=== PATIENT | female | born 1935 | race Caucasian/White ===

== ENCOUNTER 2016-02-20 13:57 | Emergency (ER) | payer MEDICARE ==
--- NOTE | 2016-02-20 15:36 | ER Document Report ---
ED Medical Screen (RME) - General Chief Complaint: Flank Pain Stated Complaint: BACK PAIN Mode of Arrival: Wheelchair Information source: Patient Notes: Patient is complaining of sharp intermittent bilateral low back pain that started 02/10/16 with associated urinary hesitancy. She was seen at urgent care last Saturday and was told her urinalysis was fine. She states the pain worsened last night because it woke her up out of her sleep. Endorses associated muscle spasms. Pain worse with movement or bending over. She has tried tylenol which did not provide relief. She was given what she believes was an antibotic from the urgent care that she took for 3 days. TRAVEL OUTSIDE OF THE [place] IN LAST 30 DAYS: No - Related Data Allergies/Adverse Reactions: No Known Allergies Allergy (Verified 02/20/16 14:13) Past Medical History - Past Medical History Cardiac Medical History: Reports: Hx Hypertension - medicated Denies: Hx Heart Attack Pulmonary Medical History: Denies: Hx Asthma Neurological Medical History: Denies: Hx Cerebrovascular Accident, Hx Seizures GI Medical History: Denies: Hx Hepatitis, Hx Hiatal Hernia, Hx Ulcer Infectious Medical History: Denies: Hx Hepatitis Past Surgical History: Denies: Hx Hysterectomy, Hx Mastectomy, Hx Open Heart Surgery, Hx Pacemaker Review of Systems - Review of Systems Constitutional: See HPI Genitourinary: See HPI Musculoskeletal: See HPI Physical Exam - Vital signs Vitals: Temp Pulse Resp BP Pulse Ox 98.1 F 64 20 142/51 H 100 02/20/16 14:09 02/20/16 14:09 02/20/16 14:02/20/16 14:02/20/16 14:09 - Notes Notes: General: well-appearing, no respiratory distress Course - Vital Signs Vital signs: Temp Pulse Resp BP Pulse Ox 98.1 F 64 20 142/51 H 100 02/20/16 14:09 02/20/16 14:09 02/20/16 14:02/20/16 14:02/20/16 14:09
[2016-02-20 18:03] LABS: APPEARANCE,URINE CLEAR; BILIRUBIN,URINE NEGATIVE (NEGATIVE); GLUCOSE, URINE NEGATIVE (NEGATIVE); KETONES,URINE NEGATIVE (NEGATIVE); LEUKOCYTE ESTERASE,URINE LARGE (NEGATIVE); NITRITE,URINE NEGATIVE (NEGATIVE); PROTEIN,URINE NEGATIVE (NEGATIVE); URINE SPECIFIC GRAVITY 1.011; UROBILINOGEN,URINE NEGATIVE mg/dL (<2.0)
[2016-02-20] MEDS ORDERED: HYDROCODONE/ACETAMINOPHEN 5-325 MG TABLET PO ONE (18:34)
[2016-02-20] MEDS ORDERED: LIDOCAINE 5% (700 MG) TRANSDERMAL ADH..PATCH TP ONE (18:34)
[2016-02-20 18:48] LABS: ABSOLUTE BASOPHILS # (AUTO) 0.1 10^3/uL (0.0-0.2); ABSOLUTE EOSINOPHILS # (AUTO) 0.1 10^3/uL (0.0-0.6); ABSOLUTE LYMPHOCYTES (AUTO) 1.5 10^3/uL (0.5-4.7); ABSOLUTE MONOCYTES (AUTO) 0.8 10^3/uL (0.1-1.4); ABSOLUTE NEUT (AUTO) 3.9 10^3/uL (1.7-8.2); BASOPHILS % (AUTO) 1.1 % (0-2); EOSINOPHILS % (AUTO) 1.4 % (0-6); HEMATOCRIT 41.4 % (36.0-47.0); HEMOGLOBIN 13.8 g/dL (12.0-15.5); MEAN CORPUSCULAR HEMOGLOBIN 32.5 pg (27.0-33.4); MEAN CORPUSCULAR HGB CONC 33.3 g/dL (32.0-36.0); MEAN CORPUSCULAR VOLUME 98 fl (80-97); MONOCYTES % (AUTO) 12.1 % (3-13); RED BLOOD COUNT 4.25 10^6/uL (3.72-5.28); RED CELL DISTRIBUTION WIDTH 16.7 % (11.5-14.0); SEGMENTED NEUTROPHILS % (AUTO) 61.4 % (42-78); WHITE BLOOD COUNT 6.4 10^3/uL (4.0-10.5)
[2016-02-20 19:06] LABS: ANION GAP 16 (5-19); BLOOD UREA NITROGEN 12 mg/dL (7-20); CALCIUM 9.4 mg/dL (8.4-10.2); CARBON DIOXIDE 26 mmol/L (22-30); CHLORIDE 102 mmol/L (98-107); CREATININE RESULT 0.68 mg/dL (0.52-1.25); GLUCOSE 97 mg/dL (75-110); POTASSIUM 3.8 mmol/L (3.6-5.0); SODIUM 143.9 mmol/L (137-145)
[2016-02-20] MEDS ORDERED: SULFAMETHOXAZOLE/TRIMETHOPRIM 800-160 MG TABLET PO ONE (21:04)
--- NOTE | 2016-02-20 21:10 | ER Document Report ---
ED General - General Chief Complaint: Flank Pain Stated Complaint: BACK PAIN Mode of Arrival: Wheelchair TRAVEL OUTSIDE OF THE [place] IN LAST 30 DAYS: No - HPI Patient complains to provider of: lower back pain flank pain Notes: Patient coming in for evaluation of lower back pain flank pain ongoing since . Patient denies any trauma denies fevers chills patient states possible some mild dysuria. Patient otherwise is sitting comfortably normal gait, evaluation in the examination room no fevers or chills and nausea no vomiting no recent antibiotics - Related Data Allergies/Adverse Reactions: No Known Allergies Allergy (Verified 02/20/16 14:13) Past Medical History - General Information source: Patient Last Menstrual Period: unknown - Social History Smoking Status: Never Smoker Frequency of alcohol use: None Drug Abuse: None Family History: None Patient has suicidal ideation: No Patient has homicidal ideation: No - Past Medical History Cardiac Medical History: Reports: Hx Hypercholesterolemia, Hx Hypertension - medicated Denies: Hx Heart Attack Pulmonary Medical History: Denies: Hx Asthma Neurological Medical History: Denies: Hx Cerebrovascular Accident, Hx Seizures GI Medical History: Denies: Hx Hepatitis, Hx Hiatal Hernia, Hx Ulcer Musculoskeltal Medical History: Reports Hx Arthritis Infectious Medical History: Denies: Hx Hepatitis Past Surgical History: Reports: Hx Tonsillectomy, Hx Tubal Ligation. Denies: Hx Hysterectomy, Hx Mastectomy, Hx Open Heart Surgery, Hx Pacemaker - Immunizations Hx Diphtheria, Pertussis, Tetanus Vaccination: No Review of Systems - Review of Systems Constitutional: No symptoms reported EENT: No symptoms reported Cardiovascular: No symptoms reported Respiratory: No symptoms reported Gastrointestinal: No symptoms reported Genitourinary: Dysuria, Flank pain Female Genitourinary: Other - Flank pain Musculoskeletal: No symptoms reported Skin: No symptoms reported Hematologic/Lymphatic: No symptoms reported Neurological/Psychological: No symptoms reported -: Yes All other systems reviewed and negative Physical Exam - Vital signs Vitals: Temp Pulse Resp BP Pulse Ox 98.1 F 64 20 142/51 H 100 02/20/16 14:09 02/20/16 14:09 02/20/16 14:09 02/20/16 14:09 02/20/16 14:09 Interpretation: Normal - General General appearance: Appears well, Alert - HEENT Head: Normocephalic, Atraumatic Eyes: Normal Pupils: PERRL - Respiratory Respiratory status: No respiratory distress Chest status: Nontender Breath sounds: Normal Chest palpation: Normal - Cardiovascular Rhythm: Regular Heart sounds: Normal auscultation Murmur: No - Abdominal Inspection: Normal Distension: No distension Bowel sounds: Normal Tenderness: Nontender Organomegaly: No organomegaly - Back Back: Normal, Nontender - Extremities General upper extremity: Normal inspection, Nontender, Normal color, Normal ROM , Normal temperature General lower extremity: Normal inspection, Nontender, Normal color, Normal ROM , Normal temperature, Normal weight bearing. No: Sommer's sign - Neurological Neuro grossly intact: Yes Cognition: Normal Orientation: AAOx4 Gardner Coma Scale Eye Opening: Spontaneous Gardner Coma Scale Verbal: Oriented Gisell Coma Scale Motor: Obeys Commands Gislel Coma Scale Total: 15 Speech: Normal Motor strength normal: LUE, RUE, LLE, RLE Sensory: Normal - Psychological Associated symptoms: Normal affect, Normal mood - Skin Skin Temperature: Warm Skin Moisture: Dry Skin Color: Normal Course - Re-evaluation Re-evalutation: 02/21/16 02:49 This workup shows urinalysis with signs possible infection lumbar spine shows possible compression fracture with a possible kidney stone. Patient underwent a renal stone study with basic lab work no signs of renal failure no signs of obstructive uropathy signs of compression fraction on CT scan. Patient will be discharged home after receiving good pain relief with [place] and Lidoderm patch was for the patient on antibiotics for UTI urine will be sent for culture patient discharged follow-up with PCP - Vital Signs Vital signs: Temp Pulse Resp BP Pulse Ox 97.5 F 62 16 131/65 H 96 02/20/16 21:18 02/20/16 21:18 02/20/16 21:18 02/20/16 21:18 02/20/16 21:18 - Laboratory Result Diagrams: 02/20/16 18:35 02/20/16 18:35 Laboratory results interpreted by me: 02/20/16 02/20/16 16:00 18:35 MCV 98 H RDW 16.7 H Plt Count 140 L Ur Leukocyte Esterase LARGE H Discharge - Discharge Clinical Impression: Low back pain Qualifiers: Chronicity: acute Back pain laterality: bilateral Sciatica presence: unspecified whether sciatica present Qualified Code(s): M54.5 - Low back pain UTI (urinary tract infection) Qualifiers: Urinary tract infection type: acute cystitis Hematuria presence: without hematuria Qualified Code(s): N30.00 - Acute cystitis without hematuria Condition: Good Disposition: HOME, SELF-CARE Instructions: Low Back Pain ([facility]), Urinary Tract Infection ([facility]), Trimethoprim- Sulfa ([facility]), Oral Narcotic Medication ([facility]) Additional Instructions: Take antibiotics as prescribed. Return to the ER as worsen. Apply patches daily. He may also take the [place] prescribed for very severe pain. Otherwise I recommend taking Tylenol or Motrin Prescriptions: Hydrocodone Bit/Acetaminophen [Hydrocodon-Acetaminophen 5-325] 1 each PO Q6 #14 tablet Lidocaine [Lidoderm 5% (700 mg) Transdermal Patch] 1 patch TP DAILY #10 adh..patch Sulfamethoxazole/Trimethoprim [Bactrim Ds Tablet] 1 each PO BID #14 tablet Referrals: NATALIA CHOI MD [Primary Care Provider] - Follow up in 3-5 days
[2016-02-20 21:23] VITALS: BP 131/65
== END 2016-02-20 21:25 | disposition home or self-care (01) ==
LOC: ER 13:57
DX: N30.00 Acute cystitis without hematuria (principal); M54.5 Low back pain; R10.9 Unspecified abdominal pain; E78.00 Pure hypercholesterolemia, unspecified; I10 Essential (primary) hypertension; Z98.51 Tubal ligation status
CPT/HCPCS: 99284; 36415; 87086; 85025; 80048; 81001; 72110; 76380; A9270 ×2

== ENCOUNTER 2016-02-26 13:23 | Emergency (ER) | payer MEDICARE ==
--- NOTE | 2016-02-26 13:33 | ER Document Report ---
ED Medical Screen (RME) - General Stated Complaint: FELL/BACK PAIN Notes: 80 yo fell. hit back of head on baseboard and wall. c/o head pain and low back pain. pt fell from standing. No LOC. Pt has had mulitple falls recently. + HTN, + DM. no chest pain, no shortness of breath. Pt has had ongoing low back pain. evaluated 1/2 in ED for same. Negative xrays TRAVEL OUTSIDE OF THE [place] IN LAST 30 DAYS: No - Related Data Allergies/Adverse Reactions: No Known Allergies Allergy (Verified 02/26/16 13:33) Past Medical History - Past Medical History Cardiac Medical History: Reports: Hx Hypercholesterolemia, Hx Hypertension - medicated Denies: Hx Heart Attack Pulmonary Medical History: Denies: Hx Asthma Neurological Medical History: Denies: Hx Cerebrovascular Accident, Hx Seizures GI Medical History: Denies: Hx Hepatitis, Hx Hiatal Hernia, Hx Ulcer Musculoskeltal Medical History: Reports Hx Arthritis Infectious Medical History: Denies: Hx Hepatitis Past Surgical History: Reports: Hx Tonsillectomy, Hx Tubal Ligation. Denies: Hx Hysterectomy, Hx Mastectomy, Hx Open Heart Surgery, Hx Pacemaker - Immunizations Hx Diphtheria, Pertussis, Tetanus Vaccination: No
--- NOTE | 2016-02-26 15:19 | ER Document Report ---
Addendum entered and electronically signed by MARCELO FELTON NP 15:56: Discharge - Discharge Clinical Impression: Fall at home Qualifiers: Encounter type: initial encounter Qualified Code(s): W19.XXXA - Unspecified fall, initial encounter Low back pain Qualifiers: Chronicity: acute Back pain laterality: bilateral Sciatica presence: unspecified whether sciatica present Qualified Code(s): M54.5 - Low back pain Headache Qualifiers: Headache type: unspecified Headache chronicity pattern: acute headache Intractability: not intractable Qualified Code(s): R51 - Headache Condition: Stable Disposition: HOME, SELF-CARE Additional Instructions: LOW BACK PAIN: Three out of every four people will have an episode of disabling back pain during their lifetime. Most commonly the pain is due to straining of the muscles and ligaments in the low back. Usual treatment includes: (1) Rest on a firm surface. Avoid lying on your stomach. (2) Ice pack the painful area. After a few days, gentle heat may be used intermittently to relax the area, or ice packs can be continued. (3) Medication may be needed -- muscle relaxers and antiinflammatory medicines are commonly used. (4) As the back improves, exercises are prescribed to strengthen the back and abdominal muscles. Your doctor will advise you on the proper care for your back at each stage in your recovery. You may be better in a few days -- or healing may take several weeks. If new symptoms of a "herniated disc" (radiation of pain, numbness, or tingling down the back of the leg or weakness in the leg) occur, you should be re-examined. Further testing may be necessary. HEADACHE: The physician does not feel that the headache you are experiencing has a serious underlying cause. Most headaches are due to emotional stress, with resultant muscle tension (tension headache). Occasionally, headaches are secondary to changes in the blood vessels of the scalp (vascular headache and migraine headache). Sometimes, a headache is the first symptom of another developing illness, such as a viral infection. You have no evidence of stroke, bleeding, meningitis, or other serious cause of your headache. The treatment of headaches varies with the severity and cause of the pain. Not all headaches need pain shots. In fact, there is evidence that using narcotics for headaches may make them worse in the long run. The physician will determine the therapy that's in your best interest. If you develop a fever, if the headache is different from any you've previously experienced, or if the headache progressively worsens, then call your physician at once or go to the emergency room. ORAL NARCOTIC MEDICATION: You have been given a dispense pack for pain control. This medication is a narcotic. It's best taken with food, as nausea can result if taken on an empty stomach. Don't operate machinery or drive within six hours of taking this medication. Do not combine this medicine with alcohol, or with any medication which can cause sedation (such as cold tablets or sleeping pills) unless you get permission from the physician. Narcotics tend to cause constipation. If possible, drink plenty of fluids and eat a diet high in fiber and fruits. Please be aware that prescription narcotics also have the potential for abuse. People become addicted to these medications because of the general sense of wellbeing that they induce. This feeling along with a significant reduction in tension, anxiety, and aggression provides a stimulating seductive quality to these drugs. Once your pain is under control, we encourage you to discard your unused narcotics. Ibuprofen Ibuprofen is an excellent, safe drug for pain control. In addition, it has potent antiinflammatory effects which are beneficial, especially in the treatment of injuries, arthritis, or tendonitis. It's best to take ibuprofen with food. Persons with ulcer disease or allergy to aspirin should notify their physician of this before taking ibuprofen. Take the medication exactly as prescribed. Don't take additional doses unless instructed to do so by your doctor. If you develop wheezing, shortness of breath, hives, faintness, stomach pain, vomiting, or dark black stools, return for re-evaluation at once. ICE PACKS: Apply ice packs frequently against the painful area. Many different schedules are recommended, such as "20 minutes on, 20 minutes off" or "one hour ice, two hours rest." If you need to work, you may need to go longer between ice treatments. You should plan to have the area ice packed AT LEAST one fourth of the time. The ice should be applied over the wrap, tape, or splint, or over a layer of cloth -- not directly against the skin. Some ice bags have a built-in cloth and can be put directly on the skin. WARM PACKS: After approximately two days, apply gentle heat (such as a heating pad or hot water bottle) for about 20 to 30 minutes about every two hours -- at least four times daily. Warmth and elevation will help you make a more rapid recovery , and will ease the pain considerably. Do not use HOT heat, and never apply heat for longer than 30 minutes. The continuous heat can invisibly damage skin and muscles -- even when no burn is seen on the surface. Damaged muscles can make you MORE sore. FOLLOW-UP CARE: If you have been referred to a physician for follow-up care, call the physician s office for an appointment as you were instructed or within the next two days. If you experience worsening or a significant change in your symptoms, notify the physician immediately or return to the Emergency Department at any time for re-evaluation. Prescriptions: Hydrocodone/Acetaminophen [[place] 5-325 mg Tablet] 1 tab PO Q8HP PRN #14 tablet PRN Reason: Referrals: NTAALIA CHOI MD [Primary Care Provider] - Follow up tomorrow Original Note: ED Fall - General Chief Complaint: Fall Stated Complaint: FELL/BACK PAIN Time seen by provider: 15:10 Mode of Arrival: Wheelchair Information source: Patient Notes: 80-year-old female presents to ED for fall states she lost her balance hit her head on the baseboard and wall. Patient is complaining of headache and low back pain states she has chronic back pain. She fell from a standing position states she's had multiple falls recently. She states she has a history of high blood pressure diabetes. States she has been checked up by the area counselor the neurologist and her primary doctor due to these frequent falls. TRAVEL OUTSIDE OF THE [place] IN LAST 30 DAYS: No - HPI Occurred: This afternoon Where: Home Context: Lost balance Associated symptoms: None Location of injury/pain: Breast, Head Quality of pain: Sharp Severity: Moderate Pain Level: 3 - Related data Allergies/Adverse Reactions: No Known Allergies Allergy (Verified 02/26/16 13:33) Past Medical History - General Information source: Patient - Social History Smoking Status: Never Smoker Cigarette use (# per day): No Chew tobacco use (# tins/day): No Smoking Education Provided: No Frequency of alcohol use: None Drug Abuse: None Occupation: none Lives with: Alone Family History: None Patient has suicidal ideation: No Patient has homicidal ideation: No - Past Medical History Cardiac Medical History: Reports: Hx Hypercholesterolemia, Hx Hypertension - medicated Pulmonary Medical History: Reports: Hx Sleep Apnea EENT Medical History: Reports: None Neurological Medical History: Reports: None Endocrine Medical History: Reports: Hx Diabetes Mellitus Type 2, Hx Hypothyroidism Renal/ Medical History: Reports: None Malignancy Medical History: Reports: None GI Medical History: Reports: Hx Colonoscopy, Hx Endoscopy Musculoskeltal Medical History: Reports Hx Arthritis Skin Medical History: Reports None Psychiatric Medical History: Reports: Hx Anxiety Traumatic Medical History: Reports: None Infectious Medical History: Reports: None Past Surgical History: Reports: Hx Tonsillectomy, Hx Tubal Ligation - Immunizations Immunizations up to date: No Hx Diphtheria, Pertussis, Tetanus Vaccination: No History of Influenza Vaccine for 11/2015 - 04/2016 Season: Yes History of Pneumococcal Vaccine: Yes Immunizations Comment: shingle shot Review of Systems - Review of Systems Constitutional: No symptoms reported EENT: No symptoms reported Cardiovascular: No symptoms reported Respiratory: No symptoms reported Gastrointestinal: No symptoms reported. denies: Diarrhea, Nausea, Fecal incontinence Genitourinary: No symptoms reported. denies: Incontinence, Retention Female Genitourinary: No symptoms reported Musculoskeletal: Back pain Skin: No symptoms reported Hematologic/Lymphatic: No symptoms reported Neurological/Psychological: Headaches -: Yes All other systems reviewed and negative Physical Exam - Vital signs Vitals: Temp Pulse Resp BP Pulse Ox 98.2 F 83 20 117/62 96 02/26/16 13:33 02/26/16 13:33 02/26/16 13:33 02/26/16 13:33 02/26/16 13:33 Interpretation: Normal - General General appearance: Appears well, Alert - HEENT Head: Normocephalic, Atraumatic Eyes: Normal Pupils: PERRL Ears: Normal External canal: Normal Tympanic membrane: Normal Sinus: Normal Nasal: Purulent discharge, Swelling Mouth/Lips: Normal Mucous membranes: Normal Pharynx: Post nasal drainage Neck: Normal - Respiratory Respiratory status: No respiratory distress Chest status: Nontender Breath sounds: Nonproductive cough Chest palpation: Normal - Cardiovascular Rhythm: Regular Heart sounds: Normal auscultation Murmur: No - Abdominal Inspection: Normal Distension: No distension Bowel sounds: Normal Tenderness: Nontender Organomegaly: No organomegaly - Back Back: Normal, Vertebra tenderness - lumbar bilateral muscle pain - Extremities General upper extremity: Normal inspection, Nontender, Normal color, Normal ROM , Normal temperature General lower extremity: Normal inspection, Nontender, Normal color, Normal ROM , Normal temperature, Normal weight bearing. No: Sommer's sign - Neurological Neuro grossly intact: Yes Cognition: Normal Orientation: AAOx4 Gisell Coma Scale Eye Opening: Spontaneous [place] Coma Scale Verbal: Oriented [place] Coma Scale Motor: Obeys Commands Gisell Coma Scale Total: 15 Speech: Normal Cranial nerves: Normal Cerebellar coordination: Normal Motor strength normal: LUE, RUE, LLE, RLE Additional motor exam normals: Equal automatic operator Babinski reflex: Normal (flexor plantar) Sensory: Normal - Psychological Associated symptoms: Normal affect, Normal mood - Skin Skin Temperature: Warm Skin Moisture: Dry Skin Color: Normal Course - Re-evaluation Re-evalutation: 02/26/16 15:33 No signs of cauda equina, no loss of sensation no loss of movement no loss of control of bowel or bladder. Her pain in her back is a chronic problem. She is discharged carly with a dispense pack of hydrocodone and told to follow-up with her primary doctor 02/26/16 15:[address] and x-ray with patient and gave her a written report - Vital Signs Vital signs: Temp Pulse Resp BP Pulse Ox 98.2 F 83 20 117/62 96 02/26/16 13:33 02/26/16 13:33 02/26/16 13:33 02/26/16 13:33 02/26/16 13:33 - Diagnostic Test Radiology reviewed: Image reviewed, Reports reviewed Discharge - Discharge Clinical Impression: Fall at home Qualifiers: Encounter type: initial encounter Qualified Code(s): W19.XXXA - Unspecified fall, initial encounter Low back pain Qualifiers: Chronicity: acute Back pain laterality: bilateral Sciatica presence: unspecified whether sciatica present Qualified Code(s): M54.5 - Low back pain Headache Qualifiers: Headache type: unspecified Headache chronicity pattern: acute headache Intractability: not intractable Qualified Code(s): R51 - Headache Condition: Stable Disposition: HOME, SELF-CARE Additional Instructions: LOW BACK PAIN: Three out of every four people will have an episode of disabling back pain during their lifetime. Most commonly the pain is due to straining of the muscles and ligaments in the low back. Usual treatment includes: (1) Rest on a firm surface. Avoid lying on your stomach. (2) Ice pack the painful area. After a few days, gentle heat may be used intermittently to relax the area, or ice packs can be continued. (3) Medication may be needed -- muscle relaxers and antiinflammatory medicines are commonly used. (4) As the back improves, exercises are prescribed to strengthen the back and abdominal muscles. Your doctor will advise you on the proper care for your back at each stage in your recovery. You may be better in a few days -- or healing may take several weeks. If new symptoms of a "herniated disc" (radiation of pain, numbness, or tingling down the back of the leg or weakness in the leg) occur, you should be re-examined. Further testing may be necessary. HEADACHE: The physician does not feel that the headache you are experiencing has a serious underlying cause. Most headaches are due to emotional stress, with resultant muscle tension (tension headache). Occasionally, headaches are secondary to changes in the blood vessels of the scalp (vascular headache and migraine headache). Sometimes, a headache is the first symptom of another developing illness, such as a viral infection. You have no evidence of stroke, bleeding, meningitis, or other serious cause of your headache. The treatment of headaches varies with the severity and cause of the pain. Not all headaches need pain shots. In fact, there is evidence that using narcotics for headaches may make them worse in the long run. The physician will determine the therapy that's in your best interest. If you develop a fever, if the headache is different from any you've previously experienced, or if the headache progressively worsens, then call your physician at once or go to the emergency room. ORAL NARCOTIC MEDICATION: You have been given a dispense pack for pain control. This medication is a narcotic. It's best taken with food, as nausea can result if taken on an empty stomach. Don't operate machinery or drive within six hours of taking this medication. Do not combine this medicine with alcohol, or with any medication which can cause sedation (such as cold tablets or sleeping pills) unless you get permission from the physician. Narcotics tend to cause constipation. If possible, drink plenty of fluids and eat a diet high in fiber and fruits. Please be aware that prescription narcotics also have the potential for abuse. People become addicted to these medications because of the general sense of wellbeing that they induce. This feeling along with a significant reduction in tension, anxiety, and aggression provides a stimulating seductive quality to these drugs. Once your pain is under control, we encourage you to discard your unused narcotics. Ibuprofen Ibuprofen is an excellent, safe drug for pain control. In addition, it has potent antiinflammatory effects which are beneficial, especially in the treatment of injuries, arthritis, or tendonitis. It's best to take ibuprofen with food. Persons with ulcer disease or allergy to aspirin should notify their physician of this before taking ibuprofen. Take the medication exactly as prescribed. Don't take additional doses unless instructed to do so by your doctor. If you develop wheezing, shortness of breath, hives, faintness, stomach pain, vomiting, or dark black stools, return for re-evaluation at once. ICE PACKS: Apply ice packs frequently against the painful area. Many different schedules are recommended, such as "20 minutes on, 20 minutes off" or "one hour ice, two hours rest." If you need to work, you may need to go longer between ice treatments. You should plan to have the area ice packed AT LEAST one fourth of the time. The ice should be applied over the wrap, tape, or splint, or over a layer of cloth -- not directly against the skin. Some ice bags have a built-in cloth and can be put directly on the skin. WARM PACKS: After approximately two days, apply gentle heat (such as a heating pad or hot water bottle) for about 20 to 30 minutes about every two hours -- at least four times daily. Warmth and elevation will help you make a more rapid recovery , and will ease the pain considerably. Do not use HOT heat, and never apply heat for longer than 30 minutes. The continuous heat can invisibly damage skin and muscles -- even when no burn is seen on the surface. Damaged muscles can make you MORE sore. FOLLOW-UP CARE: If you have been referred to a physician for follow-up care, call the physician s office for an appointment as you were instructed or within the next two days. If you experience worsening or a significant change in your symptoms, notify the physician immediately or return to the Emergency Department at any time for re-evaluation. Referrals: NATALIA CHOI MD [Primary Care Provider] - Follow up tomorrow
[2016-02-26] MEDS ORDERED: HYDROCODONE/ACETAMINOPHEN 5-325 MG 6 TAB/DSPK PO PRN (15:27)
[2016-02-26 16:18] VITALS: BP 122/64
== END 2016-02-26 15:49 | disposition home or self-care (01) ==
LOC: ER 13:23
DX: R51 Headache (principal); M54.5 Low back pain; W19.XXXA Unspecified fall, initial encounter
CPT/HCPCS: 99284; 72110; 70450; A9270

== ENCOUNTER → 2016-02-29 | Outpatient (CLI) | payer MEDICARE ==
[2016-02-29 12:23] LABS: ABSOLUTE EOSINOPHILS # (AUTO) 0.1 10^3/uL (0.0-0.6); ABSOLUTE LYMPHOCYTES (AUTO) 0.9 10^3/uL (0.5-4.7); ABSOLUTE MONOCYTES (AUTO) 0.4 10^3/uL (0.1-1.4); ABSOLUTE NEUT (AUTO) 1.9 10^3/uL (1.7-8.2); BASOPHILS % (AUTO) 0.6 % (0-2); EOSINOPHILS % (AUTO) 2.1 % (0-6); HEMATOCRIT 39.5 % (36.0-47.0); HEMOGLOBIN 13.7 g/dL (12.0-15.5); HGB HCT DIFFERENCE 1.6; LYMPHOCYTES % (AUTO) 27.1 % (13-45); MEAN CORPUSCULAR HGB CONC 34.6 g/dL (32.0-36.0); MEAN CORPUSCULAR VOLUME 95 fl (80-97); MONOCYTES % (AUTO) 12.5 % (3-13); RED BLOOD COUNT 4.14 10^6/uL (3.72-5.28); RED CELL DISTRIBUTION WIDTH 17.1 % (11.5-14.0); SEGMENTED NEUTROPHILS % (AUTO) 57.7 % (42-78); WHITE BLOOD COUNT 3.4 10^3/uL (4.0-10.5)
[2016-02-29 12:25] LABS: ALANINE AMINOTRANSFERASE 58 U/L (9-52); ALBUMIN 4.1 g/dL (3.5-5.0); ALKALINE PHOSPHATASE 74 U/L (38-126); ANION GAP 17 (5-19); ASPARTATE AMINO TRANSFERASE 86 U/L (14-36); BILIRUBIN,TOTAL 1.1 mg/dL (0.2-1.3); BLOOD UREA NITROGEN 18 mg/dL (7-20); CALCIUM 9.3 mg/dL (8.4-10.2); CARBON DIOXIDE 21 mmol/L (22-30); CHLORIDE 105 mmol/L (98-107); CHOLESTEROL 80.65 mg/dL (0-200); CREATININE RESULT 1.01 mg/dL (0.52-1.25); Direct HDL 20 mg/dL (>40); GLUCOSE 131 mg/dL (75-110); POTASSIUM 4.7 mmol/L (3.6-5.0); SODIUM 143.3 mmol/L (137-145); TOTAL PROTEIN 8.2 g/dL (6.3-8.2); TRIGLYCERIDES 99 mg/dL (<150)
[2016-02-29 12:36] LABS: DIRECT LDL 31 mg/dL (<100)
[2016-02-29 13:47] LABS: THYROID STIMULATING HORMONE 0.77 uIU/mL (0.47-4.68)
== END ==
LOC: OD 11:30
PROVIDERS: ATTEND Internal Medicine Nephrology
DX: E11.9 Type 2 diabetes mellitus without complications (principal); E78.2 Mixed hyperlipidemia; E03.9 Hypothyroidism, unspecified; E55.9 Vitamin D deficiency, unspecified
CPT/HCPCS: 36415; 80053; 80061; 82306; 83036; 84439; 84443; 85025

== ENCOUNTER → 2016-05-28 | Outpatient (CLI) | payer MEDICARE ==
[2016-05-28 14:19] LABS: ANION GAP 15 (5-19); BLOOD UREA NITROGEN 16 mg/dL (7-20); CALCIUM 9.4 mg/dL (8.4-10.2); CARBON DIOXIDE 22 mmol/L (22-30); CHLORIDE 107 mmol/L (98-107); CREATININE RESULT 0.66 mg/dL (0.52-1.25); Direct HDL 33 mg/dL (>40); GLUCOSE 121 mg/dL (75-110); POTASSIUM 4.4 mmol/L (3.6-5.0); SODIUM 144.3 mmol/L (137-145); TRIGLYCERIDES 91 mg/dL (<150)
[2016-05-28 14:30] LABS: DIRECT LDL 60 mg/dL (<100)
== END ==
LOC: OD 12:25
PROVIDERS: ATTEND Internal Medicine Nephrology
DX: E11.9 Type 2 diabetes mellitus without complications (principal); E78.2 Mixed hyperlipidemia
CPT/HCPCS: 36415; 80048; 80061; 83036

== ENCOUNTER → 2016-08-28 | Outpatient (CLI) | payer MEDICARE ==
[2016-08-28 13:27] LABS: ALANINE AMINOTRANSFERASE 40 U/L (9-52); ALKALINE PHOSPHATASE 68 U/L (38-126); ANION GAP 12 (5-19); ASPARTATE AMINO TRANSFERASE 46 U/L (14-36); BILIRUBIN,DIRECT 0.4 mg/dL (0.0-0.4); BILIRUBIN,TOTAL 1.2 mg/dL (0.2-1.3); BLOOD UREA NITROGEN 15 mg/dL (7-20); CARBON DIOXIDE 23 mmol/L (22-30); CHLORIDE 106 mmol/L (98-107); CHOLESTEROL 124.67 mg/dL (0-200); CREATININE RESULT 0.73 mg/dL (0.52-1.25); Direct HDL 36 mg/dL (>40); GLUCOSE 134 mg/dL (75-110); POTASSIUM 4.3 mmol/L (3.6-5.0); SODIUM 141.3 mmol/L (137-145); TOTAL PROTEIN 8.3 g/dL (6.3-8.2); TRIGLYCERIDES 77 mg/dL (<150)
[2016-08-28 13:38] LABS: DIRECT LDL 71 mg/dL (<100)
[2016-08-29 11:41] LABS: MICROALBUMIN URINE 46.3 ug/mL (Not Estab.)
== END ==
LOC: OD 12:13
PROVIDERS: ATTEND Internal Medicine Nephrology
DX: E11.9 Type 2 diabetes mellitus without complications (principal); E78.2 Mixed hyperlipidemia
CPT/HCPCS: 36415; 80053; 80061; 82043; 82570; 83036

== ENCOUNTER → 2016-11-28 | Outpatient (CLI) | payer MEDICARE ==
[2016-11-28 12:29] LABS: ANION GAP 12 (5-19); BLOOD UREA NITROGEN 23 mg/dL (7-20); CALCIUM 9.1 mg/dL (8.4-10.2); CARBON DIOXIDE 25 mmol/L (22-30); CHLORIDE 106 mmol/L (98-107); CREATININE RESULT 0.69 mg/dL (0.52-1.25); GLUCOSE 136 mg/dL (75-110); POTASSIUM 4.3 mmol/L (3.6-5.0); SODIUM 142.5 mmol/L (137-145)
== END ==
LOC: OD 10:57
PROVIDERS: ATTEND Internal Medicine Nephrology
DX: I10 Essential (primary) hypertension (principal); E11.9 Type 2 diabetes mellitus without complications; E03.9 Hypothyroidism, unspecified
CPT/HCPCS: 36415; 80048; 83036; 84439; 84443

== ENCOUNTER → 2016-12-31 | Outpatient (CLI) | payer MEDICARE ==
[2016-12-31 13:36] LABS: ANION GAP 10 (5-19); BLOOD UREA NITROGEN 15 mg/dL (7-20); CARBON DIOXIDE 31 mmol/L (22-30); CHLORIDE 103 mmol/L (98-107); CREATININE RESULT 0.88 mg/dL (0.52-1.25); GLUCOSE 156 mg/dL (75-110); SODIUM 143.7 mmol/L (137-145)
[2016-12-31 14:04] LABS: THYROID STIMULATING HORMONE 2.44 uIU/mL (0.47-4.68)
== END ==
LOC: OD 11:05
PROVIDERS: ATTEND Internal Medicine Nephrology
DX: E03.9 Hypothyroidism, unspecified (principal); E11.9 Type 2 diabetes mellitus without complications
CPT/HCPCS: 36415; 80048; 84439; 84443

== ENCOUNTER 2017-03-29 13:07 | Emergency (ER) | payer MEDICARE ==
--- NOTE | 2017-03-29 14:43 | ER Document Report ---
ED General - General Chief Complaint: Fall Stated Complaint: FALL/HIP PAIN Time Seen by Provider: 03/29/17 14:34 Mode of Arrival: Wheelchair Information source: Patient Notes: 81-year-old female presents with 2 week duration of left hip pain after fall. Patient notes she falls often has formed 25 times in the past 2 years, she states she has been seen by multiple neurologists ENT physicians with no diagnosis of her falls. She denies any weakness or numbness admits to pain in the left hip, she is able to ambulate with a walker TRAVEL OUTSIDE OF THE [place] IN LAST 30 DAYS: No - HPI Onset: Other Onset/Duration: Persistent Quality of pain: Achy Severity: Mild Pain Level: 1 Associated symptoms: Body/muscle aches Exacerbated by: Movement, Walking Relieved by: Denies Similar symptoms previously: No Recently seen / treated by doctor: No - Related Data Allergies/Adverse Reactions: No Known Allergies Allergy (Verified 03/29/17 13:08) Past Medical History - Social History Smoking Status: Never Smoker Cigarette use (# per day): No Chew tobacco use (# tins/day): No Smoking Education Provided: No Frequency of alcohol use: None Drug Abuse: None Family History: None Patient has suicidal ideation: No Patient has homicidal ideation: No - Past Medical History Cardiac Medical History: Reports: Hx Hypercholesterolemia, Hx Hypertension - medicated Denies: Hx Heart Attack Pulmonary Medical History: Reports: Hx Sleep Apnea, Hx Tuberculosis Denies: Hx Asthma Neurological Medical History: Denies: Hx Cerebrovascular Accident, Hx Seizures Endocrine Medical History: Reports: Hx Diabetes Mellitus Type 2, Hx Hypothyroidism Renal/ Medical History: Denies: Hx Peritoneal Dialysis GI Medical History: Reports: Hx Colonoscopy, Hx Endoscopy. Denies: Hx Hepatitis , Hx Hiatal Hernia, Hx Ulcer Musculoskeltal Medical History: Reports Hx Arthritis - RA Psychiatric Medical History: Reports: Hx Anxiety Infectious Medical History: Denies: Hx Hepatitis Past Surgical History: Reports: Hx Tonsillectomy, Hx Tubal Ligation. Denies: Hx Hysterectomy, Hx Mastectomy, Hx Open Heart Surgery, Hx Pacemaker - Immunizations Immunizations up to date: No Hx Diphtheria, Pertussis, Tetanus Vaccination: No Review of Systems - Review of Systems Notes: REVIEW OF SYSTEMS: CONSTITUTIONAL : Denies fever, chills, or sweats. Denies recent illness. EENT: Denies eye, ear, throat, or mouth pain or symptoms. Denies nasal or sinus congestion or discharge. Denies throat, tongue, or mouth swelling or difficulty swallowing. CARDIOVASCULAR: Denies chest pain. Denies palpitations or racing or irregular heart beat. Denies ankle edema. RESPIRATORY: Denies cough, cold, or chest congestion. Denies shortness of breath, difficulty breathing, or wheezing. GASTROINTESTINAL: Denies abdominal pain or distention. Denies nausea, vomiting , or diarrhea. Denies blood in vomitus, stools, or per rectum. Denies black, tarry stools. Denies constipation. GENITOURINARY: Denies difficulty urinating, painful urination, burning, frequency, blood in urine, or discharge. FEMALE GENITOURINARY: Denies vaginal bleeding, heavy or abnormal periods, irregular periods. Denies vaginal discharge or odor. MUSCULOSKELETAL: Admits left hip pain SKIN: Denies rash, lesions or sores. HEMATOLOGIC : Admits to bruise of the left hip LYMPHATIC: Denies swollen, enlarged glands. NEUROLOGICAL: Denies confusion or altered mental status. Denies passing out or loss of consciousness. Denies dizziness or lightheadedness. Denies headache. Denies weakness or paralysis or loss of use of either side. Denies problems with gait or speech. Denies sensory loss, numbness, or tingling. Denies seizures. PSYCHIATRIC: Denies anxiety or stress. Denies depression, suicidal ideation, or homicidal ideation. ALL OTHER SYSTEMS REVIEWED AND NEGATIVE. PHYSICAL EXAMINATION: GENERAL: Well-appearing, well-nourished and in no acute distress. HEAD: Atraumatic, normocephalic. EYES: Pupils equal round and reactive to light, extraocular movements intact, conjunctiva are normal. ENT: Nares patent, oropharynx clear without exudates. Moist mucous membranes. NECK: Normal range of motion, supple without lymphadenopathy LUNGS: Breath sounds clear to auscultation bilaterally and equal. No wheezes rales or rhonchi. HEART: Regular rate and rhythm without murmurs ABDOMEN: Soft, nontender, nondistended abdomen. No guarding, no rebound. No masses appreciated. Female : deferred Musculoskeletal: Normal range of motion, no pitting or edema. No cyanosis. NEUROLOGICAL: Cranial nerves grossly intact. Normal speech, normal gait. Normal sensory, motor exams PSYCH: Normal mood, normal affect. SKIN: Ecchymosis left lateral thigh old Dictation was performed using [employer] voice recognition software Course - Re-evaluation Re-evalutation: 03/29/17 14:42 X-rays pending patient has very low suspicion for actual fracture 03/29/17 15:14 X-ray noted no significant abnormality, patient is able to ambulate will be given pain control is otherwise stable for discharge After performing a Medical Screening Examination, I estimate there is LOW risk for INTRACRANIAL HEMORRHAGE, UNSTABLE SPINE FRACTURE, CENTRAL CORD SYNDROME, CAUDA EQUINA, THORACIC AORTIC DISSECTION, PNEUMOTHORAX, PERFORATED BOWEL, RUPTURED ABDOMINAL AORTIC ANEURYSM, ACUTE TENDON RUPTURE, COMPARTMENT SYNDROME, or OPEN FRACTURE, thus I consider the discharge disposition reasonable. Also, there is no evidence or peritonitis, sepsis, or toxicity. I have reevaluated this patient multiple times and no significant life threatening changes are noted. The patient and I have discussed the diagnosis and risks, and we agree with discharging home to follow-up with their primary doctor with the understanding that symptoms and presentations can change. We also discussed returning to the Emergency Department immediately if new or worsening symptoms occur. We have discussed the symptoms which are most concerning (e.g., bloody stool, fever, changing or worsening pain, vomiting) that necessitate immediate return. - Diagnostic Test Radiology reviewed: Image reviewed, Reports reviewed Discharge - Discharge Clinical Impression: Injury of left hip Qualifiers: Encounter type: initial encounter Qualified Code(s): S79.912A - Unspecified injury of left hip, initial encounter Condition: Stable Disposition: HOME, SELF-CARE Instructions: Contusion ([facility]) Additional Instructions: Please follow-up with your physician for further evaluation of your pain or return immediately for any other concerns Prescriptions: Hydrocodone/Acetaminophen [[place] 5-325 mg Tablet] 1 tab PO Q6 #20 tablet
--- NOTE | 2017-03-29 15:07 | RADIOLOGY REPORT (SQ) ---
EXAM DESCRIPTION: HIP LEFT AP/LATERAL COMPLETED DATE/TIME: 03/29/2017 2:53 pm REASON FOR STUDY: fall COMPARISON: None. NUMBER OF VIEWS: Two views. TECHNIQUE: AP pelvis and additional frog-leg view of the left hip. LIMITATIONS: None. FINDINGS: MINERALIZATION: Normal. LEFT HIP: No fracture or dislocation. No worrisome bone lesions. RIGHT HIP: No fracture or dislocation. No worrisome bone lesions. PUBIS AND ISCHIUM: No fracture. PELVIS: No fracture. SACRUM: No fracture or dislocation. No worrisome bone lesions. LOWER LUMBAR SPINE: No fracture or dislocation. No worrisome bone lesions. Mild degenerative disc di sease. SOFT TISSUES: No acute findings. OTHER: No other significant finding. IMPRESSION: NO RADIOGRAPHIC EVIDENCE OF ACUTE INJURY. TECHNICAL DOCUMENTATION: JOB ID: [id number] [place]-72 2010 [employer]- All Rights Reserved
[2017-03-29] MEDS ORDERED: HYDROCODONE/ACETAMINOPHEN 5-325 MG TABLET PO ONE (15:16)
[2017-03-29 15:26] VITALS: BP 146/47
== END 2017-03-29 15:24 | disposition home or self-care (01) ==
LOC: ER 13:07
DX: S79.912A Unspecified injury of left hip, initial encounter (principal); M25.552 Pain in left hip; W19.XXXA Unspecified fall, initial encounter; Z91.81 History of falling; I10 Essential (primary) hypertension; E11.9 Type 2 diabetes mellitus without complications; Z79.899 Other long term (current) drug therapy
CPT/HCPCS: 99284; 73502; A9270

== ENCOUNTER → 2017-04-30 | Outpatient (CLI) | payer MEDICARE ==
[2017-04-30 13:39] LABS: ABSOLUTE EOSINOPHILS # (AUTO) 0.1 10^3/uL (0.0-0.6); ABSOLUTE MONOCYTES (AUTO) 0.4 10^3/uL (0.1-1.4); ABSOLUTE NEUT (AUTO) 2.5 10^3/uL (1.7-8.2); BASOPHILS % (AUTO) 0.7 % (0-2); EOSINOPHILS % (AUTO) 1.4 % (0-6); HEMATOCRIT 38.9 % (36.0-47.0); HEMOGLOBIN 13.3 g/dL (12.0-15.5); LYMPHOCYTES % (AUTO) 24.5 % (13-45); MEAN CORPUSCULAR HEMOGLOBIN 33.9 pg (27.0-33.4); MEAN CORPUSCULAR HGB CONC 34.2 g/dL (32.0-36.0); MEAN CORPUSCULAR VOLUME 99 fl (80-97); MONOCYTES % (AUTO) 9.5 % (3-13); PLATELET COUNT 113 10^3/uL (150-450); RED BLOOD COUNT 3.92 10^6/uL (3.72-5.28); RED CELL DISTRIBUTION WIDTH 18.4 % (11.5-14.0); SEGMENTED NEUTROPHILS % (AUTO) 63.9 % (42-78); TOTAL CELLS COUNTED % (AUTO) 100 %; WHITE BLOOD COUNT 3.9 10^3/uL (4.0-10.5)
[2017-04-30 13:56] LABS: APPEARANCE,URINE CLEAR; BILIRUBIN,URINE NEGATIVE (NEGATIVE); COLOR,URINE YELLOW; GLUCOSE, URINE NEGATIVE (NEGATIVE); KETONES,URINE NEGATIVE (NEGATIVE); LEUKOCYTE ESTERASE,URINE TRACE (NEGATIVE); NITRITE,URINE NEGATIVE (NEGATIVE); PROTEIN,URINE 30 mg/dL (NEGATIVE); URINE SPECIFIC GRAVITY 1.018
[2017-04-30 13:59] LABS: ALANINE AMINOTRANSFERASE 44 U/L (9-52); ALBUMIN 4.1 g/dL (3.5-5.0); ALKALINE PHOSPHATASE 92 U/L (38-126); ANION GAP 9 (5-19); ASPARTATE AMINO TRANSFERASE 57 U/L (14-36); BILIRUBIN,DIRECT 0.6 mg/dL (0.0-0.4); BILIRUBIN,TOTAL 1.3 mg/dL (0.2-1.3); BLOOD UREA NITROGEN 14 mg/dL (7-20); CALCIUM 9.6 mg/dL (8.4-10.2); CARBON DIOXIDE 31 mmol/L (22-30); CHLORIDE 103 mmol/L (98-107); CHOLESTEROL 154.54 mg/dL (0-200); GLUCOSE 175 mg/dL (75-110); POTASSIUM 3.9 mmol/L (3.6-5.0); SODIUM 143.3 mmol/L (137-145); TOTAL PROTEIN 8.1 g/dL (6.3-8.2); TRIGLYCERIDES 116 mg/dL (<150)
[2017-04-30 14:10] LABS: DIRECT LDL 94 mg/dL (<100)
[2017-04-30 14:15] LABS: FREE T4 (FREE THYROXINE) 1.84 ng/dL (0.78-2.19)
[2017-04-30 14:28] LABS: THYROID STIMULATING HORMONE 6.01 uIU/mL (0.47-4.68)
[2017-05-02 12:38] LABS: CREATININE URINE 177.4 mg/dL (Not Estab.); MICROALBUMIN URINE 41.9 ug/mL (Not Estab.)
== END ==
LOC: OD 12:38
PROVIDERS: ATTEND Internal Medicine Nephrology
DX: E03.9 Hypothyroidism, unspecified (principal); E11.9 Type 2 diabetes mellitus without complications; E78.2 Mixed hyperlipidemia
CPT/HCPCS: 36415; 80053; 80061; 81001; 82043; 82570; 83036; 84439; 84443; 85025

== ENCOUNTER → 2017-08-02 | Outpatient (CLI) | payer MEDICARE ==
[2017-08-02 12:49] LABS: ABSOLUTE EOSINOPHILS # (AUTO) 0.1 10^3/uL (0.0-0.6); ABSOLUTE LYMPHOCYTES (AUTO) 0.9 10^3/uL (0.5-4.7); ABSOLUTE MONOCYTES (AUTO) 0.3 10^3/uL (0.1-1.4); ABSOLUTE NEUT (AUTO) 2.1 10^3/uL (1.7-8.2); BASOPHILS % (AUTO) 0.7 % (0-2); EOSINOPHILS % (AUTO) 1.7 % (0-6); HEMATOCRIT 37.3 % (36.0-47.0); HEMOGLOBIN 12.7 g/dL (12.0-15.5); LYMPHOCYTES % (AUTO) 26.8 % (13-45); MEAN CORPUSCULAR HEMOGLOBIN 35.4 pg (27.0-33.4); MEAN CORPUSCULAR HGB CONC 34.1 g/dL (32.0-36.0); MEAN CORPUSCULAR VOLUME 104 fl (80-97); MONOCYTES % (AUTO) 9.7 % (3-13); PLATELET COUNT 101 10^3/uL (150-450); RED BLOOD COUNT 3.59 10^6/uL (3.72-5.28); RED CELL DISTRIBUTION WIDTH 16.8 % (11.5-14.0); SEGMENTED NEUTROPHILS % (AUTO) 61.1 % (42-78); TOTAL CELLS COUNTED % (AUTO) 100 %; WHITE BLOOD COUNT 3.5 10^3/uL (4.0-10.5)
[2017-08-02 12:52] LABS: APPEARANCE,URINE SLIGHTLY-CLOUDY; BILIRUBIN,URINE NEGATIVE (NEGATIVE); COLOR,URINE YELLOW; GLUCOSE, URINE NEGATIVE (NEGATIVE); KETONES,URINE NEGATIVE (NEGATIVE); LEUKOCYTE ESTERASE,URINE MODERATE (NEGATIVE); NITRITE,URINE NEGATIVE (NEGATIVE); PROTEIN,URINE NEGATIVE (NEGATIVE); URINE SPECIFIC GRAVITY 1.016
[2017-08-02 13:10] LABS: ALANINE AMINOTRANSFERASE 38 U/L (9-52); ALBUMIN 3.7 g/dL (3.5-5.0); ALKALINE PHOSPHATASE 64 U/L (38-126); ANION GAP 13 (5-19); ASPARTATE AMINO TRANSFERASE 51 U/L (14-36); BILIRUBIN,DIRECT 0.4 mg/dL (0.0-0.4); BILIRUBIN,TOTAL 1.1 mg/dL (0.2-1.3); BLOOD UREA NITROGEN 18 mg/dL (7-20); CALCIUM 9.2 mg/dL (8.4-10.2); CARBON DIOXIDE 30 mmol/L (22-30); CHLORIDE 106 mmol/L (98-107); GLUCOSE 180 mg/dL (75-110); POTASSIUM 4.4 mmol/L (3.6-5.0); SODIUM 148.9 mmol/L (137-145); TOTAL PROTEIN 7.3 g/dL (6.3-8.2); TRIGLYCERIDES 95 mg/dL (<150)
[2017-08-02 13:24] LABS: DIRECT LDL 73 mg/dL (<100)
[2017-08-02 13:29] LABS: FREE T4 (FREE THYROXINE) 1.87 ng/dL (0.78-2.19)
[2017-08-02 13:43] LABS: THYROID STIMULATING HORMONE 0.78 uIU/mL (0.47-4.68)
[2017-08-03 12:37] LABS: CREATININE URINE 124.5 mg/dL (Not Estab.); MICROALBUMIN URINE 31.8 ug/mL (Not Estab.)
== END ==
LOC: OD 11:49
PROVIDERS: ATTEND Internal Medicine Nephrology
DX: E03.9 Hypothyroidism, unspecified (principal); E11.9 Type 2 diabetes mellitus without complications; E78.2 Mixed hyperlipidemia; D69.6 Thrombocytopenia, unspecified
CPT/HCPCS: 36415; 80053; 80061; 81001; 82043; 82570; 83036; 84439; 84443; 85025

== ENCOUNTER → 2017-11-13 | Outpatient (CLI) | payer MEDICARE ==
[2017-11-13 14:07] LABS: ANION GAP 11 (5-19); BLOOD UREA NITROGEN 16 mg/dL (7-20); CALCIUM 9.4 mg/dL (8.4-10.2); CARBON DIOXIDE 28 mmol/L (22-30); CHLORIDE 102 mmol/L (98-107); GLUCOSE 144 mg/dL (75-110)
== END ==
LOC: OD 12:33
PROVIDERS: ATTEND Internal Medicine Nephrology
DX: E11.9 Type 2 diabetes mellitus without complications (principal)
CPT/HCPCS: 36415; 80048; 83036

== ENCOUNTER → 2018-01-07 | Outpatient (CLI) | payer MEDICARE ==
[2018-01-07 13:56] LABS: ANION GAP 13 (5-19); BLOOD UREA NITROGEN 14 mg/dL (7-20); CALCIUM 9.1 mg/dL (8.4-10.2); CARBON DIOXIDE 29 mmol/L (22-30); CHLORIDE 102 mmol/L (98-107); GLUCOSE 161 mg/dL (75-110); POTASSIUM 3.9 mmol/L (3.6-5.0); SODIUM 143.5 mmol/L (137-145)
== END ==
LOC: OD 12:24
PROVIDERS: ATTEND Internal Medicine Nephrology
DX: E11.9 Type 2 diabetes mellitus without complications (principal)
CPT/HCPCS: 36415; 80048; 83036

== ENCOUNTER → 2018-04-04 | Outpatient (CLI) | payer MEDICARE ==
[2018-04-04 12:04] LABS: HEMATOCRIT 25.8 % (36.0-47.0); HEMOGLOBIN 9.1 g/dL (12.0-15.5); MEAN CORPUSCULAR HEMOGLOBIN 37.8 pg (27.0-33.4); MEAN CORPUSCULAR HGB CONC 35.1 g/dL (32.0-36.0); MEAN CORPUSCULAR VOLUME 108 fl (80-97); RED CELL DISTRIBUTION WIDTH 22.6 % (11.5-14.0); WHITE BLOOD COUNT 4.2 10^3/uL (4.0-10.5)
[2018-04-04 12:15] LABS: APPEARANCE,URINE CLEAR; BILIRUBIN,URINE NEGATIVE (NEGATIVE); GLUCOSE, URINE NEGATIVE (NEGATIVE); KETONES,URINE NEGATIVE (NEGATIVE); LEUKOCYTE ESTERASE,URINE MODERATE (NEGATIVE); NITRITE,URINE NEGATIVE (NEGATIVE); PROTEIN,URINE NEGATIVE (NEGATIVE); URINE SPECIFIC GRAVITY 1.016
[2018-04-04 12:21] LABS: ALANINE AMINOTRANSFERASE 48 U/L (9-52); ALBUMIN 3.4 g/dL (3.5-5.0); ALKALINE PHOSPHATASE 67 U/L (38-126); ANION GAP 8 (5-19); ASPARTATE AMINO TRANSFERASE 62 U/L (14-36); BILIRUBIN,DIRECT 0.6 mg/dL (0.0-0.4); BILIRUBIN,TOTAL 1.4 mg/dL (0.2-1.3); BLOOD UREA NITROGEN 10 mg/dL (7-20); CALCIUM 8.4 mg/dL (8.4-10.2); CARBON DIOXIDE 28 mmol/L (22-30); CHLORIDE 108 mmol/L (98-107); CHOLESTEROL 94.33 mg/dL (0-200); POTASSIUM 4.1 mmol/L (3.6-5.0); SODIUM 143.9 mmol/L (137-145); TOTAL PROTEIN 6.8 g/dL (6.3-8.2); TRIGLYCERIDES 68 mg/dL (<150)
[2018-04-04 12:24] LABS: COLOR,URINE DARK YELLOW
[2018-04-04 12:32] LABS: DIRECT LDL 59 mg/dL (<100)
[2018-04-04 12:35] LABS: GLUCOSE 58 mg/dL (75-110)
[2018-04-04 12:36] LABS: ABSOLUTE LYMPHOCYTES# (MANUAL) 1.3 10^3/uL (0.5-4.7); ABSOLUTE MONOCYTES # (MANUAL) 0.5 10^3/uL (0.1-1.4); BAND NEUTROPHILS % (MANUAL) 2 % (3-5); BASOPHILS % (MANUAL) 2 % (0-2); EOSINOPHILS % (MANUAL) 9 % (0-6); LYMPHOCYTES % (MANUAL) 30 % (13-45); METAMYELOCYTES % (MANUAL) 2 % (0); MONOCYTES % (MANUAL) 11 % (3-13); NUCLEATED RED BLOOD CELLS 1 /100 WBC (0); SEGMENTED NEUTROPHILS % (MAN) 44 % (42-78); TOTAL CELLS COUNTED 100
[2018-04-04 12:37] LABS: FREE T4 (FREE THYROXINE) 1.38 ng/dL (0.78-2.19)
[2018-04-04 12:38] LABS: ANISOCYTOSIS 3+; PLATELET COMMENT DECREASED
[2018-04-04 12:39] LABS: PLATELET COUNT 55 10^3/uL (150-450)
[2018-04-04 12:51] LABS: THYROID STIMULATING HORMONE 17.5 uIU/mL (0.47-4.68)
== END ==
LOC: OD 10:38
PROVIDERS: ATTEND Internal Medicine Nephrology
DX: E11.22 Type 2 diabetes mellitus with diabetic chronic kidney disease (principal); I12.9 Hypertensive chronic kidney disease with stage 1 through stage 4 chronic kidney disease, or unspecified chronic kidney disease; N18.9 Chronic kidney disease, unspecified; E78.5 Hyperlipidemia, unspecified
CPT/HCPCS: 36415; 80053; 80061; 81001; 83036; 84439; 84443; 85025

== ENCOUNTER → 2018-04-21 | Outpatient (CLI) | payer MEDICARE ==
[2018-04-21 11:48] LABS: ABSOLUTE EOSINOPHILS # (AUTO) 0.1 10^3/uL (0.0-0.6); ABSOLUTE LYMPHOCYTES (AUTO) 0.9 10^3/uL (0.5-4.7); ABSOLUTE MONOCYTES (AUTO) 0.3 10^3/uL (0.1-1.4); ABSOLUTE NEUT (AUTO) 2.3 10^3/uL (1.7-8.2); BASOPHILS % (AUTO) 1.3 % (0-2); EOSINOPHILS % (AUTO) 2.6 % (0-6); HEMATOCRIT 31.6 % (36.0-47.0); HEMOGLOBIN 10.9 g/dL (12.0-15.5); LYMPHOCYTES % (AUTO) 24.2 % (13-45); MEAN CORPUSCULAR HGB CONC 34.3 g/dL (32.0-36.0); MEAN CORPUSCULAR VOLUME 105 fl (80-97); MONOCYTES % (AUTO) 8.2 % (3-13); PLATELET COUNT 132 10^3/uL (150-450); RED BLOOD COUNT 3.01 10^6/uL (3.72-5.28); RED CELL DISTRIBUTION WIDTH 19.6 % (11.5-14.0); SEGMENTED NEUTROPHILS % (AUTO) 63.7 % (42-78); TOTAL CELLS COUNTED % (AUTO) 100 %; WHITE BLOOD COUNT 3.6 10^3/uL (4.0-10.5)
[2018-04-21 12:03] LABS: APPEARANCE,URINE SLIGHTLY-CLOUDY; BILIRUBIN,URINE NEGATIVE (NEGATIVE); COLOR,URINE YELLOW; GLUCOSE, URINE NEGATIVE (NEGATIVE); KETONES,URINE NEGATIVE (NEGATIVE); LEUKOCYTE ESTERASE,URINE SMALL (NEGATIVE); NITRITE,URINE NEGATIVE (NEGATIVE); PROTEIN,URINE NEGATIVE (NEGATIVE); URINE SPECIFIC GRAVITY 1.013
[2018-04-21 12:10] LABS: ALANINE AMINOTRANSFERASE 55 U/L (9-52); ALBUMIN 3.6 g/dL (3.5-5.0); ALKALINE PHOSPHATASE 72 U/L (38-126); ANION GAP 6 (5-19); ASPARTATE AMINO TRANSFERASE 107 U/L (14-36); BILIRUBIN,DIRECT 0.6 mg/dL (0.0-0.4); BILIRUBIN,TOTAL 1.9 mg/dL (0.2-1.3); BLOOD UREA NITROGEN 12 mg/dL (7-20); CALCIUM 8.8 mg/dL (8.4-10.2); CARBON DIOXIDE 30 mmol/L (22-30); CHLORIDE 108 mmol/L (98-107); CHOLESTEROL 92.73 mg/dL (0-200); GLUCOSE 127 mg/dL (75-110); POTASSIUM 3.9 mmol/L (3.6-5.0); SODIUM 144.4 mmol/L (137-145); TOTAL PROTEIN 7.5 g/dL (6.3-8.2); TRIGLYCERIDES 89 mg/dL (<150)
[2018-04-21 12:20] LABS: DIRECT LDL 59 mg/dL (<100)
[2018-04-21 12:26] LABS: FREE T4 (FREE THYROXINE) 1.92 ng/dL (0.78-2.19)
[2018-04-21 12:40] LABS: THYROID STIMULATING HORMONE 7.61 uIU/mL (0.47-4.68)
== END ==
LOC: OD 11:12
PROVIDERS: ATTEND Internal Medicine Nephrology
DX: I12.9 Hypertensive chronic kidney disease with stage 1 through stage 4 chronic kidney disease, or unspecified chronic kidney disease (principal); N18.9 Chronic kidney disease, unspecified; E11.22 Type 2 diabetes mellitus with diabetic chronic kidney disease; E78.5 Hyperlipidemia, unspecified
CPT/HCPCS: 36415; 80053; 80061; 81001; 83036; 84439; 84443; 85025

== ENCOUNTER → 2018-07-21 | Outpatient (CLI) | payer MEDICARE ==
[2018-07-21 11:15] LABS: ABSOLUTE EOSINOPHILS # (AUTO) 0.2 10^3/uL (0.0-0.6); ABSOLUTE LYMPHOCYTES (AUTO) 0.8 10^3/uL (0.5-4.7); ABSOLUTE MONOCYTES (AUTO) 0.2 10^3/uL (0.1-1.4); ABSOLUTE NEUT (AUTO) 2.3 10^3/uL (1.7-8.2); BASOPHILS % (AUTO) 0.9 % (0-2); EOSINOPHILS % (AUTO) 5.5 % (0-6); HEMATOCRIT 29.5 % (36.0-47.0); HEMOGLOBIN 10.2 g/dL (12.0-15.5); LYMPHOCYTES % (AUTO) 22.4 % (13-45); MEAN CORPUSCULAR HEMOGLOBIN 37.5 pg (27.0-33.4); MEAN CORPUSCULAR HGB CONC 34.5 g/dL (32.0-36.0); MEAN CORPUSCULAR VOLUME 109 fl (80-97); MONOCYTES % (AUTO) 6.4 % (3-13); RED BLOOD COUNT 2.71 10^6/uL (3.72-5.28); RED CELL DISTRIBUTION WIDTH 20.9 % (11.5-14.0); SEGMENTED NEUTROPHILS % (AUTO) 64.8 % (42-78); TOTAL CELLS COUNTED % (AUTO) 100 %; WHITE BLOOD COUNT 3.5 10^3/uL (4.0-10.5)
[2018-07-21 11:39] LABS: PLATELET COUNT 92 10^3/uL (150-450)
[2018-07-21 11:51] LABS: ALANINE AMINOTRANSFERASE 43 U/L (9-52); ALBUMIN 3.2 g/dL (3.5-5.0); ALKALINE PHOSPHATASE 71 U/L (38-126); ANION GAP 9 (5-19); ASPARTATE AMINO TRANSFERASE 63 U/L (14-36); BILIRUBIN,DIRECT 1.2 mg/dL (0.0-0.4); BILIRUBIN,TOTAL 2.5 mg/dL (0.2-1.3); BLOOD UREA NITROGEN 16 mg/dL (7-20); CALCIUM 8.5 mg/dL (8.4-10.2); CARBON DIOXIDE 31 mmol/L (22-30); CHLORIDE 103 mmol/L (98-107); CHOLESTEROL 108.37 mg/dL (0-200); GLUCOSE 165 mg/dL (75-110); IRON(TIBC) 104.7 ug/dL (37-170); POTASSIUM 3.6 mmol/L (3.6-5.0); SODIUM 143.2 mmol/L (137-145); TOTAL PROTEIN 7.2 g/dL (6.3-8.2); TRIGLYCERIDES 95 mg/dL (<150)
[2018-07-21 12:02] LABS: DIRECT LDL 66 mg/dL (<100)
[2018-07-21 12:06] LABS: FREE T4 (FREE THYROXINE) 2.36 ng/dL (0.78-2.19)
[2018-07-21 12:20] LABS: THYROID STIMULATING HORMONE 0.73 uIU/mL (0.47-4.68)
== END ==
LOC: OD 10:17
PROVIDERS: ATTEND Internal Medicine Nephrology
DX: I10 Essential (primary) hypertension (principal); E11.9 Type 2 diabetes mellitus without complications; D64.9 Anemia, unspecified
CPT/HCPCS: 36415; 80053; 80061; 82728; 83036; 83540; 83550; 84439; 84443; 85025

== ENCOUNTER 2018-08-27 13:38 | Inpatient (IN) | payer MEDICARE ==
--- NOTE | 2018-08-27 15:04 | RADIOLOGY REPORT (SQ) ---
EXAM DESCRIPTION: HIP RIGHT AP/LATERAL COMPLETED DATE/TIME: 08/27/2018 2:48 pm REASON FOR STUDY: fall COMPARISON: None. NUMBER OF VIEWS: Two views. TECHNIQUE: AP pelvis and additional frog-leg view of the right hip. LIMITATIONS: None. FINDINGS: MINERALIZATION: Osteopenia. RIGHT HIP: No fracture dislocation. No knee suspicious osseous lesions. Mild degenerative changes w ith relatively well-maintained joint space. LEFT HIP: No fracture or dislocation. No worrisome bone lesions. PUBIS AND ISCHIUM: No fracture. Degenerative change with relatively well-maintained joint space. PELVIS: No fracture. SACRUM: No fracture or dislocation. No worrisome bone lesions. LOWER LUMBAR SPINE: Spondylosis and facet arthropathy. No appreciable fracture. SOFT TISSUES: No findings. OTHER: Evidence of prior tubal ligation. IMPRESSION: Decreased osseous mineralization without evidence of acute bony abnormality. COMMENT: Pelvic fractures are often occult on plain radiographs. If strong clinical suspicion for fracture, recommend CT or MR. TECHNICAL DOCUMENTATION: JOB ID: [id number] [employer]- All Rights Reserved Reading location - IP/workstation name: [email or web address]
--- NOTE | 2018-08-27 15:05 | RADIOLOGY REPORT (SQ) ---
EXAM DESCRIPTION: RIBS RIGHT W/PA CHEST COMPLETED DATE/TIME: 08/27/2018 2:48 pm REASON FOR STUDY: fall COMPARISON: None. TECHNIQUE: Frontal view of the chest and additional views of the right ribs acquired. NUMBER OF VIEWS: Four view. LIMITATIONS: None. FINDINGS: FRONTAL CXR: No pneumothorax. No pleural effusion. No atelectasis or infiltrates. RIBS: There are slightly displaced rib fractures involving the 10th and 11th right lateral ribs. The re are mildly displaced fractures of the 8th and 9th lateral ribs as well. OTHER: No other significant finding. IMPRESSION: Rib fractures involving the 8th through 11th right-sided ribs. The 10th and 11th rib fr actures are displaced. COMMENT: SITE OF TRAUMA/COMPLAINT MARKED/STAMP COMPLETED: NO. TECHNICAL DOCUMENTATION: JOB ID: [id number] [employer]- All Rights Reserved Reading location - IP/workstation name: [email or web address]
[2018-08-27 18:05] LABS: HEMATOCRIT 29.2 % (36.0-47.0); MEAN CORPUSCULAR HEMOGLOBIN 37.4 pg (27.0-33.4); MEAN CORPUSCULAR HGB CONC 34.3 g/dL (32.0-36.0); MEAN CORPUSCULAR VOLUME 109 fl (80-97); PLATELET COUNT 107 10^3/uL (150-450); RED BLOOD COUNT 2.67 10^6/uL (3.72-5.28); RED CELL DISTRIBUTION WIDTH 18.1 % (11.5-14.0); WHITE BLOOD COUNT 3.8 10^3/uL (4.0-10.5)
[2018-08-27 18:07] LABS: INTERNATIONAL RATION (INR) 1.55; PROTHROMBIN TIME 18.8 SEC (11.4-15.4)
[2018-08-27 18:08] LABS: PARTIAL THROMBOPLASTIN TIME 29.3 SEC (23.5-35.8)
[2018-08-27 18:19] LABS: ALANINE AMINOTRANSFERASE 45 U/L (9-52); ALKALINE PHOSPHATASE 80 U/L (38-126); ASPARTATE AMINO TRANSFERASE 103 U/L (14-36); BILIRUBIN,DIRECT 0.8 mg/dL (0.0-0.4); BILIRUBIN,TOTAL 1.6 mg/dL (0.2-1.3); BLOOD UREA NITROGEN 13 mg/dL (7-20); CALCIUM 8.5 mg/dL (8.4-10.2); CARBON DIOXIDE 29 mmol/L (22-30); CHLORIDE 107 mmol/L (98-107); GLUCOSE 85 mg/dL (75-110); SODIUM 139.7 mmol/L (137-145); TOTAL PROTEIN 7.4 g/dL (6.3-8.2)
[2018-08-27 18:23] LABS: ABSOLUTE LYMPHOCYTES# (MANUAL) 0.8 10^3/uL (0.5-4.7); ABSOLUTE MONOCYTES # (MANUAL) 0.3 10^3/uL (0.1-1.4); ANION GAP 4 (5-19); BASOPHILS % (MANUAL) 1 % (0-2); EOSINOPHILS % (MANUAL) 3 % (0-6); LYMPHOCYTES % (MANUAL) 21 % (13-45); MONOCYTES % (MANUAL) 8 % (3-13); SEGMENTED NEUTROPHILS % (MAN) 67 % (42-78); TOTAL CELLS COUNTED 100
[2018-08-27 18:25] LABS: ANISOCYTOSIS 2+; PLATELET COMMENT DECREASED
[2018-08-27 18:40] LABS: APPEARANCE,URINE CLEAR; BILIRUBIN,URINE NEGATIVE (NEGATIVE); COLOR,URINE YELLOW; GLUCOSE, URINE NEGATIVE (NEGATIVE); KETONES,URINE NEGATIVE (NEGATIVE); LEUKOCYTE ESTERASE,URINE NEGATIVE (NEGATIVE); NITRITE,URINE NEGATIVE (NEGATIVE); PROTEIN,URINE NEGATIVE (NEGATIVE)
--- NOTE | 2018-08-27 19:05 | RADIOLOGY REPORT (SQ) ---
EXAM DESCRIPTION: CT HEAD WITHOUT COMPLETED DATE/TIME: 08/27/2018 6:54 pm REASON FOR STUDY: trauma COMPARISON: None. TECHNIQUE: Axial images acquired through the brain without intravenous contrast. Images reviewed wi th bone, brain and subdural windows. Additional sagittal and coronal reconstructions were generated. Images stored on PACS. All CT scanners at this facility use dose modulation, iterative reconstruction, and/or weight based d osing when appropriate to reduce radiation dose to as low as reasonably achievable (ALARA). [facility]: Dose Right [facility]: CareDose [facility]: Dose Right [facility]: Teradose 4D [facility]: [email or web address] RADIATION DOSE: CT Rad equipment meets quality standard of care and radiation dose reduction techniq ues were employed. CTDIvol: 53.2 mGy. DLP: 991 mGy-cm.mGy. LIMITATIONS: None. FINDINGS: VENTRICLES: Prominent. CEREBRUM: No masses. No hemorrhage. No midline shift. Areas of low density in the white matter mos t likely due to chronic micro-vascular ischemic change. No evidence for acute infarction. CEREBELLUM: No masses. No hemorrhage. No alteration of density. No evidence for acute infarction. EXTRAAXIAL SPACES: Age-related involutional change. No fluid collections. No masses. ORBITS AND GLOBE: No intra- or extraconal masses. Normal contour of globe without masses. CALVARIUM: No fracture. PARANASAL SINUSES: No fluid or mucosal thickening. SOFT TISSUES: No mass or hematoma. OTHER: No other significant finding. IMPRESSION: CHRONIC CHANGES OF ATROPHY AND MICROVASCULAR ISCHEMIA. NO ACUTE PROCESS. EVIDENCE OF ACUTE STROKE: NO. TECHNICAL DOCUMENTATION: JOB ID: [id number] Quality ID # 436: Final reports with documentation of one or more dose reduction techniques (e.g., Au tomated exposure control, adjustment of the mA and/or kV according to patient size, use of iterative reconstruction technique) 2010 [employer]- All Rights Reserved Reading location - IP/workstation name: [email or web address]
--- NOTE | 2018-08-27 19:07 | RADIOLOGY REPORT (SQ) ---
EXAM DESCRIPTION: CT CERVICAL SPINE WITHOUT COMPLETED DATE/TIME: 08/27/2018 6:54 pm REASON FOR STUDY: trauma COMPARISON: None. TECHNIQUE: Axial images acquired through the cervical spine without intravenous contrast. Images re viewed with lung, soft tissue and bone windows. Reconstructed coronal and sagittal MPR images review ed. Images stored on PACS. All CT scanners at this facility use dose modulation, iterative reconstruction, and/or weight based d osing when appropriate to reduce radiation dose to as low as reasonably achievable (ALARA). [facility]: Dose Right [facility]: CareDose [facility]: Dose Right [facility]: Teradose 4D [facility]: [employer] RADIATION DOSE: CT Rad equipment meets quality standard of care and radiation dose reduction techniq ues were employed. CTDIvol: 22.5 mGy. DLP: 411 mGy-cm. mGy. LIMITATIONS: Motion. FINDINGS: ALIGNMENT: Anatomic. MINERALIZATION: Normal. VERTEBRAL BODIES: No fractures or dislocation. DISCS: Multilevel disc space narrowing with osteophytes. FACETS, LATERAL MASSES, POSTERIOR ELEMENTS: Facet arthropathy. No fractures. No dislocation. No ac [place] findings. HARDWARE: None in the spine. VISUALIZED RIBS: No fractures. LUNG APICES AND SOFT TISSUES: No significant or acute findings. OTHER: No other significant finding. IMPRESSION: CHRONIC DEGENERATIVE CHANGES. NO ACUTE FINDINGS. TECHNICAL DOCUMENTATION: JOB ID: [id number] Quality ID # 436: Final reports with documentation of one or more dose reduction techniques (e.g., Au tomated exposure control, adjustment of the mA and/or kV according to patient size, use of iterative reconstruction technique) 2010 [employer]- All Rights Reserved Reading location - IP/workstation name: [email or web address]
--- NOTE | 2018-08-27 19:22 | RADIOLOGY REPORT (SQ) ---
EXAM DESCRIPTION: CT CHEST WITH; CT ABD/PELVIS WITH IV ONLY COMPLETED DATE/TIME: 08/27/2018 6:54 pm REASON FOR STUDY: trauma CONTRAST TYPE AND DOSE: contrast/concentration: Isovue 350.00 mg/ml; Total Contrast Delivered: 100.0 ml; Total Saline Delivered: 60.9 ml RENAL FUNCTION: GFR > 60. COMPARISON: 02/20/2016 TECHNIQUE: CT scan of the chest performed using helical scanning technique with dynamic intravenous contrast injection. Images reviewed with lung, soft tissue and bone windows. Reconstructed coronal a nd sagittal MPR images reviewed. All images stored on PACS. All CT scanners at this facility use dose modulation, iterative reconstruction, and/or weight based d osing when appropriate to reduce radiation dose to as low as reasonably achievable (ALARA). [facility]: Dose Right [facility]: CareDose [facility]: Dose Right [facility]: Teradose 4D [facility]: [employer] RADIATION DOSE: CT Rad equipment meets quality standard of care and radiation dose reduction techniq ues were employed. CTDIvol: 13.6 - 20.4 mGy. DLP: 2210 mGy-cm.. LIMITATIONS: None. FINDINGS: AXILLAE: No adenopathy. CHEST WALL: No masses. No subcutaneous air. LUNGS: No pneumothorax. Small areas of right basilar subsegmental atelectasis and trace pleural eff usion. PLEURA: No effusions. No calcifications. THYROID: No masses or significant asymmetry. HILAR AND MEDIASTINAL STRUCTURES: No identified masses or abnormal nodes. AORTA AND GREAT VESSELS: No aneurysm. No dissection. PULMONARY ARTERIES: No identified pulmonary emboli. Study not optimized for the pulmonary arteries. HEART: No pericardial effusion. HARDWARE AND LIFELINES: None. BONES: Multiple right lateral rib fractures, 7 -11th ribs. OTHER: No other significant finding. IMPRESSION: Multiple right lateral rib fractures, 7 -11th ribs. No pneumothorax. Small areas of rig ht basilar subsegmental atelectasis and trace pleural effusion. COMPARISON: 02/20/2016 RADIATION DOSE: CT Rad equipment meets quality standard of care and radiation dose reduction techniq ues were employed. CTDIvol: 13.6 - 20.4 mGy. DLP: 2210 mGy-cm.mGy. TECHNIQUE: CT scan of the abdomen and pelvis performed with intravenous and oral contrast using jazmin stefan scanning technique with dynamic intravenous contrast injection. Images reviewed with lung, soft tissue and bone windows. Reconstructed coronal and sagittal MPR images reviewed. Delayed images for evaluation of the urinary system also acquired and evaluated. All images stored on PACS. All CT scanners at this facility use dose modulation, iterative reconstruction, and/or weight based d osing when appropriate to reduce radiation dose to as low as reasonably achievable (ALARA). [facility]: Dose Right [facility]: [employer] [facility]: Dose Right [facility]: Teradose 4D [facility]: [employer] FINDINGS: LIVER: Moderate ascites. Mildly nodular contour of the liver. No focal laceration identi fied. No dilated ducts. SPLEEN: Mildly enlarged size. No focal enhancing lesions. PANCREAS: No masses identified. No significant calcifications. Pancreatic duct not dilated. GALLBLADDER: Multiple calcified gallstones. ADRENAL GLANDS: No significant masses or asymmetry. RIGHT KIDNEY AND URETER: No solid masses. No significant calcification. No hydronephrosis or hydroure ter. LEFT KIDNEY AND URETER: No solid masses. No significant calcification. No hydronephrosis or hydrouret er. AORTA AND VESSELS: No aneurysm. No dissection. Renal arteries, SMA, celiac without stenosis. RETROPERITONEUM: Mild upper retroperitoneal edema. No retroperitoneal adenopathy identified. LARGE AND SMALL BOWEL: No dilatation. No masses. No wall thickening. APPENDIX: Normal. ABDOMINAL WALL: Right-sided subcutaneous swelling. No hernia or masses. PERITONEAL CAVITY: No free air. Moderate free fluid. PELVIS: Moderate free fluid. Normal bladder. BONES: No significant or acute findings. OTHER: No other significant finding. IMPRESSION: Moderate low-density ascites. Mildly nodular contour of the liver and mildly enlarged s pleen. No focal organ laceration identified. TECHNICAL DOCUMENTATION: JOB ID: [id number] [place]-72 Quality ID # 436: Final reports with documentation of one or more dose reduction techniques (e.g., Au tomated exposure control, adjustment of the mA and/or kV according to patient size, use of iterative reconstruction technique) 2010 [employer]- All Rights Reserved Reading location - IP/workstation name: [email or web address]
--- NOTE | 2018-08-27 19:22 | RADIOLOGY REPORT (SQ) ---
EXAM DESCRIPTION: CT CHEST WITH; CT ABD/PELVIS WITH IV ONLY COMPLETED DATE/TIME: 08/27/2018 6:54 pm REASON FOR STUDY: trauma CONTRAST TYPE AND DOSE: contrast/concentration: Isovue 350.00 mg/ml; Total Contrast Delivered: 100.0 ml; Total Saline Delivered: 60.9 ml RENAL FUNCTION: GFR > 60. COMPARISON: 02/20/2016 TECHNIQUE: CT scan of the chest performed using helical scanning technique with dynamic intravenous contrast injection. Images reviewed with lung, soft tissue and bone windows. Reconstructed coronal a nd sagittal MPR images reviewed. All images stored on PACS. All CT scanners at this facility use dose modulation, iterative reconstruction, and/or weight based d osing when appropriate to reduce radiation dose to as low as reasonably achievable (ALARA). [facility]: Dose Right [facility]: CareDose [facility]: Dose Right [facility]: Teradose 4D [facility]: [employer] RADIATION DOSE: CT Rad equipment meets quality standard of care and radiation dose reduction techniq ues were employed. CTDIvol: 13.6 - 20.4 mGy. DLP: 2210 mGy-cm.. LIMITATIONS: None. FINDINGS: AXILLAE: No adenopathy. CHEST WALL: No masses. No subcutaneous air. LUNGS: No pneumothorax. Small areas of right basilar subsegmental atelectasis and trace pleural eff usion. PLEURA: No effusions. No calcifications. THYROID: No masses or significant asymmetry. HILAR AND MEDIASTINAL STRUCTURES: No identified masses or abnormal nodes. AORTA AND GREAT VESSELS: No aneurysm. No dissection. PULMONARY ARTERIES: No identified pulmonary emboli. Study not optimized for the pulmonary arteries. HEART: No pericardial effusion. HARDWARE AND LIFELINES: None. BONES: Multiple right lateral rib fractures, 7 -11th ribs. OTHER: No other significant finding. IMPRESSION: Multiple right lateral rib fractures, 7 -11th ribs. No pneumothorax. Small areas of rig ht basilar subsegmental atelectasis and trace pleural effusion. COMPARISON: 02/20/2016 RADIATION DOSE: CT Rad equipment meets quality standard of care and radiation dose reduction techniq ues were employed. CTDIvol: 13.6 - 20.4 mGy. DLP: 2210 mGy-cm.mGy. TECHNIQUE: CT scan of the abdomen and pelvis performed with intravenous and oral contrast using jazmin stefan scanning technique with dynamic intravenous contrast injection. Images reviewed with lung, soft tissue and bone windows. Reconstructed coronal and sagittal MPR images reviewed. Delayed images for evaluation of the urinary system also acquired and evaluated. All images stored on PACS. All CT scanners at this facility use dose modulation, iterative reconstruction, and/or weight based d osing when appropriate to reduce radiation dose to as low as reasonably achievable (ALARA). [facility]: Dose Right [facility]: SureCare [facility]: Dose Right [facility]: Teradose 4D [facility]: [employer] FINDINGS: LIVER: Moderate ascites. Mildly nodular contour of the liver. No focal laceration identi fied. No dilated ducts. SPLEEN: Mildly enlarged size. No focal enhancing lesions. PANCREAS: No masses identified. No significant calcifications. Pancreatic duct not dilated. GALLBLADDER: Multiple calcified gallstones. ADRENAL GLANDS: No significant masses or asymmetry. RIGHT KIDNEY AND URETER: No solid masses. No significant calcification. No hydronephrosis or hydroure ter. LEFT KIDNEY AND URETER: No solid masses. No significant calcification. No hydronephrosis or hydrouret er. AORTA AND VESSELS: No aneurysm. No dissection. Renal arteries, SMA, celiac without stenosis. RETROPERITONEUM: Mild upper retroperitoneal edema. No retroperitoneal adenopathy identified. LARGE AND SMALL BOWEL: No dilatation. No masses. No wall thickening. APPENDIX: Normal. ABDOMINAL WALL: Right-sided subcutaneous swelling. No hernia or masses. PERITONEAL CAVITY: No free air. Moderate free fluid. PELVIS: Moderate free fluid. Normal bladder. BONES: No significant or acute findings. OTHER: No other significant finding. IMPRESSION: Moderate low-density ascites. Mildly nodular contour of the liver and mildly enlarged s pleen. No focal organ laceration identified. TECHNICAL DOCUMENTATION: JOB ID: [id number] [place]-72 Quality ID # 436: Final reports with documentation of one or more dose reduction techniques (e.g., Au tomated exposure control, adjustment of the mA and/or kV according to patient size, use of iterative reconstruction technique) 2010 [email or web address]- All Rights Reserved Reading location - IP/workstation name: [email or web address]
[2018-08-27] MEDS ORDERED: FENTANYL CITRATE INJ/PF 100 MCG/2 ML AMPUL IV ONE (19:34)
[2018-08-27] MEDS ORDERED: POTASSIUM CHLORIDE 10 MEQ CAPSULE.ER PO ONE (19:49)
--- NOTE | 2018-08-27 20:00 | ER Document Report ---
ED General - General TRAVEL OUTSIDE OF THE [place] IN LAST 30 DAYS: No <KATE GUAMAN - Last Filed: 08/27/18 20:17> <JASON TINOCO - Last Filed: 08/27/18 23:59> - General Chief Complaint: Rib Pain Stated Complaint: FALL/ABDOMINAL Time Seen by Provider: 08/27/18 14:18 Primary Care Provider: NATALIA CHOI MD [Primary Care Provider] - Follow up as needed Notes: Patient is an 82-year-old female history of diabetes, rheumatoid arthritis, nephropathy, hypertension, hyperlipidemia, hypothyroid presents to the emergency department for generalized weakness. Patient states "I fall all the time." States last time she fell was 3 days ago. States she hit the right side of her ribs and has bruising which is why her daughters "made me come to the emergency room." States she does not have a syncopal episode. States she typically just "feels weak like I cannot stand." Patient is denying chest pain, shortness of breath, nausea, vomiting, dysuria. Patient's daughters in the room state patient has an MRI scheduled for Saturday with neurology. States patient has had "multiple falls recently." Patient states she did not take her home medications this morning but otherwise has been taking her medications as prescribed. Medications: Aspirin, methotrexate, glyburide, omeprazole, benazepril, Januvia, amlodipine, metoprolol, potassium 10 M EQ's, folic acid, Zoloft, Daypro pain, levothyroxine, HCTZ, nabumetone (KATE GUAMAN) - Related Data Allergies/Adverse Reactions: No Known Allergies Allergy (Verified 08/27/18 13:47) Past Medical History - General Information source: Patient, Relative - Social History Smoking Status: Never Smoker Family History: None Patient has suicidal ideation: No Patient has homicidal ideation: No - Past Medical History Cardiac Medical History: Reports: Hx Hypercholesterolemia, Hx Hypertension - medicated Denies: Hx Heart Attack Pulmonary Medical History: Reports: Hx Sleep Apnea, Hx Tuberculosis Denies: Hx Asthma Neurological Medical History: Denies: Hx Cerebrovascular Accident, Hx Seizures Endocrine Medical History: Reports: Hx Diabetes Mellitus Type 2, Hx Hypothyroidism Renal/ Medical History: Denies: Hx Peritoneal Dialysis GI Medical History: Reports: Hx Colonoscopy, Hx Endoscopy. Denies: Hx Hepatitis, Hx Hiatal Hernia, Hx Ulcer Musculoskeletal Medical History: Reports Hx Arthritis - RA Psychiatric Medical History: Reports: Hx Anxiety Infectious Medical History: Denies: Hx Hepatitis Past Surgical History: Reports: Hx Tonsillectomy, Hx Tubal Ligation. Denies: Hx Hysterectomy, Hx Mastectomy, Hx Open Heart Surgery, Hx Pacemaker - Immunizations Immunizations up to date: No Hx Diphtheria, Pertussis, Tetanus Vaccination: No <KATE GUAMAN - Last Filed: 08/27/18 20:17> Review of Systems - Review of Systems Constitutional: See HPI. denies: Fever EENT: No symptoms reported Cardiovascular: See HPI Respiratory: See HPI. denies: Hemoptysis, Short of breath, Wheezing Gastrointestinal: No symptoms reported Genitourinary: No symptoms reported Female Genitourinary: No symptoms reported Musculoskeletal: See HPI Skin: See HPI Hematologic/Lymphatic: No symptoms reported Neurological/Psychological: See HPI <KATE GUAMAN - Last Filed: 08/27/18 20:17> Physical Exam <KATE GUAMAN - Last Filed: 08/27/18 20:17> - Vital signs Vitals: Temp Pulse Resp BP Pulse Ox 97.6 F 80 18 147/62 H 95 08/27/18 13:50 08/27/18 13:50 08/27/18 13:50 08/27/18 13:50 08/27/18 13:50 - Notes Notes: GENERAL: Alert, interacts well. No acute distress. HEAD: Normocephalic, atraumatic. EYES: Pupils equal, round, and reactive to light. Extraocular movements intact. ENT: Oral mucosa moist, tongue midline. Nares patent, no nasal septal hematoma, TM's intact, no hemotympanum noted bilaterally. NECK: Full range of motion. Supple. Trachea midline. LUNGS: Clear to auscultation bilaterally, no wheezes, rales, or rhonchi. No respiratory distress. HEART: Regular rate and rhythm. No murmur chest: No crepitus felt, bruising noted right lateral chest wall, no paradoxical motion noted. ABDOMEN: Soft, non-tender. Non-distended. Bowel sounds present in all 4 quadrants. Intermittent bruising in different stages of healing, noted over anterior abdomen. EXTREMITIES: Moves all 4 extremities spontaneously. No edema, normal radial and dorsalis pedis pulses bilaterally. No cyanosis. BACK: no cervical, thoracic, lumbar midline tenderness. No saddle anesthesia, normal distal neurovascular exam. NEUROLOGICAL: Alert and oriented x3. Normal speech. cranial nerves II through XII grossly intact. PSYCH: Normal affect, normal mood. SKIN: Warm, dry, normal turgor. (KATE GUAMAN) Course - Laboratory Result Diagrams: 08/27/18 17:52 08/27/18 17:52 <KATE GUAMAN - Last Filed: 08/27/18 20:17> - Laboratory Result Diagrams: 08/27/18 17:52 08/27/18 17:52 <JASON TINOCO - Last Filed: 08/27/18 23:59> - Re-evaluation Re-evalutation: Laboratory 08/27/18 08/27/18 08/27/18 17:52 17:52 17:52 WBC 3.8 L RBC 2.67 L Hgb 10.0 L Hct 29.2 L MCV 109 H MCH 37.4 H MCHC 34.3 RDW 18.1 H Plt Count 107 L Total Counted 100 Seg Neutrophils % Not Reportable Seg Neuts % (Manual) 67 Lymphocytes % Not Reportable Lymphocytes % (Manual) 21 Monocytes % Not Reportable Monocytes % (Manual) 8 Eosinophils % Not Reportable Eosinophils % (Manual) 3 Basophils % Not Reportable Basophils % (Manual) 1 Absolute Neutrophils Not Reportable Abs Neuts (Manual) 2.5 Absolute Lymphocytes Not Reportable Abs Lymphs (Manual) 0.8 Absolute Monocytes Not Reportable Abs Monocytes (Manual) 0.3 Absolute Eosinophils Not Reportable Absolute Eos (Manual) 0.1 Absolute Basophils Not Reportable Abs Basophils (Manual) 0.0 Platelet Comment DECREASED Anisocytosis 2+ Macrocytosis 2+ PT INR APTT Sodium 139.7 Potassium 3.0 L* Chloride 107 Carbon Dioxide 29 Anion Gap 4 L BUN 13 Creatinine 1.30 H Est GFR ( Amer) 48 L Est GFR (Non-Af Amer) 39 L Glucose 85 Calcium 8.5 Total Bilirubin 1.6 H Direct Bilirubin 0.8 H Neonat Total Bilirubin Not Reportable Neonat Direct Bilirubin Not Reportable Neonat Indirect Bili Not Reportable AST 103 H ALT 45 Alkaline Phosphatase 80 Troponin I 0.016 Total Protein 7.4 Albumin 3.0 L Urine Color Urine Appearance Urine pH Ur Specific [place] Urine Protein Urine Glucose (UA) Urine Ketones Urine Blood Urine Nitrite Urine Bilirubin Urine Urobilinogen Ur Leukocyte Esterase Urine WBC (Auto) Urine RBC (Auto) Squamous Epi Cells Auto Urine Mucus (Auto) Urine Ascorbic Acid 08/27/18 08/27/18 17:52 18:24 WBC RBC Hgb Hct MCV MCH MCHC RDW Plt Count Total Counted Seg Neutrophils % Seg Neuts % (Manual) Lymphocytes % Lymphocytes % (Manual) Monocytes % Monocytes % (Manual) Eosinophils % Eosinophils % (Manual) Basophils % Basophils % (Manual) Absolute Neutrophils Abs Neuts (Manual) Absolute Lymphocytes Abs Lymphs (Manual) Absolute Monocytes Abs Monocytes (Manual) Absolute Eosinophils Absolute Eos (Manual) Absolute Basophils Abs Basophils (Manual) Platelet Comment Anisocytosis Macrocytosis PT 18.8 H INR 1.55 APTT 29.3 Sodium Potassium Chloride Carbon Dioxide Anion Gap BUN Creatinine Est GFR ( Amer) Est GFR (Non-Af Amer) Glucose Calcium Total Bilirubin Direct Bilirubin Neonat Total Bilirubin Neonat Direct Bilirubin Neonat Indirect Bili AST ALT Alkaline Phosphatase Troponin I Total Protein Albumin Urine Color YELLOW Urine Appearance CLEAR Urine pH 7.0 Ur Specific [place] 1.010 Urine Protein NEGATIVE Urine Glucose (UA) NEGATIVE Urine Ketones NEGATIVE Urine Blood NEGATIVE Urine Nitrite NEGATIVE Urine Bilirubin NEGATIVE Urine Urobilinogen 2.0 H Ur Leukocyte Esterase NEGATIVE Urine WBC (Auto) 4 Urine RBC (Auto) 0 Squamous Epi Cells Auto <1 Urine Mucus (Auto) RARE Urine Ascorbic Acid NEGATIVE Hip/Pelvis X-Ray 08/27/18 14:18 IMPRESSION: Decreased osseous mineralization without evidence of acute bony abnormality. Ribs w/Chest X-Ray 08/27/18 14:18 IMPRESSION: Rib fractures involving the 8th through 11th right-sided ribs. The 10th and 11th rib fractures are displaced. Abdomen/Pelvis CT 08/27/18 17:21 IMPRESSION: Multiple right lateral rib fractures, 7 -11th ribs. No pneumothorax. Small areas of right basilar subsegmental atelectasis and trace pleural effusion. IMPRESSION: Moderate low-density ascites. Mildly nodular contour of the liver and mildly enlarged spleen. No focal organ laceration identified. Cervical Spine CT 08/27/18 17:21 IMPRESSION: CHRONIC DEGENERATIVE CHANGES. NO ACUTE FINDINGS. Head CT 08/27/18 17:21 IMPRESSION: CHRONIC CHANGES OF ATROPHY AND MICROVASCULAR ISCHEMIA. NO ACUTE PROCESS. EVIDENCE OF ACUTE STROKE: NO. Chest CT 08/27/18 17:27 IMPRESSION: Multiple right lateral rib fractures, 7 -11th ribs. No pneumothorax. Small areas of right basilar subsegmental atelectasis and trace pleural effusion. IMPRESSION: Moderate low-density ascites. Mildly nodular contour of the liver and mildly enlarged spleen. No focal organ laceration identified. 08/27/18 19:55 Patient's EKG shows a rate of 70, QTc 519, no ST segment elevations or depressions noted. I discussed this case with hospitalist Dr. Uribe. He is suggesting oral and IV potassium replacement. He is also suggesting a repeat EKG. States he will come to the emergency department to evaluate the patient. At this point in time he would like treatments to be carried out prior to admission to the hospital. Patient care and report transferred to Jason Tinoco PA-C for continued care. (KATE GUAMAN) - Vital Signs Vital signs: Temp Pulse Resp BP Pulse Ox 97.6 F 80 16 154/65 H 95 08/27/18 13:50 08/27/18 13:50 08/27/18 22:01 08/27/18 22:00 08/27/18 22:01 - Laboratory Laboratory results interpreted by me: 08/27/18 08/27/18 08/27/18 17:52 17:52 17:52 WBC 3.8 L RBC 2.67 L Hgb 10.0 L Hct 29.2 L MCV 109 H MCH 37.4 H RDW 18.1 H Plt Count 107 L PT 18.8 H Potassium 3.0 L* Anion Gap 4 L Creatinine 1.30 H Est GFR ( Amer) 48 L Est GFR (Non-Af Amer) 39 L Total Bilirubin 1.6 H Direct Bilirubin 0.8 H AST 103 H Albumin 3.0 L Urine Urobilinogen 08/27/18 18:24 WBC RBC Hgb Hct MCV MCH RDW Plt Count PT Potassium Anion Gap Creatinine Est GFR ( Amer) Est GFR (Non-Af Amer) Total Bilirubin Direct Bilirubin AST Albumin Urine Urobilinogen 2.0 H Discharge <KATE GUAMAN - Last Filed: 08/27/18 20:17> - Discharge Admitting Provider: Rony (Hospitalist) Unit Admitted: Telemetry <JASON TINOCO - Last Filed: 08/27/18 23:59> - Discharge Clinical Impression: Hypokalemia, Prolonged QT interval Ribs, multiple fractures Qualifiers: Encounter type: initial encounter Fracture type: closed Laterality: right Qualified Code(s): S22.41XA - Multiple fractures of ribs, right side, initial encounter for closed fracture Condition: Stable Disposition: ADMITTED OBSERVATION Referrals: NATALIA CHOI MD [Primary Care Provider] - Follow up as needed
[2018-08-27] MEDS: MAGNESIUM SULFATE/D5W 1 GM/100 ML RTUPB IV SCH ×2 (20:23→21:43)
[2018-08-27] MEDS: POTASSI CL 20 MEQ/50 ML RIDER 20 MEQ/50 ML RTUPB IV SCH ×2 (20:37→22:09)
--- NOTE | 2018-08-28 00:04 | EKG REPORT ---
SEVERITY:- ABNORMAL ECG - SINUS RHYTHM CONSIDER ANTERIOR INFARCT BORDERLINE T ABNORMALITIES, ANTERIOR LEADS PROLONGED QT INTERVAL : Confirmed by: Asmita Gamboa MD 28-Aug-2018 00:02:34
[2018-08-28] MEDS: MORPHINE SULFATE 10 MG/ML INJ IV PRN ×2 (02:43→12:03)
[2018-08-28] MEDS ORDERED: MAGNESIUM HYDROXIDE SUSP 30 ML UDCUP PO PRN (03:00)
[2018-08-28] MEDS ORDERED: ONDANSETRON HCL INJ/PF 4 MG/2 ML SDV IV PRN ×2 (03:00→15:30)
[2018-08-28] MEDS ORDERED: TEMAZEPAM 15 MG CAPSULE PO PRN (03:00)
[2018-08-28] MEDS ORDERED: MAG HYDROX/AL HYDROX/SIMETH SUSP 30 ML UDCUP PO PRN (03:00)
[2018-08-28] MEDS ORDERED: ACETAMINOPHEN 325 MG TABLET PO PRN (03:05)
[2018-08-28] MEDS: HEPARIN SOD (PORCINE) 5,000 UNIT/ML 1 ML SYRINGE SUBCUT SCH ×3 (06:07→21:46)
[2018-08-28 06:25] LABS: HEMATOCRIT 29.4 % (36.0-47.0); HEMOGLOBIN 10.1 g/dL (12.0-15.5); MEAN CORPUSCULAR HEMOGLOBIN 37.4 pg (27.0-33.4); MEAN CORPUSCULAR HGB CONC 34.2 g/dL (32.0-36.0); MEAN CORPUSCULAR VOLUME 109 fl (80-97); RED BLOOD COUNT 2.69 10^6/uL (3.72-5.28); WHITE BLOOD COUNT 3.7 10^3/uL (4.0-10.5)
[2018-08-28 06:46] LABS: BLOOD UREA NITROGEN 13 mg/dL (7-20); CALCIUM 8.2 mg/dL (8.4-10.2); CHOLESTEROL 134.72 mg/dL (0-200); GLUCOSE 72 mg/dL (75-110); POTASSIUM 3.6 mmol/L (3.6-5.0); TRIGLYCERIDES 101 mg/dL (<150)
[2018-08-28 06:52] LABS: CARBON DIOXIDE 29 mmol/L (22-30); CHLORIDE 110 mmol/L (98-107); SODIUM 142.3 mmol/L (137-145)
[2018-08-28 06:57] LABS: DIRECT LDL 77 mg/dL (<100)
[2018-08-28 06:59] LABS: ANION GAP 3 (5-19); PLATELET COUNT 90 10^3/uL (150-450)
[2018-08-28 07:03] LABS: FREE T3 2.8 pg/mL (2.77-5.27); FREE T4 (FREE THYROXINE) 0.41 ng/dL (0.78-2.19)
[2018-08-28] MEDS ORDERED: FAMOTIDINE 20 MG TABLET PO SCH (10:00)
[2018-08-28] MEDS: DOCUSATE SODIUM 100 MG CAPSULE PO SCH ×2 (10:06→17:27)
[2018-08-28] MEDS ORDERED: DEXTROSE 50%-WATER 25 GM/50 ML DISP.SYRIN IV PRN ×2 (14:37)
[2018-08-28] MEDS ORDERED: GLUCAGON,HUMAN RECOMB 1 MG INJ IM PRN (14:37)
[2018-08-28] MEDS ORDERED: DEXTROSE 40% GEL 15 GM TUBE PO PRN ×2 (14:37)
[2018-08-28] MEDS ORDERED: MORPHINE SULFATE 10 MG/ML INJ IV PRN ×4 (15:12→15:30)
[2018-08-28] MEDS: METOPROLOL SUCCINATE 25 MG TAB.SR.24H PO SCH (15:56)
[2018-08-28] MEDS: FOLIC ACID 1 MG TABLET PO SCH (15:56)
[2018-08-28] MEDS: AMLODIPINE BESYLATE 10 MG TABLET PO SCH (15:56)
[2018-08-28] MEDS: PANTOPRAZOLE SODIUM 20 MG TABLET.DR PO SCH (15:57)
[2018-08-28] MEDS: INSULIN REG, HUMAN 100 UNIT/ML 3 ML VIAL (PYX) SUBCUT SCH ×2 (17:26→21:46)
--- NOTE | 2018-08-28 19:23 | PDOC H&P ---
History of Present Illness Admission Date/PCP: 08/27/18 22:02 NATALIA CHOI MD Patient complains of: Fall History of Present Illness: JAJA SHABAZZ is a 82 year old female who presented to the emergency room with a history of a fall 3 days prior to her visit. The patient admits that she had a sudden fall typical of the 60 or more fall she has experienced over the last 6 years where her legs just seem to give way and she fell striking her right chest furniture during the fall. She denies loss of consciousness and did not strike her head on this occasion although she admits she is struck her head many times with prior falls. She further admits that she has had persistent right lower lateral chest pain worsened by certain movements, exertion, cough and deep breathing. She denies prior similar chest injuries and has not identified any other aggravating or ameliorating factors for her chest discomfort. She has not identified any aggravating or ameliorating factors for her falls but has seen her primary care provider about this and has an appointment to see a neurologist on Saturday and she will also have an MRI of her head done at that time. In the emergency room the patient was found to have fractures of the seventh through 11th right lateral ribs. She was also found to have a prolonged QT at 480 ms as well as a prolonged QTC at 519 ms on her EKG. She was noted to be hypokalemic (3.0) and was treated with IV K riders as well as IV magnesium despite a magnesium level of 1.9. She was seen in the ER by myself in consultation and I advised that she would probably not require admission or observation status. A repeat EKG was ordered after her last potassium (K rider) was administered to reevaluate her QTC and QT intervals to determine the possible need for an observation status admission. Past Medical History Cardiac Medical History: Reports: Hyperlipidema, Hypertension - medicated Denies: Atrial Fibrillation, Congestive Heart Failure, Coronary Artery Disease, Myocardial Infarction Pulmonary Medical History: Reports: Sleep Apnea, Tuberculosis Denies: Asthma, Chronic Obstructive Pulmonary Disease (COPD) EENT Medical History: Denies: Cataracts, Ears - Hearing aids Neurological Medical History: Denies: Hemorrhagic CVA, Ischemic CVA, Seizures Endocrine Medical History: Reports: Diabetes Mellitus Type 2, Hypothyroidism, Obesity Denies: Diabetes Mellitus Type 1, Hyperthyroidism Renal/ Medical History: Reports: Chronic Kidney Disease Denies: Nephrolithiasis Malignancy Medical History: Reports: None GI Medical History: Denies: Cirrhosis, Hepatitis, Hiatal Hernia Musculoskeltal Medical History: Reports: Arthritis - RA Denies: Gout Skin Medical History: Denies: Eczema, Psoriasis Psychiatric Medical History: Reports: Depression Denies: Alcohol Dependency, Substance Abuse, Tobacco Dependency Traumatic Medical History: Reports: None Hematology: Denies: Anemia, Bleeding Tendencies, Neutropenia Infectious Medical History: Reports: None Past Surgical History Past Surgical History: Reports: Tonsillectomy, Tubal Ligation Social History Information Source: Patient Lives with: Spouse/Significant other Smoking Status: Never Smoker Frequency of Alcohol Use: None Hx Recreational Drug Use: No Drugs: None Hx Prescription Drug Abuse: No - Advance Directive Resuscitation Status: Full Code Surrogate healthcare decision maker:: Brandan Shabazz Family History Family History: DM, Hypertension, Malignancy Parental Family History Reviewed: Yes Children Family History Reviewed: No Sibling(s) Family History Reviewed.: Yes Medication/Allergy Home Medications: Amlodipine Besylate [Norvasc 10 mg Tablet] 10 mg PO DAILY 08/28/18 Benazepril HCl [Lotensin 20 mg Tablet] 20 mg PO Q12 08/28/18 Folic Acid [Folvite 1 mg Tablet] 1 mg PO DAILY 08/28/18 Glimepiride [Amaryl] 2 mg PO DAILY 08/28/18 Levothyroxine Sodium [Synthroid] 200 mcg PO Q6AM 08/28/18 Methotrexate Sodium [Rheumatrex 2.5 mg Tablet] 10 mg PO FR@1000 08/28/18 Metoprolol Succinate [Toprol Xl 25 mg Tab.sr] 25 mg PO DAILY 08/28/18 Nabumetone [Relafen] 500 mg PO Q12HP PRN 08/28/18 Omeprazole 20 mg PO DAILY 08/28/18 Oxybutynin Chloride [Oxybutynin Chloride ER] 10 mg PO QHS 08/28/18 Potassium Chloride [Klor-Con M10] 10 meq PO BID 08/28/18 Sertraline HCl [Zoloft] 100 mg PO DAILY 08/28/18 Sitagliptin Phosphate [Januvia] 100 mg PO DAILY 08/28/18 Allergies/Adverse Reactions: No Known Allergies Allergy (Verified 08/27/18 13:47) Review of Systems Constitutional: ABSENT: anorexia, chills, fever(s) Eyes: ABSENT: visual disturbances, other - Eye pain Ears: PRESENT: other - Ear pain. ABSENT: hearing changes Nose, Mouth, and Throat: ABSENT: mouth pain, sore throat Cardiovascular: PRESENT: as per HPI, chest pain. ABSENT: dyspnea on exertion, edema, orthropnea, palpitations Respiratory: ABSENT: cough, dyspnea, hemoptysis, sputum Gastrointestinal: ABSENT: abdominal pain, constipation, diarrhea, nausea, vomiting Genitourinary: ABSENT: dysuria, hematuria Musculoskeletal: ABSENT: back pain, joint swelling, muscle weakness Integumentary: ABSENT: pruritus, rash Neurological: PRESENT: frequent falls. ABSENT: confusion, convulsions, dizziness, focal weakness, memory loss, syncope, vertigo, weakness Psychiatric: ABSENT: anxiety, depression Endocrine: ABSENT: cold intolerance, heat intolerance Hematologic/Lymphatic: ABSENT: easy bleeding, easy bruising Physical Exam Vital Signs: Temp Pulse Resp BP Pulse Ox 98.4 F 80 18 158/72 H 94 08/28/18 00:45 08/27/18 13:50 08/28/18 00:45 08/28/18 00:45 08/28/18 00:45 Intake & Output 08/26/18 08/27/18 08/28/18 23:59 23:59 23:59 Intake Total 238 50 Balance 238 50 Weight 96.4 kg General appearance: PRESENT: no acute distress, cooperative, obese Head exam: PRESENT: atraumatic, normocephalic Eye exam: PRESENT: conjunctiva pink. ABSENT: conjunctival injection, scleral icterus Ear exam: PRESENT: normal external ear exam. ABSENT: bleeding, drainage Mouth exam: PRESENT: dry mucosa, neck supple Neck exam: ABSENT: JVD, thyromegaly, tracheal deviation Respiratory exam: PRESENT: chest wall tenderness - Right lateral chest wall tender to palpation, greatest in the anterior to posterior axillary line region of the lower ribs., clear to auscultation victor manuel, symmetrical, unlabored Cardiovascular exam: PRESENT: RRR, tachycardia. ABSENT: clicks, gallop, rubs Pulses: PRESENT: normal radial pulses, normal dorsalis pedis pul Vascular exam: PRESENT: normal capillary refill. ABSENT: pallor GI/Abdominal exam: PRESENT: normal bowel sounds, soft Rectal exam: PRESENT: deferred Extremities exam: ABSENT: joint swelling, pedal edema Musculoskeletal exam: PRESENT: deformity, dislocation Neurological exam: PRESENT: alert, oriented to person, oriented to place, oriented to time, oriented to situation, CN II-XII grossly intact. ABSENT: motor sensory deficit Psychiatric exam: PRESENT: appropriate affect, normal mood Skin exam: PRESENT: dry, intact, warm. ABSENT: jaundice, rash, urticaria Results Laboratory Results: 08/27/18 17:52 08/27/18 17:52 08/27/18 08/27/18 08/27/18 17:52 17:52 17:52 WBC 3.8 L RBC 2.67 L Hgb 10.0 L Hct 29.2 L MCV 109 H MCH 37.4 H MCHC 34.3 RDW 18.1 H Plt Count 107 L Seg Neutrophils % Not Reportable Lymphocytes % Not Reportable Monocytes % Not Reportable Eosinophils % Not Reportable Basophils % Not Reportable Absolute Neutrophils Not Reportable Absolute Lymphocytes Not Reportable Absolute Monocytes Not Reportable Absolute Eosinophils Not Reportable Absolute Basophils Not Reportable Sodium 139.7 Potassium 3.0 L* Chloride 107 Carbon Dioxide 29 Anion Gap 4 L BUN 13 Creatinine 1.30 H Est GFR ( Amer) 48 L Est GFR (Non-Af Amer) 39 L Glucose 85 Calcium 8.5 Magnesium 1.9 Total Bilirubin 1.6 H AST 103 H ALT 45 Alkaline Phosphatase 80 Total Protein 7.4 Albumin 3.0 L Urine Color Urine Appearance Urine pH Ur Specific [place] Urine Protein Urine Glucose (UA) Urine Ketones Urine Blood Urine Nitrite Ur Leukocyte Esterase Urine WBC (Auto) Urine RBC (Auto) 08/27/18 18:24 WBC RBC Hgb Hct MCV MCH MCHC RDW Plt Count Seg Neutrophils % Lymphocytes % Monocytes % Eosinophils % Basophils % Absolute Neutrophils Absolute Lymphocytes Absolute Monocytes Absolute Eosinophils Absolute Basophils Sodium Potassium Chloride Carbon Dioxide Anion Gap BUN Creatinine Est GFR ( Amer) Est GFR (Non-Af Amer) Glucose Calcium Magnesium Total Bilirubin AST ALT Alkaline Phosphatase Total Protein Albumin Urine Color YELLOW Urine Appearance CLEAR Urine pH 7.0 Ur Specific [place] 1.010 Urine Protein NEGATIVE Urine Glucose (UA) NEGATIVE Urine Ketones NEGATIVE Urine Blood NEGATIVE Urine Nitrite NEGATIVE Ur Leukocyte Esterase NEGATIVE Urine WBC (Auto) 4 Urine RBC (Auto) 0 08/27/18 17:52 Troponin I 0.016 Impressions: Hip/Pelvis X-Ray 08/27/18 14:18 IMPRESSION: Decreased osseous mineralization without evidence of acute bony abnormality. Ribs w/Chest X-Ray 08/27/18 14:18 IMPRESSION: Rib fractures involving the 8th through 11th right-sided ribs. The 10th and 11th rib fractures are displaced. Abdomen/Pelvis CT 08/27/18 17:21 IMPRESSION: Multiple right lateral rib fractures, 7 -11th ribs. No pneumothorax. Small areas of right basilar subsegmental atelectasis and trace pleural effusion. IMPRESSION: Moderate low-density ascites. Mildly nodular contour of the liver and mildly enlarged spleen. No focal organ laceration identified. Cervical Spine CT 08/27/18 17:21 IMPRESSION: CHRONIC DEGENERATIVE CHANGES. NO ACUTE FINDINGS. Head CT 08/27/18 17:21 IMPRESSION: CHRONIC CHANGES OF ATROPHY AND MICROVASCULAR ISCHEMIA. NO ACUTE PROCESS. EVIDENCE OF ACUTE STROKE: NO. Chest CT 08/27/18 17:27 IMPRESSION: Multiple right lateral rib fractures, 7 -11th ribs. No pneumothorax. Small areas of right basilar subsegmental atelectasis and trace pleural effusion. IMPRESSION: Moderate low-density ascites. Mildly nodular contour of the liver and mildly enlarged spleen. No focal organ laceration identified. Assessment and Plan - Diagnosis (1) Prolonged QT interval Is this a current diagnosis for this admission?: Yes Plan: Patient's electrolytes will be normalized especially her hypokalemia will be corrected. Her EKG will be repeated for further evaluation. Patient will be seen in consultation by Dr. Gamboa. A CBC and basic metabolic profile will be obtained in the morning. (2) Hypokalemia Is this a current diagnosis for this admission?: Yes Plan: Patient's hypokalemia will be reevaluated with a repeat metabolic profile in the morning. (3) Frequent falls Is this a current diagnosis for this admission?: Yes Plan: Patient's frequent falls will be evaluated by her neurologist at her appointment on Saturday and she will also have an MRI at that time. At the present time a cardiology consultation will be obtained with Dr. Gamboa to evaluate for any possible cardiac arrhythmia genic possibilities that there may be for her frequent falls although she does not describe them as syncope. (4) Ribs, multiple fractures Qualifiers: Encounter type: initial encounter Fracture type: closed Laterality: right Qualified Code(s): S22.41XA - Multiple fractures of ribs, right side, initial encounter for closed fracture Is this a current diagnosis for this admission?: Yes Plan: Patient's rib fractures will be treated with morphine sulfate 2 to 4 mg IV every 2 hours as needed on a sliding scale basis for pain. (5) Chronic renal insufficiency, stage III (moderate) Is this a current diagnosis for this admission?: Yes Plan: Patient will be observed with a repeat metabolic profile to again reassess her renal function which appears to be at or near her baseline. (6) Hypertension Qualifiers: Hypertension type: essential hypertension Qualified Code(s): I10 - Essential (primary) hypertension Is this a current diagnosis for this admission?: Yes Plan: Patient will be continued on her usual antihypertensive regiment during her hospital course. Her blood pressure will be checked on a frequent basis. (7) Diabetes mellitus type 2 in obese Is this a current diagnosis for this admission?: Yes Plan: Patient will be continued on her current diabetic regiment and a diabetic diet. Before meals and at bedtime blood sugars will be obtained with a sliding scale insulin for hyperglycemic control. A hypoglycemic regiment and protocol will be in place. Hemoglobin A1c may be obtained to evaluate efficacy of current therapy. - Time Time Spent with patient: 25-34 minutes Medications reviewed and adjusted accordingly: Yes - Inpatient Certification Based on my medical assessment, after consideration of the patient's comorbidities, presenting symptoms, or acuity I expect that the services needed warrant INPATIENT care.: No I certify that my determination is in accordance with my understanding of Medicare's requirements for reasonable and necessary INPATIENT services [42 CFR 412.3e].: No Medical Necessity: Need for Pain Control
--- NOTE | 2018-08-28 19:24 | ADVANCED CARE ---
- Diagnosis (1) Prolonged QT interval Diagnosis Current: Yes (2) Hypokalemia Diagnosis Current: Yes (3) Frequent falls Diagnosis Current: Yes (4) Ribs, multiple fractures Diagnosis Current: Yes (5) Chronic renal insufficiency, stage III (moderate) Diagnosis Current: Yes (6) Hypertension Diagnosis Current: Yes (7) Diabetes mellitus type 2 in obese Diagnosis Current: Yes Attendance: The patient and myself. Resuscitation Status: Full Code Discussion: Patient elects to remain full code for resuscitation status throughout this hospital stay. Patient is named her Brandan Reynodls as her designated surrogate medical decision-maker. Care Planning Goals: 1. Patient will be a full CODE STATUS throughout her hospital stay. 2. Brandan Reynolds is the patient's designated surrogate medical decision-maker. Document(s) Completed: The following entries will be made to the patient's permanent medical record as well as her current medical record and orders via a EMR entry: 1. Patient will be a full CODE STATUS throughout her hospital stay. 2. Brandan Reynolds is the patient's designated surrogate medical decision-maker. Time Spent: 5 minutes
--- NOTE | 2018-08-28 19:33 | PDOC H&P ---
History of Present Illness Admission Date/PCP: 08/28/18 00:08 NATALIA CHOI MD Patient complains of: Hypokalemia. Multiple falls with injury/rib fractures. Hypothyroidism. Abnormal EKG History of Present Illness: JAJA SHABAZZ is a 82 year old female Past Medical History Cardiac Medical History: Reports: Hyperlipidema, Hypertension - medicated Denies: Atrial Fibrillation, Congestive Heart Failure, Coronary Artery Disease, Myocardial Infarction Pulmonary Medical History: Reports: Sleep Apnea, Tuberculosis Denies: Asthma, Chronic Obstructive Pulmonary Disease (COPD) EENT Medical History: Denies: Cataracts, Ears - Hearing aids Neurological Medical History: Denies: Hemorrhagic CVA, Ischemic CVA, Seizures Endocrine Medical History: Reports: Diabetes Mellitus Type 2, Hypothyroidism, Obesity Denies: Diabetes Mellitus Type 1, Hyperthyroidism Renal/ Medical History: Reports: Chronic Kidney Disease Denies: Nephrolithiasis Malignancy Medical History: Reports: None GI Medical History: Denies: Cirrhosis, Hepatitis, Hiatal Hernia Musculoskeltal Medical History: Reports: Arthritis - RA Denies: Gout Skin Medical History: Denies: Eczema, Psoriasis Psychiatric Medical History: Reports: Depression Denies: Alcohol Dependency, Substance Abuse, Tobacco Dependency Traumatic Medical History: Reports: None Hematology: Denies: Anemia, Sickle Cell Disease, Bleeding Tendencies, Neutropenia Infectious Medical History: Reports: None Past Surgical History Past Surgical History: Reports: Tonsillectomy, Tubal Ligation Denies: Amputation, Hysterectomy, Mastectomy, Pacemaker Social History Information Source: Patient, Relative Lives with: Spouse/Significant other Smoking Status: Never Smoker Frequency of Alcohol Use: None Hx Recreational Drug Use: No Drugs: None Hx Prescription Drug Abuse: No - Advance Directive Resuscitation Status: Full Code Family History Family History: DM, Hypertension, Malignancy Parental Family History Reviewed: Yes Children Family History Reviewed: Yes Sibling(s) Family History Reviewed.: Yes Medication/Allergy Home Medications: Amlodipine Besylate [Norvasc 10 mg Tablet] 10 mg PO DAILY 08/28/18 Benazepril HCl [Lotensin 20 mg Tablet] 20 mg PO Q12 08/28/18 Folic Acid [Folvite 1 mg Tablet] 1 mg PO DAILY 08/28/18 Glimepiride [Amaryl] 2 mg PO DAILY 08/28/18 Levothyroxine Sodium [Synthroid] 200 mcg PO Q6AM 08/28/18 Methotrexate Sodium [Rheumatrex 2.5 mg Tablet] 10 mg PO FR@1000 08/28/18 Metoprolol Succinate [Toprol Xl 25 mg Tab.sr] 25 mg PO DAILY 08/28/18 Nabumetone [Relafen] 500 mg PO Q12HP PRN 08/28/18 Omeprazole 20 mg PO DAILY 08/28/18 Oxybutynin Chloride [Oxybutynin Chloride ER] 10 mg PO QHS 08/28/18 Potassium Chloride [Klor-Con M10] 10 meq PO BID 08/28/18 Sertraline HCl [Zoloft] 100 mg PO DAILY 08/28/18 Sitagliptin Phosphate [Januvia] 100 mg PO DAILY 08/28/18 Allergies/Adverse Reactions: No Known Allergies Allergy (Verified 08/27/18 13:47) Review of Systems Constitutional: PRESENT: fatigue, weight gain Eyes: ABSENT: visual disturbances Ears: ABSENT: hearing changes Nose, Mouth, and Throat: ABSENT: mouth pain, sore throat Cardiovascular: PRESENT: dyspnea on exertion. ABSENT: chest pain, palpitations Respiratory: ABSENT: cough, hemoptysis, sputum Gastrointestinal: ABSENT: abdominal pain, heartburn, nausea, vomiting Genitourinary: ABSENT: difficulty urinating, hematuria Musculoskeletal: ABSENT: back pain, joint swelling Integumentary: ABSENT: diaphoresis, rash Neurological: PRESENT: abnormal gait, frequent falls Psychiatric: ABSENT: anxiety, depression Endocrine: ABSENT: cold intolerance, heat intolerance Hematologic/Lymphatic: ABSENT: easy bleeding, easy bruising Physical Exam Vital Signs: Temp Pulse Resp BP Pulse Ox 97.7 F 61 16 139/60 H 96 08/28/18 12:04 08/28/18 12:04 08/28/18 12:04 08/28/18 12:04 08/28/18 12:04 Intake & Output 08/27/18 08/28/18 08/29/18 06:59 06:59 06:59 Intake Total 288 Output Total 400 Balance -112 Weight 95.5 kg General appearance: PRESENT: cooperative, mild distress, well-developed Head exam: PRESENT: atraumatic, normocephalic Eye exam: PRESENT: conjunctiva pink, EOMI. ABSENT: scleral icterus Ear exam: PRESENT: normal external ear exam Mouth exam: PRESENT: moist, tongue midline Respiratory exam: PRESENT: rales - Faint rales left base, symmetrical, unlabored. ABSENT: accessory muscle use, rhonchi, tachypnea, wheezes Cardiovascular exam: PRESENT: RRR, +S1, +S2 GI/Abdominal exam: PRESENT: normal bowel sounds, soft. ABSENT: distended, tenderness Rectal exam: PRESENT: deferred Extremities exam: ABSENT: pedal edema Musculoskeletal exam: PRESENT: normal inspection Neurological exam: PRESENT: alert, awake, oriented to person, oriented to place, oriented to time, oriented to situation, reflexes normal - Bicep and patella, CN II-XII grossly intact Psychiatric exam: PRESENT: appropriate affect. ABSENT: agitated, anxious Focused psych exam: ABSENT: delusional, restlessness Skin exam: PRESENT: other - Multiple ecchymotic areas/contusions on the right side and right hip Results Laboratory Results: 08/28/18 06:02 08/28/18 06:02 08/27/18 08/27/18 08/27/18 17:52 17:52 17:52 WBC 3.8 L RBC 2.67 L Hgb 10.0 L Hct 29.2 L MCV 109 H MCH 37.4 H MCHC 34.3 RDW 18.1 H Plt Count 107 L Seg Neutrophils % Not Reportable Lymphocytes % Not Reportable Monocytes % Not Reportable Eosinophils % Not Reportable Basophils % Not Reportable Absolute Neutrophils Not Reportable Absolute Lymphocytes Not Reportable Absolute Monocytes Not Reportable Absolute Eosinophils Not Reportable Absolute Basophils Not Reportable Sodium 139.7 Potassium 3.0 L* Chloride 107 Carbon Dioxide 29 Anion Gap 4 L BUN 13 Creatinine 1.30 H Est GFR ( Amer) 48 L Est GFR (Non-Af Amer) 39 L Glucose 85 Calcium 8.5 Magnesium 1.9 Total Bilirubin 1.6 H AST 103 H ALT 45 Alkaline Phosphatase 80 Total Protein 7.4 Albumin 3.0 L Triglycerides Cholesterol LDL Cholesterol Direct VLDL Cholesterol HDL Cholesterol TSH Free T4 Free T3 pg/mL Urine Color Urine Appearance Urine pH Ur Specific [place] Urine Protein Urine Glucose (UA) Urine Ketones Urine Blood Urine Nitrite Ur Leukocyte Esterase Urine WBC (Auto) Urine RBC (Auto) 08/27/18 08/28/18 08/28/18 18:24 06:02 06:02 WBC 3.7 L RBC 2.69 L Hgb 10.1 L Hct 29.4 L MCV 109 H MCH 37.4 H MCHC 34.2 RDW 18.0 H Plt Count 90 L Seg Neutrophils % Lymphocytes % Monocytes % Eosinophils % Basophils % Absolute Neutrophils Absolute Lymphocytes Absolute Monocytes Absolute Eosinophils Absolute Basophils Sodium Potassium Chloride Carbon Dioxide Anion Gap BUN Creatinine Est GFR ( Amer) Est GFR (Non-Af Amer) Glucose Calcium Magnesium Total Bilirubin AST ALT Alkaline Phosphatase Total Protein Albumin Triglycerides Cholesterol LDL Cholesterol Direct VLDL Cholesterol HDL Cholesterol TSH 156.00 H Free T4 0.41 L Free T3 pg/mL 2.80 Urine Color YELLOW Urine Appearance CLEAR Urine pH 7.0 Ur Specific [place] 1.010 Urine Protein NEGATIVE Urine Glucose (UA) NEGATIVE Urine Ketones NEGATIVE Urine Blood NEGATIVE Urine Nitrite NEGATIVE Ur Leukocyte Esterase NEGATIVE Urine WBC (Auto) 4 Urine RBC (Auto) 0 08/28/18 06:02 WBC RBC Hgb Hct MCV MCH MCHC RDW Plt Count Seg Neutrophils % Lymphocytes % Monocytes % Eosinophils % Basophils % Absolute Neutrophils Absolute Lymphocytes Absolute Monocytes Absolute Eosinophils Absolute Basophils Sodium 142.3 Potassium 3.6 Chloride 110 H Carbon Dioxide 29 Anion Gap 3 L BUN 13 Creatinine 1.17 Est GFR ( Amer) 54 L Est GFR (Non-Af Amer) 45 L Glucose 72 L Calcium 8.2 L Magnesium Total Bilirubin AST ALT Alkaline Phosphatase Total Protein Albumin Triglycerides 101 Cholesterol 134.72 LDL Cholesterol Direct 77 VLDL Cholesterol 20.0 HDL Cholesterol 23 L TSH Free T4 Free T3 pg/mL Urine Color Urine Appearance Urine pH Ur Specific [place] Urine Protein Urine Glucose (UA) Urine Ketones Urine Blood Urine Nitrite Ur Leukocyte Esterase Urine WBC (Auto) Urine RBC (Auto) 08/27/18 17:52 Troponin I 0.016 Impressions: Hip/Pelvis X-Ray 08/27/18 14:18 IMPRESSION: Decreased osseous mineralization without evidence of acute bony abnormality. Ribs w/Chest X-Ray 08/27/18 14:18 IMPRESSION: Rib fractures involving the 8th through 11th right-sided ribs. The 10th and 11th rib fractures are displaced. Abdomen/Pelvis CT 08/27/18 17:21 IMPRESSION: Multiple right lateral rib fractures, 7 -11th ribs. No pneumothorax. Small areas of right basilar subsegmental atelectasis and trace pleural effusion. IMPRESSION: Moderate low-density ascites. Mildly nodular contour of the liver and mildly enlarged spleen. No focal organ laceration identified. Cervical Spine CT 08/27/18 17:21 IMPRESSION: CHRONIC DEGENERATIVE CHANGES. NO ACUTE FINDINGS. Head CT 08/27/18 17:21 IMPRESSION: CHRONIC CHANGES OF ATROPHY AND MICROVASCULAR ISCHEMIA. NO ACUTE PROCESS. EVIDENCE OF ACUTE STROKE: NO. Chest CT 08/27/18 17:27 IMPRESSION: Multiple right lateral rib fractures, 7 -11th ribs. No pneumothorax. Small areas of right basilar subsegmental atelectasis and trace pleural effusion. IMPRESSION: Moderate low-density ascites. Mildly nodular contour of the liver and mildly enlarged spleen. No focal organ laceration identified. Assessment and Plan - Diagnosis (1) Hypokalemia Is this a current diagnosis for this admission?: Yes Plan: 08/28/2018-the patient's serum potassium was quite low. This undoubtedly contributed to the prolonged QT interval. The potassium will be supplemented. We will monitor the serum potassium level. (2) Prolonged QT interval Is this a current diagnosis for this admission?: Yes Plan: 08/28/2018-likely due to the hypokalemia. With potassium supplementation the QT interval improved. I will recheck an EKG in the morning. (3) Hypothyroidism Qualifiers: Hypothyroidism type: unspecified Qualified Code(s): E03.9 - Hypothyroidism, unspecified Is this a current diagnosis for this admission?: Yes Plan: The patient has profound hypothyroidism. Her TSH is 159. Dr. Choi recently increased her levothyroxine dose to 175 mcg. I will administer 200 mcg daily. We will continue to monitor her progress. Profound hypothyroidism could contribute to weakness as well as manifest with cardiac issues, weight gain and neuromuscular dysfunction. I will also check a serum cortisol level in the event that this is been adversely affected as well. (4) Chronic renal insufficiency, stage III (moderate) Is this a current diagnosis for this admission?: Yes Plan: 08/28/2018-as of March the patient's GFR has been under 60. We will continue to monitor her renal function. (5) Diabetes mellitus type 2 in obese Is this a current diagnosis for this admission?: Yes Plan: 08/28/2018-we will continue her oral diabetic medications. We will perform Accu- Cheks with meals and at bedtime and institute sliding scale coverage. (6) Frequent falls Is this a current diagnosis for this admission?: Yes Plan: 08/28/2018-after discussion with the patient and her daughter it is noted that the patient has been having ever increasing falls. She does report feeling lightheaded when rising from sitting or laying position. I will order orthostatic checks. She already has profound hypothyroidism. I will check her cortisol level as well. (7) Ribs, multiple fractures Qualifiers: Encounter type: initial encounter Fracture type: closed Laterality: right Qualified Code(s): S22.41XA - Multiple fractures of ribs, right side, initial encounter for closed fracture Is this a current diagnosis for this admission?: Yes Plan: 08/28/2018-the patient has sustained multiple rib fractures. She has large ecchymotic lesions especially on her right side. She has been walking with a cane and I pointed out that it is not very effective especially if she falls away from the side that she is using the cane on. I have asked physical therapy to see her. Hopefully with correction of some of her underlying comorbidities her walking will improve. (8) Macrocytic anemia Is this a current diagnosis for this admission?: Yes Plan: 08/28/2018-the patient's hemoglobin is only 10 and her MCV is 109. She does take folic acid but the methotrexate could be contributing. I will check anemia studies including B12, folic acid and iron levels. 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 We will continue to monitor. Hematology consult if appropriate. - Time Time Spent with patient: 35 or more minutes Medications reviewed and adjusted accordingly: Yes - Inpatient Certification Based on my medical assessment, after consideration of the patient's comorbidities, presenting symptoms, or acuity I expect that the services needed warrant INPATIENT care.: Yes I certify that my determination is in accordance with my understanding of Medicare's requirements for reasonable and necessary INPATIENT services [42 CFR 412.3e].: Yes Medical Necessity: Need Close Monitoring Due to Risk of Patient Decompensation, Need For Continuous Telemetry Monitoring, Need for Pain Control Post Hospital Care: D/C Dock Boss Documentation
--- NOTE | 2018-08-28 20:06 | EKG REPORT ---
SEVERITY:- BORDERLINE ECG - SINUS RHYTHM BORDERLINE PROLONGED QT INTERVAL : Confirmed by: Asmita Gamboa MD 28-Aug-2018 20:05:33
[2018-08-28] MEDS: BENAZEPRIL HCL 20 MG TABLET PO SCH (21:32)
[2018-08-28] MEDS: OXYBUTYNIN CHLORIDE 5 MG TABLET PO SCH (21:32)
[2018-08-28] MEDS: POTASSIUM CHLORIDE 10 MEQ CAPSULE.ER PO SCH (21:32)
[2018-08-28] MEDS ORDERED: (PENDING PHARMACY ID) (Oxybutynin Chloride [Oxybutynin Chloride Er] 10 MG) PO SCH (22:00)
[2018-08-29] MEDS: HEPARIN SOD (PORCINE) 5,000 UNIT/ML 1 ML SYRINGE SUBCUT SCH ×3 (05:37→21:37)
[2018-08-29] MEDS: PANTOPRAZOLE SODIUM 20 MG TABLET.DR PO SCH (05:39)
[2018-08-29] MEDS: LEVOTHYROXINE SODIUM 0.1 MG TABLET PO SCH (05:39)
[2018-08-29 06:58] LABS: RETICULOCYTE COUNT (AUTO) 1.41 % (0.66-2.85)
[2018-08-29 07:25] LABS: ANION GAP 5 (5-19); BLOOD UREA NITROGEN 15 mg/dL (7-20); CARBON DIOXIDE 27 mmol/L (22-30); CHLORIDE 108 mmol/L (98-107); CREATINE KINASE 113 U/L (30-135); GLUCOSE 104 mg/dL (75-110); IRON(TIBC) 63.2 ug/dL (37-170); POTASSIUM 3.7 mmol/L (3.6-5.0); SODIUM 140.3 mmol/L (137-145)
[2018-08-29] MEDS: INSULIN REG, HUMAN 100 UNIT/ML 3 ML VIAL (PYX) SUBCUT SCH ×4 (07:51→21:35)
[2018-08-29 08:32] LABS: FOLATE > 20.00 ng/mL (>2.76)
[2018-08-29] MEDS: SERTRALINE HCL 50 MG TABLET PO SCH (09:17)
[2018-08-29] MEDS: FOLIC ACID 1 MG TABLET PO SCH (09:17)
[2018-08-29] MEDS: METOPROLOL SUCCINATE 25 MG TAB.SR.24H PO SCH (09:17)
[2018-08-29] MEDS: DOCUSATE SODIUM 100 MG CAPSULE PO SCH ×2 (09:17→17:42)
[2018-08-29] MEDS: AMLODIPINE BESYLATE 10 MG TABLET PO SCH (09:18)
[2018-08-29] MEDS: GLIMEPIRIDE 1 MG TABLET PO SCH (09:18)
[2018-08-29] MEDS: OXYBUTYNIN CHLORIDE 5 MG TABLET PO SCH ×2 (09:18→21:44)
[2018-08-29] MEDS: SITAGLIPTIN PHOSPHATE 50 MG TABLET PO SCH (09:18)
[2018-08-29] MEDS: BENAZEPRIL HCL 20 MG TABLET PO SCH ×2 (09:18→21:44)
[2018-08-29] MEDS: POTASSIUM CHLORIDE 10 MEQ CAPSULE.ER PO SCH ×2 (09:19→21:44)
[2018-08-29] MEDS ORDERED: METHOTREXATE SODIUM 2.5 MG TABLET PO SCH (10:00)
--- NOTE | 2018-08-29 21:36 | PDOC PROGRESS REPORT ---
Subjective Progress Note for:: 08/29/18 Subjective:: The patient is sleeping. Her daughter is at the bedside. Reason For Visit: RIGHT RIB FRACTURES, PROLONGED QT,HYPOKALEMIA Physical Exam Vital Signs: Temp Pulse Resp BP Pulse Ox 98.5 F 53 L 16 134/51 H 96 08/29/18 11:38 08/29/18 14:00 08/29/18 11:38 08/29/18 11:38 08/29/18 11:38 Intake & Output 08/28/18 08/29/18 08/30/18 06:59 06:59 06:59 Intake Total 288 842 473 Output Total 400 1550 Balance -112 -708 473 Weight 95.5 kg 97.2 kg General appearance: PRESENT: no acute distress, cooperative - Sleepy but cooperative, obese, well-developed Head exam: PRESENT: atraumatic, normocephalic Ear exam: PRESENT: normal external ear exam Respiratory exam: PRESENT: clear to auscultation victor manuel, symmetrical, unlabored. ABSENT: rales, rhonchi, tachypnea, wheezes Cardiovascular exam: PRESENT: RRR, +S1, +S2, systolic murmur - 1/6 GI/Abdominal exam: PRESENT: normal bowel sounds, soft. ABSENT: distended, guarding, tenderness Rectal exam: PRESENT: deferred Gentrourinary exam: ABSENT: indwelling catheter Extremities exam: PRESENT: pedal edema. ABSENT: calf tenderness Musculoskeletal exam: ABSENT: ambulatory - See physical therapy notes. Very unstable for ambulation. Neurological exam: PRESENT: awake, oriented to person, oriented to place, oriented to situation. ABSENT: alert - Somewhat somnolent. Would fall asleep during the discussion. Psychiatric exam: PRESENT: appropriate affect. ABSENT: agitated, anxious Focused psych exam: ABSENT: delusional, paranoid, restlessness Results Laboratory Results: 08/28/18 06:02 08/29/18 06:08 08/29/18 08/29/18 06:08 06:08 Retic Count (auto) 1.41 Absolute Retic 0.040 Sodium 140.3 Potassium 3.7 Chloride 108 H Carbon Dioxide 27 Anion Gap 5 BUN 15 Creatinine 1.40 H Est GFR ( Amer) 44 L Est GFR (Non-Af Amer) 36 L Glucose 104 Calcium 8.0 L Magnesium 2.1 Iron 63.2 TIBC 226 L % Saturation 28 Ferritin 148.00 Vitamin B12 625.0 Folate > 20.00 08/27/18 08/29/18 17:52 06:08 Creatine Kinase 113 Troponin I 0.016 Impressions: Hip/Pelvis X-Ray 08/27/18 14:18 IMPRESSION: Decreased osseous mineralization without evidence of acute bony abnormality. Ribs w/Chest X-Ray 08/27/18 14:18 IMPRESSION: Rib fractures involving the 8th through 11th right-sided ribs. The 10th and 11th rib fractures are displaced. Abdomen/Pelvis CT 08/27/18 17:21 IMPRESSION: Multiple right lateral rib fractures, 7 -11th ribs. No pneumothorax. Small areas of right basilar subsegmental atelectasis and trace pleural effusion. IMPRESSION: Moderate low-density ascites. Mildly nodular contour of the liver and mildly enlarged spleen. No focal organ laceration identified. Cervical Spine CT 08/27/18 17:21 IMPRESSION: CHRONIC DEGENERATIVE CHANGES. NO ACUTE FINDINGS. Head CT 08/27/18 17:21 IMPRESSION: CHRONIC CHANGES OF ATROPHY AND MICROVASCULAR ISCHEMIA. NO ACUTE PROCESS. EVIDENCE OF ACUTE STROKE: NO. Chest CT 08/27/18 17:27 IMPRESSION: Multiple right lateral rib fractures, 7 -11th ribs. No pneumothorax. Small areas of right basilar subsegmental atelectasis and trace pleural effusion. IMPRESSION: Moderate low-density ascites. Mildly nodular contour of the liver and mildly enlarged spleen. No focal organ laceration identified. Assessment and Plan - Diagnosis (1) Hypokalemia Is this a current diagnosis for this admission?: Yes Plan: 08/28/2018-the patient's serum potassium was quite low. This undoubtedly contributed to the prolonged QT interval. The potassium will be supplemented. We will monitor the serum potassium level. 08/29/2018-currently on potassium supplementation and her potassium is remaining in the normal range. Continue to monitor potassium and supplement accordingly. (2) Prolonged QT interval Is this a current diagnosis for this admission?: Yes Plan: 08/28/2018-likely due to the hypokalemia. With potassium supplementation the QT interval improved. I will recheck an EKG in the morning. 08/29/2018-with correction of her serum potassium her QT is improved. We will continue to monitor. (3) Hypothyroidism Qualifiers: Hypothyroidism type: unspecified Qualified Code(s): E03.9 - Hypothyroidism, unspecified Is this a current diagnosis for this admission?: Yes Plan: The patient has profound hypothyroidism. Her TSH is 159. Dr. Peres recently increased her levothyroxine dose to 175 mcg. I will administer 200 mcg daily. We will continue to monitor her progress. Profound hypothyroidism could contribute to weakness as well as manifest with cardiac issues, weight gain and neuromuscular dysfunction. I will also check a serum cortisol level in the event that this is been adversely affected as well. 08/29/2018-still with profound elevation of TSH. I have increased the levot hyroxine to 200 mcg daily. We might consider the use of T3 replacement. I did check a cortisol level and it was normal. (4) Chronic renal insufficiency, stage III (moderate) Is this a current diagnosis for this admission?: Yes Plan: 08/28/2018-as of March the patient's GFR has been under 60. We will continue to monitor her renal function. 08/29/2018-her creatinine was slightly higher today but she is still in the stage III range. She might benefit from improved oral fluid intake (5) Diabetes mellitus type 2 in obese Is this a current diagnosis for this admission?: Yes Plan: 08/28/2018-we will continue her oral diabetic medications. We will perform Accu- Cheks with meals and at bedtime and institute sliding scale coverage. 08/29/2018-hemoglobin A1c was less than 6.0. This is outstanding. She will remain on diabetic diet and continue her oral medications. Accu-Cheks and sliding scale are continued. (6) Frequent falls Is this a current diagnosis for this admission?: Yes Plan: 08/28/2018-after discussion with the patient and her daughter it is noted that the patient has been having ever increasing falls. She does report feeling lightheaded when rising from sitting or laying position. I will order orthostatic checks. She already has profound hypothyroidism. I will check her cortisol level as well. 08/29/2018-physical therapy is working with the patient. She is still terribly unsafe with impaired mobility. She will likely benefit from assisted placement at the time of discharge. [facility] is an acceptable facility to her daughter. (7) Ribs, multiple fractures Qualifiers: Encounter type: initial encounter Fracture type: closed Laterality: right Qualified Code(s): S22.41XA - Multiple fractures of ribs, right side, initial encounter for closed fracture Is this a current diagnosis for this admission?: Yes Plan: 08/28/2018-the patient has sustained multiple rib fractures. She has large ecchymotic lesions especially on her right side. She has been walking with a cane and I pointed out that it is not very effective especially if she falls away from the side that she is using the cane on. I have asked physical therapy to see her. Hopefully with correction of some of her underlying comorbidities her walking will improve. 08/29/2018-the patient states that her rib pain is improving slowly. Continue current analgesic regimen (8) Macrocytic anemia Is this a current diagnosis for this admission?: Yes Plan: 08/28/2018-the patient's hemoglobin is only 10 and her MCV is 109. She does take folic acid but the methotrexate could be contributing. I will check anemia studies including B12, folic acid and iron levels. 08/29/2018-iron studies as well as B12 and folic acid were obtained. There was no pronounced abnormality. This is likely due to her methotrexate. Continue to monitor. 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 We will continue to monitor. Hematology consult if appropriate. 08/29/2018-white blood cell count is about the same. I again explained to the patient that this is most likely reaction to her medication. We will continue to monitor it. - Time Time Spent with patient: 25-34 minutes Medications reviewed and adjusted accordingly: Yes Anticipated discharge: SNF
--- NOTE | 2018-08-29 22:45 | EKG REPORT ---
SEVERITY:- BORDERLINE ECG - SINUS RHYTHM ATRIAL PREMATURE COMPLEX BORDERLINE T ABNORMALITIES, ANT-LAT LEADS BORDERLINE PROLONGED QT INTERVAL : Confirmed by: Asmita Gamboa MD 29-Aug-2018 22:44:17
[2018-08-30] MEDS: HEPARIN SOD (PORCINE) 5,000 UNIT/ML 1 ML SYRINGE SUBCUT SCH ×2 (06:12→14:36)
[2018-08-30] MEDS: LEVOTHYROXINE SODIUM 0.1 MG TABLET PO SCH (06:14)
[2018-08-30] MEDS: PANTOPRAZOLE SODIUM 20 MG TABLET.DR PO SCH (06:14)
[2018-08-30] MEDS: INSULIN REG, HUMAN 100 UNIT/ML 3 ML VIAL (PYX) SUBCUT SCH ×4 (09:56→21:22)
[2018-08-30] MEDS: AMLODIPINE BESYLATE 10 MG TABLET PO SCH (09:58)
[2018-08-30] MEDS: DOCUSATE SODIUM 100 MG CAPSULE PO SCH ×2 (09:58→17:54)
[2018-08-30] MEDS: GLIMEPIRIDE 1 MG TABLET PO SCH (09:58)
[2018-08-30] MEDS: POTASSIUM CHLORIDE 10 MEQ CAPSULE.ER PO SCH ×2 (09:58→21:22)
[2018-08-30] MEDS: SITAGLIPTIN PHOSPHATE 50 MG TABLET PO SCH (09:59)
[2018-08-30] MEDS: BENAZEPRIL HCL 20 MG TABLET PO SCH ×2 (09:59→21:22)
[2018-08-30] MEDS: OXYBUTYNIN CHLORIDE 5 MG TABLET PO SCH ×2 (09:59→21:22)
[2018-08-30] MEDS: SERTRALINE HCL 50 MG TABLET PO SCH (09:59)
[2018-08-30] MEDS: FOLIC ACID 1 MG TABLET PO SCH (10:00)
[2018-08-30] MEDS: METOPROLOL SUCCINATE 25 MG TAB.SR.24H PO SCH (10:00)
[2018-08-30] MEDS ORDERED: OXYCODONE HCL IR 5 MG TABLET PO PRN (15:55)
--- NOTE | 2018-08-30 20:44 | PDOC PROGRESS REPORT ---
Subjective Progress Note for:: 08/30/18 Subjective:: Patient's pain is improving. She is sleeping without too much difficulty. She is getting a little bit stronger. Eating and drinking okay. She still needs help to get up to the toilet. No nausea vomiting chest pain or shortness of breath. Reason For Visit: RIGHT RIB FRACTURES, PROLONGED QT,HYPOKALEMIA Physical Exam Vital Signs: Temp Pulse Resp BP Pulse Ox 98.7 F 57 L 18 119/48 L 96 08/30/18 15:50 08/30/18 15:50 08/30/18 15:50 08/30/18 15:50 08/30/18 15:50 Intake & Output 08/29/18 08/30/18 08/31/18 06:59 06:59 06:59 Intake Total 842 695 562 Output Total 1550 0 750 Balance -708 695 -188 Weight 97.2 kg 96.6 kg General appearance: PRESENT: no acute distress, cooperative, obese Head exam: PRESENT: atraumatic, normocephalic Eye exam: ABSENT: conjunctival injection, scleral icterus Ear exam: PRESENT: normal external ear exam Mouth exam: PRESENT: moist, neck supple, tongue midline Neck exam: ABSENT: tracheostomy Respiratory exam: PRESENT: clear to auscultation victor manuel, unlabored. ABSENT: rales, rhonchi, wheezes Cardiovascular exam: PRESENT: RRR, systolic murmur Pulses: PRESENT: normal radial pulses GI/Abdominal exam: PRESENT: normal bowel sounds, soft. ABSENT: distended, guarding, tenderness Rectal exam: PRESENT: deferred Gentrourinary exam: ABSENT: indwelling catheter Extremities exam: PRESENT: pedal edema Musculoskeletal exam: PRESENT: other - She has ecchymoses over the bilateral lateral chest choi. Tenderness to palpation in those areas as well.. ABSENT: normal inspection Neurological exam: PRESENT: alert, awake, oriented to person, oriented to place, oriented to situation, CN II-XII grossly intact Psychiatric exam: PRESENT: appropriate affect. ABSENT: anxious Skin exam: PRESENT: dry, intact, warm Results Laboratory Results: 08/28/18 06:02 08/29/18 06:08 08/27/18 08/29/18 17:52 06:08 Creatine Kinase 113 Troponin I 0.016 Impressions: Hip/Pelvis X-Ray 08/27/18 14:18 IMPRESSION: Decreased osseous mineralization without evidence of acute bony abnormality. Ribs w/Chest X-Ray 08/27/18 14:18 IMPRESSION: Rib fractures involving the 8th through 11th right-sided ribs. The 10th and 11th rib fractures are displaced. Abdomen/Pelvis CT 08/27/18 17:21 IMPRESSION: Multiple right lateral rib fractures, 7 -11th ribs. No pneumothorax. Small areas of right basilar subsegmental atelectasis and trace pleural effusion. IMPRESSION: Moderate low-density ascites. Mildly nodular contour of the liver and mildly enlarged spleen. No focal organ laceration identified. Cervical Spine CT 08/27/18 17:21 IMPRESSION: CHRONIC DEGENERATIVE CHANGES. NO ACUTE FINDINGS. Head CT 08/27/18 17:21 IMPRESSION: CHRONIC CHANGES OF ATROPHY AND MICROVASCULAR ISCHEMIA. NO ACUTE PROCESS. EVIDENCE OF ACUTE STROKE: NO. Chest CT 08/27/18 17:27 IMPRESSION: Multiple right lateral rib fractures, 7 -11th ribs. No pneumothorax. Small areas of right basilar subsegmental atelectasis and trace pleural effusion. IMPRESSION: Moderate low-density ascites. Mildly nodular contour of the liver and mildly enlarged spleen. No focal organ laceration identified. Assessment and Plan - Diagnosis (1) Ribs, multiple fractures Qualifiers: Encounter type: initial encounter Fracture type: closed Laterality: right Qualified Code(s): S22.41XA - Multiple fractures of ribs, right side, initial encounter for closed fracture Is this a current diagnosis for this admission?: Yes Plan: Secondary to fall. Today have DC'd her morphine and started her on oxycodone 5 mg p.o. every 6 hours as needed pain. Seems to be holding her pain well. Will reassess tomorrow. (2) Frequent falls Is this a current diagnosis for this admission?: Yes Plan: Not entirely clear etiology. We will continue to monitor orthostatic vitals. Physical therapy is working with the patient. She will likely need inpatient rehab. (3) Chronic renal insufficiency, stage III (moderate) Is this a current diagnosis for this admission?: Yes Plan: Her creatinine bumped a bit yesterday and today she is drinking fluids a little bit more aggressively today. We will recheck her creatinine in the morning. (4) Diabetes mellitus type 2 in obese Is this a current diagnosis for this admission?: Yes Plan: Globin A1c was 5.9. Blood glucose is well controlled. No changes to be made today. (5) Hypokalemia Is this a current diagnosis for this admission?: Yes Plan: Since potassium was replaced on admission and it is now normal. We will continue to monitor closely, check pending now. If her potassium is in normal range we can discontinue her oral supplementation and follow. Etiology of hypokalemia not entirely clear, possibly diet or medication related. (6) Macrocytic anemia Is this a current diagnosis for this admission?: Yes Plan: 08/28/2018-the patient's hemoglobin is only 10 and her MCV is 109. She does take folic acid but the methotrexate could be contributing. I will check anemia studies including B12, folic acid and iron levels. 08/29/2018-iron studies as well as B12 and folic acid were obtained. There was no pronounced abnormality. This is likely due to her methotrexate. Continue to monitor. 08/30/18-hemoglobin and hematocrit stable. Continue current plan, recheck tomorrow. (7) Neutropenia Qualifiers: Neutropenia type: other drug-induced Qualified Code(s): D70.2 - Other drug- induced agranulocytosis Is this a current diagnosis for this admission?: Yes Plan: 08/28/2018-it is possible that the methotrexate is contributing to the neutropenia. We will continue to monitor. Hematology consult if appropriate. 08/29/2018-white blood cell count is about the same. I again explained to the patient that this is most likely reaction to her medication. We will continue to monitor it. 08/30/2018white blood cell count unchanged today. Her platelets dropped a little bit today. And at this point she really has sort of a pancytopenia. I believe that hematology consult appropriate at this point. I will hold heparin for now and recheck platelets in the morning and will restart if appropriate. (8) Prolonged QT interval Is this a current diagnosis for this admission?: Yes Plan: Hypothesized due to hypokalemia. Improved QT interval with normalization of hypokalemia. Will recheck potassium and EKG in the morning. (9) Pancytopenia Is this a current diagnosis for this admission?: Yes Plan: Please see neutropenia above. - Time Time Spent with patient: 35 or more minutes Medications reviewed and adjusted accordingly: Yes - Inpatient Certification Based on my medical assessment, after consideration of the patient's comorbidities, presenting symptoms, or acuity I expect that the services needed warrant INPATIENT care.: Yes I certify that my determination is in accordance with my understanding of Medicare's requirements for reasonable and necessary INPATIENT services [42 CFR 412.3e].: Yes Medical Necessity: Significant Comorbidiites Make Outpatient Treatment Too Risky, Need Close Monitoring Due to Risk of Patient Decompensation, Risk of Complication if Not Cared For in Hospital
[2018-08-31 05:25] LABS: HEMATOCRIT 31.8 % (36.0-47.0); HEMOGLOBIN 10.9 g/dL (12.0-15.5); MEAN CORPUSCULAR HEMOGLOBIN 37.4 pg (27.0-33.4); MEAN CORPUSCULAR HGB CONC 34.4 g/dL (32.0-36.0); MEAN CORPUSCULAR VOLUME 109 fl (80-97); RED BLOOD COUNT 2.92 10^6/uL (3.72-5.28); RED CELL DISTRIBUTION WIDTH 18.1 % (11.5-14.0); WHITE BLOOD COUNT 4.2 10^3/uL (4.0-10.5)
[2018-08-31 05:43] LABS: PLATELET COUNT 84 10^3/uL (150-450)
[2018-08-31 05:58] LABS: BLOOD UREA NITROGEN 17 mg/dL (7-20); CALCIUM 8.1 mg/dL (8.4-10.2); CARBON DIOXIDE 26 mmol/L (22-30); CHLORIDE 110 mmol/L (98-107)
[2018-08-31 06:03] LABS: SODIUM 139.9 mmol/L (137-145)
[2018-08-31 06:06] LABS: ANION GAP 4 (5-19)
[2018-08-31 06:07] LABS: GLUCOSE 58 mg/dL (75-110)
[2018-08-31] MEDS: LEVOTHYROXINE SODIUM 0.1 MG TABLET PO SCH (06:14)
[2018-08-31] MEDS: PANTOPRAZOLE SODIUM 20 MG TABLET.DR PO SCH (06:14)
[2018-08-31] MEDS: INSULIN REG, HUMAN 100 UNIT/ML 3 ML VIAL (PYX) SUBCUT SCH ×4 (07:45→21:43)
[2018-08-31] MEDS: OXYBUTYNIN CHLORIDE 5 MG TABLET PO SCH ×2 (11:06→21:42)
[2018-08-31] MEDS: METOPROLOL SUCCINATE 25 MG TAB.SR.24H PO SCH (11:06)
[2018-08-31] MEDS: SERTRALINE HCL 50 MG TABLET PO SCH (11:06)
[2018-08-31] MEDS: POTASSIUM CHLORIDE 10 MEQ CAPSULE.ER PO SCH ×2 (11:06→21:42)
[2018-08-31] MEDS: FOLIC ACID 1 MG TABLET PO SCH (11:07)
[2018-08-31] MEDS: SITAGLIPTIN PHOSPHATE 50 MG TABLET PO SCH (11:07)
[2018-08-31] MEDS: AMLODIPINE BESYLATE 10 MG TABLET PO SCH (11:07)
[2018-08-31] MEDS: DOCUSATE SODIUM 100 MG CAPSULE PO SCH ×2 (11:07→18:12)
[2018-08-31] MEDS: BENAZEPRIL HCL 20 MG TABLET PO SCH ×2 (11:07→21:43)
[2018-08-31] MEDS: GLIMEPIRIDE 1 MG TABLET PO SCH (11:07)
[2018-08-31] MEDS ORDERED: SITAGLIPTIN PHOSPHATE 50 MG TABLET PO SCH (11:17)
[2018-08-31] MEDS: HEPARIN SOD (PORCINE) 5,000 UNIT/ML 1 ML SYRINGE SUBCUT SCH ×2 (14:50→21:01)
--- NOTE | 2018-08-31 16:22 | PDOC CONSULTATION ---
Consultation Consult Date: 08/31/18 Provider Consulted: CHRISTIAN WILLARD Consult reason:: Pancytopenia History of Present Illness Admission Date/PCP: 08/28/18 15:38 NATALIA CHOI MD History of Present Illness: JAJA SHABAZZ is a 82 year old female with history of rheumatoid arthritis, valvular heart disease, and renal insufficiency who presented to the ED after fall. Patient's daughter and sister in law are at bedside and provider her history today. They report that patient has more and more falls over the past few weeks. Her legs are just too weak and they give out. Family also believe that she has become confused and may have been taking her medications wrong. She is on methotrexate for her rheumatoid arthritis under the direction of Dr. Cisneros. She was scheduled to see Dr. Wolf in [place] for an MRI scan tomorrow. 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 Today, she is very sleepy and has difficulty maintaining a conversation. Her pain is worse with movement. Her appetite has been good, but today, she is not eating anything. Family reports plans for rehab at [facility] on discharge. Past Medical History Cardiac Medical History: Reports: Hyperlipidema, Hypertension - medicated Denies: Atrial Fibrillation, Congestive Heart Failure, Coronary Artery Disease, Myocardial Infarction Pulmonary Medical History: Reports: Sleep Apnea, Tuberculosis Denies: Asthma, Chronic Obstructive Pulmonary Disease (COPD) EENT Medical History: Denies: Cataracts, Ears - Hearing aids Neurological Medical History: Denies: Hemorrhagic CVA, Ischemic CVA, Seizures Endocrine Medical History: Reports: Diabetes Mellitus Type 2, Hypothyroidism, Obesity Denies: Diabetes Mellitus Type 1, Hyperthyroidism Renal/ Medical History: Reports: Chronic Kidney Disease Denies: Nephrolithiasis Malignancy Medical History: Reports: None GI Medical History: Denies: Cirrhosis, Hepatitis, Hiatal Hernia Musculoskeltal Medical History: Reports: Arthritis - RA Denies: Gout Skin Medical History: Denies: Eczema, Psoriasis Psychiatric Medical History: Reports: Depression Denies: Alcohol Dependency, Substance Abuse, Tobacco Dependency Traumatic Medical History: Reports: None Hematology: Denies: Anemia, Sickle Cell Disease, Bleeding Tendencies, Neutropenia Infectious Medical History: Reports: None Past Surgical History Past Surgical History: Reports: Tonsillectomy, Tubal Ligation Denies: Amputation, Hysterectomy, Mastectomy, Pacemaker Social History Lives with: Spouse/Significant other Smoking Status: Never Smoker Frequency of Alcohol Use: None Hx Recreational Drug Use: No Drugs: None Hx Prescription Drug Abuse: No - Advance Directive Resuscitation Status: Full Code Family History Family History: DM, Hypertension, Malignancy Parental Family History Reviewed: Yes - parent with colon cancer. Both with DM. Children Family History Reviewed: Yes - 1 child of colon cancer. Sibling(s) Family History Reviewed.: Yes Medication/Allergy Home Medications: Amlodipine Besylate [Norvasc 10 mg Tablet] 10 mg PO DAILY 08/28/18 Benazepril HCl [Lotensin 20 mg Tablet] 20 mg PO Q12 08/28/18 Folic Acid [Folvite 1 mg Tablet] 1 mg PO DAILY 08/28/18 Glimepiride [Amaryl] 2 mg PO DAILY 08/28/18 Levothyroxine Sodium [Synthroid] 200 mcg PO Q6AM 08/28/18 Methotrexate Sodium [Rheumatrex 2.5 mg Tablet] 10 mg PO FR@1000 08/28/18 Metoprolol Succinate [Toprol Xl 25 mg Tab.sr] 25 mg PO DAILY 08/28/18 Nabumetone [Relafen] 500 mg PO Q12HP PRN 08/28/18 Omeprazole 20 mg PO DAILY 08/28/18 Oxybutynin Chloride [Oxybutynin Chloride ER] 10 mg PO QHS 08/28/18 Potassium Chloride [Klor-Con M10] 10 meq PO BID 08/28/18 Sertraline HCl [Zoloft] 100 mg PO DAILY 08/28/18 Sitagliptin Phosphate [Januvia] 100 mg PO DAILY 08/28/18 Allergies/Adverse Reactions: No Known Allergies Allergy (Verified 08/27/18 13:47) Review of Systems Constitutional: ABSENT: fever(s) Eyes: ABSENT: visual disturbances Ears: ABSENT: hearing changes Nose, Mouth, and Throat: PRESENT: other - Ulcer on her tongue for which she was getting nystatin swish and swallow Cardiovascular: PRESENT: as per HPI Respiratory: PRESENT: as per HPI Gastrointestinal: ABSENT: constipation, nausea Genitourinary: ABSENT: dysuria Neurological: PRESENT: frequent falls, lack of coordination, weakness Hematologic/Lymphatic: ABSENT: lymphadenopathy Physical Exam Vital Signs: Temp Pulse Resp BP Pulse Ox 97.7 F 56 L 16 148/54 H 97 08/31/18 07:41 08/31/18 07:41 08/31/18 07:41 08/31/18 07:41 08/31/18 07:41 Intake & Output 08/30/18 08/31/18 09/01/18 06:59 06:59 06:59 Intake Total 695 1004 Output Total 0 750 Balance 695 254 Weight 96.6 kg 96.5 kg General appearance: PRESENT: obese, well-developed Exam: 82 year old female. Head exam: PRESENT: normocephalic Eye exam: PRESENT: EOMI, PERRLA Mouth exam: PRESENT: other - Patient would not fully cooperate with exam. Could not stick tongue out. Respiratory exam: PRESENT: unlabored, other - Right lung clear, but she was unable to move for left lung exam. Cardiovascular exam: PRESENT: RRR GI/Abdominal exam: PRESENT: soft. ABSENT: tenderness Extremities exam: ABSENT: pedal edema Neurological exam: PRESENT: other - As per HPI. Very sleepy and difficulty to fully assess. Skin exam: PRESENT: normal color Results Laboratory Results: 08/31/18 04:21 08/31/18 04:21 08/30/18 08/31/18 08/31/18 20:53 04:21 04:21 WBC 4.2 RBC 2.92 L Hgb 10.9 L Hct 31.8 L MCV 109 H MCH 37.4 H MCHC 34.4 RDW 18.1 H Plt Count 84 L Sodium 139.9 Potassium 4.1 4.0 Chloride 110 H Carbon Dioxide 26 Anion Gap 4 L BUN 17 Creatinine 1.26 H Est GFR ( Amer) 49 L Est GFR (Non-Af Amer) 41 L Glucose 58 L Calcium 8.1 L 08/27/18 08/29/18 17:52 06:08 Creatine Kinase 113 Troponin I 0.016 Impressions: Hip/Pelvis X-Ray 08/27/18 14:18 IMPRESSION: Decreased osseous mineralization without evidence of acute bony abnormality. Ribs w/Chest X-Ray 08/27/18 14:18 IMPRESSION: Rib fractures involving the 8th through 11th right-sided ribs. The 10th and 11th rib fractures are displaced. Abdomen/Pelvis CT 08/27/18 17:21 IMPRESSION: Multiple right lateral rib fractures, 7 -11th ribs. No pneumothorax. Small areas of right basilar subsegmental atelectasis and trace pleural effusion. IMPRESSION: Moderate low-density ascites. Mildly nodular contour of the liver and mildly enlarged spleen. No focal organ laceration identified. Cervical Spine CT 08/27/18 17:21 IMPRESSION: CHRONIC DEGENERATIVE CHANGES. NO ACUTE FINDINGS. Head CT 08/27/18 17:21 IMPRESSION: CHRONIC CHANGES OF ATROPHY AND MICROVASCULAR ISCHEMIA. NO ACUTE PROCESS. EVIDENCE OF ACUTE STROKE: NO. Chest CT 08/27/18 17:27 IMPRESSION: Multiple right lateral rib fractures, 7 -11th ribs. No pneumothorax. Small areas of right basilar subsegmental atelectasis and trace pleural effusion. IMPRESSION: Moderate low-density ascites. Mildly nodular contour of the liver and mildly enlarged spleen. No focal organ laceration identified. Status: Image reviewed by me Assessment & Plan - Diagnosis (1) Frequent falls Is this a current diagnosis for this admission?: Yes Plan: Patient will need rehab on discharge. (2) Pancytopenia Is this a current diagnosis for this admission?: Yes Plan: Her ANC is now back to normal. HGB remains stable. PLT are still low. Her iron, B12, and Folate show no evidence of deficiencies. This may have been at least partially due to the methotrexate. This may also be anemia of chronic disease. Family states she has been on 4 mg MTX, not 10 mg, as she received on Saturday. I would hold this drug for any evidence of pancytopenia. As long as PLT>50 and no active bleeding, OK to continue full dose prophylactic heparin or Lovenox for DVT/PE prophylaxis. (3) Ribs, multiple fractures Qualifiers: Encounter type: initial encounter Fracture type: closed Laterality: right Qualified Code(s): S22.41XA - Multiple fractures of ribs, right side, initial encounter for closed fracture Is this a current diagnosis for this admission?: Yes Plan: Continue pain medication. She was scheduled for further testing with Dr. Wolf in [place] tomorrow. I spoke with Dr. Booker. She will try to contact their office tomorrow to see if any of that work-up can be done here. Consider MRI brain with and without contrast for the falls as well. - Plan Summary Plan Summary: Patient was discussed with Dr. Booker. I will continue to follow. Thank you for this consultation.
--- NOTE | 2018-08-31 16:59 | PDOC PROGRESS REPORT ---
Subjective Progress Note for:: 08/31/18 Subjective:: Patient tells me that she is feeling pretty well this morning. Has been eating and drinking without too much difficulty. She had low blood sugar today but feels recovered from that. He is very unstable on her feet and is remaining in bed per PT recommendations. Chest pain or shortness of breath. No nausea or vomiting. She is feeling kind of sleepy. Reason For Visit: RIGHT RIB FRACTURES, PROLONGED QT,HYPOKALEMIA Physical Exam Vital Signs: Temp Pulse Resp BP Pulse Ox 97.7 F 56 L 16 148/54 H 97 08/31/18 07:41 08/31/18 14:00 08/31/18 07:41 08/31/18 07:41 08/31/18 07:41 Intake & Output 08/30/18 08/31/18 09/01/18 06:59 06:59 06:59 Intake Total 695 1004 Output Total 0 750 Balance 695 254 Weight 96.6 kg 96.5 kg General appearance: PRESENT: no acute distress, cooperative Head exam: PRESENT: atraumatic, normocephalic Eye exam: ABSENT: conjunctival injection, scleral icterus Ear exam: PRESENT: normal external ear exam Mouth exam: PRESENT: moist, tongue midline Neck exam: ABSENT: tracheostomy Respiratory exam: PRESENT: decreased breath sounds, unlabored. ABSENT: rales, rhonchi, wheezes Cardiovascular exam: PRESENT: RRR, +S1, +S2 Pulses: PRESENT: normal radial pulses GI/Abdominal exam: PRESENT: normal bowel sounds, soft. ABSENT: distended, firm, guarding, tenderness Rectal exam: PRESENT: deferred Gentrourinary exam: PRESENT: ecchymosis. ABSENT: indwelling catheter Musculoskeletal exam: PRESENT: other - Ecchymoses on the bilateral lateral ribs. Tenderness to palpation.. ABSENT: full ROM, normal inspection Neurological exam: PRESENT: alert, awake, oriented to person, oriented to place, oriented to situation, CN II-XII grossly intact Psychiatric exam: PRESENT: appropriate affect. ABSENT: anxious Skin exam: PRESENT: dry, intact, warm Results Laboratory Results: 08/31/18 04:21 08/31/18 04:21 08/30/18 08/31/18 08/31/18 20:53 04:21 04:21 WBC 4.2 RBC 2.92 L Hgb 10.9 L Hct 31.8 L MCV 109 H MCH 37.4 H MCHC 34.4 RDW 18.1 H Plt Count 84 L Sodium 139.9 Potassium 4.1 4.0 Chloride 110 H Carbon Dioxide 26 Anion Gap 4 L BUN 17 Creatinine 1.26 H Est GFR ( Amer) 49 L Est GFR (Non-Af Amer) 41 L Glucose 58 L Calcium 8.1 L 08/27/18 08/29/18 17:52 06:08 Creatine Kinase 113 Troponin I 0.016 Impressions: Hip/Pelvis X-Ray 08/27/18 14:18 IMPRESSION: Decreased osseous mineralization without evidence of acute bony abnormality. Ribs w/Chest X-Ray 08/27/18 14:18 IMPRESSION: Rib fractures involving the 8th through 11th right-sided ribs. The 10th and 11th rib fractures are displaced. Abdomen/Pelvis CT 08/27/18 17:21 IMPRESSION: Multiple right lateral rib fractures, 7 -11th ribs. No pneumothorax. Small areas of right basilar subsegmental atelectasis and trace pleural effusion. IMPRESSION: Moderate low-density ascites. Mildly nodular contour of the liver and mildly enlarged spleen. No focal organ laceration identified. Cervical Spine CT 08/27/18 17:21 IMPRESSION: CHRONIC DEGENERATIVE CHANGES. NO ACUTE FINDINGS. Head CT 08/27/18 17:21 IMPRESSION: CHRONIC CHANGES OF ATROPHY AND MICROVASCULAR ISCHEMIA. NO ACUTE PROCESS. EVIDENCE OF ACUTE STROKE: NO. Chest CT 08/27/18 17:27 IMPRESSION: Multiple right lateral rib fractures, 7 -11th ribs. No pneumothorax. Small areas of right basilar subsegmental atelectasis and trace pleural effusion. IMPRESSION: Moderate low-density ascites. Mildly nodular contour of the liver and mildly enlarged spleen. No focal organ laceration identified. Assessment and Plan - Diagnosis (1) Ribs, multiple fractures Qualifiers: Encounter type: initial encounter Fracture type: closed Laterality: right Qualified Code(s): S22.41XA - Multiple fractures of ribs, right side, initial encounter for closed fracture Is this a current diagnosis for this admission?: Yes Plan: Patient has been falling for several years at home. She reports that it usually happens in the morning. We are wondering if this is potentially related to hypoglycemia with the sulfonylurea that she is taking. She is also on other diabetic meds. At this point we are working on pain control with oxycodone as needed, physical therapy, awaiting a rehab plan. (2) Frequent falls Is this a current diagnosis for this admission?: Yes Plan: Unknown etiology though likely multifactorial, she is conditions and may be having hypoglycemia in the morning. Is working with physical therapy and will need acute rehab if not long-term care. (3) Chronic renal insufficiency, stage III (moderate) Is this a current diagnosis for this admission?: Yes Plan: No function is improved today. We will continue to monitor and avoid nephrotoxic drugs as we are able. (4) Diabetes mellitus type 2 in obese Is this a current diagnosis for this admission?: Yes Plan: Is on Januvia, Amaryl at home. She has been having hypoglycemia in the morning. I discontinued her Amaryl which is dangerous in the elderly potentially. I have continue the Januvia with hold parameters. We will continue diabetic diet and sliding scale short acting insulin. Also hypoglycemia orders are in place. (5) Hypokalemia Is this a current diagnosis for this admission?: Yes Plan: 4.0 today. We will continue to monitor and replete as indicated. She has a prolonged QT on her EKG. (6) Macrocytic anemia Is this a current diagnosis for this admission?: Yes Plan: B12 and folate ordered. (7) Prolonged QT interval Is this a current diagnosis for this admission?: Yes Plan: Patient has a prolonged QT segment on her EKG here in the hospital. We will do our best to avoid QT prolonging medications. We will monitor her on telemetry. (8) Pancytopenia Is this a current diagnosis for this admission?: Yes Plan: I appreciate Dr. Byrd consulting on this patient for her pancytopenia. She is on long-term methotrexate and this could be the cause of her cytopenias. Today her white blood cell count is slightly improved. Her platelets are still low. Her hemoglobin is stable. As noted under the problem rheumatoid arthritis below the patient and her family think that she takes 2.5 mg every week and here we have her on 10 mg weekly, we will need to sort this out tomorrow, Saturday. (9) Rheumatoid arthritis Is this a current diagnosis for this admission?: Yes Plan: Details of this diagnosis unknown. This is why she is on her methotrexate. Her family thinks that she takes 2.5 mg every Saturday. She received 10 mg this past Saturday and that is what ordered currently, since this is weekly we have some time to figure it out. 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 - Time Time Spent with patient: 25-34 minutes Medications reviewed and adjusted accordingly: Yes - Inpatient Certification Based on my medical assessment, after consideration of the patient's comorbidities, presenting symptoms, or acuity I expect that the services needed warrant INPATIENT care.: Yes I certify that my determination is in accordance with my understanding of Medicare's requirements for reasonable and necessary INPATIENT services [42 CFR 412.3e].: Yes Medical Necessity: Significant Comorbidiites Make Outpatient Treatment Too Risky, Need Close Monitoring Due to Risk of Patient Decompensation, Need For Continuous Telemetry Monitoring, Need for Pain Control, Risk of Complication if Not Cared For in Hospital - Plan Summary Plan Summary: Patient is receiving physical therapy and we are a waiting a discharge plan. She will likely need acute rehab inpatient. In the meantime I have consulted Dr. Byrd for her pancytopenia, see above. We will need to sort out her methotrexate dose. We are also following her hypoglycemia closely and she has had some adjustments of her diabetic medications. She continues to require inpatient status related to active medication changes and significant risk of decompensation if discharged in her current physical state.
--- NOTE | 2018-08-31 19:04 | EKG REPORT ---
SEVERITY:- BORDERLINE ECG - SINUS RHYTHM BORDERLINE T ABNORMALITIES, ANT-LAT LEADS : Confirmed by: Asmita Gamboa MD 31-Aug-2018 19:04:05
[2018-09-01] MEDS: HEPARIN SOD (PORCINE) 5,000 UNIT/ML 1 ML SYRINGE SUBCUT SCH ×3 (05:40→21:26)
[2018-09-01 06:05] LABS: ABSOLUTE EOSINOPHILS # (AUTO) 0.1 10^3/uL (0.0-0.6); ABSOLUTE LYMPHOCYTES (AUTO) 1.2 10^3/uL (0.5-4.7); ABSOLUTE MONOCYTES (AUTO) 0.1 10^3/uL (0.1-1.4); ABSOLUTE NEUT (AUTO) 2.7 10^3/uL (1.7-8.2); BASOPHILS % (AUTO) 1.1 % (0-2); EOSINOPHILS % (AUTO) 2.4 % (0-6); HEMATOCRIT 30.5 % (36.0-47.0); HEMOGLOBIN 10.5 g/dL (12.0-15.5); LYMPHOCYTES % (AUTO) 28.8 % (13-45); MEAN CORPUSCULAR HEMOGLOBIN 37.7 pg (27.0-33.4); MEAN CORPUSCULAR HGB CONC 34.5 g/dL (32.0-36.0); MEAN CORPUSCULAR VOLUME 109 fl (80-97); MONOCYTES % (AUTO) 3.2 % (3-13); RED CELL DISTRIBUTION WIDTH 18.3 % (11.5-14.0); SEGMENTED NEUTROPHILS % (AUTO) 64.5 % (42-78); TOTAL CELLS COUNTED % (AUTO) 100 %; WHITE BLOOD COUNT 4.3 10^3/uL (4.0-10.5)
[2018-09-01] MEDS: PANTOPRAZOLE SODIUM 20 MG TABLET.DR PO SCH (06:11)
[2018-09-01] MEDS: LEVOTHYROXINE SODIUM 0.1 MG TABLET PO SCH (06:11)
[2018-09-01 06:23] LABS: ANION GAP 5 (5-19); BLOOD UREA NITROGEN 17 mg/dL (7-20); CALCIUM 8.2 mg/dL (8.4-10.2); CARBON DIOXIDE 23 mmol/L (22-30); CHLORIDE 113 mmol/L (98-107); POTASSIUM 3.9 mmol/L (3.6-5.0); SODIUM 141.1 mmol/L (137-145)
[2018-09-01 06:28] LABS: PLATELET COUNT 77 10^3/uL (150-450)
[2018-09-01 07:30] LABS: GLUCOSE 67 mg/dL (75-110)
[2018-09-01] MEDS: INSULIN REG, HUMAN 100 UNIT/ML 3 ML VIAL (PYX) SUBCUT SCH ×4 (08:14→21:38)
[2018-09-01] MEDS: AMLODIPINE BESYLATE 10 MG TABLET PO SCH (09:40)
[2018-09-01] MEDS: POTASSIUM CHLORIDE 10 MEQ CAPSULE.ER PO SCH ×2 (09:40→21:26)
[2018-09-01] MEDS: OXYBUTYNIN CHLORIDE 5 MG TABLET PO SCH ×2 (09:41→21:25)
[2018-09-01] MEDS: BENAZEPRIL HCL 20 MG TABLET PO SCH ×2 (09:41→21:25)
[2018-09-01] MEDS: SERTRALINE HCL 50 MG TABLET PO SCH (09:41)
[2018-09-01] MEDS: DOCUSATE SODIUM 100 MG CAPSULE PO SCH ×2 (09:41→17:10)
[2018-09-01] MEDS: FOLIC ACID 1 MG TABLET PO SCH (09:41)
[2018-09-01] MEDS: METOPROLOL SUCCINATE 25 MG TAB.SR.24H PO SCH (09:41)
--- NOTE | 2018-09-01 10:47 | PDOC PROGRESS REPORT ---
Subjective Progress Note for:: 09/01/18 Subjective:: Patient without new complaints today. States pain is well controlled. Family still concerned about her sleepiness all the time. However, patient is able to answer my questions appropriately, but then falls back to sleep. Nurses report no concerning issues. Awaiting rehab placement. She has been started back on her thyroid medication, as her TSH was >100. Reason For Visit: RIGHT RIB FRACTURES, PROLONGED QT,HYPOKALEMIA Physical Exam Vital Signs: Temp Pulse Resp BP Pulse Ox 99.2 F 63 16 140/51 H 95 09/01/18 00:12 09/01/18 02:00 09/01/18 00:12 09/01/18 00:12 09/01/18 09:55 Intake & Output 08/31/18 09/01/18 09/02/18 06:59 06:59 06:59 Intake Total 1004 600 Output Total 750 Balance 254 600 Weight 96.5 kg 96.5 kg General appearance: PRESENT: no acute distress, morbidly obese, well-developed Head exam: PRESENT: normocephalic Respiratory exam: PRESENT: clear to auscultation victor manuel, unlabored Cardiovascular exam: PRESENT: RRR GI/Abdominal exam: PRESENT: normal bowel sounds, soft. ABSENT: tenderness Extremities exam: ABSENT: pedal edema Neurological exam: PRESENT: alert, awake Psychiatric exam: PRESENT: appropriate affect Skin exam: PRESENT: normal color Results Laboratory Results: 09/01/18 05:26 09/01/18 05:26 09/01/18 09/01/18 05:26 05:26 WBC 4.3 RBC 2.80 L Hgb 10.5 L Hct 30.5 L MCV 109 H MCH 37.7 H MCHC 34.5 RDW 18.3 H Plt Count 77 L Seg Neutrophils % 64.5 Lymphocytes % 28.8 Monocytes % 3.2 Eosinophils % 2.4 Basophils % 1.1 Absolute Neutrophils 2.7 Absolute Lymphocytes 1.2 Absolute Monocytes 0.1 Absolute Eosinophils 0.1 Absolute Basophils 0.0 Sodium 141.1 Potassium 3.9 Chloride 113 H Carbon Dioxide 23 Anion Gap 5 BUN 17 Creatinine 1.13 Est GFR ( Amer) 56 L Est GFR (Non-Af Amer) 46 L Glucose 67 L Calcium 8.2 L Magnesium 1.9 Vitamin B12 601.0 Folate 17.20 08/27/18 18:24 Clean Catch Midstream Urine Culture - Final Mixed Urogenital Mayi 08/27/18 08/29/18 17:52 06:08 Creatine Kinase 113 Troponin I 0.016 Impressions: Hip/Pelvis X-Ray 08/27/18 14:18 IMPRESSION: Decreased osseous mineralization without evidence of acute bony abnormality. Ribs w/Chest X-Ray 08/27/18 14:18 IMPRESSION: Rib fractures involving the 8th through 11th right-sided ribs. The 10th and 11th rib fractures are displaced. Abdomen/Pelvis CT 08/27/18 17:21 IMPRESSION: Multiple right lateral rib fractures, 7 -11th ribs. No pneumothorax. Small areas of right basilar subsegmental atelectasis and trace pleural effusion. IMPRESSION: Moderate low-density ascites. Mildly nodular contour of the liver and mildly enlarged spleen. No focal organ laceration identified. Cervical Spine CT 08/27/18 17:21 IMPRESSION: CHRONIC DEGENERATIVE CHANGES. NO ACUTE FINDINGS. Head CT 08/27/18 17:21 IMPRESSION: CHRONIC CHANGES OF ATROPHY AND MICROVASCULAR ISCHEMIA. NO ACUTE PROCESS. EVIDENCE OF ACUTE STROKE: NO. Chest CT 08/27/18 17:27 IMPRESSION: Multiple right lateral rib fractures, 7 -11th ribs. No pneumothorax. Small areas of right basilar subsegmental atelectasis and trace pleural effusion. IMPRESSION: Moderate low-density ascites. Mildly nodular contour of the liver and mildly enlarged spleen. No focal organ laceration identified. Assessment & Plan - Diagnosis (1) Frequent falls Is this a current diagnosis for this admission?: Yes (2) Pancytopenia Is this a current diagnosis for this admission?: Yes Plan: Her PLT still trending down, others remain stable. No evidence of active bleedi ng. OK to continue Heparin/Lovenox for PLT >50. Will continue to monitor. (3) Ribs, multiple fractures Qualifiers: Encounter type: initial encounter Fracture type: closed Laterality: right Qualified Code(s): S22.41XA - Multiple fractures of ribs, right side, initial encounter for closed fracture Is this a current diagnosis for this admission?: Yes - Plan Summary Plan Summary: Agree with plans for rehab. Patient will need further supervision to make sure she is taking her medications appropriately in the future as well.
--- NOTE | 2018-09-01 14:08 | PDOC TRANSFER SUMMARY ---
General - Admit/Disc Date/PCP Admission Date/Primary Care Provider: 08/28/18 15:38 NATALIA CHOI MD Discharge Date: 09/01/18 - Discharge Diagnosis (1) Chronic renal insufficiency, stage III (moderate) Is this a current diagnosis for this admission?: Yes Summary: Improved; creatinine 1.13/BUN 17. Recommend follow-up appointment with Dr. Choi in 1 to 2 weeks. (2) Diabetes mellitus type 2 in obese Is this a current diagnosis for this admission?: Yes Summary: A1c is 5.9%. Patient was taking Januvia and Amaryl at home. She has had persistent hypoglycemia and really required sliding scale insulin coverage this admission. Have recommended that she discontinue diabetic medications, continue to eat a consistent carb diet, with regular monitoring of blood glucose. Goal A1c for patient of her age and frailty is less than 8.5%; would recommend careful resumption of antidiabetic medications if indicated. (3) Frequent falls Is this a current diagnosis for this admission?: Yes Summary: Likely multifactorial secondary to hypoglycemia, bradycardia, and generalized debility. Physical therapy was consulted with recommendations for SNF for short-term rehab. The patient is being discharged today to [facility] for short-term rehab. (4) Hypokalemia Is this a current diagnosis for this admission?: Yes Summary: Replete. (5) Macrocytic anemia Is this a current diagnosis for this admission?: Yes Summary: Recommend continued B12 and folate supplementation. (6) Pancytopenia Is this a current diagnosis for this admission?: Yes Summary: Likely secondary to long-term methotrexate use. Hematology/oncology were consulted; appreciate Dr. Castro's evaluation and assistance. Recommend follow-up appointment with Dr. Castro within 2 to 4 weeks. (7) Prolonged QT interval Is this a current diagnosis for this admission?: Yes (8) Rheumatoid arthritis Is this a current diagnosis for this admission?: Yes Summary: Continue home dose methotrexate 2.5 mg every Saturday. Recommend follow-up with established business planning analyst as scheduled. (9) Ribs, multiple fractures Is this a current diagnosis for this admission?: Yes Summary: Secondary to multiple falls at home. Recommend pulmonary toilet with incentive spirometer and flutter valve. Continue Tylenol as needed for pain. - Additional Information Resuscitation Status: Full Code Discharge Diet: Cardiac, Diabetic Discharge Activity: Activity As Tolerated, Balance Activity w/Rest, Supervised Activity Prescriptions: Metoprolol Tartrate [Lopressor 25 mg Tablet] 12.5 mg PO Q12 #30 tablet Potassium Chloride [Klor-Con 10 Meq Capsule ER] 20 meq PO Q12 #20 capsule.er Home Medications: Amlodipine Besylate [Norvasc 10 mg Tablet] 10 mg PO DAILY 08/28/18 Benazepril HCl [Lotensin 20 mg Tablet] 20 mg PO Q12 08/28/18 Folic Acid [Folvite 1 mg Tablet] 1 mg PO DAILY 08/28/18 Levothyroxine Sodium [Synthroid] 200 mcg PO Q6AM 08/28/18 Methotrexate Sodium [Rheumatrex 2.5 mg Tablet] 10 mg PO FR@1000 08/28/18 Omeprazole 20 mg PO DAILY 08/28/18 Oxybutynin Chloride [Oxybutynin Chloride ER] 10 mg PO QHS 08/28/18 Sertraline HCl [Zoloft] 100 mg PO DAILY 08/28/18 Acetaminophen [Tylenol 325 mg Tablet] 650 mg PO Q4HP PRN tablet 09/01/18 Docusate Sodium [Colace 100 mg Capsule] 100 mg PO BID capsule 09/01/18 Metoprolol Tartrate [Lopressor 25 mg Tablet] 12.5 mg PO Q12 #30 tablet 09/01/18 Potassium Chloride [Klor-Con 10 Meq Capsule ER] 20 meq PO Q12 #20 capsule.er 09/01/18 History of Present Illness Admission Date/PCP: 08/28/18 15:38 NATALIA CHOI MD History of Present Illness: Per H&P by Dr. Uribe: JAJA SHABAZZ is a 82 year old female who presented to the emergency room with a history of a fall 3 days prior to her visit. The patient admits that she had a sudden fall typical of the 60 or more fall she has experienced over the last 6 years where her legs just seem to give way and she fell striking her right chest furniture during the fall. She denies loss of consciousness and did not strike her head on this occasion although she admits she is struck her head many times with prior falls. She further admits that she has had persistent right lower lateral chest pain worsened by certain movements, exertion, cough and deep breathing. She denies prior similar chest injuries and has not identified any other aggravating or ameliorating factors for her chest discomfort. She has not identified any aggravating or ameliorating factors for her falls but has seen her primary care provider about this and has an appointment to see a neurologist on Saturday and she will also have an MRI of her head done at that time. In the emergency room the patient was found to have fractures of the seventh through 11th right lateral ribs. She was also found to have a prolonged QT at 480 ms as well as a prolonged QTC at 519 ms on her EKG. She was noted to be hypokalemic (3.0) and was treated with IV K riders as well as IV magnesium despite a magnesium level of 1.9. She was seen in the ER by myself in consultation and I advised that she would probably not require admission or observation status. A repeat EKG was ordered after her last potassium (K rider) was administered to reevaluate her QTC and QT intervals to determine the possible need for an observation status admission. Physical Exam Vital Signs: Temp Pulse Resp BP Pulse Ox 98.5 F 54 L 12 151/63 H 99 09/01/18 11:27 09/01/18 11:27 09/01/18 11:27 09/01/18 11:27 09/01/18 11:27 Intake & Output 08/31/18 09/01/18 09/02/18 06:59 06:59 06:59 Intake Total 1004 600 360 Output Total 750 Balance 254 600 360 Weight 96.5 kg 96.5 kg General appearance: PRESENT: no acute distress, hard of hearing, well-developed, well-nourished Head exam: PRESENT: atraumatic, normocephalic Eye exam: PRESENT: conjunctiva pink, EOMI, PERRLA. ABSENT: scleral icterus Ear exam: PRESENT: normal external ear exam Mouth exam: PRESENT: moist, tongue midline Neck exam: ABSENT: carotid bruit, JVD, lymphadenopathy, thyromegaly Respiratory exam: PRESENT: clear to auscultation victor manuel, decreased breath sounds - Bibasilar, symmetrical, unlabored. ABSENT: rales, rhonchi, wheezes Cardiovascular exam: PRESENT: RRR, other - Ecchymosis to bilateral lateral chest wall with tenderness to palpation. ABSENT: diastolic murmur, rubs, systolic murmur Pulses: PRESENT: normal dorsalis pedis pul Vascular exam: PRESENT: normal capillary refill GI/Abdominal exam: PRESENT: normal bowel sounds, soft. ABSENT: distended, guarding, mass, organolmegaly, rebound, tenderness Rectal exam: PRESENT: deferred Extremities exam: PRESENT: full ROM. ABSENT: calf tenderness, clubbing, pedal edema Neurological exam: PRESENT: alert, awake, oriented to person, oriented to place, oriented to time, oriented to situation, CN II-XII grossly intact. ABSENT: motor sensory deficit Psychiatric exam: PRESENT: appropriate affect, normal mood. ABSENT: homicidal ideation, suicidal ideation Skin exam: PRESENT: dry, intact, warm. ABSENT: cyanosis, rash Results Laboratory Results: 09/01/18 05:26 09/01/18 05:26 09/01/18 09/01/18 05:26 05:26 WBC 4.3 RBC 2.80 L Hgb 10.5 L Hct 30.5 L MCV 109 H MCH 37.7 H MCHC 34.5 RDW 18.3 H Plt Count 77 L Seg Neutrophils % 64.5 Lymphocytes % 28.8 Monocytes % 3.2 Eosinophils % 2.4 Basophils % 1.1 Absolute Neutrophils 2.7 Absolute Lymphocytes 1.2 Absolute Monocytes 0.1 Absolute Eosinophils 0.1 Absolute Basophils 0.0 Sodium 141.1 Potassium 3.9 Chloride 113 H Carbon Dioxide 23 Anion Gap 5 BUN 17 Creatinine 1.13 Est GFR ( Amer) 56 L Est GFR (Non-Af Amer) 46 L Glucose 67 L Calcium 8.2 L Magnesium 1.9 Vitamin B12 601.0 Folate 17.20 08/27/18 18:24 Clean Catch Midstream Urine Culture - Final Mixed Urogenital Mayi 08/27/18 08/29/18 17:52 06:08 Creatine Kinase 113 Troponin I 0.016 Impressions: Hip/Pelvis X-Ray 08/27/18 14:18 IMPRESSION: Decreased osseous mineralization without evidence of acute bony abnormality. Ribs w/Chest X-Ray 08/27/18 14:18 IMPRESSION: Rib fractures involving the 8th through 11th right-sided ribs. The 10th and 11th rib fractures are displaced. Abdomen/Pelvis CT 08/27/18 17:21 IMPRESSION: Multiple right lateral rib fractures, 7 -11th ribs. No pneumothorax. Small areas of right basilar subsegmental atelectasis and trace pleural effusion. IMPRESSION: Moderate low-density ascites. Mildly nodular contour of the liver and mildly enlarged spleen. No focal organ laceration identified. Cervical Spine CT 08/27/18 17:21 IMPRESSION: CHRONIC DEGENERATIVE CHANGES. NO ACUTE FINDINGS. Head CT 08/27/18 17:21 IMPRESSION: CHRONIC CHANGES OF ATROPHY AND MICROVASCULAR ISCHEMIA. NO ACUTE PROCESS. EVIDENCE OF ACUTE STROKE: NO. Chest CT 08/27/18 17:27 IMPRESSION: Multiple right lateral rib fractures, 7 -11th ribs. No pneumothorax. Small areas of right basilar subsegmental atelectasis and trace pleural effusion. IMPRESSION: Moderate low-density ascites. Mildly nodular contour of the liver and mildly enlarged spleen. No focal organ laceration identified. Transfer Plan - Disposition Transfer Plan: Discharge to SNF for short-term rehab - Time Spent with Patient Time spent with patient: Greater than 30 Minutes Qualifiers - * PATIENT BEING DISCHARGED WITH ANY OF THE FOLLOWING DIAGNOSIS: No Acute Heart Failure - Is this a Heart Failure Patient?: No Plan Discharge Plan: Discharge to SNF for short-term rehab. Hold antidiabetic medications secondary to persistent hypoglycemia. A1c noted to be 5.9%; continue to monitor Accu-Cheks to determine need to resume lower dose medication management. Follow-up with Dr. Byrd as scheduled. Follow-up with Dr. Choi within 1 to 2 weeks. She is [id number] Follow-up with established business planning analyst as scheduled. Time Spent: Greater than 30 Minutes
[2018-09-01 20:34] VITALS: BP 137/62
[2018-09-01] MEDS ORDERED: METOPROLOL TARTRATE 25 MG TABLET PO SCH (22:00)
== END 2018-09-01 22:32 | DRG 641 ==
LOC: ER 13:38 → EH 08-28 00:08 → 3S 08-28 01:34 → OBSVTOIN 08-28 13:20 → INTOOBSV 08-28 13:20 → OBSVTOIN 08-28 15:38
PROVIDERS: ADMIT Emergency Medicine; ATTEND Emergency Medicine
DX: E87.6 Hypokalemia (principal); S22.41XA Multiple fractures of ribs, right side, initial encounter for closed fracture; D70.2 Other drug-induced agranulocytosis; E11.649 Type 2 diabetes mellitus with hypoglycemia without coma; E11.22 Type 2 diabetes mellitus with diabetic chronic kidney disease; I45.81 Long QT syndrome; E66.01 Morbid (severe) obesity due to excess calories; N18.3 Chronic kidney disease, stage 3 (moderate); R00.1 Bradycardia, unspecified; D53.9 Nutritional anemia, unspecified; M06.9 Rheumatoid arthritis, unspecified; I12.9 Hypertensive chronic kidney disease with stage 1 through stage 4 chronic kidney disease, or unspecified chronic kidney disease; R29.6 Repeated falls; R53.81 Other malaise; W19.XXXA Unspecified fall, initial encounter; H91.90 Unspecified hearing loss, unspecified ear; E78.5 Hyperlipidemia, unspecified; G47.30 Sleep apnea, unspecified; E03.9 Hypothyroidism, unspecified; F32.9 Major depressive disorder, single episode, unspecified; K14.0 Glossitis; Z91.81 History of falling; Z86.11 Personal history of tuberculosis; Z83.3 Family history of diabetes mellitus; Z82.49 Family history of ischemic heart disease and other diseases of the circulatory system
CPT/HCPCS: 36415; 70450; 71260; 72125; 74177; 80048; 80053; 80061; 81001; 82533; 82550; 82607; 82728; 82746; 82962; 83036; 83540; 83550; 83735; 84132; 84439; 84443; 84481; 84484; 85025; 85027; 85045; 85610; 85730; 87086; 93005; 93010; 96361; 96365; 96366; 96375; 99285; G0378; J1644; J2270; J3010; J3475; J3480; J3490; J8610

== ENCOUNTER 2018-09-14 19:37 | Inpatient (IN) | payer MEDICARE ==
[2018-09-14 20:23] LABS: ABSOLUTE EOSINOPHILS # (AUTO) 0.2 10^3/uL (0.0-0.6); ABSOLUTE LYMPHOCYTES (AUTO) 1.9 10^3/uL (0.5-4.7); ABSOLUTE MONOCYTES (AUTO) 0.9 10^3/uL (0.1-1.4); ABSOLUTE NEUT (AUTO) 2.5 10^3/uL (1.7-8.2); BASOPHILS % (AUTO) 0.8 % (0-2); EOSINOPHILS % (AUTO) 3.1 % (0-6); HEMATOCRIT 27.9 % (36.0-47.0); HEMOGLOBIN 9.4 g/dL (12.0-15.5); LYMPHOCYTES % (AUTO) 34.3 % (13-45); MEAN CORPUSCULAR HEMOGLOBIN 36.5 pg (27.0-33.4); MEAN CORPUSCULAR HGB CONC 33.6 g/dL (32.0-36.0); MEAN CORPUSCULAR VOLUME 109 fl (80-97); MONOCYTES % (AUTO) 16.2 % (3-13); PLATELET COUNT 124 10^3/uL (150-450); RED BLOOD COUNT 2.57 10^6/uL (3.72-5.28); RED CELL DISTRIBUTION WIDTH 19.5 % (11.5-14.0); SEGMENTED NEUTROPHILS % (AUTO) 45.6 % (42-78); TOTAL CELLS COUNTED % (AUTO) 100 %; WHITE BLOOD COUNT 5.5 10^3/uL (4.0-10.5)
[2018-09-14 20:27] LABS: APPEARANCE,URINE CLEAR; BILIRUBIN,URINE NEGATIVE (NEGATIVE); COLOR,URINE YELLOW; GLUCOSE, URINE NEGATIVE (NEGATIVE); KETONES,URINE NEGATIVE (NEGATIVE); LEUKOCYTE ESTERASE,URINE NEGATIVE (NEGATIVE); NITRITE,URINE NEGATIVE (NEGATIVE); PROTEIN,URINE NEGATIVE (NEGATIVE); URINE SPECIFIC GRAVITY 1.015
[2018-09-14 20:36] LABS: ALANINE AMINOTRANSFERASE 39 U/L (9-52); ALBUMIN 3.2 g/dL (3.5-5.0); ALKALINE PHOSPHATASE 62 U/L (38-126); ANION GAP 7 (5-19); ASPARTATE AMINO TRANSFERASE 86 U/L (14-36); BILIRUBIN,DIRECT 0.9 mg/dL (0.0-0.4); BILIRUBIN,TOTAL 1.7 mg/dL (0.2-1.3); BLOOD UREA NITROGEN 20 mg/dL (7-20); CALCIUM 8.8 mg/dL (8.4-10.2); CARBON DIOXIDE 22 mmol/L (22-30); CHLORIDE 113 mmol/L (98-107); GLUCOSE 110 mg/dL (75-110); POTASSIUM 4.3 mmol/L (3.6-5.0); TOTAL PROTEIN 7.7 g/dL (6.3-8.2)
--- NOTE | 2018-09-14 20:43 | ER Document Report ---
ED General - General Chief Complaint: Altered Mental Status Stated Complaint: ALTERED MENTAL STATUS Time Seen by Provider: 09/14/18 20:26 Primary Care Provider: SABINE NEFF MD [Primary Care Provider] - Follow up as needed Mode of Arrival: Medic Information source: Patient, Emergency Med Personnel, Outside Facility Records Notes: Patient is an 82-year-old female resident of [place] presenting to the emergency department with chief complaint of possible altered mental status. Staff reports patient has had change in mental status over the last 3 hours, family at bedside states the change in mental status has been going on for 3 days. Staff reports patient is currently being treated for UTI, she is on Keflex. The also reports she fell and hit her head on but she did not come in for treatment as they have been trying to obtain outpatient head CT order. TRAVEL OUTSIDE OF THE [place] IN LAST 30 DAYS: No - Related Data Allergies/Adverse Reactions: No Known Allergies Allergy (Verified 09/14/18 20:20) Past Medical History - General Information source: [facility] Records - Social History Smoking Status: Never Smoker Frequency of alcohol use: None Drug Abuse: None Family History: DM, Hypertension, Malignancy Patient has suicidal ideation: No Patient has homicidal ideation: No - Past Medical History Cardiac Medical History: Reports: Hx Hypercholesterolemia, Hx Hypertension - medicated Denies: Hx Atrial Fibrillation, Hx Congestive Heart Failure, Hx Coronary Artery Disease, Hx Heart Attack Pulmonary Medical History: Reports: Hx Sleep Apnea, Hx Tuberculosis Denies: Hx Asthma, Hx COPD Neurological Medical History: Denies: Hx Cerebrovascular Accident, Hx Seizures Endocrine Medical History: Reports: Hx Diabetes Mellitus Type 2, Hx Hy pothyroidism. Denies: Hx Diabetes Mellitus Type 1, Hx Hyperthyroidism Renal/ Medical History: Denies: Hx Peritoneal Dialysis GI Medical History: Reports: Hx Colonoscopy, Hx Endoscopy. Denies: Hx Cirrhosis, Hx Hepatitis, Hx Hiatal Hernia, Hx Ulcer Musculoskeletal Medical History: Reports Hx Arthritis - RA, Denies Hx Gout Skin Medical History: Denies Hx Eczema, Denies Hx Psoriasis Psychiatric Medical History: Reports: Hx Anxiety, Hx Depression Infectious Medical History: Denies: Hx Hepatitis Past Surgical History: Reports: Hx Tonsillectomy, Hx Tubal Ligation. Denies: Hx Hysterectomy, Hx Mastectomy, Hx Open Heart Surgery, Hx Pacemaker - Immunizations Immunizations up to date: No Hx Diphtheria, Pertussis, Tetanus Vaccination: No Hx Pneumococcal Vaccination: 12/19/18 Review of Systems - Review of Systems Constitutional: No symptoms reported. denies: Fever EENT: No symptoms reported Cardiovascular: No symptoms reported Respiratory: No symptoms reported Gastrointestinal: No symptoms reported Genitourinary: No symptoms reported Female Genitourinary: No symptoms reported Musculoskeletal: No symptoms reported Skin: No symptoms reported Hematologic/Lymphatic: No symptoms reported Neurological/Psychological: Confusion Physical Exam - Vital signs Vitals: Temp Pulse Resp BP Pulse Ox 98.1 F 61 19 132/71 H 98 09/14/18 19:39 09/14/18 19:39 09/14/18 19:39 09/14/18 19:39 09/14/18 19:39 - Notes Notes: GENERAL: Alert, interacts well. No acute distress. HEAD: Normocephalic, atraumatic. EYES: Pupils equal, round, and reactive to light. Extraocular movements intact. ENT: Oral mucosa moist, tongue midline. Nares patent, no nasal septal hematoma, TM's intact, no hemotympanum noted bilaterally. NECK: Full range of motion. Supple. Trachea midline. LUNGS: Clear to auscultation bilaterally, no wheezes, rales, or rhonchi. No respiratory distress. HEART: Regular rate and rhythm. No murmur chest: No crepitus felt, pain with palpation to right lateral chest wall, no paradoxical motion noted. ABDOMEN: Soft, non-tender. Non-distended. Bowel sounds present in all 4 quadrants. EXTREMITIES: Moves all 4 extremities spontaneously. No edema, normal radial and dorsalis pedis pulses bilaterally. No cyanosis. BACK: No cervical, thoracic, lumbar midline tenderness. No saddle anesthesia, normal distal neurovascular exam. NEUROLOGICAL: Alert and oriented x2. Normal speech. cranial nerves II through XII grossly intact. PSYCH: Normal affect, normal mood. SKIN: Warm, dry, normal turgor. Course - Re-evaluation Re-evalutation: Laboratory 09/14/18 09/14/18 09/14/18 19:55 19:55 19:55 WBC 5.5 RBC 2.57 L Hgb 9.4 L Hct 27.9 L MCV 109 H MCH 36.5 H MCHC 33.6 RDW 19.5 H Plt Count 124 L Seg Neutrophils % 45.6 Lymphocytes % 34.3 Monocytes % 16.2 H Eosinophils % 3.1 Basophils % 0.8 Absolute Neutrophils 2.5 Absolute Lymphocytes 1.9 Absolute Monocytes 0.9 Absolute Eosinophils 0.2 Absolute Basophils 0.0 Sodium 142.2 Potassium 4.3 Chloride 113 H Carbon Dioxide 22 Anion Gap 7 BUN 20 Creatinine 1.43 H Est GFR ( Amer) 43 L Est GFR (Non-Af Amer) 35 L Glucose 110 Calcium 8.8 Total Bilirubin 1.7 H Direct Bilirubin 0.9 H Neonat Total Bilirubin Not Reportable Neonat Direct Bilirubin Not Reportable Neonat Indirect Bili Not Reportable AST 86 H ALT 39 Alkaline Phosphatase 62 Total Protein 7.7 Albumin 3.2 L Urine Color YELLOW Urine Appearance CLEAR Urine pH 6.0 Ur Specific [place] 1.015 Urine Protein NEGATIVE Urine Glucose (UA) NEGATIVE Urine Ketones NEGATIVE Urine Blood NEGATIVE Urine Nitrite NEGATIVE Urine Bilirubin NEGATIVE Urine Urobilinogen 4.0 H Ur Leukocyte Esterase NEGATIVE Urine WBC (Auto) 2 Squamous Epi Cells Auto 3 Urine Mucus (Auto) RARE Urine Ascorbic Acid NEGATIVE Chest X-Ray 09/14/18 00:00 IMPRESSION: 1. No acute pulmonary process identified. 2. Redemonstrated right seventh through ninth rib fractures. Right 10th rib fractures not well visualized on this study. No definite new fractures identified. Head CT 09/14/18 00:00 IMPRESSION: 1. No acute intracranial abnormality by CT criteria. This exam was performed according to our departmental dose-optimization program, which includes automated exposure control, adjustment of the mA and/or kV according to patient size and/or use of iterative reconstruction technique. 09/14/18 23:58 Patient accepted for admission by Dr. Uribe, hospitalist for altered mental status. - Vital Signs Vital signs: Temp Pulse Resp BP Pulse Ox 98.5 F 61 16 126/45 H 96 09/14/18 22:50 09/14/18 19:39 09/14/18 22:32 09/14/18 22:32 09/14/18 22:32 - Laboratory Result Diagrams: 09/14/18 19:55 09/14/18 19:55 Laboratory results interpreted by me: 09/14/18 09/14/18 09/14/18 19:55 19:55 19:55 RBC 2.57 L Hgb 9.4 L Hct 27.9 L MCV 109 H MCH 36.5 H RDW 19.5 H Plt Count 124 L Monocytes % 16.2 H Chloride 113 H Creatinine 1.43 H Est GFR ( Amer) 43 L Est GFR (Non-Af Amer) 35 L Total Bilirubin 1.7 H Direct Bilirubin 0.9 H AST 86 H Albumin 3.2 L Urine Urobilinogen 4.0 H Discharge - Discharge Clinical Impression: Altered mental status Qualifiers: Altered mental status type: unspecified Qualified Code(s): R41.82 - Altered mental status, unspecified Condition: Stable Disposition: ADMITTED OBSERVATION Admitting Provider: Rony (Hospitalist) Unit Admitted: Medical Floor Referrals: SABINE NEFF MD [Primary Care Provider] - Follow up as needed
--- NOTE | 2018-09-14 20:49 | RADIOLOGY REPORT (SQ) ---
EXAM DESCRIPTION: CT HEAD WITHOUT IV CONTRAST COMPLETED DATE/TME: 09/14/2018 00:00 CLINICAL HISTORY: FALL/ams COMPARISON: 08/27/2018 TECHNIQUE: Axial CT of the head obtained from the skull apex to the skull base without contrast. FINDINGS: No acute intracranial hemorrhage identified. No mass, mass effect, shift of the midline, abnormal extra-axial fluid collection or CT evidence of acute ischemic change identified. The ventricular system and sulcal spaces are mildly enlarged compatible with mild cerebral atrophy. Scattered areas of hypodensity throughout the supratentorial white matter are nonspecific and may be related to chronic small vessel ischemic change. The visualized paranasal sinuses and the mastoids are clear. No skull fracture identified. Visualized orbits and globes are unremarkable. Atherosclerotic calcification of the intracranial internal carotid arteries. DLP: 963.96 mGy-cm IMPRESSION: 1. No acute intracranial abnormality by CT criteria. This exam was performed according to our departmental dose-optimization program, which includes automated exposure control, adjustment of the mA and/or kV according to patient size and/or use of iterative reconstruction technique.
--- NOTE | 2018-09-14 20:51 | RADIOLOGY REPORT (SQ) ---
EXAM DESCRIPTION: XR CHEST 1 VIEW COMPLETED DATE/TME: 09/14/2018 00:00 CLINICAL HISTORY: fall; recent rib fx; AMS COMPARISON: 08/27/2018 FINDINGS: Single frontal view of the chest. Cardiomediastinal silhouette: Atherosclerotic calcification of the thoracic aorta. Heart is not enlarged. Low lung volumes. Lungs: No consolidation, pneumothorax, or pleural effusion. Bones: Stable right seventh through ninth rib fractures visualized. No definite new fractures identified on this study. Leads overlie the chest. Right 10th rib fractures not well visualized on this study. Upper abdomen: No abnormality identified. IMPRESSION: 1. No acute pulmonary process identified. 2. Redemonstrated right seventh through ninth rib fractures. Right 10th rib fractures not well visualized on this study. No definite new fractures identified.
--- NOTE | 2018-09-14 21:55 | EKG REPORT ---
SEVERITY:- ABNORMAL ECG - SINUS RHYTHM PROLONGED QT INTERVAL : Confirmed by: Azra Thomas 14-Sep-2018 21:54:32
[2018-09-14] MEDS ORDERED: NORMAL SALINE 1000 ML 500 ML IV ONE (21:58)
[2018-09-15] MEDS ORDERED: HYDRALAZINE HCL INJ/PF 20 MG/1 ML SDV IV PRN (00:46)
[2018-09-15] MEDS ORDERED: METOPROLOL TARTRATE PF/INJ 5 MG/5 ML SDV IV PRN (00:46)
[2018-09-15] MEDS ORDERED: INSULIN REG, HUMAN 100 UNIT/ML 3 ML VIAL (PYX) SUBCUT PRN (00:46)
[2018-09-15] MEDS ORDERED: MAGNESIUM HYDROXIDE SUSP 30 ML UDCUP PO PRN (00:46)
[2018-09-15] MEDS ORDERED: MAG HYDROX/AL HYDROX/SIMETH SUSP 30 ML UDCUP PO PRN (00:46)
[2018-09-15] MEDS ORDERED: GLUCAGON,HUMAN RECOMB 1 MG INJ IM PRN (00:47)
[2018-09-15] MEDS ORDERED: DEXTROSE 40% GEL 15 GM TUBE PO PRN ×2 (00:47)
[2018-09-15] MEDS ORDERED: DEXTROSE 50%-WATER 25 GM/50 ML DISP.SYRIN IV PRN ×2 (00:47)
--- NOTE | 2018-09-15 01:31 | PDOC H&P ---
History of Present Illness Admission Date/PCP: 09/15/2018 00:06 SABINE NEFF MD Patient complains of: Altered mental status (confusion) History of Present Illness: JAJA SHABAZZ is a 82 year old female who presented to the emergency room from [facility] with a report of change in mental status (confusion) over the last 3 hours prior to coming to the ER. Patient's family indicates that the patient's mental status changes have been present for 3 days since she had a fall and hit her head. Patient is also currently being treated for urinary tract infection with Bactrim. Family insists that she is been significantly more confused than usual and they are very concerned about her mental status change. They have been asking for a CT of the head and an MRI of the brain to be performed as soon as possible due to her change in mental status. Patient is alert and oriented to person but is otherwise poorly oriented and this is noted to be a change from the last evaluation that I made earlier this month. In the emergency room the patient was found to have a negative CT scan of the head and a relatively unremarkable laboratory evaluation. She is being admitted to [facility] for further evaluation and treatment. Past Medical History Cardiac Medical History: Reports: Hyperlipidema, Hypertension - medicated Denies: Atrial Fibrillation, Congestive Heart Failure, Coronary Artery Disease, Myocardial Infarction Pulmonary Medical History: Reports: Sleep Apnea, Tuberculosis Denies: Asthma, Chronic Obstructive Pulmonary Disease (COPD) EENT Medical History: Denies: Cataracts, Ears - Hearing aids Neurological Medical History: Denies: Seizures Endocrine Medical History: Reports: Diabetes Mellitus Type 2, Hypothyroidism Denies: Diabetes Mellitus Type 1, Hyperthyroidism Renal/ Medical History: Reports: Chronic Kidney Disease Denies: Nephrolithiasis Malignancy Medical History: Reports: None GI Medical History: Denies: Cirrhosis, Hepatitis, Hiatal Hernia Musculoskeltal Medical History: Reports: Arthritis - RA Denies: Gout Skin Medical History: Denies: Eczema, Psoriasis Psychiatric Medical History: Reports: Depression Denies: Alcohol Dependency, Substance Abuse, Tobacco Dependency Traumatic Medical History: Reports: None Hematology: Denies: Anemia, Bleeding Tendencies, Neutropenia Infectious Medical History: Reports: None Past Surgical History Past Surgical History: Reports: Tonsillectomy, Tubal Ligation Social History Information Source: Relative Lives with: [facility] Smoking Status: Never Smoker Frequency of Alcohol Use: None Hx Recreational Drug Use: No Drugs: None Hx Prescription Drug Abuse: No - Advance Directive Resuscitation Status: Full Code Surrogate healthcare decision maker:: Karina Max Family History Family History: DM, Hypertension, Malignancy Parental Family History Reviewed: Yes Children Family History Reviewed: No Sibling(s) Family History Reviewed.: Yes Medication/Allergy Home Medications: Amlodipine Besylate [Norvasc 10 mg Tablet] 10 mg PO DAILY 09/14/18 Benazepril HCl [Lotensin 20 mg Tablet] 20 mg PO BID 09/14/18 Docusate Sodium [Colace 100 mg Capsule] 100 mg PO BID 09/14/18 Folic Acid [Folvite 1 mg Tablet] 1 mg PO DAILY 09/14/18 Levothyroxine Sodium [Synthroid] 200 mcg PO DAILY 09/14/18 Methotrexate Sodium [Rheumatrex 2.5 mg Tablet] 10 mg PO DAILY 09/14/18 Metoprolol Tartrate [Lopressor 25 mg Tablet] 12.5 mg PO Q12 09/14/18 Nystatin [Mycostatin Cream] 1 applic TP BID 09/14/18 Omeprazole 20 mg PO DAILY 09/14/18 Oxybutynin Chloride [Ditropan Xl] 10 mg PO QHS 09/14/18 Oxycodone HCl/Acetaminophen [Percocet 5-325 mg Tablet] 1 tab PO Q8HP PRN 09/14/18 Potassium Chloride [Klor-Con 10 Meq Capsule ER] 20 meq PO BID 09/14/18 Sertraline HCl [Zoloft] 100 mg PO QHS 09/14/18 Sulfamethoxazole/Trimethoprim [Bactrim Ds Tablet] 1 each PO BID 09/14/18 Allergies/Adverse Reactions: No Known Allergies Allergy (Verified 09/14/18 20:20) Review of Systems ROS unobtainable: Due to mental status - Unable to provide reliable/reproducible answers. Physical Exam Vital Signs: Temp Pulse Resp BP Pulse Ox 98.5 F 61 16 126/45 H 96 09/14/18 22:50 09/14/18 19:39 09/14/18 22:32 09/14/18 22:32 09/14/18 22:32 Intake & Output 09/13/18 09/14/18 09/15/18 23:59 23:59 23:59 Weight 88.1 kg General appearance: PRESENT: no acute distress, cooperative Head exam: PRESENT: atraumatic, normocephalic Eye exam: PRESENT: conjunctiva pink. ABSENT: conjunctival injection, scleral icterus Ear exam: PRESENT: normal external ear exam. ABSENT: bleeding, drainage Mouth exam: PRESENT: dry mucosa, neck supple Neck exam: ABSENT: thyromegaly, tracheal deviation Respiratory exam: PRESENT: clear to auscultation victor manuel, symmetrical, unlabored Cardiovascular exam: PRESENT: RRR. ABSENT: clicks, gallop, rubs Pulses: PRESENT: normal radial pulses, normal dorsalis pedis pul Vascular exam: PRESENT: normal capillary refill. ABSENT: pallor GI/Abdominal exam: PRESENT: normal bowel sounds, soft Rectal exam: PRESENT: deferred Extremities exam: ABSENT: joint swelling, pedal edema Musculoskeletal exam: ABSENT: deformity, dislocation Neurological exam: PRESENT: alert, oriented to person, CN II-XII grossly intact. ABSENT: oriented to place, oriented to time, oriented to situation, motor sensory deficit Psychiatric exam: PRESENT: appropriate affect, other - Calm Skin exam: PRESENT: dry, intact, warm. ABSENT: jaundice, rash, urticaria Results Laboratory Results: 09/14/18 19:55 09/14/18 19:55 09/14/18 09/14/18 09/14/18 19:55 19:55 19:55 WBC 5.5 RBC 2.57 L Hgb 9.4 L Hct 27.9 L MCV 109 H MCH 36.5 H MCHC 33.6 RDW 19.5 H Plt Count 124 L Seg Neutrophils % 45.6 Lymphocytes % 34.3 Monocytes % 16.2 H Eosinophils % 3.1 Basophils % 0.8 Absolute Neutrophils 2.5 Absolute Lymphocytes 1.9 Absolute Monocytes 0.9 Absolute Eosinophils 0.2 Absolute Basophils 0.0 Sodium 142.2 Potassium 4.3 Chloride 113 H Carbon Dioxide 22 Anion Gap 7 BUN 20 Creatinine 1.43 H Est GFR ( Amer) 43 L Est GFR (Non-Af Amer) 35 L Glucose 110 Calcium 8.8 Total Bilirubin 1.7 H AST 86 H ALT 39 Alkaline Phosphatase 62 Total Protein 7.7 Albumin 3.2 L Urine Color YELLOW Urine Appearance CLEAR Urine pH 6.0 Ur Specific [place] 1.015 Urine Protein NEGATIVE Urine Glucose (UA) NEGATIVE Urine Ketones NEGATIVE Urine Blood NEGATIVE Urine Nitrite NEGATIVE Ur Leukocyte Esterase NEGATIVE Urine WBC (Auto) 2 Impressions: Chest X-Ray 09/14/18 00:00 IMPRESSION: 1. No acute pulmonary process identified. 2. Redemonstrated right seventh through ninth rib fractures. Right 10th rib fractures not well visualized on this study. No definite new fractures identified. Head CT 09/14/18 00:00 IMPRESSION: 1. No acute intracranial abnormality by CT criteria. This exam was performed according to our departmental dose-optimization program, which includes automated exposure control, adjustment of the mA and/or kV according to patient size and/or use of iterative reconstruction technique. Assessment and Plan - Diagnosis (1) Encephalopathy Is this a current diagnosis for this admission?: Yes Plan: Patient will be placed in observation and neuro checks will be performed every 4 hours. An MRI of the brain will be obtained. IV fluids be provided to assure adequate hydration. Patient will be reevaluated on an ongoing basis. A daily CBC and metabolic profile will be obtained. (2) Diabetes mellitus type 2 in obese Is this a current diagnosis for this admission?: Yes Plan: Patient be continued on her current diabetic diet. Before meals and at bedtime blood sugars will be obtained and hyperglycemia will be treated with sliding scale insulin. A hypoglycemic protocol is also in place. (3) Hypertension Qualifiers: Hypertension type: essential hypertension Qualified Code(s): I10 - Essential (primary) hypertension Is this a current diagnosis for this admission?: Yes Plan: Patient be continued on her usual medications for hypertension with changes made only as required for other problems such as encephalopathy. (4) Chronic renal insufficiency, stage III (moderate) Is this a current diagnosis for this admission?: Yes Plan: Patient will receive IV fluids and her renal functions be monitored on a regular basis. Daily metabolic profiles will be obtained as well daily magnesium levels. (5) Hypothyroidism Qualifiers: Hypothyroidism type: unspecified Qualified Code(s): E03.9 - Hypothyroidism, unspecified Is this a current diagnosis for this admission?: Yes Plan: Patient be continued on her usual thyroid replacement medication. A thyroid profile was obtained at the last patient admission less than 1 month ago. - Time Time Spent with patient: 15-24 minutes Medications reviewed and adjusted accordingly: Yes Anticipated discharge: SNF - Inpatient Certification Based on my medical assessment, after consideration of the patient's comorbidities, presenting symptoms, or acuity I expect that the services needed warrant INPATIENT care.: No I certify that my determination is in accordance with my understanding of Medicare's requirements for reasonable and necessary INPATIENT services [42 CFR 412.3e].: No Medical Necessity: Need Close Monitoring Due to Risk of Patient Decompensation, Need For IV Fluids
--- NOTE | 2018-09-15 01:45 | ADVANCED CARE ---
- Diagnosis (1) Encephalopathy Diagnosis Current: Yes (2) Diabetes mellitus type 2 in obese Diagnosis Current: Yes (3) Hypertension Diagnosis Current: Yes (4) Chronic renal insufficiency, stage III (moderate) Diagnosis Current: Yes (5) Hypothyroidism Diagnosis Current: Yes Attendance: The patient, Karina Max and myself. Resuscitation Status: Full Code Discussion: The patient's family wishes to change the designated medical surrogate to Karina Max. This is being done to facilitate ease of contact of the designated surrogate person. The patient's family still wishes for her to be a full code for resuscitation purposes during this hospital course. Care Planning Goals: 1. Patient will be full CODE STATUS for this hospital stay. 2. Karina Max will be designated as the patient's new surrogate medical decision maker. Document(s) Completed: The following entries will be made to the patient's permanent medical record, current medical record and current orders via EMR entry: 1. Patient will be full CODE STATUS for this hospital stay. 2. Karina Max will be designated as the patient's new surrogate medical decision maker. Time Spent: 16 minutes
[2018-09-15] MEDS: OXYCODONE-ACETAMINOPHEN 5-325 MG TABLET PO PRN ×2 (02:26→10:28)
[2018-09-15] MEDS: RINGERS SOLUTION,LACTATED 1,000 ML IV PRN ×2 (02:27→10:42)
[2018-09-15] MEDS: HEPARIN SOD (PORCINE) 5,000 UNIT/ML 1 ML VIAL SUBCUT SCH ×3 (06:09→22:22)
[2018-09-15] MEDS: LEVOTHYROXINE SODIUM 0.1 MG TABLET PO SCH (06:10)
--- NOTE | 2018-09-15 09:52 | Progress Note ---
Provider Note Provider Note: Patient admitted after midnight. Spoke with patient family awaiting MRI results. Continue to follow plan of care at this time.
[2018-09-15] MEDS ORDERED: METHOTREXATE SODIUM 2.5 MG TABLET PO SCH (10:00)
[2018-09-15] MEDS: INSULIN REG, HUMAN 100 UNIT/ML 3 ML VIAL (PYX) SUBCUT SCH ×4 (10:13→22:22)
[2018-09-15] MEDS: POTASSIUM CHLORIDE 10 MEQ CAPSULE.ER PO SCH ×2 (10:28→17:35)
[2018-09-15] MEDS: DOCUSATE SODIUM 100 MG CAPSULE PO SCH ×2 (10:28→17:35)
[2018-09-15] MEDS: FOLIC ACID 1 MG TABLET PO SCH (10:28)
[2018-09-15] MEDS: AMLODIPINE BESYLATE 10 MG TABLET PO SCH (10:29)
[2018-09-15] MEDS: SULFAMETHOXAZOLE/TRIMETHOPRIM 800-160 MG TABLET PO SCH ×2 (10:29→17:36)
[2018-09-15] MEDS: METOPROLOL TARTRATE 25 MG TABLET PO SCH ×3 (10:29→23:17)
[2018-09-15] MEDS: NYSTATIN CREAM 15 GM TP SCH ×2 (10:33→17:35)
--- NOTE | 2018-09-15 16:55 | RADIOLOGY REPORT (SQ) ---
EXAM DESCRIPTION: MRI HEAD WITHOUT COMPLETED DATE/TIME: 09/15/2018 3:15 pm REASON FOR STUDY: Acute encephalopathy G93.40 ENCEPHALOPATHY, UNSPECIFIED COMPARISON: CT dated 09/14/2018. TECHNIQUE: Multiplanar imaging includes non-contrasted T1, T2, FLAIR, and diffusion with ADC map seq uences. Images stored on PACS. LIMITATIONS: None. FINDINGS: ANATOMY: No anomalies. Normal vascular flow voids. Pituitary fossa normal. CSF SPACES: Atrophy induced prominence of ventricles and CSF spaces. CEREBRUM: High signal intensity lesions scattered throughout the white matter on FLAIR imaging with d istribution suggesting micro-vascular ischemic changes. No evidence of hemorrhage, mass, or extraaxi al fluid collection. POSTERIOR FOSSA: No signal alteration. No hemorrhage. No edema, masses or mass effect. Internal kelly tory canals, cerebello-pontine angles, mastoids normal. DIFFUSION IMAGING: Negative for acute or sub-acute infarction. ORBITS: No masses. Globes normal. PARANASAL SINUSES: No fluid levels. Mucosa normal. OTHER: No other significant finding. IMPRESSION: ATROPHY AND CHRONIC MICRO-VASCULAR ISCHEMIC CHANGES. OTHERWISE NORMAL MRI OF THE BRAIN W ITHOUT INTRAVENOUS GADOLINIUM CONTRAST. EVIDENCE OF ACUTE STROKE: NO. TECHNICAL DOCUMENTATION: JOB ID: [id number] [employer]- All Rights Reserved Reading location - IP/workstation name: [email or web address]
[2018-09-15 18:53] LABS: FREE T4 (FREE THYROXINE) 2.17 ng/dL (0.78-2.19)
--- NOTE | 2018-09-15 19:06 | RADIOLOGY REPORT (SQ) ---
EXAM DESCRIPTION: CHEST SINGLE VIEW COMPLETED DATE/TIME: 09/15/2018 6:14 pm REASON FOR STUDY: labored breathing COMPARISON: 09/14/2018 TECHNIQUE: Single frontal radiographic view of the chest acquired. NUMBER OF VIEWS: One view. LIMITATIONS: None. FINDINGS: LUNGS AND PLEURA: No pneumothorax. Large area of right basilar consolidation and large pl eural effusion. Left lung shows mild basilar airspace disease. MEDIASTINUM AND HILAR STRUCTURES: Stable. HEART AND VASCULAR STRUCTURES: Stable. BONES: No acute findings. HARDWARE: None in the chest. OTHER: No other significant finding. IMPRESSION: Large area of right basilar consolidation and large pleural effusion.Left lung shows mi ld basilar airspace disease. TECHNICAL DOCUMENTATION: JOB ID: [id number] [place]-72 2010 [employer]- All Rights Reserved Reading location - IP/workstation name: [employer]
[2018-09-15 19:07] LABS: THYROID STIMULATING HORMONE 13.4 uIU/mL (0.47-4.68)
[2018-09-15] MEDS: SERTRALINE HCL 50 MG TABLET PO SCH ×2 (22:26→23:17)
[2018-09-15] MEDS: OXYBUTYNIN CHLORIDE 5 MG TABLET PO SCH ×2 (22:27→23:18)
[2018-09-16] MEDS: LEVOTHYROXINE SODIUM 0.1 MG TABLET PO SCH (05:18)
[2018-09-16] MEDS: HEPARIN SOD (PORCINE) 5,000 UNIT/ML 1 ML VIAL SUBCUT SCH ×2 (05:18→13:32)
[2018-09-16 05:44] LABS: HEMATOCRIT 19.4 % (36.0-47.0); MEAN CORPUSCULAR HEMOGLOBIN 36.3 pg (27.0-33.4); MEAN CORPUSCULAR HGB CONC 33.5 g/dL (32.0-36.0); MEAN CORPUSCULAR VOLUME 108 fl (80-97); PLATELET COUNT 134 10^3/uL (150-450); RED BLOOD COUNT 1.79 10^6/uL (3.72-5.28); RED CELL DISTRIBUTION WIDTH 19.3 % (11.5-14.0); WHITE BLOOD COUNT 8.1 10^3/uL (4.0-10.5)
[2018-09-16 05:52] LABS: HEMOGLOBIN 6.5 g/dL (12.0-15.5)
[2018-09-16 05:59] LABS: ANION GAP 8 (5-19); BLOOD UREA NITROGEN 29 mg/dL (7-20); CALCIUM 8.6 mg/dL (8.4-10.2); CARBON DIOXIDE 20 mmol/L (22-30); CHLORIDE 116 mmol/L (98-107); GLUCOSE 102 mg/dL (75-110); POTASSIUM 4.2 mmol/L (3.6-5.0)
[2018-09-16] MEDS: INSULIN REG, HUMAN 100 UNIT/ML 3 ML VIAL (PYX) SUBCUT SCH ×3 (08:39→15:47)
[2018-09-16] MEDS: METOPROLOL TARTRATE 25 MG TABLET PO SCH (09:34)
[2018-09-16] MEDS: NYSTATIN CREAM 15 GM TP SCH ×2 (09:34→17:47)
[2018-09-16] MEDS: DOCUSATE SODIUM 100 MG CAPSULE PO SCH ×2 (09:34→17:47)
[2018-09-16] MEDS: FOLIC ACID 1 MG TABLET PO SCH (09:34)
[2018-09-16] MEDS: POTASSIUM CHLORIDE 10 MEQ CAPSULE.ER PO SCH ×2 (09:34→17:47)
[2018-09-16] MEDS: AMLODIPINE BESYLATE 10 MG TABLET PO SCH (09:35)
[2018-09-16] MEDS: SULFAMETHOXAZOLE/TRIMETHOPRIM 800-160 MG TABLET PO SCH (09:35)
[2018-09-16] MEDS ORDERED: VANCOMYCIN HCL 0 MG in DEXTROSE 5%-WATER 250 ML IV NR (10:30)
--- NOTE | 2018-09-16 11:19 | Progress Note Acknowledgement ---
Progress Note Acknowledgement Progess Note Acknowledgement: I, the undersigned member of the medical staff with appropriate privileges and with supervisory authority over Demetria Vogel, a [facility] practice allied health professional, acknowledge that I have reviewed the progress notes entered on this patient, and in my professional judgment believe that the assessment made and/or any care evidenced was appropriate
[2018-09-16 11:39] LABS: PARTIAL THROMBOPLASTIN TIME 31.5 SEC (23.5-35.8); PROTHROMBIN TIME 21.1 SEC (11.4-15.4)
[2018-09-16 13:58] LABS: ARTERIAL BLOOD BASE EXCESS -1.5 mmol/L; ARTERIAL BLOOD H2CO3 0.92 mmol/L (1.05-1.35); ARTERIAL BLOOD HCO3 21.7 mmol/L (20-24); ARTERIAL BLOOD O2 SATURATION 93.6 % (94-98); ARTERIAL BLOOD PCO2 30.5 mmHg (35-45); ARTERIAL BLOOD PH 7.47 (7.35-7.45); ARTERIAL BLOOD PO2 62.6 mmHg (80-100); ARTERIAL BLOOD TOTAL CO2 22.7 mmol/L (21-25)
[2018-09-16 13:59] LABS: ARTERIAL BLOOD FIO2 28%
[2018-09-16 15:26] LABS: ALANINE AMINOTRANSFERASE 90 U/L (9-52); ALBUMIN 2.8 g/dL (3.5-5.0); ALKALINE PHOSPHATASE 57 U/L (38-126); ASPARTATE AMINO TRANSFERASE 214 U/L (14-36); BILIRUBIN,DIRECT 1.1 mg/dL (0.0-0.4); TOTAL PROTEIN 6.7 g/dL (6.3-8.2)
[2018-09-16] MEDS ORDERED: LACTULOSE SYRUP 20 GM/30 ML UDCUP PO ONE (16:00)
--- NOTE | 2018-09-16 16:14 | PDOC PROGRESS REPORT ---
Subjective Progress Note for:: 09/16/18 Subjective:: Patient is an 82-year-old female with a past medical history of hyperlipidemia, hypertension, sleep apnea, remote tuberculosis, DM 2, hypothyroidism, CKD, RA, and depression who was admitted 09/15/2018 from [facility] for acute encephalopathy and acute respiratory failure with hypoxia. Patient was seen on morning rounds with family members present. She was found resting in bed comfortably on supplemental oxygen via nasal cannula at 2 L/min; she is not home O2 dependent. The patient is awake, does not make eye contact, but does mumble when asked questions. She does not follow commands. Per family members the patient has been like this for 2 to 3 days. Prior to becoming ill, she was conversationally appropriate and ambulatory with minimal assist and walker to the restroom. Family members did not note any acute illnesses precipitating her altered mental status and are unable to provide sufficient HPI to assist with determining the cause of her current altered mental status. ROS is limited secondary to patient's mental status. She does appear to be com fortable and not in any acute distress at this time. No concerns per nursing. Reason For Visit: ENCEPHALOPATHY Physical Exam Vital Signs: Temp Pulse Resp BP Pulse Ox 98.5 F 84 17 116/59 L 88 L 09/16/18 07:58 09/16/18 07:58 09/16/18 07:58 09/16/18 07:58 09/16/18 07:58 Intake & Output 09/15/18 09/16/18 09/17/18 06:59 06:59 06:59 Intake Total 500 1360 Output Total 500 Balance 500 860 Weight 86.4 kg 86.1 kg General appearance: PRESENT: no acute distress, obese, well-developed, well- nourished Head exam: PRESENT: atraumatic, normocephalic Eye exam: PRESENT: conjunctiva pink, EOMI, PERRLA. ABSENT: scleral icterus Ear exam: PRESENT: normal external ear exam Mouth exam: PRESENT: dry mucosa Neck exam: ABSENT: carotid bruit, JVD, lymphadenopathy, thyromegaly Respiratory exam: PRESENT: clear to auscultation victor manuel, decreased breath sounds - Rt lower chacko, rhonchi - slight. ABSENT: rales, wheezes Cardiovascular exam: PRESENT: RRR, +S1, +S2. ABSENT: diastolic murmur, rubs, systolic murmur Pulses: PRESENT: normal dorsalis pedis pul Vascular exam: PRESENT: normal capillary refill GI/Abdominal exam: PRESENT: normal bowel sounds, soft. ABSENT: distended, guarding, mass, organolmegaly, rebound, tenderness Rectal exam: PRESENT: deferred Extremities exam: PRESENT: full ROM - moves all extremities spontaneously. ABSENT: calf tenderness, clubbing, pedal edema Neurological exam: PRESENT: alert, awake, other - Awake, does not make eye contact, mumbles in response to questions, does not follow commands. ABSENT: motor sensory deficit Skin exam: PRESENT: dry, intact, warm. ABSENT: cyanosis, rash Results Laboratory Results: 09/16/18 04:42 09/16/18 04:42 09/15/18 09/16/18 09/16/18 17:45 04:42 04:42 WBC 8.1 RBC 1.79 L Hgb 6.5 L D Hct 19.4 L MCV 108 H MCH 36.3 H MCHC 33.5 RDW 19.3 H Plt Count 134 L Sodium 144.0 Potassium 4.2 Chloride 116 H Carbon Dioxide 20 L Anion Gap 8 BUN 29 H Creatinine 2.16 H Est GFR ( Amer) 27 L Est GFR (Non-Af Amer) 22 L Glucose 102 Calcium 8.6 Magnesium 1.9 TSH 13.40 H Free T4 2.17 Blood Type Antibody Screen 09/16/18 07:15 WBC RBC Hgb Hct MCV MCH MCHC RDW Plt Count Sodium Potassium Chloride Carbon Dioxide Anion Gap BUN Creatinine Est GFR ( Amer) Est GFR (Non-Af Amer) Glucose Calcium Magnesium TSH Free T4 Blood Type A POSITIVE Antibody Screen NEGATIVE Impressions: Head CT 09/14/18 00:00 IMPRESSION: 1. No acute intracranial abnormality by CT criteria. This exam was performed according to our departmental dose-optimization program, which includes automated exposure control, adjustment of the mA and/or kV according to patient size and/or use of iterative reconstruction technique. Chest X-Ray 09/15/18 00:00 IMPRESSION: Large area of right basilar consolidation and large pleural effusion.Left lung shows mild basilar airspace disease. Head MRI 09/15/18 00:00 IMPRESSION: ATROPHY AND CHRONIC MICRO-VASCULAR ISCHEMIC CHANGES. OTHERWISE NORMAL MRI OF THE BRAIN WITHOUT INTRAVENOUS GADOLINIUM CONTRAST. EVIDENCE OF ACUTE STROKE: NO. Assessment and Plan - Diagnosis (1) Encephalopathy Is this a current diagnosis for this admission?: Yes Plan: Multifactorial secondary to elevated LFTs with associated hyperammonemia, anemia, and hypoxia (related to anemia and right-sided pneumonia/pleural effusions). Supplemental oxygen as needed to maintain saturations greater than 89%. Scheduled as needed nebulizer treatments. Management of elevated LFTs, anemia, pneumonia, and pleural effusions as below. Discussed with patient's family today; patient remains a full code with aggressive interventions as indicated. (2) Acute on chronic kidney failure Qualifiers: Chronic kidney disease stage: stage 3 (moderate) Is this a current diagnosis for this admission?: Yes Plan: CKD 3 at baseline. Creatinine on admission is 1.43; increased to 2.16 today. Likely secondary to hypotension and hypoxia. Patient is receiving 2 units PRBC today. Continue gentle IVF. Avoid nephrotoxic medications as able. Daily chemistries. (3) Anemia Qualifiers: Anemia type: other cause Other causes of anemia: other cause, not classified Qualified Code(s): D64.89 - Other specified anemias Is this a current diagnosis for this admission?: Yes Plan: Acute blood loss anemia; unclear source at this time. Concern for spontaneous abdominal/retroperitoneal bleeding. Hemoglobin 9.4 on admission; down to 6.5 despite having received only 1.5 L IV fluids. Urinalysis is negative for blood. Hemoccult pending. Chest x-ray (09/15/2018) does show right-sided large right-sided pleural effusion. PT/INR elevated today; patient does not take chronic anticoagulant medications. LFTs are also noted to be elevated. CT ABD/Pelvis pending. Patient is typed and crossed; to receive 2 units PRBC. Monitor for signs of overt bleeding. CT Chest, CT ABD/Pelvis pending. Serial CBC and transfuse for Hgb <7 (4) Elevated LFTs Is this a current diagnosis for this admission?: Yes Plan: Patient is noted to have elevated LFTs: Total bili 3.0, direct bili 1.1, AST 214, ALT 90 PT 21.1, INR 1.80 Ammonia 56.3 Review of previous lab work does show recent upward trend. CT abdomen/pelvis (08/26/2018) revealed moderate low-density ascites with mild nodular contour of the liver and mildly enlarged spleen. MELD Score 25 (19.6% 3 month mortality) Providing 2 units PRBC for acute anemia. Continue gentle IVF. Repeat CT ABD/Pelvis pending (to eval for intra-abdominal bleeding). GI/S urgical consultation if acute findings. Lactulose until 2-3 soft bm's daily. (5) Hypercoagulable state Is this a current diagnosis for this admission?: Yes Plan: Likely secondary to liver dysfunction. Patient is not on chronic anticoagulation at this time. DVT prophylaxis (heparin) placed on hold; will utilize SCDs. Management of anemia as above. Management of elevated LFTs as above. (6) Diabetes mellitus type 2 in obese Is this a current diagnosis for this admission?: Yes Plan: Patient is placed on a consistent carb/cardiac diet. Accu-Cheks before meals and at bedtime with sliding scale insulin for coverage. Hypoglycemia protocol in place. (7) Hypertension Qualifiers: Hypertension type: essential hypertension Qualified Code(s): I10 - Essential (primary) hypertension Is this a current diagnosis for this admission?: Yes Plan: Blood pressures are acceptable. Continue outpatient regiment of Amlodipine and metoprolol. IV hydralazine as needed for blood pressure control. Cardiac diet. (8) Hypothyroidism Qualifiers: Hypothyroidism type: unspecified Qualified Code(s): E03.9 - Hypothyroidism, unspecified Is this a current diagnosis for this admission?: Yes Plan: TSH 13.4, free T4 2.17 Continue levothyroxine 200 mcg daily. (9) Pleural effusion Is this a current diagnosis for this admission?: Yes Plan: CXR (09/15/2018) demonstrates large right pleural effusion. Thoracentesis requested; unfortunately patient's PT/INR are elevated related to LFTs. Possibly transudative secondary to liver disease, exudative secondary to right- sided pneumonia, versus blood related to recent multiple right-sided rib fractures. Management of pneumonia as below. Continue to monitor closely; repeat CXR in the morning. Repeat PT/INR in the a.m.; if remain elevated will discuss with surgery option for bedside procedure versus chest tube. (10) Pneumonia involving right lung Qualifiers: Pneumonia type: due to unspecified organism Lung location: unspecified part of lung Qualified Code(s): J18.9 - Pneumonia, unspecified organism Is this a current diagnosis for this admission?: Yes Plan: CXR (7/29/19) Large area of right basilar consolidation and and large pleural effusion. Blood and sputum cultures are pending. Patient is started on IV Vancomycin and Cefepime for HAP. Supplemental oxygen, scheduled and as needed nebulizer treatment. - Time Time Spent with patient: 35 or more minutes Medications reviewed and adjusted accordingly: Yes Anticipated discharge: SNF - [facility]; short term rehab - Inpatient Certification Based on my medical assessment, after consideration of the patient's comorbidities, presenting symptoms, or acuity I expect that the services needed warrant INPATIENT care.: Yes I certify that my determination is in accordance with my understanding of Medicare's requirements for reasonable and necessary INPATIENT services [42 CFR 412.3e].: Yes Medical Necessity: Failure to Improve With Outpatient Therapy, Significant Comorbidiites Make Outpatient Treatment Too Risky, Need Close Monitoring Due to Risk of Patient Decompensation, Need For IV Fluids, Need For Continuous Tel emetry Monitoring, Need for Nebulizer Therapy and Monitoring of Response, Need for IV Antibiotics
[2018-09-16] MEDS ORDERED: CEFEPIME 1 GM/D5W RTU 1 GM/50 ML RTUPB IV SCH (17:00)
[2018-09-16] MEDS ORDERED: VANCOMYCIN HCL 1,500 MG in DEXTROSE 5%-WATER 250 ML IV SCH ×2 (18:00→22:00)
--- NOTE | 2018-09-16 18:51 | Progress Note ---
Provider Note Provider Note: ID Telephone Consultation Note Asked to review patient's chart. Pt not seen or examined. Reviewed VS, imaging reports, provider reports, microbiology results. Pt is a 82 year old obese female jail resident with PMH including CKD, DM, KELLY, obesity, HTN and recent hospital admission for multiple falls during which time pt was found to have multiple R sided rib fractures. She presented on 09/15/18 with increased confusion. She was also given the diagnosis of UTI and being treated for this prior to admission. She was afebrile but hypoxic and has been requiring supplemental oxygen. She was appreciated as having decreased breath sounds on the right. Plain film of the chest showed a large area of R basilar consolidation/effusion. Blood cultures were sent. Vancomycin and cefepime were ordered empirically. Impression/Recommendations Difficult to add much to management at this point. Patients with rib fractures have some increased risk for pneumonia, potentially related to pain impairing clearance of secretions or promoting atelectasis. Can continue cefepime/vancomycin until further information is available. Would send sputum for culture if possible. CT scan of the chest can be considered. Thoracentesis would be indicated to evaluate pleural effusion. Angus Washington MD [facility] Infectious Diseases pager [phone]
[2018-09-16] MEDS ORDERED: LACTULOSE SYRUP 20 GM/30 ML UDCUP PO SCH (21:00)
[2018-09-16] MEDS ORDERED: CEFEPIME 2 GM/D5W RTU 2 GM/50 ML RTUPB IV SCH (22:00)
[2018-09-16 22:01] LABS: ARTERIAL BLOOD BASE EXCESS -2.8 mmol/L; ARTERIAL BLOOD H2CO3 0.97 mmol/L (1.05-1.35); ARTERIAL BLOOD HCO3 20.9 mmol/L (20-24); ARTERIAL BLOOD O2 SATURATION 91.3 % (94-98); ARTERIAL BLOOD PCO2 32.2 mmHg (35-45); ARTERIAL BLOOD PH 7.43 (7.35-7.45); ARTERIAL BLOOD PO2 58.2 mmHg (80-100); ARTERIAL BLOOD TOTAL CO2 21.9 mmol/L (21-25)
[2018-09-16 22:02] LABS: ARTERIAL BLOOD FIO2 28%
[2018-09-16 22:53] LABS: HEMATOCRIT 25.3 % (36.0-47.0); MEAN CORPUSCULAR HEMOGLOBIN 35.2 pg (27.0-33.4); MEAN CORPUSCULAR HGB CONC 34.7 g/dL (32.0-36.0); PLATELET COUNT 133 10^3/uL (150-450); RED BLOOD COUNT 2.49 10^6/uL (3.72-5.28); RED CELL DISTRIBUTION WIDTH 20.5 % (11.5-14.0)
[2018-09-16 22:56] LABS: HEMOGLOBIN 8.8 g/dL (12.0-15.5); MEAN CORPUSCULAR VOLUME 102 fl (80-97)
[2018-09-16 23:11] LABS: ABSOLUTE RETICS # 0.106 10^6/uL (0.028-0.122)
[2018-09-16 23:39] LABS: IRON(TIBC) 91.2 ug/dL (37-170)
[2018-09-17] MEDS: OXYBUTYNIN CHLORIDE 5 MG TABLET PO SCH ×2 (00:55→21:36)
[2018-09-17] MEDS: INSULIN REG, HUMAN 100 UNIT/ML 3 ML VIAL (PYX) SUBCUT SCH ×5 (00:56→21:37)
[2018-09-17] MEDS: SERTRALINE HCL 50 MG TABLET PO SCH ×2 (00:57→21:37)
[2018-09-17] MEDS: METOPROLOL TARTRATE 25 MG TABLET PO SCH ×3 (00:57→21:36)
--- NOTE | 2018-09-17 00:57 | RADIOLOGY REPORT (SQ) ---
EXAM DESCRIPTION: CT CHEST WITHOUT IV CONTRAST COMPLETED DATE/TME: 09/17/2018 00:00 CLINICAL HISTORY: 82 years, Female, hypoxia, ?Rt PNA, pleural effusion COMPARISON: None. TECHNIQUE: Axial images of the chest were performed without the use of intravenous contrast, with sagittal and coronal reformatted images. Images stored on PACS. All CT scanners at this facility use dose modulation, iterative reconstruction, and/or weight based dosing when appropriate to reduce radiation dose to as low as reasonably achievable (ALARA). [facility]: Dose Right [facility]: CareDose [facility]: Dose Right [facility]: Teradose 4D [facility]: [employer] LIMITATIONS: None. FINDINGS: There is consolidation/atelectasis involving the entire right lung, with some air bronchograms. There is a moderate-sized right pleural effusion. There is coronary artery disease. The left lung is clear. Images of the upper abdomen show cirrhosis. IMPRESSION: Consolidation/atelectasis involving the entire right lung, compatible with pneumonia. Moderate-sized right pleural effusion. Other findings as described. TECHNICAL DOCUMENTATION: Quality ID # [id number]: Final reports with documentation of one or more dose reduction techniques (e.g., Automated exposure control, adjustment of the mA and/or kV according to patient size, use of iterative reconstruction technique) copyright 2010 [employer]- All Rights Reserved
[2018-09-17] MEDS: CEFEPIME 1 GM/D5W RTU 1 GM/50 ML RTUPB IV SCH ×2 (01:18→18:23)
[2018-09-17] MEDS ORDERED: LACTULOSE SYRUP 20 GM/30 ML UDCUP ONE (02:06)
--- NOTE | 2018-09-17 02:42 | RADIOLOGY REPORT (SQ) ---
EXAM DESCRIPTION: CT ABDOMEN PELVIS WITHOUT IV CONTRAST COMPLETED DATE/TME: 09/17/2018 00:00 CLINICAL HISTORY: 82 years, Female, Elevated LFT/PT/INR, ? intra ABD bleed COMPARISON: CT abdomen pelvis 08/27/2018 TECHNIQUE: Axial images of the abdomen and pelvis were performed without the use of intravenous contrast, with sagittal and coronal reformatted images. Images stored on PACS. All CT scanners at this facility use dose modulation, iterative reconstruction, and/or weight based dosing when appropriate to reduce radiation dose to as low as reasonably achievable (ALARA). [facility]: Dose Right [facility]: CareDose [facility]: Dose Right [facility]: Teradose 4D [facility]: [employer] LIMITATIONS: None. FINDINGS: No evidence of intra-abdominal hemorrhage. There is cirrhosis. There is mild splenomegaly, with the spleen measuring 14.3 cm in maximal diameter. There is no evidence of ascites. Ascites was present on the prior scan. There are atherosclerotic changes involving the abdominal aorta, but there is no aneurysm. No evidence of appendicitis. No evidence of bowel obstruction. No mass or adenopathy. No free air. IMPRESSION: No evidence of intra-abdominal hemorrhage. Cirrhosis with splenomegaly. TECHNICAL DOCUMENTATION: Quality ID # [id number]: Final reports with documentation of one or more dose reduction techniques (e.g., Automated exposure control, adjustment of the mA and/or kV according to patient size, use of iterative reconstruction technique) copyright 2011 [employer]- All Rights Reserved
[2018-09-17] MEDS: LACTULOSE SYRUP 20 GM/30 ML UDCUP PR SCH ×3 (04:55→18:24)
[2018-09-17] MEDS: LEVOTHYROXINE SODIUM 0.1 MG TABLET PO SCH (05:47)
[2018-09-17 06:31] LABS: ABSOLUTE BASOPHILS # (AUTO) 0.1 10^3/uL (0.0-0.2); ABSOLUTE EOSINOPHILS # (AUTO) 0.1 10^3/uL (0.0-0.6); ABSOLUTE LYMPHOCYTES (AUTO) 1.6 10^3/uL (0.5-4.7); ABSOLUTE MONOCYTES (AUTO) 1.1 10^3/uL (0.1-1.4); ABSOLUTE NEUT (AUTO) 5.5 10^3/uL (1.7-8.2); BASOPHILS % (AUTO) 0.8 % (0-2); EOSINOPHILS % (AUTO) 0.9 % (0-6); HEMATOCRIT 24.2 % (36.0-47.0); HEMOGLOBIN 8.4 g/dL (12.0-15.5); LYMPHOCYTES % (AUTO) 18.8 % (13-45); MEAN CORPUSCULAR HEMOGLOBIN 34.8 pg (27.0-33.4); MEAN CORPUSCULAR HGB CONC 34.6 g/dL (32.0-36.0); MEAN CORPUSCULAR VOLUME 101 fl (80-97); PLATELET COUNT 130 10^3/uL (150-450); RED CELL DISTRIBUTION WIDTH 20.3 % (11.5-14.0); SEGMENTED NEUTROPHILS % (AUTO) 66.5 % (42-78); TOTAL CELLS COUNTED % (AUTO) 100 %; WHITE BLOOD COUNT 8.2 10^3/uL (4.0-10.5)
[2018-09-17 06:34] LABS: INTERNATIONAL RATION (INR) 1.82; PROTHROMBIN TIME 21.3 SEC (11.4-15.4)
[2018-09-17 06:50] LABS: ALANINE AMINOTRANSFERASE 110 U/L (9-52); ALBUMIN 2.8 g/dL (3.5-5.0); ALKALINE PHOSPHATASE 58 U/L (38-126); ANION GAP 7 (5-19); ASPARTATE AMINO TRANSFERASE 242 U/L (14-36); BILIRUBIN,DIRECT 1.6 mg/dL (0.0-0.4); BILIRUBIN,TOTAL 3.3 mg/dL (0.2-1.3); BLOOD UREA NITROGEN 28 mg/dL (7-20); CALCIUM 8.6 mg/dL (8.4-10.2); CARBON DIOXIDE 22 mmol/L (22-30); CHLORIDE 118 mmol/L (98-107); GLUCOSE 164 mg/dL (75-110); TOTAL PROTEIN 6.8 g/dL (6.3-8.2)
[2018-09-17] MEDS ORDERED: FUROSEMIDE INJ/PF 20 MG/2 ML SDV IV ONE (08:30)
[2018-09-17] MEDS: POTASSIUM CHLORIDE 10 MEQ CAPSULE.ER PO SCH ×2 (09:44→17:55)
[2018-09-17] MEDS: FOLIC ACID 1 MG TABLET PO SCH (09:44)
[2018-09-17] MEDS: DOCUSATE SODIUM 100 MG CAPSULE PO SCH ×2 (09:44→17:55)
[2018-09-17] MEDS: NYSTATIN CREAM 15 GM TP SCH ×2 (09:45→18:23)
[2018-09-17] MEDS: AMLODIPINE BESYLATE 10 MG TABLET PO SCH (09:45)
--- NOTE | 2018-09-17 19:10 | ADVANCED CARE ---
- Diagnosis (1) Encephalopathy Diagnosis Current: Yes (2) Acute on chronic kidney failure Diagnosis Current: Yes (3) Anemia Diagnosis Current: Yes (4) Elevated LFTs Diagnosis Current: Yes (5) Hypercoagulable state Diagnosis Current: Yes (6) Diabetes mellitus type 2 in obese Diagnosis Current: Yes (7) Hypertension Diagnosis Current: Yes (8) Hypothyroidism Diagnosis Current: Yes (9) Pleural effusion Diagnosis Current: Yes (10) Pneumonia involving right lung Diagnosis Current: Yes Attendance: The patient's , Brandan Reynolds, and daughters Kelsi Shah and Karina Max. Resuscitation Status: Do Not Resuscitate Discussion: Discussed the patient's chronic and acute medical conditions. Discussed her right-sided pneumonia, hypoxia, pleural effusion. Informed the family of new diagnosis of liver disease with cirrhosis, elevated LFTs, elevated coags, and hyperammonemia. Discussed the patient's continued dependence on BiPAP and concern for possible deterioration given her comorbid conditions. Patient's verifies that he and his have discussed extensively their desires with regard to end-of-life care. They do not have any formal paperwork in place. However, is adamant that the patient is a DNR/DNI and would not wish for aggressive interventions if she became critically ill. Care Planning Goals: DNR/DNI Continue conservative measures w/ BiPAP, nebs, and IV antibiotics. Time Spent: 45
--- NOTE | 2018-09-17 19:20 | PDOC PROGRESS REPORT ---
Subjective Progress Note for:: 09/17/18 Subjective:: Patient is an 82-year-old female with a past medical history of hyperlipidemia, hypertension, sleep apnea, remote tuberculosis, DM 2, hypothyroidism, CKD, RA, and depression who was admitted 09/15/2018 from [place] for acute encephalopathy and acute respiratory failure with hypoxia. Patient was seen on morning rounds with multiple family members present. She was found resting in bed comfortably on supplemental oxygen via BiPAP; she is not home O2 dependent. The patient is awake, does answer a few questions appropriately and follows commands. She is noted to be quite fatigued and falls back to sleep several times during our conversation. She is unable to p articipate in conversation regarding CODE STATUS. ROS is limited secondary to patient's mental status. She does appear to be comfortable and not in any acute distress at this time. No concerns per nursing. Reason For Visit: RML,RLL PNA, ACUTE ENCEPHALOPATHY Physical Exam Vital Signs: Temp Pulse Resp BP Pulse Ox 98.4 F 85 23 H 157/65 H 95 09/17/18 11:26 09/17/18 11:26 09/17/18 17:20 09/17/18 11:26 09/17/18 17:20 Intake & Output 09/16/18 09/17/18 09/18/18 06:59 06:59 06:59 Intake Total 1360 650 300 Output Total 500 1050 2100 Balance 860 -400 -1800 Weight 86.1 kg 88.3 kg General appearance: PRESENT: no acute distress, obese, well-developed, well- nourished Head exam: PRESENT: atraumatic, normocephalic Eye exam: PRESENT: conjunctiva pink, EOMI, PERRLA. ABSENT: scleral icterus Ear exam: PRESENT: normal external ear exam Mouth exam: PRESENT: dry mucosa, tongue midline Neck exam: ABSENT: carotid bruit, JVD, lymphadenopathy, thyromegaly Respiratory exam: PRESENT: decreased breath sounds - Right lower chacko, rhonchi, symmetrical, other - BiPAP. ABSENT: rales, wheezes Cardiovascular exam: PRESENT: RRR, +S1, +S2. ABSENT: diastolic murmur, rubs, systolic murmur Pulses: PRESENT: normal dorsalis pedis pul Vascular exam: PRESENT: normal capillary refill GI/Abdominal exam: PRESENT: normal bowel sounds, soft. ABSENT: distended, guarding, mass, organolmegaly, rebound, tenderness Rectal exam: PRESENT: deferred Extremities exam: PRESENT: full ROM - Moves all extremities spontaneously. ABSENT: calf tenderness, clubbing, pedal edema Neurological exam: PRESENT: oriented to person, CN II-XII grossly intact, other - Arousable; does answer a few questions appropriately. Fatigued and unable to participate fully in conversation today. ABSENT: motor sensory deficit Psychiatric exam: PRESENT: appropriate affect, normal mood. ABSENT: homicidal ideation, suicidal ideation Skin exam: PRESENT: dry, intact, warm. ABSENT: cyanosis, rash Results Laboratory Results: 09/17/18 05:50 09/17/18 05:50 09/16/18 09/16/18 09/16/18 14:50 21:45 22:37 WBC 9.0 RBC 2.49 L Hgb 8.8 L D Hct 25.3 L MCV 102 H D MCH 35.2 H MCHC 34.7 RDW 20.5 H Plt Count 133 L Seg Neutrophils % Lymphocytes % Monocytes % Eosinophils % Basophils % Absolute Neutrophils Absolute Lymphocytes Absolute Monocytes Absolute Eosinophils Absolute Basophils Retic Count (auto) Absolute Retic Carbonic Acid 0.97 L HCO3/H2CO3 Ratio 21:1 ABG pH 7.43 ABG pCO2 32.2 L ABG pO2 58.2 L ABG HCO3 20.9 ABG O2 Saturation 91.3 L ABG Base Excess -2.8 FiO2 28% Sodium Potassium Chloride Carbon Dioxide Anion Gap BUN Creatinine Est GFR ( Amer) Est GFR (Non-Af Amer) Glucose Calcium Magnesium Iron 91.2 TIBC 262 % Saturation 35 Ferritin 317.00 H Total Bilirubin AST ALT Alkaline Phosphatase Total Protein Albumin Vitamin B12 662.0 Folate 11.00 09/16/18 09/17/18 09/17/18 22:37 05:50 05:50 WBC 8.2 RBC 2.40 L Hgb 8.4 L Hct 24.2 L MCV 101 H MCH 34.8 H MCHC 34.6 RDW 20.3 H Plt Count 130 L Seg Neutrophils % 66.5 Lymphocytes % 18.8 Monocytes % 13.0 Eosinophils % 0.9 Basophils % 0.8 Absolute Neutrophils 5.5 Absolute Lymphocytes 1.6 Absolute Monocytes 1.1 Absolute Eosinophils 0.1 Absolute Basophils 0.1 Retic Count (auto) 4.20 H Absolute Retic 0.106 Carbonic Acid HCO3/H2CO3 Ratio ABG pH ABG pCO2 ABG pO2 ABG HCO3 ABG O2 Saturation ABG Base Excess FiO2 Sodium 146.5 H Potassium 4.0 Chloride 118 H Carbon Dioxide 22 Anion Gap 7 BUN 28 H Creatinine 1.72 H Est GFR ( Amer) 35 L Est GFR (Non-Af Amer) 29 L Glucose 164 H Calcium 8.6 Magnesium 2.0 Iron TIBC % Saturation Ferritin Total Bilirubin 3.3 H AST 242 H ALT 110 H Alkaline Phosphatase 58 Total Protein 6.8 Albumin 2.8 L Vitamin B12 Folate Impressions: Head CT 09/14/18 00:00 IMPRESSION: 1. No acute intracranial abnormality by CT criteria. This exam was performed according to our departmental dose-optimization program, which includes automated exposure control, adjustment of the mA and/or kV according to patient size and/or use of iterative reconstruction technique. Chest X-Ray 09/15/18 00:00 IMPRESSION: Large area of right basilar consolidation and large pleural effusion.Left lung shows mild basilar airspace disease. Head MRI 09/15/18 00:00 IMPRESSION: ATROPHY AND CHRONIC MICRO-VASCULAR ISCHEMIC CHANGES. OTHERWISE NORMAL MRI OF THE BRAIN WITHOUT INTRAVENOUS GADOLINIUM CONTRAST. EVIDENCE OF ACUTE STROKE: NO. Abdomen/Pelvis CT 09/17/18 00:00 IMPRESSION: No evidence of intra-abdominal hemorrhage. Cirrhosis with splenomegaly. TECHNICAL DOCUMENTATION: Quality ID # 436: Final reports with documentation of one or more dose reduction techniques (e.g., Automated exposure control, adjustment of the mA and/or kV according to patient size, use of iterative reconstruction technique) copyright 2010 [employer]- All Rights Reserved Chest CT 09/17/18 00:00 IMPRESSION: Consolidation/atelectasis involving the entire right lung, compatible with pneumonia. Moderate-sized right pleural effusion. Other findings as described. TECHNICAL DOCUMENTATION: Quality ID # [id number]: Final reports with documentation of one or more dose reduction techniques (e.g., Automated exposure control, adjustment of the mA and/or kV according to patient size, use of iterative reconstruction technique) copyright 2010 [employer]- All Rights Reserved Assessment and Plan - Diagnosis (1) Encephalopathy Is this a current diagnosis for this admission?: Yes Plan: Slight improvement today. Multifactorial secondary to elevated LFTs with associated hyperammonemia, anemia, and hypoxia (related to anemia and right-sided pneumonia/pleural effusions). ABG improved with BiPAP support. Supplemental oxygen as needed to maintain saturations greater than 89%. Scheduled as needed nebulizer treatments. Management of elevated LFTs, anemia, pneumonia, and pleural effusions as below. Discussed with patient's family today; patient is a DNR/DNI (2) Acute on chronic kidney failure Qualifiers: Chronic kidney disease stage: stage 3 (moderate) Is this a current diagnosis for this admission?: Yes Plan: CKD 3 at baseline. Creatinine on admission is 1.43-> 2.16-> 1.72 Likely secondary to hypotension and hypoxia. s/p 2 units PRBC today. Continue gentle IVF. Avoid nephrotoxic medications as able. Daily chemistries. (3) Anemia Qualifiers: Anemia type: other cause Other causes of anemia: other cause, not classified Qualified Code(s): D64.89 - Other specified anemias Is this a current diagnosis for this admission?: Yes Plan: Acute blood loss anemia; unclear source at this time. Hemoglobin 9.4 on admission; down to 6.5 despite having received only 1.5 L IV fluids. Now s/p 2 units PRBC; Hgb stable at 8.4 Urinalysis is negative for blood. Hemoccult pending. Chest x-ray (09/15/2018) does show right-sided large right-sided pleural effusion. CT ABD/Pelvis negative for intra-abdominal bleeding. (+) cirrhosis on CT w/ elevated LFTs and PT/INR Monitor for signs of overt bleeding. Daily CBC and transfuse for Hgb <7 (4) Elevated LFTs Is this a current diagnosis for this admission?: Yes Plan: Patient is noted to have elevated LFTs and PT/INR Ammonia 56.3 Review of previous lab work does show recent upward trend. CT abdomen/pelvis (08/26/2018) revealed moderate low-density ascites with mild nodular contour of the liver and mildly enlarged spleen. CT ABD/Pelvis (09/17/18) demonstrates cirrhosis with splenomegaly MELD Score 25 (19.6% 3 month mortality) Continue gentle IVF. Lactulose until 2-3 soft bm's daily. Will require retention enemas until able to safely take p.o. (5) Hypercoagulable state Is this a current diagnosis for this admission?: Yes Plan: Likely secondary to liver dysfunction. Patient is not on chronic anticoagulation at this time. DVT prophylaxis (heparin) placed on hold; will utilize SCDs. Management of anemia as above. Management of elevated LFTs as above. (6) Diabetes mellitus type 2 in obese Is this a current diagnosis for this admission?: Yes Plan: Patient is placed on a consistent carb/cardiac diet. Accu-Cheks before meals and at bedtime with sliding scale insulin for coverage. Hypoglycemia protocol in place. (7) Hypertension Qualifiers: Hypertension type: essential hypertension Qualified Code(s): I10 - Essential (primary) hypertension Is this a current diagnosis for this admission?: Yes Plan: Blood pressures are elevated; not able to take p.o. medications at this time. Continue outpatient regiment of Amlodipine and metoprolol when safely able to take p.o. IV hydralazine as needed for blood pressure control. Cardiac diet. (8) Hypothyroidism Qualifiers: Hypothyroidism type: unspecified Qualified Code(s): E03.9 - Hypothyroidism, unspecified Is this a current diagnosis for this admission?: Yes Plan: TSH 13.4, free T4 2.17 Continue levothyroxine 200 mcg daily. (9) Pleural effusion Is this a current diagnosis for this admission?: Yes Plan: CXR (09/15/2018) demonstrates large right pleural effusion. Thoracentesis requested; unfortunately patient's PT/INR are elevated related to LFTs. Possibly transudative secondary to liver disease, exudative secondary to right- sided pneumonia, versus blood related to recent multiple right-sided rib fractures. CT chest demonstrated small pleural effusion. Management of pneumonia as below. Furosemide 10 mg IV x1 today. (10) Pneumonia involving right lung Qualifiers: Pneumonia type: due to unspecified organism Lung location: unspecified part of lung Qualified Code(s): J18.9 - Pneumonia, unspecified organism Is this a current diagnosis for this admission?: Yes Plan: CXR (09/15/18) Large area of right basilar consolidation and and large pleural effusion. Blood cultures are negative at 24 hours. Sputum cultures are pending. Patient is started on IV Vancomycin and Cefepime for HAP. Supplemental oxygen, BiPAP, scheduled and as needed nebulizer treatment. - Time Time Spent with patient: 35 or more minutes Medications reviewed and adjusted accordingly: Yes Anticipated discharge: SNF
[2018-09-17] MEDS: NORMAL SALINE 1000 ML 1,000 ML IV PRN (20:24)
[2018-09-18] MEDS: LACTULOSE SYRUP 20 GM/30 ML UDCUP PR SCH ×2 (00:19→05:29)
[2018-09-18 04:48] LABS: HEMATOCRIT 26.9 % (36.0-47.0); HEMOGLOBIN 9.1 g/dL (12.0-15.5); MEAN CORPUSCULAR HEMOGLOBIN 34.9 pg (27.0-33.4); MEAN CORPUSCULAR HGB CONC 33.9 g/dL (32.0-36.0); MEAN CORPUSCULAR VOLUME 103 fl (80-97); PLATELET COUNT 114 10^3/uL (150-450); RED BLOOD COUNT 2.61 10^6/uL (3.72-5.28); RED CELL DISTRIBUTION WIDTH 20.3 % (11.5-14.0); WHITE BLOOD COUNT 6.8 10^3/uL (4.0-10.5)
[2018-09-18 05:12] LABS: ANION GAP 6 (5-19); BLOOD UREA NITROGEN 25 mg/dL (7-20); CALCIUM 8.8 mg/dL (8.4-10.2); CARBON DIOXIDE 22 mmol/L (22-30); CHLORIDE 120 mmol/L (98-107); GLUCOSE 144 mg/dL (75-110); POTASSIUM 3.5 mmol/L (3.6-5.0)
[2018-09-18] MEDS: LEVOTHYROXINE SODIUM 0.1 MG TABLET PO SCH (05:54)
[2018-09-18] MEDS: INSULIN REG, HUMAN 100 UNIT/ML 3 ML VIAL (PYX) SUBCUT SCH ×4 (08:47→22:18)
[2018-09-18] MEDS: NORMAL SALINE 1000 ML 1,000 ML IV PRN (08:52)
[2018-09-18] MEDS: DOCUSATE SODIUM 100 MG CAPSULE PO SCH ×2 (09:01→17:43)
[2018-09-18] MEDS: METOPROLOL TARTRATE 25 MG TABLET PO SCH ×2 (09:02→22:29)
[2018-09-18] MEDS: FOLIC ACID 1 MG TABLET PO SCH (09:02)
[2018-09-18] MEDS: POTASSIUM CHLORIDE 10 MEQ CAPSULE.ER PO SCH (09:02)
[2018-09-18] MEDS: AMLODIPINE BESYLATE 10 MG TABLET PO SCH (09:02)
[2018-09-18] MEDS: NYSTATIN CREAM 15 GM TP SCH ×2 (11:22→18:30)
[2018-09-18 11:37] LABS: HEPATITS B SURFACE ANTIGEN Negative (Negative)
[2018-09-18 13:21] LABS: HEPATITIS C VIRUS ANTIBODY <0.1 s/co ratio (0.0-0.9)
[2018-09-18] MEDS: LACTULOSE SYRUP 20 GM/30 ML UDCUP PO SCH ×2 (14:16→22:28)
[2018-09-18] MEDS: VANCOMYCIN HCL 1,000 MG in DEXTROSE 5%-WATER 250 ML IV SCH (14:16)
[2018-09-18] MEDS: POTASSIUM CHLORIDE 20 MEQ PACKET PO SCH (18:31)
[2018-09-18] MEDS ORDERED: NORMAL SALINE 1000 ML 1,000 ML IV PRN (18:35)
--- NOTE | 2018-09-18 18:39 | PDOC PROGRESS REPORT ---
Subjective Progress Note for:: 09/18/18 Subjective:: Patient is an 82-year-old female with a past medical history of hyperlipidemia, hypertension, sleep apnea, remote tuberculosis, DM 2, hypothyroidism, CKD, RA, and depression who was admitted 09/15/2018 from [place] for acute encephalopathy and acute respiratory failure with hypoxia. Patient was seen on morning rounds withdeanne present. She was found resting in bed comfortably on supplemental oxygen via [place] she is not home O2 dependent. The patient is awake, oriented to the hospital, year but not situation. She continues to be fatigued and somewhat forgetful during our conversation, though significantly improved from yesterday. She denies fever, chills, chest pain, abdominal pain, nausea vomiting or diarrhea. She does request to advance her diet today. She does confirm continued slight shortness of breath and a nonproductive cough. She has no other questions or concerns at this time. No concerns per nursing. Reason For Visit: RML,RLL PNA, ACUTE ENCEPHALOPATHY Physical Exam Vital Signs: Temp Pulse Resp BP Pulse Ox 98.2 F 83 22 H 153/54 H 92 09/18/18 15:27 09/18/18 15:27 09/18/18 15:27 09/18/18 15:27 09/18/18 15:27 Intake & Output 09/17/18 09/18/18 09/19/18 06:59 06:59 06:59 Intake Total 650 1350 610 Output Total 1050 2625 375 Balance -400 -1275 235 Weight 88.3 kg 85.1 kg General appearance: PRESENT: no acute distress, cooperative, obese, well- developed, well-nourished Head exam: PRESENT: atraumatic, normocephalic Eye exam: PRESENT: conjunctiva pink, EOMI, PERRLA. ABSENT: scleral icterus Ear exam: PRESENT: normal external ear exam Mouth exam: PRESENT: moist, tongue midline Neck exam: ABSENT: carotid bruit, JVD, lymphadenopathy, thyromegaly Respiratory exam: PRESENT: decreased breath sounds - Bibasilar, rhonchi, symmetrical, unlabored, other - Supplemental oxygen by nasal cannula. ABSENT: rales, wheezes Cardiovascular exam: PRESENT: RRR, +S1, +S2. ABSENT: diastolic murmur, rubs, systolic murmur Pulses: PRESENT: normal dorsalis pedis pul Vascular exam: PRESENT: normal capillary refill GI/Abdominal exam: PRESENT: normal bowel sounds, soft. ABSENT: distended, guarding, mass, organolmegaly, rebound, tenderness Rectal exam: PRESENT: deferred Extremities exam: PRESENT: full ROM. ABSENT: calf tenderness, clubbing, pedal edema Neurological exam: PRESENT: alert, awake, oriented to person, oriented to place, oriented to time, CN II-XII grossly intact. ABSENT: oriented to situation, motor sensory deficit Psychiatric exam: PRESENT: appropriate affect, normal mood. ABSENT: homicidal ideation, suicidal ideation Skin exam: PRESENT: dry, intact, warm. ABSENT: cyanosis, rash Results Laboratory Results: 09/18/18 04:37 09/18/18 04:37 09/17/18 09/18/18 09/18/18 19:03 04:37 04:37 WBC 6.8 RBC 2.61 L Hgb 9.1 L Hct 26.9 L MCV 103 H MCH 34.9 H MCHC 33.9 RDW 20.3 H Plt Count 114 L Sodium Potassium Chloride Carbon Dioxide Anion Gap BUN Creatinine Est GFR ( Amer) Est GFR (Non-Af Amer) Glucose Calcium Magnesium Ammonia 15.5 Stool Occult Blood POSITIVE 09/18/18 04:37 WBC RBC Hgb Hct MCV MCH MCHC RDW Plt Count Sodium 148.3 H Potassium 3.5 L Chloride 120 H Carbon Dioxide 22 Anion Gap 6 BUN 25 H Creatinine 1.34 H Est GFR ( Amer) 46 L Est GFR (Non-Af Amer) 38 L Glucose 144 H Calcium 8.8 Magnesium 2.0 Ammonia Stool Occult Blood Impressions: Head CT 09/14/18 00:00 IMPRESSION: 1. No acute intracranial abnormality by CT criteria. This exam was performed according to our departmental dose-optimization program, which includes automated exposure control, adjustment of the mA and/or kV according to patient size and/or use of iterative reconstruction technique. Chest X-Ray 09/15/18 00:00 IMPRESSION: Large area of right basilar consolidation and large pleural effusion.Left lung shows mild basilar airspace disease. Head MRI 09/15/18 00:00 IMPRESSION: ATROPHY AND CHRONIC MICRO-VASCULAR ISCHEMIC CHANGES. OTHERWISE NORMAL MRI OF THE BRAIN WITHOUT INTRAVENOUS GADOLINIUM CONTRAST. EVIDENCE OF ACUTE STROKE: NO. Abdomen/Pelvis CT 09/17/18 00:00 IMPRESSION: No evidence of intra-abdominal hemorrhage. Cirrhosis with splenomegaly. TECHNICAL DOCUMENTATION: Quality ID # 436: Final reports with documentation of one or more dose reduction techniques (e.g., Automated exposure control, adjustment of the mA and/or kV according to patient size, use of iterative reconstruction technique) copyright 2010 [employer]- All Rights Reserved Chest CT 09/17/18 00:00 IMPRESSION: Consolidation/atelectasis involving the entire right lung, compatible with pneumonia. Moderate-sized right pleural effusion. Other findings as described. TECHNICAL DOCUMENTATION: Quality ID # 436: Final reports with documentation of one or more dose reduction techniques (e.g., Automated exposure control, adjustment of the mA and/or kV according to patient size, use of iterative reconstruction technique) copyright 2010 [employer]- All Rights Reserved Assessment and Plan - Diagnosis (1) Encephalopathy Is this a current diagnosis for this admission?: Yes Plan: Significant improvement today. Multifactorial secondary to elevated LFTs with associated hyperammonemia, anemia, and hypoxia (related to anemia and right-sided pneumonia/pleural effusions). ABG improved with BiPAP support. Supplemental oxygen as needed to maintain saturations greater than 89%. Scheduled as needed nebulizer treatments. Management of elevated LFTs, anemia, pneumonia, and pleural effusions as below. Discussed with patient's family today; patient is a DNR/DNI (2) Acute on chronic kidney failure Qualifiers: Chronic kidney disease stage: stage 3 (moderate) Is this a current diagnosis for this admission?: Yes Plan: CKD 3 at baseline. Creatinine on admission is 1.43-> 2.16-> 1.72-> 1.34 Likely secondary to hypotension and hypoxia. s/p 2 units PRBC today. Continue gentle IVF. Avoid nephrotoxic medications as able. Daily chemistries. (3) Anemia Qualifiers: Anemia type: other cause Other causes of anemia: other cause, not classified Qualified Code(s): D64.89 - Other specified anemias Is this a current diagnosis for this admission?: Yes Plan: Acute blood loss anemia; unclear source at this time, possibly related to acute illness Hemoglobin 9.4 on admission; down to 6.5 despite having received only 1.5 L IV fluids. Now s/p 2 units PRBC; Hgb stable at 9.1 Urinalysis is negative for blood. Hemoccult pending. Chest x-ray (09/15/2018) does show right-sided large right-sided pleural effus ion. CT ABD/Pelvis negative for intra-abdominal bleeding. (+) cirrhosis on CT w/ elevated LFTs and PT/INR Monitor for signs of overt bleeding. Daily CBC and transfuse for Hgb <7 (4) Elevated LFTs Is this a current diagnosis for this admission?: Yes Plan: Patient is noted to have elevated LFTs and PT/INR Ammonia 56.3-> 15.5 Review of previous lab work does show recent upward trend. CT abdomen/pelvis (08/26/2018) revealed moderate low-density ascites with mild nodular contour of the liver and mildly enlarged spleen. CT ABD/Pelvis (09/17/18) demonstrates cirrhosis with splenomegaly MELD Score 25 (19.6% 3 month mortality) Continue gentle IVF. Lactulose until 2-3 soft bm's daily. Have transitioned back to p.o. lactulose. (5) Hypercoagulable state Is this a current diagnosis for this admission?: Yes Plan: Likely secondary to liver dysfunction. Patient is not on chronic anticoagulation at this time. DVT prophylaxis (heparin) placed on hold; will utilize SCDs. Management of anemia as above. Management of elevated LFTs as above. (6) Diabetes mellitus type 2 in obese Is this a current diagnosis for this admission?: Yes Plan: Patient is placed on a consistent carb/cardiac diet. Accu-Cheks before meals and at bedtime with sliding scale insulin for coverage. Hypoglycemia protocol in place. (7) Hypertension Qualifiers: Hypertension type: essential hypertension Qualified Code(s): I10 - Essential (primary) hypertension Is this a current diagnosis for this admission?: Yes Plan: Blood pressures are elevated; alert enough to resume p.o. medications. Continue outpatient regiment of Amlodipine and metoprolol IV hydralazine as needed for blood pressure control. Cardiac diet. (8) Hypothyroidism Qualifiers: Hypothyroidism type: unspecified Qualified Code(s): E03.9 - Hypothyroidism, unspecified Is this a current diagnosis for this admission?: Yes Plan: TSH 13.4, free T4 2.17 Continue levothyroxine 200 mcg daily. (9) Pleural effusion Is this a current diagnosis for this admission?: Yes Plan: CXR (09/15/2018) demonstrates large right pleural effusion. Thoracentesis requested; unfortunately patient's PT/INR are elevated related to LFTs. Possibly transudative secondary to liver disease, exudative secondary to right- sided pneumonia, versus blood related to recent multiple right-sided rib fractures. CT chest demonstrated small pleural effusion. Management of pneumonia as below. Furosemide 10 mg IV x1 today. (10) Pneumonia involving right lung Qualifiers: Pneumonia type: due to unspecified organism Lung location: unspecified part of lung Qualified Code(s): J18.9 - Pneumonia, unspecified organism Is this a current diagnosis for this admission?: Yes Plan: CXR (09/15/18) Large area of right basilar consolidation and and large pleural effusion. Blood cultures are negative at 48 hours. Sputum cultures are pending. Patient is started on IV Vancomycin and Cefepime for HAP; day #3. WBC is normal, afebrile > 48 hours, clinically improved; will consider de-escalation of IV antibiotics tomorrow. Supplemental oxygen, BiPAP, scheduled and as needed nebulizer treatment. - Time Time Spent with patient: 25-34 minutes Medications reviewed and adjusted accordingly: Yes Anticipated discharge: SNF Within: within 72 hours
[2018-09-18] MEDS: ACETAMINOPHEN 325 MG TABLET PO PRN (20:40)
[2018-09-18] MEDS: OXYBUTYNIN CHLORIDE 5 MG TABLET PO SCH (22:29)
[2018-09-18] MEDS: SERTRALINE HCL 50 MG TABLET PO SCH (22:32)
[2018-09-18] MEDS: CEFEPIME 1 GM/D5W RTU 1 GM/50 ML RTUPB IV SCH (22:37)
[2018-09-19] MEDS: LEVOTHYROXINE SODIUM 0.1 MG TABLET PO SCH (06:54)
[2018-09-19] MEDS: LACTULOSE SYRUP 20 GM/30 ML UDCUP PO SCH ×3 (06:55→21:23)
[2018-09-19] MEDS: METOPROLOL TARTRATE 25 MG TABLET PO SCH ×2 (09:26→21:22)
[2018-09-19] MEDS: POTASSIUM CHLORIDE 20 MEQ PACKET PO SCH (09:27)
[2018-09-19] MEDS: AMLODIPINE BESYLATE 10 MG TABLET PO SCH (09:27)
[2018-09-19] MEDS: FOLIC ACID 1 MG TABLET PO SCH (09:27)
[2018-09-19] MEDS: DOCUSATE SODIUM 100 MG CAPSULE PO SCH ×2 (09:27→18:07)
[2018-09-19] MEDS: INSULIN REG, HUMAN 100 UNIT/ML 3 ML VIAL (PYX) SUBCUT SCH ×4 (09:28→21:15)
[2018-09-19] MEDS: VANCOMYCIN HCL 1,000 MG in DEXTROSE 5%-WATER 250 ML IV SCH (09:29)
[2018-09-19] MEDS: NYSTATIN CREAM 15 GM TP SCH ×2 (09:44→18:08)
--- NOTE | 2018-09-19 14:34 | EKG REPORT ---
SEVERITY:- NORMAL ECG - SINUS RHYTHM : Confirmed by: Asmita Gamboa MD 19-Sep-2018 14:33:15
[2018-09-19] MEDS ORDERED: ALBUTEROL SULFATE 0.083% NEB 2.5 MG/3 ML AMPUL NEB PRN (15:36)
--- NOTE | 2018-09-19 18:06 | PDOC PROGRESS REPORT ---
Subjective Progress Note for:: 09/19/18 Subjective:: Patient is an 82-year-old female with a past medical history of hyperlipidemia, hypertension, sleep apnea, remote tuberculosis, DM 2, hypothyroidism, CKD, RA, and depression who was admitted 09/15/2018 from [place] for acute encephalopathy and acute respiratory failure with hypoxia. Patient was seen on morning rounds with family members present. She was found resting in bed comfortably on supplemental oxygen via [place]; she is not home O2 dependent. The patient is awake and orientated x 4 today. She continues to be fatigued and somewhat forgetful during our conversation, though continues to improve. She denies fever, chills, chest pain, abdominal pain, nausea vomiting or diarrhea. Continued slight shortness of breath and a nonproductive cough. She has no other questions or concerns at this time. No concerns per nursing; nursing reports improved tolerance off BiPAP today Reason For Visit: RML,RLL PNA, ACUTE ENCEPHALOPATHY Physical Exam Vital Signs: Temp Pulse Resp BP Pulse Ox 97.8 F 69 20 152/69 H 92 09/19/18 15:48 09/19/18 15:48 09/19/18 15:48 09/19/18 15:48 09/19/18 15:48 Intake & Output 09/18/18 09/19/18 09/20/18 06:59 06:59 06:59 Intake Total 1350 610 602 Output Total 2625 725 350 Balance -1275 -115 252 Weight 85.1 kg 85.8 kg General appearance: PRESENT: no acute distress, cooperative, obese, well- developed, well-nourished Head exam: PRESENT: atraumatic, normocephalic Eye exam: PRESENT: conjunctiva pink, EOMI, PERRLA. ABSENT: scleral icterus Ear exam: PRESENT: normal external ear exam Mouth exam: PRESENT: moist, tongue midline Neck exam: ABSENT: carotid bruit, JVD, lymphadenopathy, thyromegaly Respiratory exam: PRESENT: decreased breath sounds - Bibasilar, rhonchi, symmetrical, tachypnea - Shallow, other - Supplemental oxygen by nasal cannula. ABSENT: rales, wheezes Cardiovascular exam: PRESENT: RRR. ABSENT: diastolic murmur, rubs, systolic murmur Pulses: PRESENT: normal dorsalis pedis pul Vascular exam: PRESENT: normal capillary refill GI/Abdominal exam: PRESENT: normal bowel sounds, soft. ABSENT: distended, guard ing, mass, organolmegaly, rebound, tenderness Rectal exam: PRESENT: deferred Extremities exam: PRESENT: full ROM. ABSENT: calf tenderness, clubbing, pedal edema Neurological exam: PRESENT: alert, awake, oriented to person, oriented to place, oriented to time, oriented to situation, CN II-XII grossly intact. ABSENT: motor sensory deficit Psychiatric exam: PRESENT: appropriate affect, normal mood. ABSENT: homicidal ideation, suicidal ideation Skin exam: PRESENT: dry, intact, warm. ABSENT: cyanosis, rash Results Laboratory Results: 09/18/18 04:37 09/18/18 04:37 Impressions: Head CT 09/14/18 00:00 IMPRESSION: 1. No acute intracranial abnormality by CT criteria. This exam was performed according to our departmental dose-optimization program, which includes automated exposure control, adjustment of the mA and/or kV according to patient size and/or use of iterative reconstruction technique. Chest X-Ray 09/15/18 00:00 IMPRESSION: Large area of right basilar consolidation and large pleural effusion.Left lung shows mild basilar airspace disease. Head MRI 09/15/18 00:00 IMPRESSION: ATROPHY AND CHRONIC MICRO-VASCULAR ISCHEMIC CHANGES. OTHERWISE NORMAL MRI OF THE BRAIN WITHOUT INTRAVENOUS GADOLINIUM CONTRAST. EVIDENCE OF ACUTE STROKE: NO. Abdomen/Pelvis CT 09/17/18 00:00 IMPRESSION: No evidence of intra-abdominal hemorrhage. Cirrhosis with splenomegaly. TECHNICAL DOCUMENTATION: Quality ID # 436: Final reports with documentation of one or more dose reduction techniques (e.g., Automated exposure control, adjustment of the mA and/or kV according to patient size, use of iterative reconstruction technique) copyright 2010 [employer]- All Rights Reserved Chest CT 09/17/18 00:00 IMPRESSION: Consolidation/atelectasis involving the entire right lung, compatible with pneumonia. Moderate-sized right pleural effusion. Other findings as described. TECHNICAL DOCUMENTATION: Quality ID # 436: Final reports with documentation of one or more dose reduction techniques (e.g., Automated exposure control, adjustment of the mA and/or kV according to patient size, use of iterative reconstruction technique) copyright 2010 [employer]- All Rights Reserved Assessment and Plan - Diagnosis (1) Encephalopathy Is this a current diagnosis for this admission?: Yes Plan: Results; A&O x4. Remains fatigued. Multifactorial secondary to elevated LFTs with associated hyperammonemia, anemia, and hypoxia (related to anemia and right-sided pneumonia/pleural effusions). ABG improved with BiPAP support. Supplemental oxygen as needed to maintain saturations greater than 89%. Scheduled as needed nebulizer treatments. Management of elevated LFTs, anemia, pneumonia, and pleural effusions as below. Discussed with patient's family today; patient is a DNR/DNI (2) Acute on chronic kidney failure Qualifiers: Chronic kidney disease stage: stage 3 (moderate) Is this a current diagnosis for this admission?: Yes Plan: CKD 3 at baseline. Creatinine on admission is 1.43-> 2.16-> 1.72-> 1.34 Likely secondary to hypotension and hypoxia. s/p 2 units PRBC Avoid nephrotoxic medications as able. Daily chemistries. (3) Anemia Qualifiers: Anemia type: other cause Other causes of anemia: other cause, not classified Qualified Code(s): D64.89 - Other specified anemias Is this a current diagnosis for this admission?: Yes Plan: Now stable at 9.1 Acute blood loss anemia; unclear source at this time, possibly related to acute illness Hemoglobin 9.4 on admission; down to 6.5 despite having received only 1.5 L IV fluids. Now s/p 2 units PRBC Urinalysis is negative for blood. Hemoccult pending. Chest x-ray (09/15/2018) does show right-sided large right-sided pleural effusion. CT ABD/Pelvis negative for intra-abdominal bleeding. (+) cirrhosis on CT w/ elevated LFTs and PT/INR Monitor for signs of overt bleeding. Daily CBC and transfuse for Hgb <7 (4) Elevated LFTs Is this a current diagnosis for this admission?: Yes Plan: Patient is noted to have elevated LFTs and PT/INR Ammonia 56.3-> 15.5 Review of previous lab work does show recent upward trend. CT abdomen/pelvis (08/26/2018) revealed moderate low-density ascites with mild nodular contour of the liver and mildly enlarged spleen. CT ABD/Pelvis (09/17/18) demonstrates cirrhosis with splenomegaly MELD Score 25 (19.6% 3 month mortality) Lactulose until 2-3 soft bm's daily. Start spironolactone daily (5) Diabetes mellitus type 2 in obese Is this a current diagnosis for this admission?: Yes Plan: Patient is placed on a consistent carb/cardiac diet. Accu-Cheks before meals and at bedtime with sliding scale insulin for coverage. Hypoglycemia protocol in place. (6) Hypertension Qualifiers: Hypertension type: essential hypertension Qualified Code(s): I10 - Essential (primary) hypertension Is this a current diagnosis for this admission?: Yes Plan: Blood pressures are elevated; alert enough to resume p.o. medications. Continue outpatient regiment of Amlodipine and metoprolol Start spironolactone IV hydralazine as needed for blood pressure control. Cardiac diet. (7) Hypothyroidism Qualifiers: Hypothyroidism type: unspecified Qualified Code(s): E03.9 - Hypothyroidism, unspecified Is this a current diagnosis for this admission?: Yes Plan: TSH 13.4, free T4 2.17 Continue levothyroxine 200 mcg daily. (8) Pleural effusion Is this a current diagnosis for this admission?: Yes Plan: CXR (09/15/2018) demonstrates large right pleural effusion. Thoracentesis requested; unfortunately patient's PT/INR are elevated related to LFTs. Possibly transudative secondary to liver disease, exudative secondary to right- sided pneumonia, versus blood related to recent multiple right-sided rib fractures. CT chest demonstrated small pleural effusion. Management of pneumonia as below. Started spironolactone. Follow-up chest x-ray (9) Pneumonia involving right lung Qualifiers: Pneumonia type: due to unspecified organism Lung location: unspecified part of lung Qualified Code(s): J18.9 - Pneumonia, unspecified organism Is this a current diagnosis for this admission?: Yes Plan: CXR (09/15/18) Large area of right basilar consolidation and and large pleural effusion. Blood cultures are negative at 72 hours. Sputum cultures are pending. Patient is started on IV Vancomycin and Cefepime for HAP; day #4. WBC is normal, afebrile > 48 hours, clinically improved; will discontinue vancomycin today Supplemental oxygen, BiPAP, scheduled and as needed nebulizer treatment. (10) Elevated INR Is this a current diagnosis for this admission?: Yes Plan: Likely secondary to liver dysfunction. Patient is not on chronic anticoagulation at this time. DVT prophylaxis (heparin) placed on hold; will utilize SCDs. Management of anemia as above. Management of elevated LFTs as above. - Time Time Spent with patient: 25-34 minutes Medications reviewed and adjusted accordingly: Yes Anticipated discharge: Home with Homehealth - vs SNF for rehab Within: within 48 hours
[2018-09-19] MEDS: GUAIFENESIN SYRP 200 MG/10 ML UDC PO SCH ×2 (18:07→21:23)
[2018-09-19] MEDS: IPRATROPIUM/ALBUTEROL 0.5-2.5 MG/3 ML AMPUL NEB SCH (19:47)
[2018-09-19] MEDS: ACETAMINOPHEN 325 MG TABLET PO PRN (20:17)
[2018-09-19] MEDS ORDERED: KETOROLAC TROMETHAMINE INJ/PF 30 MG/1 ML SDV ONE (21:17)
[2018-09-19] MEDS: OXYBUTYNIN CHLORIDE 5 MG TABLET PO SCH (21:22)
[2018-09-19] MEDS: SERTRALINE HCL 50 MG TABLET PO SCH (21:22)
[2018-09-19] MEDS: CEFEPIME 1 GM/D5W RTU 1 GM/50 ML RTUPB IV SCH (21:23)
[2018-09-19] MEDS ORDERED: KETOROLAC TROMETHAMINE INJ/PF 30 MG/1 ML SDV IV ONE (22:00)
[2018-09-20 04:44] LABS: HEMATOCRIT 25.1 % (36.0-47.0); HEMOGLOBIN 8.3 g/dL (12.0-15.5); MEAN CORPUSCULAR HEMOGLOBIN 34.6 pg (27.0-33.4); MEAN CORPUSCULAR HGB CONC 32.9 g/dL (32.0-36.0); MEAN CORPUSCULAR VOLUME 105 fl (80-97); PLATELET COUNT 117 10^3/uL (150-450); RED BLOOD COUNT 2.39 10^6/uL (3.72-5.28); RED CELL DISTRIBUTION WIDTH 19.4 % (11.5-14.0); WHITE BLOOD COUNT 6.2 10^3/uL (4.0-10.5)
[2018-09-20 04:53] LABS: INTERNATIONAL RATION (INR) 1.74; PROTHROMBIN TIME 20.6 SEC (11.4-15.4)
[2018-09-20 05:08] LABS: ALBUMIN 2.7 g/dL (3.5-5.0); ALKALINE PHOSPHATASE 51 U/L (38-126); ASPARTATE AMINO TRANSFERASE 90 U/L (14-36); BILIRUBIN,TOTAL 2.2 mg/dL (0.2-1.3); BLOOD UREA NITROGEN 19 mg/dL (7-20); CALCIUM 8.5 mg/dL (8.4-10.2); GLUCOSE 116 mg/dL (75-110); POTASSIUM 3.4 mmol/L (3.6-5.0); TOTAL PROTEIN 7.1 g/dL (6.3-8.2)
[2018-09-20 05:13] LABS: ANION GAP 5 (5-19); CARBON DIOXIDE 22 mmol/L (22-30); CHLORIDE 123 mmol/L (98-107)
[2018-09-20] MEDS: LACTULOSE SYRUP 20 GM/30 ML UDCUP PO SCH ×2 (05:54→22:21)
[2018-09-20] MEDS: LEVOTHYROXINE SODIUM 0.1 MG TABLET PO SCH (05:54)
[2018-09-20] MEDS: IPRATROPIUM/ALBUTEROL 0.5-2.5 MG/3 ML AMPUL NEB SCH ×2 (08:49→20:18)
[2018-09-20] MEDS: INSULIN REG, HUMAN 100 UNIT/ML 3 ML VIAL (PYX) SUBCUT SCH ×4 (08:55→22:08)
--- NOTE | 2018-09-20 09:02 | RADIOLOGY REPORT (SQ) ---
EXAM DESCRIPTION: CHEST SINGLE VIEW COMPLETED DATE/TIME: 09/20/2018 8:51 am REASON FOR STUDY: dyspnea COMPARISON: 09/15/2018. EXAM PARAMETERS: NUMBER OF VIEWS: One view. TECHNIQUE: Single frontal radiographic view of the chest acquired. RADIATION DOSE: NA LIMITATIONS: None. FINDINGS: LUNGS AND PLEURA: Extensive opacification in the right hemithorax, slightly improved. Lef t lung relatively clear. MEDIASTINUM AND HILAR STRUCTURES: No masses. Contour normal. HEART AND VASCULAR STRUCTURES: Heart normal in size. Normal vasculature. BONES: No acute findings. HARDWARE: None in the chest. OTHER: No other significant finding. IMPRESSION: SLIGHT IMPROVEMENT IN THE OPACIFICATION OF THE RIGHT HEMITHORAX. TECHNICAL DOCUMENTATION: JOB ID: [id number] [employer]- All Rights Reserved Reading location - IP/workstation name: [email or web address]
[2018-09-20] MEDS ORDERED: SPIRONOLACTONE 25 MG TABLET PO SCH (10:00)
[2018-09-20] MEDS: DOCUSATE SODIUM 100 MG CAPSULE PO SCH ×2 (10:02→18:21)
[2018-09-20] MEDS: FOLIC ACID 1 MG TABLET PO SCH (10:02)
[2018-09-20] MEDS: GUAIFENESIN SYRP 200 MG/10 ML UDC PO SCH ×4 (10:02→22:21)
[2018-09-20] MEDS: METOPROLOL TARTRATE 25 MG TABLET PO SCH ×2 (10:02→22:20)
[2018-09-20] MEDS: NYSTATIN CREAM 15 GM TP SCH ×2 (10:03→18:21)
[2018-09-20] MEDS: AMLODIPINE BESYLATE 10 MG TABLET PO SCH (10:14)
[2018-09-20] MEDS ORDERED: POTASSIUM CHLORIDE 20 MEQ PACKET PO ONE (10:45)
[2018-09-20 10:56] LABS: VANCOMYCIN,TROUGH 11.5 ug/mL (5.0-20.0)
[2018-09-20] MEDS: FUROSEMIDE 20 MG TABLET PO SCH (12:33)
[2018-09-20] MEDS ORDERED: NORMAL SALINE 1000 ML 1,000 ML IV PRN (13:41)
--- NOTE | 2018-09-20 13:49 | PDOC PROGRESS REPORT ---
Subjective Progress Note for:: 09/20/18 Subjective:: Patient is an 82-year-old female with a past medical history of hyperlipidemia, hypertension, sleep apnea, remote tuberculosis, DM 2, hypothyroidism, CKD, RA, and depression who was admitted 09/15/2018 from [place] for acute encephalopathy and acute respiratory failure with hypoxia. Patient was seen on morning rounds. She was found resting in bed comfortably on supplemental oxygen via BiPAP; she is not home O2 dependent. Per nursing, patient used BiPAP intermittently overnight. The patient is awake and orientated x 4 today. She continues to be fatigued and somewhat forgetful during our conversation, though improved from yesterday. She denies fever, chills, chest pain, abdominal pain, nausea vomiting or diarrhea. C She has no questions or concerns at this time. No concerns per nursing. Reason For Visit: RML,RLL PNA, ACUTE ENCEPHALOPATHY Physical Exam Vital Signs: Temp Pulse Resp BP Pulse Ox 97.9 F 151 H 19 144/50 H 81 L 09/20/18 11:49 09/20/18 11:49 09/20/18 11:49 09/20/18 11:49 09/20/18 11:49 Intake & Output 09/19/18 09/20/18 09/21/18 06:59 06:59 06:59 Intake Total 660 2574 Output Total 725 825 Balance -65 1749 Weight 85.8 kg 87.3 kg General appearance: PRESENT: no acute distress, cooperative, obese, well- developed, well-nourished Head exam: PRESENT: atraumatic, normocephalic Eye exam: PRESENT: conjunctiva pink, EOMI, PERRLA. ABSENT: scleral icterus Ear exam: PRESENT: normal external ear exam Mouth exam: PRESENT: moist, tongue midline Neck exam: ABSENT: carotid bruit, JVD, lymphadenopathy, thyromegaly Respiratory exam: PRESENT: clear to auscultation victor manuel, decreased breath sounds - right lower chacko, symmetrical, unlabored, other - BiPAP. ABSENT: rales, rhonchi, wheezes Cardiovascular exam: PRESENT: RRR. ABSENT: diastolic murmur, rubs, systolic murmur Pulses: PRESENT: normal dorsalis pedis pul Vascular exam: PRESENT: normal capillary refill GI/Abdominal exam: PRESENT: normal bowel sounds, soft. ABSENT: distended, g uarding, mass, organolmegaly, rebound, tenderness Rectal exam: PRESENT: deferred Extremities exam: PRESENT: full ROM. ABSENT: calf tenderness, clubbing, pedal edema Neurological exam: PRESENT: alert, awake, oriented to person, oriented to place, oriented to time, oriented to situation, CN II-XII grossly intact, other - fat igued, forgetful. ABSENT: motor sensory deficit Psychiatric exam: PRESENT: appropriate affect, normal mood. ABSENT: homicidal ideation, suicidal ideation Skin exam: PRESENT: dry, intact, warm. ABSENT: cyanosis, rash Results Laboratory Results: 09/20/18 04:22 09/20/18 04:22 09/20/18 09/20/18 04:22 04:22 WBC 6.2 RBC 2.39 L Hgb 8.3 L Hct 25.1 L MCV 105 H MCH 34.6 H MCHC 32.9 RDW 19.4 H Plt Count 117 L Sodium 149.8 H Potassium 3.4 L Chloride 123 H Carbon Dioxide 22 Anion Gap 5 BUN 19 Creatinine 1.13 Est GFR ( Amer) 56 L Est GFR (Non-Af Amer) 46 L Glucose 116 H Calcium 8.5 Total Bilirubin 2.2 H AST 90 H Alkaline Phosphatase 51 Total Protein 7.1 Albumin 2.7 L Impressions: Head CT 09/14/18 00:00 IMPRESSION: 1. No acute intracranial abnormality by CT criteria. This exam was performed according to our departmental dose-optimization program, which includes automated exposure control, adjustment of the mA and/or kV according to patient size and/or use of iterative reconstruction technique. Head MRI 09/15/18 00:00 IMPRESSION: ATROPHY AND CHRONIC MICRO-VASCULAR ISCHEMIC CHANGES. OTHERWISE NORMAL MRI OF THE BRAIN WITHOUT INTRAVENOUS GADOLINIUM CONTRAST. EVIDENCE OF ACUTE STROKE: NO. Abdomen/Pelvis CT 09/17/18 00:00 IMPRESSION: No evidence of intra-abdominal hemorrhage. Cirrhosis with splenomegaly. TECHNICAL DOCUMENTATION: Quality ID # [id number]: Final reports with documentation of one or more dose reduction techniques (e.g., Automated exposure control, adjustment of the mA and/or kV according to patient size, use of iterative reconstruction technique) copyright 2011 [employer]- All Rights Reserved Chest CT 09/17/18 00:00 IMPRESSION: Consolidation/atelectasis involving the entire right lung, compatible with pneumonia. Moderate-sized right pleural effusion. Other findings as described. TECHNICAL DOCUMENTATION: Quality ID # [id number]: Final reports with documentation of one or more dose reduction techniques (e.g., Automated exposure control, adjustment of the mA and/or kV according to patient size, use of iterative reconstruction technique) copyright 2011 [employer]- All Rights Reserved Chest X-Ray 09/20/18 00:00 IMPRESSION: SLIGHT IMPROVEMENT IN THE OPACIFICATION OF THE RIGHT HEMITHORAX. Assessment and Plan - Diagnosis (1) Encephalopathy Is this a current diagnosis for this admission?: Yes Plan: Resolved; A&O x4. Remains fatigued. Multifactorial secondary to elevated LFTs with associated hyperammonemia, anemia, and hypoxia (related to anemia and right-sided pneumonia/pleural effusions). ABG improved with BiPAP support. Supplemental oxygen as needed to maintain saturations greater than 89%. Scheduled as needed nebulizer treatments. Management of elevated LFTs, anemia, pneumonia, and pleural effusions as below. Patient is a DNR/DNI (2) Acute on chronic kidney failure Qualifiers: Chronic kidney disease stage: stage 3 (moderate) Is this a current diagnosis for this admission?: Yes Plan: CKD 3 at baseline. Creatinine on admission is 1.43-> 2.16-> 1.72-> 1.34-> 1.13 Likely secondary to hypotension and hypoxia. s/p 2 units PRBC Avoid nephrotoxic medications as able. Daily chemistries. (3) Anemia Qualifiers: Anemia type: other cause Other causes of anemia: other cause, not classified Qualified Code(s): D64.89 - Other specified anemias Is this a current diagnosis for this admission?: Yes Plan: Now stable at 8.3 Acute blood loss anemia; unclear source at this time, possibly related to acute illness Hemoglobin 9.4 on admission; down to 6.5 despite having received only 1.5 L IV fluids. Now s/p 2 units PRBC Urinalysis is negative for blood. Hemoccult pending. Chest x-ray (09/15/2018) does show right-sided large right-sided pleural effusion. CT ABD/Pelvis negative for intra-abdominal bleeding. (+) cirrhosis on CT w/ elevated LFTs and PT/INR Monitor for signs of overt bleeding. Daily CBC and transfuse for Hgb <7 (4) Elevated LFTs Is this a current diagnosis for this admission?: Yes Plan: Patient is noted to have elevated LFTs and PT/INR Ammonia 56.3-> 15.5 Review of previous lab work does show recent upward trend. CT abdomen/pelvis (08/26/2018) revealed moderate low-density ascites with mild nodular contour of the liver and mildly enlarged spleen. CT ABD/Pelvis (09/17/18) demonstrates cirrhosis with splenomegaly MELD Score 25 (19.6% 3 month mortality) Lactulose until 2-3 soft bm's daily. Continue spironolactone daily; increased to 50 mg daily today Start Lasix 20 mg (5) Diabetes mellitus type 2 in obese Is this a current diagnosis for this admission?: Yes Plan: Patient is placed on a consistent carb/cardiac diet. Accu-Cheks before meals and at bedtime with sliding scale insulin for coverage. Hypoglycemia protocol in place. (6) Hypertension Qualifiers: Hypertension type: essential hypertension Qualified Code(s): I10 - Essential (primary) hypertension Is this a current diagnosis for this admission?: Yes Plan: Blood pressures are elevated; alert enough to resume p.o. medications. Continue outpatient regiment of Amlodipine and metoprolol Spironolactone and lasix as above IV hydralazine as needed for blood pressure control. Cardiac diet. (7) Hypothyroidism Qualifiers: Hypothyroidism type: unspecified Qualified Code(s): E03.9 - Hypothyroidism, unspecified Is this a current diagnosis for this admission?: Yes Plan: TSH 13.4, free T4 2.17 Continue levothyroxine 200 mcg daily. (8) Pleural effusion Is this a current diagnosis for this admission?: Yes Plan: CXR (09/15/2018) demonstrates large right pleural effusion. Thoracentesis requested; unfortunately patient's PT/INR are elevated related to LFTs. Possibly transudative secondary to liver disease, exudative secondary to right- sided pneumonia, versus blood related to recent multiple right-sided rib fractures. CT chest demonstrated small pleural effusion. Repeat CXR shows slight improvement in pleural effusion Management of pneumonia as below. Started on spironolactone and lasix (9) Pneumonia involving right lung Qualifiers: Pneumonia type: due to unspecified organism Lung location: unspecified part of lung Qualified Code(s): J18.9 - Pneumonia, unspecified organism Is this a current diagnosis for this admission?: Yes Plan: CXR (09/15/18) Large area of right basilar consolidation and and large pleural effusion. Blood cultures are negative at 72 hours. Sputum cultures are pending. Patient is started on IV Vancomycin; discontinued on day #4 Continue Cefepime for HAP; day #5. WBC is normal, afebrile > 48 hours, clinically improved; consider discontinuing Cefepime tomorrow Supplemental oxygen, BiPAP, scheduled and as needed nebulizer treatment. (10) Elevated INR Is this a current diagnosis for this admission?: Yes Plan: Likely secondary to liver dysfunction. 1.80-> 1.82-> 1.74 Patient is not on chronic anticoagulation at this time. DVT prophylaxis (heparin) placed on hold; will utilize SCDs. Management of anemia as above. Management of elevated LFTs as above. - Time Time Spent with patient: 25-34 minutes Medications reviewed and adjusted accordingly: Yes Anticipated discharge: SNF Within: within 48 hours - Need to wean from BiPAP
[2018-09-20] MEDS ORDERED: IBUPROFEN 600 MG TABLET PO PRN (14:53)
[2018-09-20] MEDS ORDERED: TRAMADOL HCL 50 MG TABLET PO PRN (14:53)
[2018-09-20] MEDS: SERTRALINE HCL 50 MG TABLET PO SCH (22:21)
[2018-09-20] MEDS: AMOXICILLIN TR/POT CLAVULANATE 500-125 MG TAB PO SCH (22:22)
[2018-09-20] MEDS: OXYBUTYNIN CHLORIDE 5 MG TABLET PO SCH (22:22)
[2018-09-21 04:49] LABS: HEMATOCRIT 26.5 % (36.0-47.0); MEAN CORPUSCULAR HEMOGLOBIN 34.8 pg (27.0-33.4); MEAN CORPUSCULAR HGB CONC 33.8 g/dL (32.0-36.0); MEAN CORPUSCULAR VOLUME 103 fl (80-97); PLATELET COUNT 113 10^3/uL (150-450); RED BLOOD COUNT 2.57 10^6/uL (3.72-5.28); RED CELL DISTRIBUTION WIDTH 18.5 % (11.5-14.0); WHITE BLOOD COUNT 7.2 10^3/uL (4.0-10.5)
[2018-09-21 05:12] LABS: ANION GAP 7 (5-19); BLOOD UREA NITROGEN 18 mg/dL (7-20); CALCIUM 8.7 mg/dL (8.4-10.2); CARBON DIOXIDE 23 mmol/L (22-30); CHLORIDE 119 mmol/L (98-107); GLUCOSE 145 mg/dL (75-110); POTASSIUM 3.2 mmol/L (3.6-5.0)
[2018-09-21] MEDS: LEVOTHYROXINE SODIUM 0.1 MG TABLET PO SCH (06:10)
[2018-09-21] MEDS: AMOXICILLIN TR/POT CLAVULANATE 500-125 MG TAB PO SCH ×3 (06:10→22:26)
[2018-09-21] MEDS: INSULIN REG, HUMAN 100 UNIT/ML 3 ML VIAL (PYX) SUBCUT SCH ×4 (08:06→22:25)
[2018-09-21] MEDS ORDERED: POTASSIUM CHLORIDE 20 MEQ PACKET PO ONE ×2 (08:45→09:00)
[2018-09-21] MEDS: IPRATROPIUM/ALBUTEROL 0.5-2.5 MG/3 ML AMPUL NEB SCH ×2 (08:55→20:18)
[2018-09-21] MEDS: FUROSEMIDE 20 MG TABLET PO SCH (09:03)
[2018-09-21] MEDS: DOCUSATE SODIUM 100 MG CAPSULE PO SCH ×2 (09:03→17:38)
[2018-09-21] MEDS: FOLIC ACID 1 MG TABLET PO SCH (09:03)
[2018-09-21] MEDS: METOPROLOL TARTRATE 25 MG TABLET PO SCH ×2 (09:04→22:24)
[2018-09-21] MEDS: AMLODIPINE BESYLATE 10 MG TABLET PO SCH (09:04)
[2018-09-21] MEDS: LACTULOSE SYRUP 20 GM/30 ML UDCUP PO SCH ×2 (09:05→22:27)
[2018-09-21] MEDS: GUAIFENESIN SYRP 200 MG/10 ML UDC PO SCH ×4 (09:05→22:26)
[2018-09-21] MEDS: SPIRONOLACTONE 25 MG TABLET PO SCH (09:12)
[2018-09-21] MEDS: NYSTATIN CREAM 15 GM TP SCH ×2 (09:12→17:38)
[2018-09-21 11:18] LABS: INTERNATIONAL RATION (INR) 1.74; PROTHROMBIN TIME 20.6 SEC (11.4-15.4)
[2018-09-21 11:19] LABS: PARTIAL THROMBOPLASTIN TIME 32.5 SEC (23.5-35.8)
[2018-09-21 12:20] LABS: ARTERIAL BLOOD H2CO3 1.01 mmol/L (1.05-1.35); ARTERIAL BLOOD HCO3 21.9 mmol/L (20-24); ARTERIAL BLOOD O2 SATURATION 93.5 % (94-98); ARTERIAL BLOOD PCO2 33.6 mmHg (35-45); ARTERIAL BLOOD PH 7.43 (7.35-7.45); ARTERIAL BLOOD PO2 64.8 mmHg (80-100); ARTERIAL BLOOD TOTAL CO2 22.9 mmol/L (21-25)
[2018-09-21 12:21] LABS: ARTERIAL BLOOD FIO2 30%
--- NOTE | 2018-09-21 12:21 | PDOC PROGRESS REPORT ---
Subjective Progress Note for:: 09/21/18 Subjective:: Patient is an 82-year-old female with a past medical history of hyperlipidemia, hypertension, sleep apnea, remote tuberculosis, DM 2, hypothyroidism, CKD, RA, and depression who was admitted 09/15/2018 from [place] for acute encephalopathy and acute respiratory failure with hypoxia. Patient was seen on morning rounds. She was found resting in bed comfortably on supplemental oxygen via BiPAP; she is not home O2 dependent. The patient is awake and orientated x 4 today. BiPAP was stopped and she was placed on nasal cannula at 4 L/min. Throughout her assessment, she maintain oxygen saturations in the mid 90s, however did become tachypneic with increased work of breathing. Patient reports right-sided chest wall pain that is worse with inspiration and deep breath. Otherwise, she denies fever, chills, palpitations, orthopnea, cough, abdominal pain, nausea vomiting diarrhea. She reports poor appetite. She has no other questions or concerns at this time. Reason For Visit: RML,RLL PNA, ACUTE ENCEPHALOPATHY Physical Exam Vital Signs: Temp Pulse Resp BP Pulse Ox 98.8 F 80 24 H 177/62 H 93 09/21/18 07:32 09/21/18 08:58 09/21/18 12:02 09/21/18 07:32 09/21/18 08:58 Intake & Output 09/20/18 09/21/18 09/22/18 06:59 06:59 06:59 Intake Total 2574 600 Output Total 825 Balance 1749 600 Weight 87.3 kg 86.4 kg General appearance: PRESENT: no acute distress, cooperative, obese, well- developed, well-nourished Head exam: PRESENT: atraumatic, normocephalic Eye exam: PRESENT: conjunctiva pink, EOMI, PERRLA. ABSENT: scleral icterus Ear exam: PRESENT: normal external ear exam Mouth exam: PRESENT: moist, tongue midline Neck exam: ABSENT: carotid bruit, JVD, lymphadenopathy, thyromegaly Respiratory exam: PRESENT: clear to auscultation victor manuel, decreased breath sounds - Right lung chacko, symmetrical, tachypnea - Shallow, other - Supplemental oxygen via BiPAP. ABSENT: rales, rhonchi, wheezes Cardiovascular exam: PRESENT: RRR. ABSENT: diastolic murmur, rubs, systolic murmur Pulses: PRESENT: normal dorsalis pedis pul Vascular exam: PRESENT: normal capillary refill GI/Abdominal exam: PRESENT: normal bowel sounds, soft. ABSENT: distended, guarding, mass, organolmegaly, rebound, tenderness Rectal exam: PRESENT: deferred Extremities exam: PRESENT: full ROM. ABSENT: calf tenderness, clubbing, pedal edema Neurological exam: PRESENT: alert, awake, oriented to person, oriented to place, oriented to time, oriented to situation, CN II-XII grossly intact. ABSENT: motor sensory deficit Psychiatric exam: PRESENT: appropriate affect, normal mood. ABSENT: homicidal ideation, suicidal ideation Skin exam: PRESENT: dry, intact, warm. ABSENT: cyanosis, rash Results Laboratory Results: 09/21/18 04:02 09/21/18 04:02 09/21/18 09/21/18 09/21/18 04:02 04:02 11:00 WBC 7.2 RBC 2.57 L Hgb 9.0 L Hct 26.5 L MCV 103 H MCH 34.8 H MCHC 33.8 RDW 18.5 H Plt Count 113 L Carbonic Acid Cancelled HCO3/H2CO3 Ratio Cancelled ABG pH Cancelled ABG pCO2 Cancelled ABG pO2 Cancelled ABG HCO3 Cancelled ABG O2 Saturation Cancelled ABG Base Excess Cancelled FiO2 Cancelled Sodium 148.8 H Potassium 3.2 L Chloride 119 H Carbon Dioxide 23 Anion Gap 7 BUN 18 Creatinine 1.10 Est GFR ( Amer) 58 L Est GFR (Non-Af Amer) 48 L Glucose 145 H Calcium 8.7 Impressions: Head CT 09/14/18 00:00 IMPRESSION: 1. No acute intracranial abnormality by CT criteria. This exam was performed according to our departmental dose-optimization program, which includes automated exposure control, adjustment of the mA and/or kV according to patient size and/or use of iterative reconstruction technique. Head MRI 09/15/18 00:00 IMPRESSION: ATROPHY AND CHRONIC MICRO-VASCULAR ISCHEMIC CHANGES. OTHERWISE NORMAL MRI OF THE BRAIN WITHOUT INTRAVENOUS GADOLINIUM CONTRAST. EVIDENCE OF ACUTE STROKE: NO. Abdomen/Pelvis CT 09/17/18 00:00 IMPRESSION: No evidence of intra-abdominal hemorrhage. Cirrhosis with splenomegaly. TECHNICAL DOCUMENTATION: Quality ID # 436: Final reports with documentation of one or more dose reduction techniques (e.g., Automated exposure control, adjustment of the mA and/or kV according to patient size, use of iterative reconstruction technique) copyright 2010 [employer]- All Rights Reserved Chest CT 09/17/18 00:00 IMPRESSION: Consolidation/atelectasis involving the entire right lung, compatible with pneumonia. Moderate-sized right pleural effusion. Other findings as described. TECHNICAL DOCUMENTATION: Quality ID # [id number]: Final reports with documentation of one or more dose reduction techniques (e.g., Automated exposure control, adjustment of the mA and/or kV according to patient size, use of iterative reconstruction technique) copyright 2010 [employer]- All Rights Reserved Chest X-Ray 09/20/18 00:00 IMPRESSION: SLIGHT IMPROVEMENT IN THE OPACIFICATION OF THE RIGHT HEMITHORAX. Assessment and Plan - Diagnosis (1) Encephalopathy Is this a current diagnosis for this admission?: Yes Plan: Resolved; A&O x4. Remains fatigued. Multifactorial secondary to elevated LFTs with associated hyperammonemia, anemia, and hypoxia (related to anemia and right-sided pneumonia/pleural effusions). ABG improved with BiPAP support. Supplemental oxygen as needed to maintain saturations greater than 89%. Scheduled as needed nebulizer treatments. Management of elevated LFTs, anemia, pneumonia, and pleural effusions as below. Patient is a DNR/DNI (2) Acute on chronic kidney failure Qualifiers: Chronic kidney disease stage: stage 3 (moderate) Is this a current diagnosis for this admission?: Yes Plan: CKD 3 at baseline. Creatinine on admission is 1.43-> 2.16-> 1.72-> 1.34-> 1.10 Likely secondary to hypotension and hypoxia. s/p 2 units PRBC Avoid nephrotoxic medications as able. Daily chemistries. (3) Anemia Qualifiers: Anemia type: other cause Other causes of anemia: other cause, not classified Qualified Code(s): D64.89 - Other specified anemias Is this a current diagnosis for this admission?: Yes Plan: Now stable at 9.0 Acute blood loss anemia; unclear source at this time, possibly related to acute illness Hemoglobin 9.4 on admission; down to 6.5 despite having received only 1.5 L IV fluids. Now s/p 2 units PRBC Urinalysis is negative for blood. Hemoccult pending. Chest x-ray (09/15/2018) does show right-sided large right-sided pleural effusion. CT ABD/Pelvis negative for intra-abdominal bleeding. (+) cirrhosis on CT w/ elevated LFTs and PT/INR Monitor for signs of overt bleeding. Daily CBC and transfuse for Hgb <7 (4) Elevated LFTs Is this a current diagnosis for this admission?: Yes Plan: Patient is noted to have elevated LFTs and PT/INR Ammonia 56.3-> 15.5 Review of previous lab work does show recent upward trend. CT abdomen/pelvis (08/26/2018) revealed moderate low-density ascites with mild nodular contour of the liver and mildly enlarged spleen. CT ABD/Pelvis (09/17/18) demonstrates cirrhosis with splenomegaly MELD Score 25 (19.6% 3 month mortality) Lactulose; 2-3 soft bm's daily. Continue spironolactone 50 mg daily and Lasix 20 mg; will titrate up as tolerated to spironolactone 100 mg daily and Lasix 40 mg daily. (5) Diabetes mellitus type 2 in obese Is this a current diagnosis for this admission?: Yes Plan: Patient is placed on a consistent carb/cardiac diet. Accu-Cheks before meals and at bedtime with sliding scale insulin for coverage. Hypoglycemia protocol in place. (6) Hypertension Qualifiers: Hypertension type: essential hypertension Qualified Code(s): I10 - Essential (primary) hypertension Is this a current diagnosis for this admission?: Yes Plan: Blood pressures are elevated Continue outpatient regiment of Amlodipine and metoprolol Spironolactone and lasix as above IV hydralazine as needed for blood pressure control. Cardiac diet. (7) Hypothyroidism Qualifiers: Hypothyroidism type: unspecified Qualified Code(s): E03.9 - Hypothyroidism, unspecified Is this a current diagnosis for this admission?: Yes Plan: TSH 13.4, free T4 2.17 Continue levothyroxine 200 mcg daily. (8) Pleural effusion Is this a current diagnosis for this admission?: Yes Plan: CXR (09/15/2018) demonstrates large right pleural effusion. Thoracentesis requested; unfortunately patient's PT/INR are elevated related to LFTs. Possibly transudative secondary to liver disease, exudative secondary to right- sided pneumonia, versus blood related to recent multiple right-sided rib fractures. CT chest demonstrated small pleural effusion. Repeat CXR shows slight improvement in pleural effusion; however today the patient is noted to have decreased breath sounds on right and increased tachypnea/work of breathing. Management of pneumonia as below. Continue spironolactone and lasix We will ask interventional radiology for thoracentesis (9) Pneumonia involving right lung Qualifiers: Pneumonia type: due to unspecified organism Lung location: unspecified part of lung Qualified Code(s): J18.9 - Pneumonia, unspecified organism Is this a current diagnosis for this admission?: Yes Plan: CXR (09/15/18) Large area of right basilar consolidation and and large pleural effusion. Blood cultures are negative at 4 days Sputum cultures are pending. Patient remains afebrile with normal WBCs IV Vancomycin; discontinued on day #4 Continue Cefepime for HAP; discontinued day #5. Continue Augmentin for completion of 10-day course of therapy Supplemental oxygen, BiPAP, scheduled and as needed nebulizer treatment. (10) Elevated INR Is this a current diagnosis for this admission?: Yes Plan: Likely secondary to liver dysfunction. 1.80-> 1.82-> 1.74 Patient is not on chronic anticoagulation at this time. DVT prophylaxis (heparin) placed on hold; will utilize SCDs. Management of anemia as above. Management of cirrhosis/elevated LFTs as above. (11) Cirrhosis Qualifiers: Hepatic cirrhosis type: unspecified hepatic cirrhosis Ascites presence: without ascites Qualified Code(s): K74.60 - Unspecified cirrhosis of liver Is this a current diagnosis for this admission?: Yes Plan: Elevated LFTs, PT/INR, and ammonia on admission. LFTs and coags are slightly improved. Elevated ammonia level is returned to baseline. CT ABD/Pelvis demonstrates cirrhosis. Hepatitis panel negative Continue lactulose Continue spironolactone and furosemide - Time Time Spent with patient: 25-34 minutes Medications reviewed and adjusted accordingly: Yes Anticipated discharge: SNF
[2018-09-21] MEDS ORDERED: NORMAL SALINE 250 ML IV PRN ×2 (14:30)
[2018-09-21] MEDS ORDERED: ACETAMINOPHEN 325 MG TABLET PO ONE (16:51)
[2018-09-21] MEDS ORDERED: DIPHENHYDRAMINE HCL 25 MG CAPSULE PO ONE (16:51)
[2018-09-21] MEDS: OXYBUTYNIN CHLORIDE 5 MG TABLET PO SCH (22:23)
[2018-09-21] MEDS: SERTRALINE HCL 50 MG TABLET PO SCH (22:26)
[2018-09-22 05:28] LABS: PROTHROMBIN TIME 20.2 SEC (11.4-15.4)
[2018-09-22] MEDS: AMOXICILLIN TR/POT CLAVULANATE 500-125 MG TAB PO SCH ×3 (06:16→21:52)
[2018-09-22] MEDS: LEVOTHYROXINE SODIUM 0.1 MG TABLET PO SCH (06:16)
[2018-09-22] MEDS ORDERED: NORMAL SALINE 250 ML IV PRN ×4 (07:40→15:35)
[2018-09-22 07:58] LABS: HEMATOCRIT 27.3 % (36.0-47.0); HEMOGLOBIN 8.9 g/dL (12.0-15.5); MEAN CORPUSCULAR HEMOGLOBIN 34.1 pg (27.0-33.4); MEAN CORPUSCULAR HGB CONC 32.7 g/dL (32.0-36.0); MEAN CORPUSCULAR VOLUME 104 fl (80-97); RED BLOOD COUNT 2.62 10^6/uL (3.72-5.28); WHITE BLOOD COUNT 8.8 10^3/uL (4.0-10.5)
[2018-09-22 08:07] LABS: ALBUMIN 2.9 g/dL (3.5-5.0); ALKALINE PHOSPHATASE 75 U/L (38-126); ANION GAP 7 (5-19); ASPARTATE AMINO TRANSFERASE 68 U/L (14-36); BILIRUBIN,DIRECT 1.1 mg/dL (0.0-0.4); BILIRUBIN,TOTAL 2.2 mg/dL (0.2-1.3); BLOOD UREA NITROGEN 21 mg/dL (7-20); CALCIUM 8.9 mg/dL (8.4-10.2); CARBON DIOXIDE 24 mmol/L (22-30); CHLORIDE 121 mmol/L (98-107); GLUCOSE 179 mg/dL (75-110); POTASSIUM 3.5 mmol/L (3.6-5.0); TOTAL PROTEIN 7.4 g/dL (6.3-8.2)
[2018-09-22] MEDS: IPRATROPIUM/ALBUTEROL 0.5-2.5 MG/3 ML AMPUL NEB SCH ×2 (08:22→20:13)
[2018-09-22 08:26] LABS: PLATELET COUNT 98 10^3/uL (150-450)
[2018-09-22] MEDS: FOLIC ACID 1 MG TABLET PO SCH (11:42)
[2018-09-22] MEDS: INSULIN REG, HUMAN 100 UNIT/ML 3 ML VIAL (PYX) SUBCUT SCH ×4 (11:42→22:02)
[2018-09-22] MEDS: SPIRONOLACTONE 25 MG TABLET PO SCH (11:42)
[2018-09-22] MEDS: AMLODIPINE BESYLATE 10 MG TABLET PO SCH (11:43)
[2018-09-22] MEDS: FUROSEMIDE 20 MG TABLET PO SCH (11:43)
[2018-09-22] MEDS: GUAIFENESIN SYRP 200 MG/10 ML UDC PO SCH ×4 (11:43→21:53)
[2018-09-22] MEDS: METOPROLOL TARTRATE 25 MG TABLET PO SCH ×2 (11:43→21:53)
[2018-09-22] MEDS: LACTULOSE SYRUP 20 GM/30 ML UDCUP PO SCH ×2 (11:44→21:52)
[2018-09-22] MEDS: DOCUSATE SODIUM 100 MG CAPSULE PO SCH ×2 (11:44→18:59)
--- NOTE | 2018-09-22 13:15 | PDOC PROGRESS REPORT ---
Subjective Progress Note for:: 09/22/18 Subjective:: Patient is an 82-year-old female with a past medical history of hyperlipidemia, hypertension, sleep apnea, remote tuberculosis, DM 2, hypothyroidism, CKD, RA, and depression who was admitted 09/15/2018 from [place] for acute encephalopathy and acute respiratory failure with hypoxia. Patient was seen on morning rounds. She was found resting in bed comfortably on supplemental oxygen via BiPAP; she is not home O2 dependent. The patient is awake and orientated x 4 today. Patient reports right-sided chest wall pain that is worse with inspiration and deep breath. she reports generalized fatigue but otherwise denies complaints. She denies fever, chills, palpitations, orthopnea, cough, abdominal pain, nausea vomiting diarrhea. She reports poor appetite. She has no other questions or concerns at this time. Nursing reports that the patient is only able to tolerate a few minutes off of BiPAP prior to demonstrating resp distress w/ increased work of breathing ( accessory muscle use, abd breathing), tachypnea and anxiety. Reason For Visit: RML,RLL PNA, ACUTE ENCEPHALOPATHY Physical Exam Vital Signs: Temp Pulse Resp BP Pulse Ox 99.2 F 102 H 31 H 143/66 H 90 L 09/22/18 12:22 09/22/18 12:22 09/22/18 12:22 09/22/18 12:22 09/22/18 12:22 Intake & Output 09/21/18 09/22/18 09/23/18 06:59 06:59 06:59 Intake Total 600 972 287 Balance 600 972 287 Weight 86.4 kg 87.1 kg General appearance: PRESENT: no acute distress, cooperative - Pleasant, obese, well-developed, well-nourished Head exam: PRESENT: atraumatic, normocephalic Eye exam: PRESENT: conjunctiva pink, EOMI, PERRLA. ABSENT: scleral icterus Ear exam: PRESENT: normal external ear exam Mouth exam: PRESENT: moist, tongue midline Neck exam: ABSENT: carotid bruit, JVD, lymphadenopathy, thyromegaly Respiratory exam: PRESENT: accessory muscle use, chest wall tenderness - Right posterior chest wall, decreased breath sounds - Absent right middle and lower chacko; clear to the right apex anteriorly. Left lung chacko are clear., tachypnea, other - BiPAP dependent. ABSENT: rales, rhonchi, wheezes Cardiovascular exam: PRESENT: RRR, +S1, +S2. ABSENT: diastolic murmur, rubs, systolic murmur Pulses: PRESENT: normal dorsalis pedis pul Vascular exam: PRESENT: normal capillary refill GI/Abdominal exam: PRESENT: normal bowel sounds, soft. ABSENT: distended, guarding, mass, organolmegaly, rebound, tenderness Rectal exam: PRESENT: deferred Extremities exam: PRESENT: full ROM. ABSENT: calf tenderness, clubbing, pedal edema Neurological exam: PRESENT: alert, awake, oriented to person, oriented to place, oriented to time, oriented to situation, CN II-XII grossly intact. ABSENT: motor sensory deficit Psychiatric exam: PRESENT: appropriate affect, normal mood. ABSENT: homicidal ideation, suicidal ideation Skin exam: PRESENT: dry, intact, warm. ABSENT: cyanosis, rash Results Laboratory Results: 09/22/18 04:33 09/22/18 04:33 09/21/18 09/22/18 09/22/18 15:05 04:33 04:33 WBC 8.8 RBC 2.62 L Hgb 8.9 L Hct 27.3 L MCV 104 H MCH 34.1 H MCHC 32.7 RDW 19.0 H Plt Count 98 L Sodium 151.5 H Potassium 3.5 L Chloride 121 H Carbon Dioxide 24 Anion Gap 7 BUN 21 H Creatinine 1.09 Est GFR ( Amer) 58 L Est GFR (Non-Af Amer) 48 L Glucose 179 H Serum Osmolality Calcium 8.9 Total Bilirubin 2.2 H AST 68 H Alkaline Phosphatase 75 Total Protein 7.4 Albumin 2.9 L Blood Type A POSITIVE 09/22/18 04:33 WBC RBC Hgb Hct MCV MCH MCHC RDW Plt Count Sodium Potassium Chloride Carbon Dioxide Anion Gap BUN Creatinine Est GFR ( Amer) Est GFR (Non-Af Amer) Glucose Serum Osmolality 318 H Calcium Total Bilirubin AST Alkaline Phosphatase Total Protein Albumin Blood Type 09/16/18 17:01 Blood Blood Culture - Final NO GROWTH IN 5 DAYS 09/16/18 16:31 Blood Blood Culture - Final NO GROWTH IN 5 DAYS Impressions: Head CT 09/14/18 00:00 IMPRESSION: 1. No acute intracranial abnormality by CT criteria. This exam was performed according to our departmental dose-optimization program, which includes automated exposure control, adjustment of the mA and/or kV according to patient size and/or use of iterative reconstruction technique. Head MRI 09/15/18 00:00 IMPRESSION: ATROPHY AND CHRONIC MICRO-VASCULAR ISCHEMIC CHANGES. OTHERWISE NORMAL MRI OF THE BRAIN WITHOUT INTRAVENOUS GADOLINIUM CONTRAST. EVIDENCE OF ACUTE STROKE: NO. Abdomen/Pelvis CT 09/17/18 00:00 IMPRESSION: No evidence of intra-abdominal hemorrhage. Cirrhosis with splenomegaly. TECHNICAL DOCUMENTATION: Quality ID # 436: Final reports with documentation of one or more dose reduction techniques (e.g., Automated exposure control, adjustment of the mA and/or kV according to patient size, use of iterative reconstruction technique) copyright 2010 [employer]- All Rights Reserved Chest CT 09/17/18 00:00 IMPRESSION: Consolidation/atelectasis involving the entire right lung, compatible with pneumonia. Moderate-sized right pleural effusion. Other findings as described. TECHNICAL DOCUMENTATION: Quality ID # 436: Final reports with documentation of one or more dose reduction techniques (e.g., Automated exposure control, adjustment of the mA and/or kV according to patient size, use of iterative reconstruction technique) copyright 2010 [employer]- All Rights Reserved Chest X-Ray 09/20/18 00:00 IMPRESSION: SLIGHT IMPROVEMENT IN THE OPACIFICATION OF THE RIGHT HEMITHORAX. Assessment and Plan - Diagnosis (1) Encephalopathy Is this a current diagnosis for this admission?: Yes Plan: Resolved; A&O x4. Multifactorial secondary to elevated LFTs with associated hyperammonemia, anemia, and hypoxia (related to anemia and right-sided pneumonia/pleural effusions). ABG improved with BiPAP support. Supplemental oxygen as needed to maintain saturations greater than 89%. Scheduled as needed nebulizer treatments. Management of elevated LFTs, anemia, pneumonia, and pleural effusions as below. Patient is a DNR/DNI (2) Acute on chronic kidney failure Qualifiers: Chronic kidney disease stage: stage 3 (moderate) Is this a current diagnosis for this admission?: Yes Plan: CKD 3 at baseline. Creatinine on admission is 1.43-> 2.16-> 1.09 Likely secondary to hypotension and hypoxia. s/p 2 units PRBC Avoid nephrotoxic medications as able. Daily chemistries. (3) Anemia Qualifiers: Anemia type: other cause Other causes of anemia: other cause, not classified Qualified Code(s): D64.89 - Other specified anemias Is this a current diagnosis for this admission?: Yes Plan: Now stable at 9.0 Acute blood loss anemia; unclear source at this time, possibly related to acute illness Hemoglobin 9.4 on admission; down to 6.5 despite having received only 1.5 L IV fluids. Now s/p 2 units PRBC Urinalysis is negative for blood. Hemoccult pending. Chest x-ray (09/15/2018) does show right-sided large right-sided pleural effusion. CT ABD/Pelvis negative for intra-abdominal bleeding. (+) cirrhosis on CT w/ elevated LFTs and PT/INR Monitor for signs of overt bleeding. Daily CBC and transfuse for Hgb <7 (4) Elevated LFTs Is this a current diagnosis for this admission?: Yes Plan: Patient is noted to have elevated LFTs and PT/INR Ammonia 56.3-> 15.5 Review of previous lab work does show recent upward trend. CT abdomen/pelvis (08/26/2018) revealed moderate low-density ascites with mild nodular contour of the liver and mildly enlarged spleen. CT ABD/Pelvis (09/17/18) demonstrates cirrhosis with splenomegaly MELD Score 25 (19.6% 3 month mortality) Lactulose; 2-3 soft bm's daily. Continue spironolactone 100 mg daily and Lasix 40 mg daily. (5) Diabetes mellitus type 2 in obese Is this a current diagnosis for this admission?: Yes Plan: Patient is placed on a consistent carb/cardiac diet. Accu-Cheks before meals and at bedtime with sliding scale insulin for coverage. Hypoglycemia protocol in place. (6) Hypertension Qualifiers: Hypertension type: essential hypertension Qualified Code(s): I10 - Essential (primary) hypertension Is this a current diagnosis for this admission?: Yes Plan: Blood pressures are elevated Continue outpatient regiment of Amlodipine and metoprolol Spironolactone and lasix as above IV hydralazine as needed for blood pressure control. Cardiac diet. (7) Hypothyroidism Qualifiers: Hypothyroidism type: unspecified Qualified Code(s): E03.9 - Hypothyroidism, unspecified Is this a current diagnosis for this admission?: Yes Plan: TSH 13.4, free T4 2.17 Continue levothyroxine 200 mcg daily. (8) Pleural effusion Is this a current diagnosis for this admission?: Yes Plan: CXR (09/15/2018) demonstrates large right pleural effusion. Thoracentesis requested; unfortunately patient's PT/INR are elevated related to LFTs. Possibly transudative secondary to liver disease, exudative secondary to right-sided pneumonia, versus blood related to recent multiple right-sided rib fractures. CT chest demonstrated small pleural effusion. Repeat CXR shows slight improvement in pleural effusion; however the patient is noted to have decreased breath sounds on right and increased tachypnea/work of breathing. Management of pneumonia as below. Continue spironolactone and lasix We will ask interventional radiology for thoracentesis; 2 units FFP followed by repeat PT/INR. If less than 1.50, interventional radiology will attempt thoracentesis. If remains elevated, will need to consult surgery. (9) Pneumonia involving right lung Qualifiers: Pneumonia type: due to unspecified organism Lung location: unspecified part of lung Qualified Code(s): J18.9 - Pneumonia, unspecified organism Is this a current diagnosis for this admission?: Yes Plan: CXR (09/15/18) Large area of right basilar consolidation and and large pleural effusion. Blood cultures are negative at 4 days Sputum cultures are pending. Patient remains afebrile with normal WBCs IV Vancomycin; discontinued on day #4 Continue Cefepime for HAP; discontinued day #5. Continue Augmentin for completion of 10-day course of therapy Supplemental oxygen, BiPAP, scheduled and as needed nebulizer treatment. (10) Elevated INR Is this a current diagnosis for this admission?: Yes Plan: Likely secondary to liver dysfunction. 1.80-> 1.82-> 1.74-> 1.70 Patient is not on chronic anticoagulation at this time. DVT prophylaxis (heparin) placed on hold; will utilize SCDs. Management of anemia as above. Management of cirrhosis/elevated LFTs as above. 1 unit FFP overnight, 2 units FFP today for short-term correction in anticipation of thoracentesis. Follow-up PT/INR pending (11) Cirrhosis Qualifiers: Hepatic cirrhosis type: unspecified hepatic cirrhosis Ascites presence: without ascites Qualified Code(s): K74.60 - Unspecified cirrhosis of liver Is this a current diagnosis for this admission?: Yes Plan: Elevated LFTs, PT/INR, and ammonia on admission. LFTs and coags are slightly improved. Elevated ammonia level is returned to baseline. CT ABD/Pelvis demonstrates cirrhosis. Hepatitis panel negative Continue lactulose Continue spironolactone and furosemide (12) Acute respiratory failure with hypoxia Is this a current diagnosis for this admission?: Yes Plan: Secondary to right-sided pneumonia and pleural effusion. Management as above. - Time Time Spent with patient: 25-34 minutes Medications reviewed and adjusted accordingly: Yes Anticipated discharge: Home with Homehealth Within: within 72 hours
[2018-09-22 13:20] LABS: PROTHROMBIN TIME 19.2 SEC (11.4-15.4)
[2018-09-22] MEDS ORDERED: LIDOCAINE 1% INJ-PF (10 MG/ML) 30 ML SDV ONE (16:19)
[2018-09-22] MEDS ORDERED: MORPHINE SULFATE 10 MG/ML INJ ONE (16:24)
--- NOTE | 2018-09-22 17:01 | Operative Report ---
Nonrecallable Operative Report DATE OF SURGERY: 09/22/18 PREOPERATIVE DIAGNOSIS: Right hemothorax POSTOPERATIVE DIAGNOSIS: Right hemothorax OPERATION: Right chest tube thoracostomy SURGEON: DENEEN ARIAS ANESTHESIA: Local TISSUE REMOVED OR ALTERED: None COMPLICATIONS: None ESTIMATED BLOOD LOSS: Approximately 2500 cc of blood removed from the chest cavity INTRAOPERATIVE FINDINGS: Hemothorax with 2500 cc PROCEDURE: Patient was seen in her hospital room awake alert stable condition with slightly decreased O2 saturation in the 85-92 percentile. The right chest was prepped and draped in usual sterile fashion. Over the fifth and sixth intercostal space the skin was anesthetized with 1% li docaine plain. A small transverse incision was made approximately 2 cm long dissection was carried down through the subcutaneous tissue and the latissimus muscle with blunt dissection using the hemostat provided in the chest tube insertion kit. The fifth intercostal space was identified and opened bluntly with the Irizarry clamp. A 32 [place]i chest tube was inserted into the chest with immediate output of dark old blood approximately 2500 cc of blood was removed and drained into the Pleur- evac The chest tube was then secured in place with a [id number] placed 0 silk suture. A Vaseline gauze and sterile dressing was then applied. Chest x-ray revealed resolution of the hemothorax however the last all of the chest tube was in the subcutaneous tissue it was functioning well without eviden ce of pneumothorax and therefore it was left as seen in the chest x-ray. She tolerated the procedure well.
--- NOTE | 2018-09-22 17:26 | RADIOLOGY REPORT (SQ) ---
EXAM DESCRIPTION: CHEST SINGLE VIEW COMPLETED DATE/TIME: 09/22/2018 5:01 pm REASON FOR STUDY: chest tube placement COMPARISON: Chest films 09/20/2018, 09/15/2018, 09/14/2018 CT chest 09/17/2018, 08/27/2018 EXAM PARAMETERS: NUMBER OF VIEWS: One view. TECHNIQUE: Single frontal radiographic view of the chest acquired. RADIATION DOSE: NA LIMITATIONS: None. FINDINGS: LUNGS AND PLEURA: A large bore right chest tube is in place. No pneumothorax. Minimal ri ght basilar atelectasis. Right lower lateral rib fractures are seen at the bottom edge of the field of view. Minimal airspace disease left lung base likely atelectasis. No gross left pleural effusion or pneumo thorax MEDIASTINUM AND HILAR STRUCTURES: No masses. Contour normal. HEART AND VASCULAR STRUCTURES: Heart normal in size. Normal vasculature. BONES: Right lower lateral and posterior rib fractures HARDWARE: Large bore right chest tube tip in the hemithorax, side-port lateral to the right rib zeus n. This report was called to Dr. Elise OTHER: No other significant finding. IMPRESSION: Right large bore chest tube in place, side port is lateral to the rib margin. Resolutio n of the right hemothorax. No pneumothorax. TECHNICAL DOCUMENTATION: JOB ID: [id number] [employer]- All Rights Reserved Reading location - IP/workstation name: [email or web address]
[2018-09-22 18:01] LABS: ABSOLUTE LYMPHOCYTES (AUTO) 0.7 10^3/uL (0.5-4.7); BASOPHILS % (AUTO) 0.4 % (0-2); EOSINOPHILS % (AUTO) 0.1 % (0-6); HEMATOCRIT 25.4 % (36.0-47.0); HEMOGLOBIN 8.3 g/dL (12.0-15.5); LYMPHOCYTES % (AUTO) 8.4 % (13-45); MEAN CORPUSCULAR HEMOGLOBIN 33.9 pg (27.0-33.4); MEAN CORPUSCULAR HGB CONC 32.5 g/dL (32.0-36.0); MEAN CORPUSCULAR VOLUME 104 fl (80-97); MONOCYTES % (AUTO) 11.3 % (3-13); RED BLOOD COUNT 2.44 10^6/uL (3.72-5.28); RED CELL DISTRIBUTION WIDTH 18.2 % (11.5-14.0); SEGMENTED NEUTROPHILS % (AUTO) 79.8 % (42-78); TOTAL CELLS COUNTED % (AUTO) 100 %; WHITE BLOOD COUNT 8.8 10^3/uL (4.0-10.5)
[2018-09-22 18:20] LABS: PLATELET COUNT 99 10^3/uL (150-450)
[2018-09-22] MEDS: OXYBUTYNIN CHLORIDE 5 MG TABLET PO SCH (21:52)
[2018-09-22] MEDS: SERTRALINE HCL 50 MG TABLET PO SCH (21:54)
[2018-09-22] MEDS: MORPHINE SULFATE 10 MG/ML INJ IV PRN (21:54)
[2018-09-22 22:50] LABS: HEMATOCRIT 23.8 % (36.0-47.0); MEAN CORPUSCULAR HEMOGLOBIN 33.5 pg (27.0-33.4); MEAN CORPUSCULAR HGB CONC 32.5 g/dL (32.0-36.0); MEAN CORPUSCULAR VOLUME 103 fl (80-97); RED CELL DISTRIBUTION WIDTH 18.4 % (11.5-14.0); WHITE BLOOD COUNT 7.1 10^3/uL (4.0-10.5)
[2018-09-22 23:46] LABS: HEMOGLOBIN 7.7 g/dL (12.0-15.5)
[2018-09-22 23:47] LABS: PLATELET COUNT 81 10^3/uL (150-450)
[2018-09-23] MEDS: MORPHINE SULFATE 10 MG/ML INJ IV PRN ×3 (03:23→17:32)
[2018-09-23 05:17] LABS: MEAN CORPUSCULAR HEMOGLOBIN 33.7 pg (27.0-33.4); MEAN CORPUSCULAR HGB CONC 32.8 g/dL (32.0-36.0); MEAN CORPUSCULAR VOLUME 103 fl (80-97); RED BLOOD COUNT 2.34 10^6/uL (3.72-5.28); RED CELL DISTRIBUTION WIDTH 18.8 % (11.5-14.0); WHITE BLOOD COUNT 7.2 10^3/uL (4.0-10.5)
[2018-09-23 05:28] LABS: ANION GAP 5 (5-19); BLOOD UREA NITROGEN 24 mg/dL (7-20); CALCIUM 8.8 mg/dL (8.4-10.2); CARBON DIOXIDE 28 mmol/L (22-30); CHLORIDE 120 mmol/L (98-107); GLUCOSE 144 mg/dL (75-110); POTASSIUM 3.3 mmol/L (3.6-5.0)
[2018-09-23] MEDS: AMOXICILLIN TR/POT CLAVULANATE 500-125 MG TAB PO SCH (05:28)
[2018-09-23] MEDS: LEVOTHYROXINE SODIUM 0.1 MG TABLET PO SCH (05:29)
[2018-09-23 05:45] LABS: HEMOGLOBIN 7.9 g/dL (12.0-15.5)
[2018-09-23 05:46] LABS: PLATELET COUNT 82 10^3/uL (150-450)
[2018-09-23] MEDS: IPRATROPIUM/ALBUTEROL 0.5-2.5 MG/3 ML AMPUL NEB SCH ×2 (07:57→20:06)
[2018-09-23] MEDS ORDERED: FUROSEMIDE 40 MG TABLET PO SCH (10:00)
[2018-09-23] MEDS: INSULIN REG, HUMAN 100 UNIT/ML 3 ML VIAL (PYX) SUBCUT SCH ×4 (11:03→21:13)
[2018-09-23] MEDS: GUAIFENESIN SYRP 200 MG/10 ML UDC PO SCH ×4 (11:05→21:13)
[2018-09-23] MEDS: 1/2 NORMAL SALINE 1,000 ML IV PRN (11:08)
[2018-09-23] MEDS: LACTULOSE SYRUP 20 GM/30 ML UDCUP PO SCH ×2 (11:42→21:12)
[2018-09-23] MEDS: DOCUSATE SODIUM 100 MG CAPSULE PO SCH ×2 (11:42→17:33)
[2018-09-23] MEDS: SPIRONOLACTONE 25 MG TABLET PO SCH (11:42)
[2018-09-23] MEDS: METOPROLOL TARTRATE 25 MG TABLET PO SCH ×2 (11:42→21:13)
[2018-09-23] MEDS: FOLIC ACID 1 MG TABLET PO SCH (11:42)
[2018-09-23] MEDS: AMLODIPINE BESYLATE 10 MG TABLET PO SCH (11:43)
--- NOTE | 2018-09-23 14:19 | Progress Note Acknowledgement ---
Progress Note Acknowledgement Progess Note Acknowledgement: I, the undersigned member of the medical staff with appropriate privileges and with supervisory authority over [ PAC ], a dependent practice allied health professional, acknowledge that I have reviewed the progress notes entered on this patient, and in my professional judgment believe that the assessment made and/or any care evidenced was appropriate
--- NOTE | 2018-09-23 14:28 | PDOC PROGRESS REPORT ---
Subjective Progress Note for:: 09/23/18 Subjective:: 09/23/2018 patient comes in for decrease status secondary to hepatic encephalopathy. Patient had chest tube put in yesterday with 2 and half liters of blood being removed. Patient was in the hospital recently for fractured ribs, was then detention and due to deterioration of mental status back to the emergency room. She was found to have a pneumonia and was admitted to the hospital. Reason For Visit: RML,RLL PNA, ACUTE ENCEPHALOPATHY Physical Exam Vital Signs: Temp Pulse Resp BP Pulse Ox 98.0 F 80 16 137/53 H 98 09/23/18 11:21 09/23/18 11:21 09/23/18 12:02 09/23/18 11:21 09/23/18 12:02 Intake & Output 09/22/18 09/23/18 09/24/18 06:59 06:59 06:59 Intake Total 972 1501 Output Total 2525 Balance 972 -1024 Weight 87.1 kg 87.9 kg General appearance: PRESENT: mild distress Respiratory exam: PRESENT: clear to auscultation victor manuel, other - Patient has BiPAP machine in place resting comfortably. ABSENT: rales, rhonchi, wheezes Cardiovascular exam: PRESENT: RRR. ABSENT: diastolic murmur, rubs, systolic murmur Neurological exam: PRESENT: alert, awake, oriented to person, oriented to place, oriented to time, oriented to situation, CN II-XII grossly intact, other - Patient follows commands, wool broker are strong and equal. ABSENT: motor sensory deficit Psychiatric exam: PRESENT: appropriate affect, normal mood. ABSENT: homicidal ideation, suicidal ideation Results Laboratory Results: 09/23/18 04:48 09/23/18 04:48 09/21/18 09/22/18 09/22/18 15:05 17:35 17:35 WBC 8.8 RBC 2.44 L Hgb 8.3 L Hct 25.4 L MCV 104 H MCH 33.9 H MCHC 32.5 RDW 18.2 H Plt Count 99 L Seg Neutrophils % 79.8 H Lymphocytes % 8.4 L Monocytes % 11.3 Eosinophils % 0.1 Basophils % 0.4 Absolute Neutrophils 7.0 Absolute Lymphocytes 0.7 Absolute Monocytes 1.0 Absolute Eosinophils 0.0 Absolute Basophils 0.0 Sodium Potassium Chloride Carbon Dioxide Anion Gap BUN Creatinine Est GFR ( Amer) Est GFR (Non-Af Amer) Glucose Calcium Ammonia 15.8 Urine Osmolality Blood Type A POSITIVE 09/22/18 09/23/18 09/23/18 22:38 03:55 04:48 WBC 7.1 7.2 RBC 2.30 L 2.34 L Hgb 7.7 L 7.9 L Hct 23.8 L 24.0 L MCV 103 H 103 H MCH 33.5 H 33.7 H MCHC 32.5 32.8 RDW 18.4 H 18.8 H Plt Count 81 L 82 L Seg Neutrophils % Lymphocytes % Monocytes % Eosinophils % Basophils % Absolute Neutrophils Absolute Lymphocytes Absolute Monocytes Absolute Eosinophils Absolute Basophils Sodium Potassium Chloride Carbon Dioxide Anion Gap BUN Creatinine Est GFR ( Amer) Est GFR (Non-Af Amer) Glucose Calcium Ammonia Urine Osmolality 494 Blood Type 09/23/18 04:48 WBC RBC Hgb Hct MCV MCH MCHC RDW Plt Count Seg Neutrophils % Lymphocytes % Monocytes % Eosinophils % Basophils % Absolute Neutrophils Absolute Lymphocytes Absolute Monocytes Absolute Eosinophils Absolute Basophils Sodium 152.7 H Potassium 3.3 L Chloride 120 H Carbon Dioxide 28 Anion Gap 5 BUN 24 H Creatinine 1.10 Est GFR ( Amer) 58 L Est GFR (Non-Af Amer) 48 L Glucose 144 H Calcium 8.8 Ammonia Urine Osmolality Blood Type Impressions: Head CT 09/14/18 00:00 IMPRESSION: 1. No acute intracranial abnormality by CT criteria. This exam was performed according to our departmental dose-optimization program, which includes automated exposure control, adjustment of the mA and/or kV according to patient size and/or use of iterative reconstruction technique. Head MRI 09/15/18 00:00 IMPRESSION: ATROPHY AND CHRONIC MICRO-VASCULAR ISCHEMIC CHANGES. OTHERWISE NORMAL MRI OF THE BRAIN WITHOUT INTRAVENOUS GADOLINIUM CONTRAST. EVIDENCE OF ACUTE STROKE: NO. Abdomen/Pelvis CT 09/17/18 00:00 IMPRESSION: No evidence of intra-abdominal hemorrhage. Cirrhosis with splenomegaly. TECHNICAL DOCUMENTATION: Quality ID # 436: Final reports with documentation of one or more dose reduction techniques (e.g., Automated exposure control, adjustment of the mA and/or kV according to patient size, use of iterative reconstruction technique) copyright 2011 [employer]- All Rights Reserved Chest CT 09/17/18 00:00 IMPRESSION: Consolidation/atelectasis involving the entire right lung, compatible with pneumonia. Moderate-sized right pleural effusion. Other findings as described. TECHNICAL DOCUMENTATION: Quality ID # 436: Final reports with documentation of one or more dose reduction techniques (e.g., Automated exposure control, adjustment of the mA and/or kV according to patient size, use of iterative reconstruction technique) copyright 2011 [employer]- All Rights Reserved Chest X-Ray 09/22/18 00:00 IMPRESSION: Right large bore chest tube in place, side port is lateral to the rib margin. Resolution of the right hemothorax. No pneumothorax. Assessment and Plan - Diagnosis (1) Acute respiratory failure with hypoxia Is this a current diagnosis for this admission?: Yes Plan: Secondary to right-sided pneumonia and pleural effusion. Management as above. 09/23/2018 patient is currently on BiPAP well as antibiotics and has a chest tube in place. Follow-up chest x-ray today. (2) Altered mental status Qualifiers: Altered mental status type: unspecified Qualified Code(s): R41.82 - Altered mental status, unspecified Is this a current diagnosis for this admission?: Yes Plan: 09/23/2018 patient's ammonia level has come back to normal now, patient is no longer confused (3) Anemia Qualifiers: Anemia type: other cause Other causes of anemia: other cause, not classified Qualified Code(s): D64.89 - Other specified anemias Is this a current diagnosis for this admission?: Yes Plan: Now stable at 9.0 Acute blood loss anemia; unclear source at this time, possibly related to acute illness Hemoglobin 9.4 on admission; down to 6.5 despite having received only 1.5 L IV fluids. Now s/p 2 units PRBC Urinalysis is negative for blood. Hemoccult pending. Chest x-ray (09/15/2018) does show right-sided large right-sided pleural effusion. CT ABD/Pelvis negative for intra-abdominal bleeding. (+) cirrhosis on CT w/ elevated LFTs and PT/INR Monitor for signs of overt bleeding. Daily CBC and transfuse for Hgb <7 09/23/2018 H&H is stable platelets are still low stable however no indication for further transfusion. Patient had 4 units of platelets today (4) Encephalopathy Is this a current diagnosis for this admission?: Yes (5) Pneumonia involving right lung Qualifiers: Pneumonia type: due to unspecified organism Lung location: unspecified part of lung Qualified Code(s): J18.9 - Pneumonia, unspecified organism Is this a current diagnosis for this admission?: Yes Plan: CXR (09/15/18) Large area of right basilar consolidation and and large pleural effusion. Blood cultures are negative at 4 days Sputum cultures are pending. Patient remains afebrile with normal WBCs IV Vancomycin; discontinued on day #4 Continue Cefepime for HAP; discontinued day #5. Continue Augmentin for completion of 10-day course of therapy Supplemental oxygen, BiPAP, scheduled and as needed nebulizer treatment. 09/23/2018 patient is unable to take p.o.'s at this time and therefore is maintained on IV antibiotics 2.5 L of blood is drained from the right lower lung (6) Diabetes mellitus type 2 in obese Is this a current diagnosis for this admission?: Yes Plan: Patient is placed on a consistent carb/cardiac diet. Accu-Cheks before meals and at bedtime with sliding scale insulin for coverage. Hypoglycemia protocol in place. 09/23/2018 patient is on sliding scale with good control of glucose, patient is eating very little at this time (7) Frequent falls Is this a current diagnosis for this admission?: No Plan: 09/23/2018 patient is bedridden at this time no risk of falling (8) Ribs, multiple fractures Qualifiers: Encounter type: initial encounter Fracture type: closed Laterality: right Qualified Code(s): S22.41XA - Multiple fractures of ribs, right side, initial encounter for closed fracture Is this a current diagnosis for this admission?: Yes Plan: 09/23/2018 multiple rib fractures secondary to falls outside of the hospital
[2018-09-23] MEDS ORDERED: CEFTRIAXONE 1 GM/D5W RTU 1 GM/50 ML RTUPB IV SCH (14:30)
--- NOTE | 2018-09-23 15:42 | RADIOLOGY REPORT (SQ) ---
EXAM DESCRIPTION: CHEST SINGLE VIEW COMPLETED DATE/TIME: 09/23/2018 2:57 pm REASON FOR STUDY: chest tube, pneumonia G93.40 ENCEPHALOPATHY, UNSPECIFIED R41.82 ALTERED MENTAL S TATUS, UNSPECIFIED D64.9 ANEMIA, UNSPECIFIED COMPARISON: 09/22/2018 NUMBER OF VIEWS: One view. TECHNIQUE: Single frontal radiographic image of the chest acquired. LIMITATIONS: None. FINDINGS: LUNGS AND PLEURA: Stable appearance. MEDIASTINUM AND HILAR STRUCTURES: Stable heart size and mediastinal structures. HEART AND VASCULAR STRUCTURES: Stable appearance. SUPPORT DEVICES: Large-bore right-sided chest tube is unchanged in appearance side port again is note d to be lateral to the rib margin. BONES: No acute findings. OTHER: No other significant finding. IMPRESSION: STABLE APPEARANCE OF THE CHEST. SUPPORT DEVICES UNCHANGED. TECHNICAL DOCUMENTATION: JOB ID: [id number] [employer]- All Rights Reserved Reading location - IP/workstation name: [email or web address]
[2018-09-23] MEDS: CEFTRIAXONE SODIUM 1,000 MG in DEXTROSE 5%-WATER 50 ML IV SCH (17:33)
[2018-09-23] MEDS: FUROSEMIDE INJ/PF 40 MG/4 ML SDV IV SCH (17:33)
--- NOTE | 2018-09-23 19:38 | PDOC PROGRESS REPORT ---
Subjective Progress Note for:: 09/23/18 Subjective:: This is an 82-year-old female with a large right-sided hemothorax after a fall. Approximately 2500 cc of sanguinous fluid was removed from the right chest after tube thoracostomy was placed yesterday. The patient is currently on BiPAP due to respiratory distress. She is awake and alert, but has difficulty speaking due to the Bipap. Discussion was held with the patient's family who is present in the room. Currently her only complaint is chest wall tenderness and shortness of breath. The family reports that she has waxing and waning confusion. Reason For Visit: RML,RLL PNA, ACUTE ENCEPHALOPATHY Physical Exam Vital Signs: Temp Pulse Resp BP Pulse Ox 97.4 F 80 21 H 145/56 H 97 09/23/18 16:07 09/23/18 16:07 09/23/18 16:20 09/23/18 16:07 09/23/18 16:20 Intake & Output 09/22/18 09/23/18 09/24/18 06:59 06:59 06:59 Intake Total 972 1501 Output Total 2525 375 Balance 972 -1024 -375 Weight 87.1 kg 87.9 kg General appearance: PRESENT: no acute distress, cooperative Head exam: PRESENT: normocephalic Eye exam: PRESENT: EOMI, PERRLA. ABSENT: scleral icterus Mouth exam: PRESENT: moist, neck supple Neck exam: ABSENT: meningismus, tenderness, thyromegaly, tracheal deviation Respiratory exam: PRESENT: accessory muscle use, other - BiPAP in place. Right tube thoracostomy in-place with sanguinous output. Pulses: PRESENT: normal radial pulses GI/Abdominal exam: PRESENT: soft. ABSENT: distended, tenderness Rectal exam: PRESENT: deferred Extremities exam: ABSENT: clubbing Musculoskeletal exam: ABSENT: deformity Neurological exam: PRESENT: alert, awake. ABSENT: motor sensory deficit Psychiatric exam: ABSENT: agitated Focused psych exam: ABSENT: delusional Skin exam: ABSENT: cyanosis, erythema, jaundice Results Laboratory Results: 09/23/18 04:48 09/23/18 04:48 09/21/18 09/22/18 09/23/18 15:05 22:38 03:55 WBC 7.1 RBC 2.30 L Hgb 7.7 L Hct 23.8 L MCV 103 H MCH 33.5 H MCHC 32.5 RDW 18.4 H Plt Count 81 L Sodium Potassium Chloride Carbon Dioxide Anion Gap BUN Creatinine Est GFR ( Amer) Est GFR (Non-Af Amer) Glucose Calcium TSH Urine Osmolality 494 Blood Type A POSITIVE 09/23/18 09/23/18 09/23/18 04:48 04:48 04:48 WBC 7.2 RBC 2.34 L Hgb 7.9 L Hct 24.0 L MCV 103 H MCH 33.7 H MCHC 32.8 RDW 18.8 H Plt Count 82 L Sodium 152.7 H Potassium 3.3 L Chloride 120 H Carbon Dioxide 28 Anion Gap 5 BUN 24 H Creatinine 1.10 Est GFR ( Amer) 58 L Est GFR (Non-Af Amer) 48 L Glucose 144 H Calcium 8.8 TSH 3.85 Urine Osmolality Blood Type Impressions: Head CT 09/14/18 00:00 IMPRESSION: 1. No acute intracranial abnormality by CT criteria. This exam was performed according to our departmental dose-optimization program, which includes automated exposure control, adjustment of the mA and/or kV according to patient size and/or use of iterative reconstruction technique. Head MRI 09/15/18 00:00 IMPRESSION: ATROPHY AND CHRONIC MICRO-VASCULAR ISCHEMIC CHANGES. OTHERWISE NORMAL MRI OF THE BRAIN WITHOUT INTRAVENOUS GADOLINIUM CONTRAST. EVIDENCE OF ACUTE STROKE: NO. Abdomen/Pelvis CT 09/17/18 00:00 IMPRESSION: No evidence of intra-abdominal hemorrhage. Cirrhosis with splenomegaly. TECHNICAL DOCUMENTATION: Quality ID # 436: Final reports with documentation of one or more dose reduction techniques (e.g., Automated exposure control, adjustment of the mA and/or kV according to patient size, use of iterative reconstruction technique) copyright 2010 [employer]- All Rights Reserved Chest CT 09/17/18 00:00 IMPRESSION: Consolidation/atelectasis involving the entire right lung, compatible with pneumonia. Moderate-sized right pleural effusion. Other findings as described. TECHNICAL DOCUMENTATION: Quality ID # 436: Final reports with documentation of one or more dose reduction techniques (e.g., Automated exposure control, adjustment of the mA and/or kV according to patient size, use of iterative reconstruction technique) copyright 2010 [employer]- All Rights Reserved Chest X-Ray 09/23/18 00:00 IMPRESSION: STABLE APPEARANCE OF THE CHEST. SUPPORT DEVICES UNCHANGED. Assessment & Plan - Diagnosis (1) Hemothorax on right Is this a current diagnosis for this admission?: Yes - Plan Summary Plan Summary: This is an 82-year-old female status post tube thoracostomy on the right for hemothorax. The patient initially had 2500 cc of blood return in the Pleur- evac. The patient has approximately 50 cc recorded overnight. I will leave the chest tube in place today. I will reevaluate the amount of output overnight. Repeat chest x-ray tomorrow. Possible chest tube removal tomorrow, if output is minimal.
[2018-09-23] MEDS: OXYBUTYNIN CHLORIDE 5 MG TABLET PO SCH (21:13)
[2018-09-23] MEDS: SERTRALINE HCL 50 MG TABLET PO SCH (21:14)
[2018-09-24] MEDS: LEVOTHYROXINE SODIUM 0.1 MG TABLET PO SCH (05:25)
[2018-09-24] MEDS: 1/2 NORMAL SALINE 1,000 ML IV PRN (06:10)
[2018-09-24] MEDS: IPRATROPIUM/ALBUTEROL 0.5-2.5 MG/3 ML AMPUL NEB SCH ×2 (07:38→20:38)
--- NOTE | 2018-09-24 08:16 | PDOC PROGRESS REPORT ---
Subjective Progress Note for:: 09/24/18 Subjective:: 09/23/2018 patient comes in for decrease status secondary to hepatic encephalopathy. Patient had chest tube put in yesterday with 2 and half liters of blood being removed. Patient was in the hospital recently for fractured ribs, was then fdc and due to deterioration of mental status back to the emergency room. She was found to have a pneumonia and was admitted to the hospital. 09/24/2018 patient is awake and alert following commands and answers questions BiPAP machine in place patient has been on BiPAP now for 4 days. Repeat blood gas will be drawn this morning, off of the BiPAP. She is been afebrile for 48 hours blood pressure stable around 140/50 pulse is stable at 80 white count 7.2 hemoglobin stable 7.9 lites low at 82 but stable INR 1.6 Chest x-ray from yesterday released shows both lower lobes probably still with pneumonia. Will ask general surgery about the status of the chest tube and plan. We will try to wean patient off BiPAP in anticipation for discharge. Patient was started on Rocephin yesterday,, patient had only gotten 2 days worth of Augmentin prior to this. Going to add vancomycin to her Rocephin today. Reason For Visit: RML,RLL PNA, ACUTE ENCEPHALOPATHY Physical Exam Vital Signs: Temp Pulse Resp BP Pulse Ox 99.1 F 83 26 H 144/52 H 97 09/24/18 03:24 09/24/18 03:24 09/24/18 04:20 09/24/18 03:24 09/24/18 04:20 Intake & Output 09/23/18 09/24/18 09/25/18 06:59 06:59 06:59 Intake Total 1501 1002 Output Total 5280 1725 Balance -1044 -783 Weight 87.9 kg 84.3 kg General appearance: PRESENT: no acute distress, well-developed, well-nourished, other - On BiPAP Head exam: PRESENT: atraumatic, normocephalic Respiratory exam: PRESENT: decreased breath sounds - Both lower lung chacko Cardiovascular exam: PRESENT: RRR. ABSENT: diastolic murmur, rubs, systolic murmur Neurological exam: PRESENT: alert, awake, oriented to person, oriented to place, oriented to time, oriented to situation, CN II-XII grossly intact, other - Allowing commands. ABSENT: motor sensory deficit Psychiatric exam: PRESENT: appropriate affect, normal mood. ABSENT: homicidal ideation, suicidal ideation Results Laboratory Results: 09/23/18 04:48 09/23/18 04:48 09/23/18 04:48 TSH 3.85 Impressions: Head CT 09/14/18 00:00 IMPRESSION: 1. No acute intracranial abnormality by CT criteria. This exam was performed according to our departmental dose-optimization program, which includes automated exposure control, adjustment of the mA and/or kV according to patient size and/or use of iterative reconstruction technique. Head MRI 09/15/18 00:00 IMPRESSION: ATROPHY AND CHRONIC MICRO-VASCULAR ISCHEMIC CHANGES. OTHERWISE NO RMAL MRI OF THE BRAIN WITHOUT INTRAVENOUS GADOLINIUM CONTRAST. EVIDENCE OF ACUTE STROKE: NO. Abdomen/Pelvis CT 09/17/18 00:00 IMPRESSION: No evidence of intra-abdominal hemorrhage. Cirrhosis with splenomegaly. TECHNICAL DOCUMENTATION: Quality ID # 436: Final reports with documentation of one or more dose reduction techniques (e.g., Automated exposure control, adjustment of the mA and/or kV according to patient size, use of iterative reconstruction technique) copyright 2010 [employer]- All Rights Reserved Chest CT 09/17/18 00:00 IMPRESSION: Consolidation/atelectasis involving the entire right lung, compatible with pneumonia. Moderate-sized right pleural effusion. Other findings as described. TECHNICAL DOCUMENTATION: Quality ID # 436: Final reports with documentation of one or more dose reduction techniques (e.g., Automated exposure control, adjustment of the mA and/or kV according to patient size, use of iterative reconstruction technique) copyright 2010 [employer]- All Rights Reserved Chest X-Ray 09/23/18 00:00 IMPRESSION: STABLE APPEARANCE OF THE CHEST. SUPPORT DEVICES UNCHANGED. Assessment and Plan - Diagnosis (1) Acute respiratory failure with hypoxia Is this a current diagnosis for this admission?: Yes Plan: Secondary to right-sided pneumonia and pleural effusion. Management as above. 09/23/2018 patient is currently on BiPAP well as antibiotics and has a chest tube in place. Follow-up chest x-ray today. 09/24/2018 check a blood gas off the BiPAP. We will add vancomycin to the Rocephin this is day 2 of Rocephin. Patient has been on the BiPAP now for 4 days (2) Altered mental status Qualifiers: Altered mental status type: unspecified Qualified Code(s): R41.82 - Altered mental status, unspecified Is this a current diagnosis for this admission?: Yes Plan: 09/23/2018 patient's ammonia level has come back to normal now, patient is no longer confused 09/24/2018 patient is awake alert following commands (3) Anemia Qualifiers: Anemia type: other cause Other causes of anemia: other cause, not classified Qualified Code(s): D64.89 - Other specified anemias Is this a current diagnosis for this admission?: Yes Plan: Now stable at 9.0 Acute blood loss anemia; unclear source at this time, possibly related to acute illness Hemoglobin 9.4 on admission; down to 6.5 despite having received only 1.5 L IV fluids. Now s/p 2 units PRBC Urinalysis is negative for blood. Hemoccult pending. Chest x-ray (09/15/2018) does show right-sided large right-sided pleural effusion. CT ABD/Pelvis negative for intra-abdominal bleeding. (+) cirrhosis on CT w/ elevated LFTs and PT/INR Monitor for signs of overt bleeding. Daily CBC and transfuse for Hgb <7 09/23/2018 H&H is stable platelets are still low stable however no indication for further transfusion. Patient had 4 units of platelets today 09/24/2018 we will recheck a CBC today, possibility of 2 units of platelets if platelets are still low. (4) Encephalopathy Is this a current diagnosis for this admission?: No Plan: Resolved; A&O x4. Multifactorial secondary to elevated LFTs with associated hyperammonemia, an emia, and hypoxia (related to anemia and right-sided pneumonia/pleural effusions). ABG improved with BiPAP support. Supplemental oxygen as needed to maintain saturations greater than 89%. Scheduled as needed nebulizer treatments. Management of elevated LFTs, anemia, pneumonia, and pleural effusions as below. Patient is a DNR/DNI 09/24/2018 encephalopathy no longer problem at this point (5) Pneumonia involving right lung Qualifiers: Pneumonia type: due to unspecified organism Lung location: unspecified part of lung Qualified Code(s): J18.9 - Pneumonia, unspecified organism Is this a current diagnosis for this admission?: Yes Plan: CXR (7/29/19) Large area of right basilar consolidation and and large pleural effusion. Blood cultures are negative at 4 days Sputum cultures are pending. Patient remains afebrile with normal WBCs IV Vancomycin; discontinued on day #4 Continue Cefepime for HAP; discontinued day #5. Continue Augmentin for completion of 10-day course of therapy Supplemental oxygen, BiPAP, scheduled and as needed nebulizer treatment. 09/23/2018 patient is unable to take p.o.'s at this time and therefore is maintained on IV antibiotics 2.5 L of blood is drained from the right lower lung 09/24/2018 consult surgery about the chest tube. Day 2 oh Rocephin day 1 of vancomycin. Chest x-ray still shows probable bilateral lower lobe pneumonia (6) Diabetes mellitus type 2 in obese Is this a current diagnosis for this admission?: Yes Plan: Patient is placed on a consistent carb/cardiac diet. Accu-Cheks before meals and at bedtime with sliding scale insulin for coverage. Hypoglycemia protocol in place. 09/23/2018 patient is on sliding scale with good control of glucose, patient is eating very little at this time 09/24/2018 glucose levels are under good control at approximately 110 (7) Frequent falls Is this a current diagnosis for this admission?: No (8) Ribs, multiple fractures Qualifiers: Encounter type: initial encounter Fracture type: closed Laterality: right Qualified Code(s): S22.41XA - Multiple fractures of ribs, right side, initial encounter for closed fracture Is this a current diagnosis for this admission?: No - Time Time Spent with patient: 25-34 minutes
[2018-09-24 09:29] LABS: ARTERIAL BLOOD BASE EXCESS 1.8 mmol/L; ARTERIAL BLOOD H2CO3 1.11 mmol/L (1.05-1.35); ARTERIAL BLOOD HCO3 25.6 mmol/L (20-24); ARTERIAL BLOOD O2 SATURATION 83.9 % (94-98); ARTERIAL BLOOD PCO2 36.8 mmHg (35-45); ARTERIAL BLOOD PH 7.46 (7.35-7.45); ARTERIAL BLOOD PO2 45.2 mmHg (80-100); ARTERIAL BLOOD TOTAL CO2 26.7 mmol/L (21-25)
[2018-09-24 09:33] LABS: ARTERIAL BLOOD FIO2 5L
[2018-09-24] MEDS: INSULIN REG, HUMAN 100 UNIT/ML 3 ML VIAL (PYX) SUBCUT SCH ×4 (09:53→22:50)
--- NOTE | 2018-09-24 09:59 | RADIOLOGY REPORT (SQ) ---
EXAM DESCRIPTION: CHEST SINGLE VIEW COMPLETED DATE/TIME: 09/24/2018 9:39 am REASON FOR STUDY: hemothorax COMPARISON: 09/23/2018 EXAM PARAMETERS: NUMBER OF VIEWS: One view. TECHNIQUE: Single frontal radiographic view of the chest acquired. RADIATION DOSE: NA LIMITATIONS: None. FINDINGS: LUNGS AND PLEURA: Low lung volumes with mild left retrocardiac opacity. No significant ef fusion. No appreciable pneumothorax pre MEDIASTINUM AND HILAR STRUCTURES: No masses. Contour normal. HEART AND VASCULAR STRUCTURES: Heart normal in size. Normal vasculature. BONES: No acute findings. HARDWARE: Right-sided large bore chest tube with side port outside the thoracic cavity, stable. OTHER: No other significant finding. IMPRESSION: 1. Stable large bore right-sided chest tube with side port outside the thoracic cavity. No pneumothorax. 2. Minimal bibasilar opacities likely atelectasis. TECHNICAL DOCUMENTATION: JOB ID: [id number] [employer]- All Rights Reserved Reading location - IP/workstation name: [email or web address]
[2018-09-24] MEDS: FUROSEMIDE INJ/PF 40 MG/4 ML SDV IV SCH (10:08)
[2018-09-24] MEDS: METOPROLOL TARTRATE 25 MG TABLET PO SCH ×2 (10:09→22:50)
[2018-09-24] MEDS: SPIRONOLACTONE 25 MG TABLET PO SCH (10:09)
[2018-09-24] MEDS: FOLIC ACID 1 MG TABLET PO SCH (10:09)
[2018-09-24] MEDS: AMLODIPINE BESYLATE 10 MG TABLET PO SCH (10:10)
[2018-09-24] MEDS: DOCUSATE SODIUM 100 MG CAPSULE PO SCH ×2 (10:10→17:31)
[2018-09-24] MEDS: LACTULOSE SYRUP 20 GM/30 ML UDCUP PO SCH ×2 (10:10→23:39)
[2018-09-24] MEDS: GUAIFENESIN SYRP 200 MG/10 ML UDC PO SCH ×4 (10:11→22:50)
[2018-09-24] MEDS: MORPHINE SULFATE 10 MG/ML INJ IV PRN ×2 (10:50→19:43)
--- NOTE | 2018-09-24 17:23 | PDOC PROGRESS REPORT ---
Subjective Progress Note for:: 09/24/18 Subjective:: This is an 82-year-old female with a large right-sided hemothorax after a fall. Approximately 2500 cc of sanguinous fluid was removed from the right chest after tube thoracostomy was placed on Saturday. The patient is currently off of BiPAP. She is awake and alert. Currently her only complaint is chest wall tenderness. She appears more talkative today. Reason For Visit: RML,RLL PNA, ACUTE ENCEPHALOPATHY Physical Exam Vital Signs: Temp Pulse Resp BP Pulse Ox 98.2 F 103 H 22 H 140/46 H 83 L 09/24/18 11:13 09/24/18 14:00 09/24/18 11:13 09/24/18 11:13 09/24/18 11:13 Intake & Output 09/23/18 09/24/18 09/25/18 06:59 06:59 06:59 Intake Total 1501 1002 240 Output Total 2545 1785 450 Balance -1044 -783 -210 Weight 87.9 kg 84.3 kg General appearance: PRESENT: no acute distress, cooperative Head exam: PRESENT: atraumatic, normocephalic Eye exam: PRESENT: EOMI, PERRLA Mouth exam: PRESENT: neck supple Neck exam: ABSENT: meningismus, tenderness, thyromegaly, tracheal deviation Respiratory exam: PRESENT: chest wall tenderness, other - right tube thoracostomy in-palace without air leak. minimal output. Pulses: PRESENT: normal radial pulses GI/Abdominal exam: PRESENT: soft. ABSENT: distended, tenderness Rectal exam: PRESENT: deferred Extremities exam: ABSENT: clubbing Musculoskeletal exam: ABSENT: deformity Neurological exam: PRESENT: alert, awake Psychiatric exam: ABSENT: agitated, anxious, depressed Skin exam: ABSENT: erythema, jaundice Results Laboratory Results: 09/23/18 04:48 09/23/18 04:48 09/24/18 09:15 Carbonic Acid 1.11 HCO3/H2CO3 Ratio 23:1 ABG pH 7.46 H ABG pCO2 36.8 ABG pO2 45.2 L ABG HCO3 25.6 H ABG O2 Saturation 83.9 L ABG Base Excess 1.8 FiO2 5L Impressions: Head CT 09/14/18 00:00 IMPRESSION: 1. No acute intracranial abnormality by CT criteria. This exam was performed according to our departmental dose-optimization program, which includes automated exposure control, adjustment of the mA and/or kV according to patient size and/or use of iterative reconstruction technique. Head MRI 09/15/18 00:00 IMPRESSION: ATROPHY AND CHRONIC MICRO-VASCULAR ISCHEMIC CHANGES. OTHERWISE NORMAL MRI OF THE BRAIN WITHOUT INTRAVENOUS GADOLINIUM CONTRAST. EVIDENCE OF ACUTE STROKE: NO. Abdomen/Pelvis CT 09/17/18 00:00 IMPRESSION: No evidence of intra-abdominal hemorrhage. Cirrhosis with splenomegaly. TECHNICAL DOCUMENTATION: Quality ID # 436: Final reports with documentation of one or more dose reduction techniques (e.g., Automated exposure control, adjustment of the mA and/or kV according to patient size, use of iterative reconstruction technique) copyright 2010 [employer]- All Rights Reserved Chest CT 09/17/18 00:00 IMPRESSION: Consolidation/atelectasis involving the entire right lung, compatible with pneumonia. Moderate-sized right pleural effusion. Other findings as described. TECHNICAL DOCUMENTATION: Quality ID # 436: Final reports with documentation of one or more dose reduction techniques (e.g., Automated exposure control, adjustment of the mA and/or kV according to patient size, use of iterative reconstruction technique) copyright 2010 [employer]- All Rights Reserved Chest X-Ray 09/24/18 00:00 IMPRESSION: 1. Stable large bore right-sided chest tube with side port outside the thoracic cavity. No pneumothorax. 2. Minimal bibasilar opacities likely atelectasis. Assessment & Plan - Diagnosis (1) Hemothorax on right Is this a current diagnosis for this admission?: Yes - Plan Summary Plan Summary: This is an 82-year-old female status post fall. She was found to have a large right-sided hemothorax. A chest tube was placed. The drainage is minimal. She has no appreciable pneumothorax on x-ray. Plan for chest tube removal today. Her breathing appears to be much improved today.
[2018-09-24] MEDS: CEFTRIAXONE SODIUM 1,000 MG in DEXTROSE 5%-WATER 50 ML IV SCH (17:33)
[2018-09-24] MEDS: OXYBUTYNIN CHLORIDE 5 MG TABLET PO SCH (22:50)
[2018-09-24] MEDS: SERTRALINE HCL 50 MG TABLET PO SCH (22:50)
[2018-09-25] MEDS: 1/2 NORMAL SALINE 1,000 ML IV PRN (02:40)
[2018-09-25] MEDS: LEVOTHYROXINE SODIUM 0.1 MG TABLET PO SCH (05:37)
--- NOTE | 2018-09-25 07:00 | Progress Note ---
Provider Note Provider Note: Chest tube removed yesterday. No significant pneumothorax or obvious/significant reaccumulation of fluid on the right. Surgery will sign off for now. Please renotify if needed.
[2018-09-25] MEDS: IPRATROPIUM/ALBUTEROL 0.5-2.5 MG/3 ML AMPUL NEB SCH ×2 (07:57→20:28)
--- NOTE | 2018-09-25 08:39 | RADIOLOGY REPORT (SQ) ---
EXAM DESCRIPTION: CHEST SINGLE VIEW COMPLETED DATE/TIME: 09/25/2018 6:54 am REASON FOR STUDY: s/p chest tube removal COMPARISON: CT chest 731 Chest films 09/20/2018, 09/22/2018, 09/23/2018, 09/24/2018 EXAM PARAMETERS: NUMBER OF VIEWS: One view. TECHNIQUE: Single frontal radiographic view of the chest acquired. RADIATION DOSE: NA LIMITATIONS: None. FINDINGS: LUNGS AND PLEURA: Large bore right-sided chest tube has been removed. No right-sided pneu mothorax. No right pleural effusion. Minimal right lateral lung base atelectasis. Left lung and pleural space is unremarkable. MEDIASTINUM AND HILAR STRUCTURES: No masses. Contour normal. HEART AND VASCULAR STRUCTURES: Heart normal in size. Normal vasculature. BONES: Right lower lateral rib fractures are unchanged. HARDWARE: None in the chest. OTHER: No other significant finding. IMPRESSION: No pneumothorax post removal of the right chest tube. Minimal right lateral basilar atelectasis. Right lower lateral rib fractures. TECHNICAL DOCUMENTATION: JOB ID: [id number] [employer]- All Rights Reserved Reading location - IP/workstation name: [email or web address]
[2018-09-25] MEDS: INSULIN REG, HUMAN 100 UNIT/ML 3 ML VIAL (PYX) SUBCUT SCH ×4 (08:45→22:13)
[2018-09-25] MEDS: SPIRONOLACTONE 25 MG TABLET PO SCH (09:20)
[2018-09-25] MEDS: FOLIC ACID 1 MG TABLET PO SCH (09:20)
[2018-09-25] MEDS: DOCUSATE SODIUM 100 MG CAPSULE PO SCH ×2 (09:20→17:31)
[2018-09-25] MEDS: METOPROLOL TARTRATE 25 MG TABLET PO SCH ×2 (09:21→22:12)
[2018-09-25] MEDS: AMLODIPINE BESYLATE 10 MG TABLET PO SCH (09:21)
[2018-09-25] MEDS: FUROSEMIDE INJ/PF 40 MG/4 ML SDV IV SCH (09:23)
[2018-09-25] MEDS: LACTULOSE SYRUP 20 GM/30 ML UDCUP PO SCH ×2 (09:43→22:13)
[2018-09-25] MEDS: GUAIFENESIN SYRP 200 MG/10 ML UDC PO SCH ×4 (09:43→22:13)
[2018-09-25] MEDS ORDERED: KETOROLAC TROMETHAMINE INJ/PF 30 MG/1 ML SDV ONE (15:25)
[2018-09-25] MEDS ORDERED: KETOROLAC TROMETHAMINE INJ/PF 30 MG/1 ML SDV IV PRN (15:26)
--- NOTE | 2018-09-25 16:13 | PDOC PROGRESS REPORT ---
Subjective Progress Note for:: 09/25/18 Subjective:: 09/23/2018 patient comes in for decrease status secondary to hepatic encephalopathy. Patient had chest tube put in yesterday with 2 and half liters of blood being removed. Patient was in the hospital recently for fractured ribs, was then snf and due to deterioration of mental status back to the emergency room. She was found to have a pneumonia and was admitted to the hospital. 09/24/2018 patient is awake and alert following commands and answers questions BiPAP machine in place patient has been on BiPAP now for 4 days. Repeat blood gas will be drawn this morning, off of the BiPAP. She is been afebrile for 48 hours blood pressure stable around 140/50 pulse is stable at 80 white count 7.2 hemoglobin stable 7.9 lites low at 82 but stable INR 1.6 Chest x-ray from yesterday released shows both lower lobes probably still with pneumonia. Will ask general surgery about the status of the chest tube and plan. We will try to wean patient off BiPAP in anticipation for discharge. Patient was started on Rocephin yesterday,, patient had only gotten 2 days worth of Augmentin prior to this. Going to add vancomycin to her Rocephin today. 09/25/2018 general surgery pulled the chest tube yesterday and is satisfied with the follow-up x-ray. They have signed off the case. Patient did not use her BiPAP last night patient is sitting up in bed, alert. Family states they would like to take her home. Family is concerned about her pain medication would like her to have the morphine more regularly, however patient is planning to go home tomorrow and therefore IV morphine today is not a good idea, we need to see if she can be managed on p.o. analgesics. Reason For Visit: RML,RLL PNA, ACUTE ENCEPHALOPATHY Physical Exam Vital Signs: Temp Pulse Resp BP Pulse Ox 100.2 F 78 18 145/52 H 93 09/25/18 11:43 09/25/18 14:00 09/25/18 11:43 09/25/18 11:43 09/25/18 12:16 Intake & Output 09/24/18 09/25/18 09/26/18 06:59 06:59 06:59 Intake Total 1002 1830 115 Output Total 1785 1575 925 Balance -783 255 -810 Weight 84.3 kg 83.9 kg General appearance: PRESENT: no acute distress, well-developed, well-nourished Respiratory exam: PRESENT: clear to auscultation victor manuel. ABSENT: rales, rhonchi, wheezes Cardiovascular exam: PRESENT: RRR. ABSENT: diastolic murmur, rubs, systolic murmur Neurological exam: PRESENT: alert - Patient is sitting up in bed drinking a juice, she is alert oriented and answering questions appropriately. She is not complaining of any pain to me at this time, awake, oriented to person, oriented to place, oriented to time, oriented to situation, CN II-XII grossly intact. ABSENT: motor sensory deficit Psychiatric exam: PRESENT: appropriate affect, normal mood. ABSENT: homicidal ideation, suicidal ideation Results Laboratory Results: 09/23/18 04:48 09/23/18 04:48 Impressions: Head CT 09/14/18 00:00 IMPRESSION: 1. No acute intracranial abnormality by CT criteria. This exam was performed according to our departmental dose-optimization program, which includes automated exposure control, adjustment of the mA and/or kV according to patient size and/or use of iterative reconstruction technique. Head MRI 09/15/18 00:00 IMPRESSION: ATROPHY AND CHRONIC MICRO-VASCULAR ISCHEMIC CHANGES. OTHERWISE NORMAL MRI OF THE BRAIN WITHOUT INTRAVENOUS GADOLINIUM CONTRAST. EVIDENCE OF ACUTE STROKE: NO. Abdomen/Pelvis CT 09/17/18 00:00 IMPRESSION: No evidence of intra-abdominal hemorrhage. Cirrhosis with splenomegaly. TECHNICAL DOCUMENTATION: Quality ID # 436: Final reports with documentation of one or more dose reduction techniques (e.g., Automated exposure control, adjustment of the mA and/or kV according to patient size, use of iterative reconstruction technique) copyright 2010 [employer]- All Rights Reserved Chest CT 09/17/18 00:00 IMPRESSION: Consolidation/atelectasis involving the entire right lung, compatible with pneumonia. Moderate-sized right pleural effusion. Other findings as described. TECHNICAL DOCUMENTATION: Quality ID # 436: Final reports with documentation of one or more dose reduction techniques (e.g., Automated exposure control, adjustment of the mA and/or kV according to patient size, use of iterative reconstruction technique) copyright 2010 [employer]- All Rights Reserved Chest X-Ray 09/25/18 05:00 IMPRESSION: No pneumothorax post removal of the right chest tube. Minimal right lateral basilar atelectasis. Right lower lateral rib fractures. Assessment and Plan - Diagnosis (1) Acute respiratory failure with hypoxia Is this a current diagnosis for this admission?: Yes Plan: Secondary to right-sided pneumonia and pleural effusion. Management as above. 09/23/2018 patient is currently on BiPAP well as antibiotics and has a chest tube in place. Follow-up chest x-ray today. 09/24/2018 check a blood gas off the BiPAP. We will add vancomycin to the Rocephin this is day 2 of Rocephin. Patient has been on the BiPAP now for 4 days 09/25/2018 patient did not use her BiPAP last night and is not on her BiPAP now O2 is 93% on 6 L nasal cannula. She has not been on BiPAP since 2200 hrs. last night patient does not appear to be in any distress (2) Altered mental status Qualifiers: Altered mental status type: unspecified Qualified Code(s): R41.82 - Altered mental status, unspecified Is this a current diagnosis for this admission?: Yes Plan: 09/23/2018 patient's ammonia level has come back to normal now, patient is no longer confused 09/24/2018 patient is awake alert following commands 09/25/2018 vision is awake alert following commands patient is smiling sitting up in bed (3) Anemia Qualifiers: Anemia type: other cause Other causes of anemia: other cause, not classified Qualified Code(s): D64.89 - Other specified anemias Is this a current diagnosis for this admission?: Yes Plan: Now stable at 9.0 Acute blood loss anemia; unclear source at this time, possibly related to acute illness Hemoglobin 9.4 on admission; down to 6.5 despite having received only 1.5 L IV fluids. Now s/p 2 units PRBC Urinalysis is negative for blood. Hemoccult pending. Chest x-ray (09/15/2018) does show right-sided large right-sided pleural effusion. CT ABD/Pelvis negative for intra-abdominal bleeding. (+) cirrhosis on CT w/ elevated LFTs and PT/INR Monitor for signs of overt bleeding. Daily CBC and transfuse for Hgb <7 09/23/2018 H&H is stable platelets are still low stable however no indication for further transfusion. Patient had 4 units of platelets today 09/24/2018 we will recheck a CBC today, possibility of 2 units of platelets if platelets are still low. 09/25/2018 hemoglobin recently was 7.9 24.0 crit platelets are 82,000 and we will recheck labs today (4) Encephalopathy Is this a current diagnosis for this admission?: Yes Plan: Resolved; A&O x4. Multifactorial secondary to elevated LFTs with associated hyperammonemia, anemia, and hypoxia (related to anemia and right-sided pneumonia/pleural effusions). ABG improved with BiPAP support. Supplemental oxygen as needed to maintain saturations greater than 89%. Scheduled as needed nebulizer treatments. Management of elevated LFTs, anemia, pneumonia, and pleural effusions as below. Patient is a DNR/DNI 09/24/2018 encephalopathy no longer problem at this point 09/25/2018 patient is completely awake and lucid (5) Pneumonia involving right lung Qualifiers: Pneumonia type: due to unspecified organism Lung location: unspecified part of lung Qualified Code(s): J18.9 - Pneumonia, unspecified organism Is this a current diagnosis for this admission?: Yes Plan: CXR (09/15/18) Large area of right basilar consolidation and and large pleural effusion. Blood cultures are negative at 4 days Sputum cultures are pending. Patient remains afebrile with normal WBCs IV Vancomycin; discontinued on day #4 Continue Cefepime for HAP; discontinued day #5. Continue Augmentin for completion of 10-day course of therapy Supplemental oxygen, BiPAP, scheduled and as needed nebulizer treatment. 09/23/2018 patient is unable to take p.o.'s at this time and therefore is maintained on IV antibiotics 2.5 L of blood is drained from the right lower lung 09/24/2018 consult surgery about the chest tube. Day 2 oh Rocephin day 1 of vancomycin. Chest x-ray still shows probable bilateral lower lobe pneumonia 09/25/2018 this x-ray from yesterday showed no evidence of pneumonia. (6) Diabetes mellitus type 2 in obese Is this a current diagnosis for this admission?: Yes Plan: Patient is placed on a consistent carb/cardiac diet. Accu-Cheks before meals and at bedtime with sliding scale insulin for coverage. Hypoglycemia protocol in place. 09/23/2018 patient is on sliding scale with good control of glucose, patient is eating very little at this time 09/24/2018 glucose levels are under good control at approximately 110 09/25/2018 glucose levels are running around 110-120 (7) Frequent falls Is this a current diagnosis for this admission?: Yes Plan: 09/23/2018 patient is bedridden at this time no risk of falling 09/25/2018 sent is not at risk for falls now, although she was falling frequently prior to admission (8) Ribs, multiple fractures Qualifiers: Encounter type: initial encounter Fracture type: closed Laterality: right Qualified Code(s): S22.41XA - Multiple fractures of ribs, right side, initial encounter for closed fracture Is this a current diagnosis for this admission?: Yes Plan: 09/23/2018 multiple rib fractures secondary to falls outside of the hospital 09/25/2018 patient does not complain of any rib pain secondary to her fractures - Time Time Spent with patient: 35 or more minutes
[2018-09-25 17:10] LABS: HEMATOCRIT 27.9 % (36.0-47.0); MEAN CORPUSCULAR HEMOGLOBIN 32.7 pg (27.0-33.4); MEAN CORPUSCULAR HGB CONC 32.1 g/dL (32.0-36.0); MEAN CORPUSCULAR VOLUME 102 fl (80-97); RED BLOOD COUNT 2.74 10^6/uL (3.72-5.28); RED CELL DISTRIBUTION WIDTH 18.2 % (11.5-14.0); WHITE BLOOD COUNT 7.5 10^3/uL (4.0-10.5)
[2018-09-25 17:12] LABS: PLATELET COUNT 93 10^3/uL (150-450)
[2018-09-25 17:23] LABS: ANION GAP 9 (5-19); BLOOD UREA NITROGEN 32 mg/dL (7-20); CALCIUM 8.3 mg/dL (8.4-10.2); CARBON DIOXIDE 28 mmol/L (22-30); CHLORIDE 114 mmol/L (98-107); GLUCOSE 227 mg/dL (75-110)
[2018-09-25 17:25] LABS: ABSOLUTE LYMPHOCYTES# (MANUAL) 0.5 10^3/uL (0.5-4.7); ABSOLUTE MONOCYTES # (MANUAL) 0.5 10^3/uL (0.1-1.4); BAND NEUTROPHILS % (MANUAL) 1 % (3-5); BASOPHILS % (MANUAL) 0 % (0-2); EOSINOPHILS % (MANUAL) 2 % (0-6); LYMPHOCYTES % (MANUAL) 6 % (13-45); MONOCYTES % (MANUAL) 6 % (3-13); PLATELET COMMENT DECREASED; SEGMENTED NEUTROPHILS % (MAN) 85 % (42-78); TOTAL CELLS COUNTED 100
[2018-09-25 17:28] LABS: POLYCHROMASIA 1+
[2018-09-25 17:29] LABS: ANISOCYTOSIS 1+; HYPOCHROMASIA SLIGHT; POIKILOCYTOSIS SLIGHT; POTASSIUM 2.9 mmol/L (3.6-5.0); TEAR DROP CELLS SLIGHT
[2018-09-25] MEDS: CEFTRIAXONE SODIUM 1,000 MG in DEXTROSE 5%-WATER 50 ML IV SCH (17:38)
[2018-09-25] MEDS ORDERED: POTASSIUM CHLORIDE 20 MEQ PACKET PO ONE ×2 (18:29→20:15)
[2018-09-25] MEDS: SERTRALINE HCL 50 MG TABLET PO SCH (22:12)
[2018-09-25] MEDS: OXYBUTYNIN CHLORIDE 5 MG TABLET PO SCH (22:12)
[2018-09-25] MEDS: POTASSIUM CHLORIDE 20 MEQ PACKET PO SCH (22:13)
[2018-09-25] MEDS: MORPHINE SULFATE 10 MG/ML INJ IV PRN (22:17)
[2018-09-26] MEDS: 1/2 NORMAL SALINE 1,000 ML IV PRN (00:09)
[2018-09-26] MEDS: LEVOTHYROXINE SODIUM 0.1 MG TABLET PO SCH (06:38)
[2018-09-26] MEDS: INSULIN REG, HUMAN 100 UNIT/ML 3 ML VIAL (PYX) SUBCUT SCH ×2 (08:03→13:01)
[2018-09-26] MEDS: IPRATROPIUM/ALBUTEROL 0.5-2.5 MG/3 ML AMPUL NEB SCH (08:08)
[2018-09-26] MEDS: LACTULOSE SYRUP 20 GM/30 ML UDCUP PO SCH (09:45)
[2018-09-26] MEDS: GUAIFENESIN SYRP 200 MG/10 ML UDC PO SCH ×2 (09:47→13:01)
[2018-09-26] MEDS: POTASSIUM CHLORIDE 20 MEQ PACKET PO SCH (09:47)
[2018-09-26] MEDS: METOPROLOL TARTRATE 25 MG TABLET PO SCH (09:47)
[2018-09-26] MEDS: FUROSEMIDE INJ/PF 40 MG/4 ML SDV IV SCH (09:48)
[2018-09-26] MEDS: FOLIC ACID 1 MG TABLET PO SCH (09:48)
[2018-09-26] MEDS: DOCUSATE SODIUM 100 MG CAPSULE PO SCH (09:48)
[2018-09-26] MEDS: AMLODIPINE BESYLATE 10 MG TABLET PO SCH (09:57)
[2018-09-26 12:37] VITALS: BP 98/72
--- NOTE | 2018-09-26 12:52 | PDOC TRANSFER SUMMARY ---
General - Admit/Disc Date/PCP Admission Date/Primary Care Provider: 09/16/18 11:20 SABINE NEFF MD 09/26/2018 patient is being discharged to [facility] today because family is unable to care for patient at home Discharge Date: 09/26/18 - Discharge Diagnosis (1) Acute respiratory failure with hypoxia Is this a current diagnosis for this admission?: Yes Summary: 09/26/2017 patient was admitted to the hospital for hypoxia secondary to pneumonia patient was placed on BiPAP in the emergency room and was on it up to 48 hours prior to discharge. Patient is now on nasal cannula oxygen PRN (2) Altered mental status Is this a current diagnosis for this admission?: Yes Summary: 09/26/2018 1 of patient's primary complaints when she was admitted was mental status secondary to hepatic encephalopathy. Patient's ammonia level when she was admitted was 56 on 09/18/2018 it was 15.5 and on 09/22/2018 it was 15.8. Patient is still confused at the time of discharge but she is alert and pleasant (3) Anemia Is this a current diagnosis for this admission?: Yes Summary: 09/26/2018 when patient was admitted patient's hemoglobin was 9.4 and dropped to 6.5 and she was transfused at the time of discharge it is 9.0 (4) Encephalopathy Is this a current diagnosis for this admission?: Yes Summary: Patient was admitted with hepatic encephalopathy with altered mental status. A mmonia levels have improved she is now awake and alert but she is still confused to person place and time (5) Pneumonia involving right lung Is this a current diagnosis for this admission?: Yes Summary: 09/26/2017 the patient was admitted CT scan of the chest showed consolidation involving the entire right lung compatible with pneumonia moderate size right pleural effusion developed a hemothorax on the right and a chest tube was inserted with drainage of initially 2500 cc of blood. General surgery pulled the tube 2 days ago and yesterday chest x-ray showed no pneumothorax with post removal of right chest tube and only minimal right lateral basilar atelectasis. The right lower rib fractures Patient was placed on IV antibiotics and today is being switched over to a 10- day of Augmentin 875 twice daily (6) Diabetes mellitus type 2 in obese Is this a current diagnosis for this admission?: Yes Summary: Patient's blood sugars have been running anywhere from 111 up to 225. Average would be around 160 (7) Frequent falls Is this a current diagnosis for this admission?: Yes Summary: Prior to admission to the hospital patient was having frequent falls. Patient has had no falls since in the hospital. However patient was ambulatory she would be falling because of weakness and unsteadiness (8) Ribs, multiple fractures Is this a current diagnosis for this admission?: Yes Summary: Patient is not complained of any significant pain secondary to her rib fractures in several days although the family has been requesting pain medication for her - Additional Information Resuscitation Status: Do Not Resuscitate Discharge Diet: As Tolerated Discharge Activity: Activity As Tolerated Prescriptions: Amox Tr/Potassium Clavulanate [Augmentin 875-125 mg Tablet] 1 tab PO BID #20 tablet Home Medications: Amlodipine Besylate [Norvasc 10 mg Tablet] 10 mg PO DAILY 09/14/18 Benazepril HCl [Lotensin 20 mg Tablet] 20 mg PO Q12 09/14/18 Folic Acid [Folvite 1 mg Tablet] 1 mg PO DAILY 09/14/18 Levothyroxine Sodium [Synthroid] 200 mcg PO Q6AM 09/14/18 Methotrexate Sodium [Rheumatrex 2.5 mg Tablet] 10 mg PO FR@1000 09/14/18 Metoprolol Tartrate [Lopressor 25 mg Tablet] 12.5 mg PO Q12 09/14/18 Omeprazole 20 mg PO DAILY 09/14/18 Oxybutynin Chloride [Ditropan Xl] 10 mg PO QHS 09/14/18 Potassium Chloride [Klor-Con 10 Meq Capsule ER] 20 meq PO BID 09/14/18 Sertraline HCl [Zoloft] 100 mg PO QHS 09/14/18 Oxycodone HCl/Acetaminophen [Percocet 5-325 mg Tablet] 1 tab PO Q6HP PRN 09/15/18 Acetaminophen [Tylenol 325 mg Tablet] 650 mg PO Q4HP PRN tablet 09/26/18 Amox Tr/Potassium Clavulanate [Augmentin 875-125 mg Tablet] 1 tab PO BID #20 tablet 09/26/18 Ibuprofen [Motrin 600 mg Tablet] 600 mg PO Q8HP PRN tablet 09/26/18 Potassium Chloride [Potassium Chloride 20 Meq Packet] 20 meq PO BID packet 09/26/18 Potassium Chloride [Potassium Chloride 20 Meq Packet] 20 meq PO Q12 #0 packet 09/26/18 History of Present Illness Admission Date/PCP: 09/16/18 11:20 SABINE NEFF MD Please see the notes dictated in the chart she was admitted secondary to hepatic encephalopathy hypoxia secondary to pneumonia and frequent falls History of Present Illness: JAJA SHABAZZ is a 82 year old female Hospital Course Hospital Course: Patient was started on IV antibiotics consisting of Rocephin, she has been on this now for 9 days. On discharge she will be sent out on Augmentin 875 #21 twice daily Physical Exam Vital Signs: Temp Pulse Resp BP Pulse Ox 97.7 F 66 20 126/49 H 97 09/26/18 03:33 09/26/18 08:08 09/26/18 08:08 09/26/18 03:33 09/26/18 08:08 Intake & Output 09/25/18 09/26/18 09/27/18 06:59 06:59 06:59 Intake Total 1880 1398 573 Output Total 1575 1575 Balance 305 -177 573 Weight 83.9 kg 83.3 kg General appearance: PRESENT: no acute distress, well-developed, well-nourished Head exam: PRESENT: atraumatic, normocephalic Respiratory exam: PRESENT: decreased breath sounds, other - No respiratory distress at this time, patient is talking in full sentences Cardiovascular exam: PRESENT: RRR. ABSENT: diastolic murmur, rubs, systolic murmur Neurological exam: PRESENT: alert, altered, other - Patient is confused disoriented to person place and time Psychiatric exam: PRESENT: flat affect, other - Patient's affect is somewhat flat but when spoken to she smiles and responds Results Laboratory Results: 09/25/18 16:47 09/25/18 16:47 09/25/18 09/25/18 16:47 16:47 WBC 7.5 RBC 2.74 L Hgb 9.0 L Hct 27.9 L MCV 102 H MCH 32.7 MCHC 32.1 RDW 18.2 H Plt Count 93 L Seg Neutrophils % Not Reportable Lymphocytes % Not Reportable Monocytes % Not Reportable Eosinophils % Not Reportable Basophils % Not Reportable Absolute Neutrophils Not Reportable Absolute Lymphocytes Not Reportable Absolute Monocytes Not Reportable Absolute Eosinophils Not Reportable Absolute Basophils Not Reportable Sodium 151.3 H Potassium 2.9 L* Chloride 114 H Carbon Dioxide 28 Anion Gap 9 BUN 32 H Creatinine 1.39 H Est GFR ( Amer) 44 L Est GFR (Non-Af Amer) 36 L Glucose 227 H Calcium 8.3 L Impressions: Head CT 09/14/18 00:00 IMPRESSION: 1. No acute intracranial abnormality by CT criteria. This exam was performed according to our departmental dose-optimization program, which includes automated exposure control, adjustment of the mA and/or kV according to patient size and/or use of iterative reconstruction technique. Head MRI 09/15/18 00:00 IMPRESSION: ATROPHY AND CHRONIC MICRO-VASCULAR ISCHEMIC CHANGES. OTHERWISE NORMAL MRI OF THE BRAIN WITHOUT INTRAVENOUS GADOLINIUM CONTRAST. EVIDENCE OF ACUTE STROKE: NO. Abdomen/Pelvis CT 09/17/18 00:00 IMPRESSION: No evidence of intra-abdominal hemorrhage. Cirrhosis with splenomegaly. TECHNICAL DOCUMENTATION: Quality ID # 436: Final reports with documentation of one or more dose reduction techniques (e.g., Automated exposure control, adjustment of the mA and/or kV according to patient size, use of iterative reconstruction technique) copyright 2010 [employer]- All Rights Reserved Chest CT 09/17/18 00:00 IMPRESSION: Consolidation/atelectasis involving the entire right lung, compatible with pneumonia. Moderate-sized right pleural effusion. Other findings as described. TECHNICAL DOCUMENTATION: Quality ID # [id number]: Final reports with documentation of one or more dose reduction techniques (e.g., Automated exposure control, adjustment of the mA and/or kV according to patient size, use of iterative reconstruction technique) copyright 2011 [employer]- All Rights Reserved Chest X-Ray 09/25/18 05:00 IMPRESSION: No pneumothorax post removal of the right chest tube. Minimal right lateral basilar atelectasis. Right lower lateral rib fractures. Transfer Plan - Disposition Transfer Plan: Patient will need occupational health , physical therapy and longterm facility. Patient will need to be on Augmentin 875 1 tablet twice daily for 10 days, plus or other medications as per the discharge summary - Time Spent with Patient Time spent with patient: Greater than 30 Minutes Qualifiers - * PATIENT BEING DISCHARGED WITH ANY OF THE FOLLOWING DIAGNOSIS: No Acute Heart Failure - Is this a Heart Failure Patient?: No Plan Time Spent: Greater than 30 Minutes
== END 2018-09-26 15:49 | DRG 441 ==
LOC: ER 19:37 → EH 09-15 00:14 → 4N 09-15 02:09 → OBSVTOIN 09-16 11:20 → 3W 09-17 15:45
PROVIDERS: ADMIT Emergency Medicine; ATTEND Emergency Medicine
PROC: 30233N1 Transfusion of Nonautologous Red Blood Cells into Peripheral Vein, Percutaneous Approach (ICD-10-PCS; principal; 2018-09-16)
PROC: 5A09557 Assistance with Respiratory Ventilation, Greater than 96 Consecutive Hours, Continuous Positive Airway Pressure (ICD-10-PCS; 2018-09-16)
PROC: 30233L1 Transfusion of Nonautologous Fresh Plasma into Peripheral Vein, Percutaneous Approach (ICD-10-PCS; 2018-09-21)
PROC: 0W9930Z Drainage of Right Pleural Cavity with Drainage Device, Percutaneous Approach (ICD-10-PCS; 2018-09-22)
DX: K72.90 Hepatic failure, unspecified without coma (principal); J18.9 Pneumonia, unspecified organism; J96.01 Acute respiratory failure with hypoxia; N39.0 Urinary tract infection, site not specified; N17.9 Acute kidney failure, unspecified; D62 Acute posthemorrhagic anemia; J91.8 Pleural effusion in other conditions classified elsewhere; J94.2 Hemothorax; Z66 Do not resuscitate; R29.6 Repeated falls; E78.5 Hyperlipidemia, unspecified; G47.30 Sleep apnea, unspecified; E03.9 Hypothyroidism, unspecified; M06.9 Rheumatoid arthritis, unspecified; F32.9 Major depressive disorder, single episode, unspecified; E66.9 Obesity, unspecified; E11.22 Type 2 diabetes mellitus with diabetic chronic kidney disease; D63.1 Anemia in chronic kidney disease; N18.3 Chronic kidney disease, stage 3 (moderate); K74.60 Unspecified cirrhosis of liver; Z79.899 Other long term (current) drug therapy; Z79.890 Hormone replacement therapy; Z79.891 Long term (current) use of opiate analgesic; Z83.3 Family history of diabetes mellitus; Z82.49 Family history of ischemic heart disease and other diseases of the circulatory system
CPT/HCPCS: 36415; 36430; 36600; 70450; 70551; 71045; 71250; 74176; 80048; 80053; 80074; 80076; 80202; 81001; 82140; 82272; 82607; 82728; 82746; 82803; 82962; 83540; 83550; 83615; 83735; 83930; 83935; 84300; 84439; 84443; 85025; 85027; 85045; 85610; 85730; 86850; 86900; 86901; 86920; 87040; 93005; 93010; 94660; 96360; 99285; G0378; J0692; J0696; J1815; J1885; J1940; J2270; J3370; J3490; J7030; J7060; J7120; J7620; P9016; P9017

== ENCOUNTER 2018-10-07 00:46 | Emergency (ER) | payer MEDICARE ==
[2018-10-07] MEDS ORDERED: NORMAL SALINE 1000 ML 1,000 ML IV ONE (01:29)
--- NOTE | 2018-10-07 01:36 | ER Document Report ---
ED General - General Chief Complaint: Other Stated Complaint: ALTERED MENTAL STATUS Time Seen by Provider: 10/07/18 01:15 Primary Care Provider: SABINE NEFF MD [Primary Care Provider] - Follow up as needed TRAVEL OUTSIDE OF THE [place] IN LAST 30 DAYS: No - HPI Notes: Patient is a 82-year-old female that presents to the emergency department for chief complaint of vomiting and weakness. Patient reports 3 episodes of emesis over the last 3 days. She states she has been intermittently nauseated. She denies any associated abdominal pain. She has been having normal bowel movements and denies diarrhea black or bloody stools. Patient had recent admission to the hospital for hepatic encephalopathy and respiratory failure. She was on antibiotics for pneumonia and her last dose was yesterday. Patient did have a chest tube pulled prior to being discharged home that had been placed for hemothorax. She did receive a unit of blood transfusion in the hospital. Family states that yesterday she started to look pale again. She has been on nasal cannula oxygen since being discharged and they deny any change in her breathing. Patient denies chest pain and shortness of breath. Past Medical History: Diabetes, hypertension, cirrhosis, CKD Past Surgical History: Reviewed in chart Social History: Currently living in nursing facility. Family History: Reviewed and noncontributory for presenting illness Allergies: Reviewed, see documented allergy list. REVIEW OF SYSTEMS: CONSTITUTIONAL : No fever No chills No diaphoresis recent illness EENT: No vision changes No congestion No sore throat CARDIOVASCULAR: No chest pain No palpitations RESPIRATORY: No shortness of breath No cough No difficulty breathing GASTROINTESTINAL: No abdominal pain nausea vomiting No diarrhea GENITOURINARY: No dysuria No hematuria No difficulty urinating MUSCULOSKELETAL: No back pain No leg pain No arm pain SKIN: No rashes No lesions Palor LYMPHATIC: No swollen, enlarged glands. NEUROLOGICAL: No lightheadedness No headache No weakness No paresthesias PSYCHIATRIC: No anxiety No depression PHYSICAL EXAMINATION: Vital signs reviewed, nursing noted reviewed. GENERAL: Well-appearing, well-nourished and in no acute distress. HEAD: Atraumatic, normocephalic. EYES: Eyes appear normal, extraocular movements intact, sclera anicteric, conjunctiva are normal. ENT: nares patent, oropharynx clear without exudates. Moist mucous membranes. NECK: Normal range of motion, supple without lymphadenopathy LUNGS: Breath sounds slightly diminished to auscultation bilaterally and equal. No wheezes rales or rhonchi. No tachypnea or accessory muscle use. HEART: Regular rate and rhythm without murmurs ABDOMEN: Protuberant, soft, nontender, normoactive bowel sounds. No rebound, guarding, or rigidity. No masses appreciated. EXTREMITIES: Nontender, good range of motion NEUROLOGICAL: Alert and conversational. Oriented to person, place, situation and month. Disoriented to year. Moves all extremities spontaneously Motor and sensory grossly intact on exam. PSYCH: Normal mood, normal affect. SKIN: Warm, Dry, normal turgor, well-healed incision to right lateral chest where chest tube was placed, No wound dehiscence. - Related Data Allergies/Adverse Reactions: No Known Allergies Allergy (Verified 10/07/18 01:26) Past Medical History - Social History Smoking Status: Never Smoker Family History: DM, Hypertension, Malignancy - Past Medical History Cardiac Medical History: Reports: Hx Hypercholesterolemia, Hx Hypertension - medicated Denies: Hx Atrial Fibrillation, Hx Congestive Heart Failure, Hx Coronary Artery Disease, Hx Heart Attack Pulmonary Medical History: Reports: Hx Sleep Apnea, Hx Tuberculosis Denies: Hx Asthma, Hx COPD Neurological Medical History: Denies: Hx Cerebrovascular Accident, Hx Seizures Endocrine Medical History: Reports: Hx Diabetes Mellitus Type 2, Hx Hypothyroidism. Denies: Hx Diabetes Mellitus Type 1, Hx Hyperthyroidism Renal/ Medical History: Denies: Hx Peritoneal Dialysis GI Medical History: Reports: Hx Colonoscopy, Hx Endoscopy. Denies: Hx Cirrhosis, Hx Hepatitis, Hx Hiatal Hernia, Hx Ulcer Musculoskeletal Medical History: Reports Hx Arthritis - RA, Denies Hx Gout Skin Medical History: Denies Hx Eczema, Denies Hx Psoriasis Psychiatric Medical History: Reports: Hx Anxiety, Hx Depression Infectious Medical History: Denies: Hx Hepatitis Past Surgical History: Reports: Hx Tonsillectomy, Hx Tubal Ligation. Denies: Hx Hysterectomy, Hx Mastectomy, Hx Open Heart Surgery, Hx Pacemaker - Immunizations Immunizations up to date: No Hx Diphtheria, Pertussis, Tetanus Vaccination: No Hx Pneumococcal Vaccination: 12/19/18 Physical Exam - Vital signs Vitals: Temp Pulse Resp BP Pulse Ox 98.7 F 59 L 20 126/68 H 95 10/07/18 00:50 10/07/18 00:50 10/07/18 00:50 10/07/18 00:50 10/07/18 00:50 Course - Re-evaluation Re-evalutation: 10/07/18 05:02 Vitals reviewed. Nursing notes reviewed. Patient's work-up today shows very similar lab results from when she was discharged to the nursing home facility. She is currently on 3 L nasal cannula oxygen which she has been on since being discharged as well. Patient's hemoglobin today is slightly less than when she was discharged but she has no current signs of active bleeding. Chest x-ray shows no reaccumulation of her hemothorax. Patient has no leuk ocytosis to suggest underlying infection. Urinalysis does have some leukocytes and WBCs, patient asymptomatic of acute UTI but urine culture will be added for confirmation. Patient has a negative ammonia normal liver function testing today, she does not have hepatic encephalopathy today. Her abdominal exam is soft without tenderness to necessitate further imaging. Patient is mentating and has been in good spirits while in the emergency room. She has had poor oral intake since being discharged to the nursing home facility which is likely eating in her continued fatigue. Patient was encouraged to try a boost or Ensure drink to supplement her nutrition and to continue working with her physical therapist. At this point I recommend close outpatient follow-up and monitoring of her vomiting. Family counseled on return precautions. Patient stable for discharge. Laboratory 10/07/18 10/07/18 10/07/18 02:35 02:40 03:15 WBC 4.4 RBC 2.59 L Hgb 8.2 L Hct 25.8 L MCV 100 H MCH 31.8 MCHC 31.9 L RDW 17.8 H Plt Count 82 L Seg Neutrophils % 43.6 Lymphocytes % 41.2 Monocytes % 10.7 Eosinophils % 3.6 Basophils % 0.9 Absolute Neutrophils 1.9 Absolute Lymphocytes 1.8 Absolute Monocytes 0.5 Absolute Eosinophils 0.2 Absolute Basophils 0.0 Carbonic Acid HCO3/H2CO3 Ratio ABG pH ABG pCO2 ABG pO2 ABG HCO3 ABG Total CO2 ABG O2 Saturation ABG Base Excess FiO2 Sodium Potassium Chloride Carbon Dioxide Anion Gap BUN Creatinine Est GFR ( Amer) Est GFR (Non-Af Amer) Glucose Calcium Total Bilirubin Direct Bilirubin Neonat Total Bilirubin Neonat Direct Bilirubin Neonat Indirect Bili AST ALT Alkaline Phosphatase Ammonia < 8.7 L Troponin I Total Protein Albumin Urine Color YELLOW Urine Appearance CLOUDY Urine pH 7.0 Ur Specific [place] 1.010 Urine Protein NEGATIVE Urine Glucose (UA) NEGATIVE Urine Ketones NEGATIVE Urine Blood SMALL H Urine Nitrite NEGATIVE Urine Bilirubin NEGATIVE Urine Urobilinogen NEGATIVE Ur Leukocyte Esterase TRACE H Urine WBC (Auto) 5 Urine RBC (Auto) 11 U Hyaline Cast (Auto) 3 Urine Bacteria (Auto) TRACE Squamous Epi Cells Auto 3 Urine Mucus (Auto) RARE Urine Ascorbic Acid NEGATIVE 10/07/18 10/07/18 10/07/18 03:15 03:15 03:15 WBC RBC Hgb Hct MCV MCH MCHC RDW Plt Count Seg Neutrophils % Lymphocytes % Monocytes % Eosinophils % Basophils % Absolute Neutrophils Absolute Lymphocytes Absolute Monocytes Absolute Eosinophils Absolute Basophils Carbonic Acid 1.03 L HCO3/H2CO3 Ratio 21:1 ABG pH 7.42 ABG pCO2 34.2 L ABG pO2 70.1 L ABG HCO3 21.8 ABG Total CO2 22.9 ABG O2 Saturation 94.6 ABG Base Excess -2.2 FiO2 2L Sodium 135.6 L Potassium 5.0 Chloride 108 H Carbon Dioxide 20 L Anion Gap 8 BUN 9 Creatinine 1.12 Est GFR ( Amer) 57 L Est GFR (Non-Af Amer) 47 L Glucose 102 Calcium 8.4 Total Bilirubin 1.3 Direct Bilirubin 0.7 H Neonat Total Bilirubin Not Reportable Neonat Direct Bilirubin Not Reportable Neonat Indirect Bili Not Reportable AST 67 H ALT 37 Alkaline Phosphatase 86 Ammonia Troponin I < 0.012 Total Protein 7.1 Albumin 2.5 L Urine Color Urine Appearance Urine pH Ur Specific [place] Urine Protein Urine Glucose (UA) Urine Ketones Urine Blood Urine Nitrite Urine Bilirubin Urine Urobilinogen Ur Leukocyte Esterase Urine WBC (Auto) Urine RBC (Auto) U Hyaline Cast (Auto) Urine Bacteria (Auto) Squamous Epi Cells Auto Urine Mucus (Auto) Urine Ascorbic Acid Chest X-Ray 10/07/18 01:15 IMPRESSION: No acute cardiopulmonary process copyright 2011 [employer]- All Rights Reserved - Vital Signs Vital signs: Temp Pulse Resp BP Pulse Ox 98.7 F 59 L 20 126/68 H 95 10/07/18 00:50 10/07/18 00:50 10/07/18 00:50 10/07/18 00:50 10/07/18 00:50 - Laboratory Result Diagrams: 10/07/18 03:15 10/07/18 03:15 Laboratory results interpreted by me: 10/07/18 10/07/18 10/07/18 02:35 02:40 03:15 RBC 2.59 L Hgb 8.2 L Hct 25.8 L MCV 100 H MCHC 31.9 L RDW 17.8 H Plt Count 82 L Carbonic Acid ABG pCO2 ABG pO2 Sodium Chloride Carbon Dioxide Est GFR ( Amer) Est GFR (Non-Af Amer) Direct Bilirubin AST Ammonia < 8.7 L Albumin Urine Blood SMALL H Ur Leukocyte Esterase TRACE H 10/07/18 10/07/18 03:15 03:15 RBC Hgb Hct MCV MCHC RDW Plt Count Carbonic Acid 1.03 L ABG pCO2 34.2 L ABG pO2 70.1 L Sodium 135.6 L Chloride 108 H Carbon Dioxide 20 L Est GFR ( Amer) 57 L Est GFR (Non-Af Amer) 47 L Direct Bilirubin 0.7 H AST 67 H Ammonia Albumin 2.5 L Urine Blood Ur Leukocyte Esterase - EKG Interpretation by Me Additional EKG results interpreted by me: 10/07/18 01:55 Interpreted by myself [id number]: Normal sinus rhythm, rate 56, normal axis, no ectopy, no STEMI, new T wave inversion in aVR Discharge - Discharge Clinical Impression: Nausea and vomiting Qualifiers: Vomiting type: unspecified Vomiting Intractability: non-intractable Qualified Code(s): R11.2 - Nausea with vomiting, unspecified Fatigue Qualifiers: Fatigue type: unspecified Qualified Code(s): R53.83 - Other fatigue Condition: Stable Disposition: HOME, SELF-CARE Instructions: Vomiting ([facility]), Intravenous (IV) Fluids ([facility]) Additional Instructions: Please return to the emergency department if you have any worsening, or concern of your symptoms. Please return to the emergency department if you develop chest pain, difficulty breathing, severe abdominal pain, or ongoing vomiting. Please follow-up with your primary care physician in 1-2 days and any other recommended physicians. If prescribed, take all medications as directed. If you have any questions or concerns do not hesitate to return the emergency department for evaluation. Drink a boost or Ensure 1-2 times daily to help supplement your nutrition Referrals: SABINE NEFF MD [Primary Care Provider] - Follow up tomorrow
--- NOTE | 2018-10-07 02:03 | RADIOLOGY REPORT (SQ) ---
EXAM DESCRIPTION: XR CHEST 1 VIEW COMPLETED DATE/TME: 10/07/2018 01:15 CLINICAL HISTORY: 82 years, Female, CONFUSED COMPARISON: 09/25/2018 chest NUMBER OF VIEWS: 1 TECHNIQUE: Portable chest LIMITATIONS: None. FINDINGS: The heart size is normal. Mild elevation of the right hemidiaphragm. Osteopenia with multiple right rib fractures, as before. Lungs clear. No pneumothorax IMPRESSION: No acute cardiopulmonary process copyright 2010 [employer]- All Rights Reserved
[2018-10-07 02:12] VITALS: BP 126/68
[2018-10-07 03:19] LABS: APPEARANCE,URINE CLOUDY; BILIRUBIN,URINE NEGATIVE (NEGATIVE); COLOR,URINE YELLOW; GLUCOSE, URINE NEGATIVE (NEGATIVE); KETONES,URINE NEGATIVE (NEGATIVE); LEUKOCYTE ESTERASE,URINE TRACE (NEGATIVE); NITRITE,URINE NEGATIVE (NEGATIVE); PROTEIN,URINE NEGATIVE (NEGATIVE); UROBILINOGEN,URINE NEGATIVE mg/dL (<2.0)
[2018-10-07 03:36] LABS: ARTERIAL BLOOD BASE EXCESS -2.2 mmol/L; ARTERIAL BLOOD H2CO3 1.03 mmol/L (1.05-1.35); ARTERIAL BLOOD HCO3 21.8 mmol/L (20-24); ARTERIAL BLOOD O2 SATURATION 94.6 % (94-98); ARTERIAL BLOOD PCO2 34.2 mmHg (35-45); ARTERIAL BLOOD PH 7.42 (7.35-7.45); ARTERIAL BLOOD PO2 70.1 mmHg (80-100); ARTERIAL BLOOD TOTAL CO2 22.9 mmol/L (21-25)
[2018-10-07 03:37] LABS: ABSOLUTE EOSINOPHILS # (AUTO) 0.2 10^3/uL (0.0-0.6); ABSOLUTE LYMPHOCYTES (AUTO) 1.8 10^3/uL (0.5-4.7); ABSOLUTE MONOCYTES (AUTO) 0.5 10^3/uL (0.1-1.4); ABSOLUTE NEUT (AUTO) 1.9 10^3/uL (1.7-8.2); ARTERIAL BLOOD FIO2 2L; BASOPHILS % (AUTO) 0.9 % (0-2); EOSINOPHILS % (AUTO) 3.6 % (0-6); HEMATOCRIT 25.8 % (36.0-47.0); HEMOGLOBIN 8.2 g/dL (12.0-15.5); LYMPHOCYTES % (AUTO) 41.2 % (13-45); MEAN CORPUSCULAR HEMOGLOBIN 31.8 pg (27.0-33.4); MEAN CORPUSCULAR HGB CONC 31.9 g/dL (32.0-36.0); MEAN CORPUSCULAR VOLUME 100 fl (80-97); MONOCYTES % (AUTO) 10.7 % (3-13); RED BLOOD COUNT 2.59 10^6/uL (3.72-5.28); RED CELL DISTRIBUTION WIDTH 17.8 % (11.5-14.0); SEGMENTED NEUTROPHILS % (AUTO) 43.6 % (42-78); TOTAL CELLS COUNTED % (AUTO) 100 %; WHITE BLOOD COUNT 4.4 10^3/uL (4.0-10.5)
[2018-10-07 03:56] LABS: ALBUMIN 2.5 g/dL (3.5-5.0); ALKALINE PHOSPHATASE 86 U/L (38-126); ANION GAP 8 (5-19); ASPARTATE AMINO TRANSFERASE 67 U/L (14-36); BILIRUBIN,DIRECT 0.7 mg/dL (0.0-0.4); BILIRUBIN,TOTAL 1.3 mg/dL (0.2-1.3); BLOOD UREA NITROGEN 9 mg/dL (7-20); CALCIUM 8.4 mg/dL (8.4-10.2); CARBON DIOXIDE 20 mmol/L (22-30); CHLORIDE 108 mmol/L (98-107); GLUCOSE 102 mg/dL (75-110); TOTAL PROTEIN 7.1 g/dL (6.3-8.2)
[2018-10-07 04:04] LABS: PLATELET COUNT 82 10^3/uL (150-450)
--- NOTE | 2018-10-07 10:13 | EKG REPORT ---
SEVERITY:- NORMAL ECG - SINUS RHYTHM : Confirmed by: Asmita Gamboa MD 07-Oct-2018 10:12:27
== END 2018-10-07 09:00 | disposition home or self-care (01) ==
LOC: ER 00:46
DX: R11.2 Nausea with vomiting, unspecified (principal); R53.83 Other fatigue; R53.1 Weakness; R23.1 Pallor; R41.0 Disorientation, unspecified; E11.9 Type 2 diabetes mellitus without complications; I10 Essential (primary) hypertension; Z99.81 Dependence on supplemental oxygen; Z98.890 Other specified postprocedural states
CPT/HCPCS: 93005; 36415; 82140; 82803; 85025; 87070; 81001; 84484; 71045; 93010; J7030; 87086; 87088; 96360; 96361; 99285

== ENCOUNTER 2018-11-13 13:02 | Emergency (ER) | payer MEDICARE ==
--- NOTE | 2018-11-13 13:16 | ER Document Report ---
ED Medical Screen (RME) - General Stated Complaint: VOMITING/NAUSEA Time Seen by Provider: 11/13/18 13:10 Primary Care Provider: SABINE NEFF MD [Primary Care Provider] - Follow up as needed Mode of Arrival: Medic Information source: Patient, Relative, Emergency Med Personnel Notes: 83-year-old female presents to the emergency department with history of liver failure is on hospice with also history of dementia diabetes high blood pressure. Presents to the hospital with abdominal pain and vomiting up possibly bowel emesis. No complaints of fever. Patient denies abdominal pain with p alpation. Daughter reports abdomen different from normal. I have greeted and performed a rapid initial assessment of this patient. A comprehensive ED assessment and evaluation of the patient, analysis of test results and completion of the medical decision making process will be conducted by additional ED providers. Dictation of this chart was performed using voice recognition software; theref ore, there may be some unintended grammatical errors. TRAVEL OUTSIDE OF THE [place] IN LAST 30 DAYS: No - Related Data Allergies/Adverse Reactions: No Known Allergies Allergy (Verified 11/13/18 13:10) Past Medical History - Past Medical History Cardiac Medical History: Reports: Hx Hypercholesterolemia, Hx Hypertension - medicated Denies: Hx Atrial Fibrillation, Hx Congestive Heart Failure, Hx Coronary Artery Disease, Hx Heart Attack Pulmonary Medical History: Reports: Hx Sleep Apnea, Hx Tuberculosis Denies: Hx Asthma, Hx COPD Neurological Medical History: Denies: Hx Cerebrovascular Accident, Hx Seizures Endocrine Medical History: Reports: Hx Diabetes Mellitus Type 2, Hx Hypothyroidism. Denies: Hx Diabetes Mellitus Type 1, Hx Hyperthyroidism Renal/ Medical History: Denies: Hx Peritoneal Dialysis GI Medical History: Reports: Hx Colonoscopy, Hx Endoscopy. Denies: Hx Cirrhosis, Hx Hepatitis, Hx Hiatal Hernia, Hx Ulcer Musculoskeltal Medical History: Reports Hx Arthritis - RA, Denies Hx Gout Skin Medical History: Denies Hx Eczema, Denies Hx Psoriasis Psychiatric Medical History: Reports: Hx Anxiety, Hx Depression Infectious Medical History: Denies: Hx Hepatitis Past Surgical History: Reports: Hx Tonsillectomy, Hx Tubal Ligation. Denies: Hx Hysterectomy, Hx Mastectomy, Hx Open Heart Surgery, Hx Pacemaker - Immunizations Immunizations up to date: No Hx Diphtheria, Pertussis, Tetanus Vaccination: No Physical Exam - Vital signs Vitals: Temp Pulse Resp BP Pulse Ox 97.9 F 94 16 143/73 H 93 09/26/19 13:06 11/13/18 13:06 11/13/18 13:06 11/13/18 13:06 11/13/18 13:06 Course - Vital Signs Vital signs: Temp Pulse Resp BP Pulse Ox 97.9 F 94 16 143/73 H 93 11/13/18 13:06 11/13/18 13:06 11/13/18 13:06 11/13/18 13:06 11/13/18 13:06 Doctor's Discharge - Discharge Referrals: SABINE NEFF MD [Primary Care Provider] - Follow up as needed
[2018-11-13 14:14] LABS: ABSOLUTE BASOPHILS # (AUTO) 0.1 10^3/uL (0.0-0.2); ABSOLUTE EOSINOPHILS # (AUTO) 0.1 10^3/uL (0.0-0.6); ABSOLUTE LYMPHOCYTES (AUTO) 1.7 10^3/uL (0.5-4.7); ABSOLUTE MONOCYTES (AUTO) 0.5 10^3/uL (0.1-1.4); ABSOLUTE NEUT (AUTO) 3.5 10^3/uL (1.7-8.2); BASOPHILS % (AUTO) 1.2 % (0-2); EOSINOPHILS % (AUTO) 2.5 % (0-6); HEMATOCRIT 38.4 % (36.0-47.0); HEMOGLOBIN 12.4 g/dL (12.0-15.5); LYMPHOCYTES % (AUTO) 29.2 % (13-45); MEAN CORPUSCULAR HEMOGLOBIN 29.1 pg (27.0-33.4); MEAN CORPUSCULAR HGB CONC 32.2 g/dL (32.0-36.0); MEAN CORPUSCULAR VOLUME 91 fl (80-97); MONOCYTES % (AUTO) 7.9 % (3-13); PLATELET COUNT 145 10^3/uL (150-450); RED BLOOD COUNT 4.24 10^6/uL (3.72-5.28); RED CELL DISTRIBUTION WIDTH 17.6 % (11.5-14.0); SEGMENTED NEUTROPHILS % (AUTO) 59.2 % (42-78); TOTAL CELLS COUNTED % (AUTO) 100 %; WHITE BLOOD COUNT 5.9 10^3/uL (4.0-10.5)
[2018-11-13 14:36] LABS: ALBUMIN 3.2 g/dL (3.5-5.0); ALKALINE PHOSPHATASE 143 U/L (38-126); ANION GAP 9 (5-19); ASPARTATE AMINO TRANSFERASE 68 U/L (14-36); BILIRUBIN,TOTAL 2.4 mg/dL (0.2-1.3); BLOOD UREA NITROGEN 8 mg/dL (7-20); CALCIUM 8.6 mg/dL (8.4-10.2); CARBON DIOXIDE 25 mmol/L (22-30); CHLORIDE 105 mmol/L (98-107); GLUCOSE 168 mg/dL (75-110); POTASSIUM 3.2 mmol/L (3.6-5.0); TOTAL PROTEIN 9.2 g/dL (6.3-8.2)
--- NOTE | 2018-11-13 14:38 | RADIOLOGY REPORT (SQ) ---
EXAM DESCRIPTION: KUB/ABDOMEN (SINGLE VIEW) COMPLETED DATE/TIME: 11/13/2018 2:12 pm REASON FOR STUDY: vomiting, ?bm COMPARISON: CT abdomen pelvis 09/17/2018, 08/27/2018 NUMBER OF VIEWS: One view. TECHNIQUE: Supine radiographic image of the abdomen acquired. LIMITATIONS: None. FINDINGS: BOWEL GAS PATTERN: Abnormal but nonspecific bowel gas pattern, with air-filled nondistende d small bowel loops in the mid abdomen. Gas and stool in the ascending colon and rectosigmoid. Stom ach decompressed. CALCIFICATIONS: No suspicious calcifications. SOFT TISSUES: No gross mass or suggestion of organomegaly. HARDWARE: Clips post bilateral tubal ligation BONES: No acute fracture. No worrisome bone lesions. OTHER: No other significant finding. IMPRESSION: Nonspecific abnormal bowel gas pattern with air in nondistended small bowel loops in the mid abdomen, gas and stool in the ascending colon and rectosigmoid. Stomach decompressed. TECHNICAL DOCUMENTATION: JOB ID: [id number] [employer]- All Rights Reserved Reading location - IP/workstation name: [email or web address]
[2018-11-13] MEDS ORDERED: ONDANSETRON HCL INJ/PF 4 MG/2 ML SDV IV ONE (17:32)
[2018-11-13] MEDS ORDERED: LACTULOSE SYRUP 20 GM/30 ML UDCUP PO ONE (17:32)
[2018-11-13] MEDS ORDERED: POTASSIUM CHLORIDE 10 MEQ CAPSULE.ER PO ONE (17:33)
[2018-11-13 17:36] LABS: APPEARANCE,URINE SLIGHTLY-CLOUDY; BILIRUBIN,URINE NEGATIVE (NEGATIVE); COLOR,URINE AMBER; GLUCOSE, URINE NEGATIVE (NEGATIVE); KETONES,URINE NEGATIVE (NEGATIVE); LEUKOCYTE ESTERASE,URINE LARGE (NEGATIVE); NITRITE,URINE NEGATIVE (NEGATIVE); PROTEIN,URINE 30 mg/dL (NEGATIVE); URINE SPECIFIC GRAVITY 1.016
--- NOTE | 2018-11-13 17:36 | ER Document Report ---
ED General - General Chief Complaint: Abdominal Pain Stated Complaint: VOMITING/NAUSEA Time Seen by Provider: 11/13/18 13:10 Primary Care Provider: SABINE NEFF MD [Primary Care Provider] - Follow up as needed Mode of Arrival: Medic TRAVEL OUTSIDE OF THE [place] IN LAST 30 DAYS: No - HPI Notes: Patient is an 83-year-old female with a history of end-stage liver disease, on hospice, who presents emergency department for evaluation of vomiting and diffus e abdominal pain. Patient had one episode of emesis today. She states it was kind of dark. She states her last bowel movement was 2 days ago. On Saturday she had 2 formed bowel movements. She has not moved her bowels since then. Her overall condition is deteriorated significantly since she sustained multiple rib fractures in August. She was found to have severe liver disease. At this point she is generally too weak to walk. She not ambulating much, her appetite is significantly decreased. She is still urinating. According to family they have taken her off most of her medications. Patient currently states that she has a mild aching abdominal pain that she rates a 2 out of 10. It is diffuse in nature. No known fevers, only one episode of emesis. No urinary symptoms. - Related Data Allergies/Adverse Reactions: No Known Allergies Allergy (Verified 11/13/18 13:10) Past Medical History - General Information source: Patient, Relative, Emergency Med Personnel - Social History Smoking Status: Never Smoker Chew tobacco use (# tins/day): No Frequency of alcohol use: None Drug Abuse: None Family History: DM, Hypertension, Malignancy Patient has suicidal ideation: No Patient has homicidal ideation: No - Past Medical History Cardiac Medical History: Reports: Hx Hypercholesterolemia, Hx Hypertension - medicated Denies: Hx Atrial Fibrillation, Hx Congestive Heart Failure, Hx Coronary Artery Disease, Hx Heart Attack Pulmonary Medical History: Reports: Hx Sleep Apnea, Hx Tuberculosis Denies: Hx Asthma, Hx COPD Neurological Medical History: Denies: Hx Cerebrovascular Accident, Hx Seizures Endocrine Medical History: Reports: Hx Diabetes Mellitus Type 2, Hx Hypot hyroidism. Denies: Hx Diabetes Mellitus Type 1, Hx Hyperthyroidism Renal/ Medical History: Denies: Hx Peritoneal Dialysis GI Medical History: Reports: Hx Liver Failure, Hx Colonoscopy, Hx Endoscopy. Denies: Hx Cirrhosis, Hx Hepatitis, Hx Hiatal Hernia, Hx Ulcer Musculoskeletal Medical History: Reports Hx Arthritis - RA, Denies Hx Gout Skin Medical History: Denies Hx Eczema, Denies Hx Psoriasis Psychiatric Medical History: Reports: Hx Anxiety, Hx Depression Infectious Medical History: Denies: Hx Hepatitis Past Surgical History: Reports: Hx Tonsillectomy, Hx Tubal Ligation. Denies: Hx Hysterectomy, Hx Mastectomy, Hx Open Heart Surgery, Hx Pacemaker - Immunizations Immunizations up to date: No Hx Diphtheria, Pertussis, Tetanus Vaccination: No Hx Pneumococcal Vaccination: 12/19/18 Review of Systems - Review of Systems Constitutional: See HPI EENT: No symptoms reported Cardiovascular: No symptoms reported Respiratory: No symptoms reported Gastrointestinal: See HPI Genitourinary: No symptoms reported Musculoskeletal: No symptoms reported Skin: No symptoms reported Neurological/Psychological: No symptoms reported Physical Exam - Vital signs Vitals: Temp Pulse Resp BP Pulse Ox 97.9 F 94 16 143/73 H 93 11/13/18 13:06 11/13/18 13:06 11/13/18 13:06 11/13/18 13:06 11/13/18 13:06 - Notes Notes: Vital signs reviewed, please refer to chart. Head is normocephalic, atraumatic. Pupils equal round, reactive to light. Neck is supple without meningismus. Heart is regular rate and rhythm. Lungs are clear to auscultation bilaterally. Abdomen is soft, nontender, normoactive bowel sounds throughout. Extremities without cyanosis, clubbing. Posterior calves are nontender. Peripheral pulses are equal. Skin is warm and dry. Patient is awake, alert, neurological exam is nonfocal. Course - Re-evaluation Re-evalutation: 11/13/18 17:35 Patient presents emergency department for evaluation. Laboratory investigations and imaging is ordered through triage. Patient is feeling somewhat improved. On my exam she really does not have any significant abdominal tenderness. Abdominal imaging revealed possible ileus versus obstruction, early. Clinically to me the patient is only somewhat constipated. She has not had a bowel movement in about 48 hours. She normally moves her bowels daily. Her abdomen is non-distended, nontender. She has multiple reasons for her emesis. At this point I am still waiting for her urinalysis. Her potassium is replaced. The patient asks for water or broth. She is medicated with this. I did go ahead and give her a dose of lactulose. We will continue to monitor, follow-up urinalysis. 11/13/18 19:15 Patient remained stable throughout the course of her stay. Serial abdominal exams are benign. Patient was feeling less nauseated, tolerated p.o. liquids. She also tolerated potassium, lactulose, antibiotics. She is anxious to be discharged. Urinary tract infection is likely cause of her nausea and vomiting. Imaging revealed a possible ileus versus early partial small bowel obstruction, but I do not have a high suspicion for this at this time. Patient has been passing gas, has not had any intra-abdominal surgeries before. Will consider home. She is follow-up with primary care in 1 to 2 days, return to the ED with worsening or new concerning symptoms of any sort. - Vital Signs Vital signs: Temp Pulse Resp BP Pulse Ox 98.8 F 79 20 152/57 H 97 11/13/18 18:10 11/13/18 18:10 11/13/18 18:10 11/13/18 18:10 11/13/18 18:10 - Laboratory Result Diagrams: 11/13/18 13:52 11/13/18 13:52 Laboratory results interpreted by me: 11/13/18 11/13/18 11/13/18 13:52 13:52 16:57 RDW 17.6 H Plt Count 145 L Potassium 3.2 L Est GFR ( Amer) 59 L Est GFR (MDRD) Non-Af 49 L Glucose 168 H Total Bilirubin 2.4 H Direct Bilirubin 1.0 H AST 68 H Alkaline Phosphatase 143 H Total Protein 9.2 H Albumin 3.2 L Urine Protein 30 H Urine Blood SMALL H Urine Urobilinogen 4.0 H Ur Leukocyte Esterase LARGE H Discharge - Discharge Clinical Impression: Ileus, Hypokalemia, Nausea & vomiting, UTI (urinary tract infection) Condition: Stable Disposition: HOME, SELF-CARE Instructions: Abdominal Pain ([facility]), Urinary Tract Infection ([facility]), Vomiting ([facility]) Additional Instructions: Rest, stay well-hydrated. Take omeprazole 40 mg daily. Take antibiotic as prescribed until gone, starting tomorrow morning. Zofran as needed for severe nausea. Follow-up with your primary care provider this week. If you develop worsening or new concerning symptoms of any sort, including but certainly not limited to worsen vomiting, increasing abdominal pain, inability to pass gas, or fever, return to the ED for further evaluation. Prescriptions: Ondansetron [Zofran Odt 4 mg Tablet] 1 tab PO Q6HP PRN #10 tab.rapdis PRN Reason: For Nausea/Vomiting Cephalexin Monohydrate [Keflex 500 mg Capsule] 500 mg PO TID #100 capsule Omeprazole 40 mg PO DAILY #30 capsule.dr Referrals: SABINE NEFF MD [Primary Care Provider] - Follow up as needed
[2018-11-13] MEDS ORDERED: ONDANSETRON 4 MG TAB.RAPDIS PO ONE (18:03)
[2018-11-13] MEDS ORDERED: CEPHALEXIN 500 MG CAPSULE PO ONE (18:05)
[2018-11-13 18:12] VITALS: BP 152/57
== END 2018-11-13 20:40 | disposition home or self-care (01) ==
LOC: ER 13:02
DX: K56.7 Ileus, unspecified (principal); N39.0 Urinary tract infection, site not specified; K59.00 Constipation, unspecified; R10.84 Generalized abdominal pain; R11.2 Nausea with vomiting, unspecified; K72.90 Hepatic failure, unspecified without coma; E87.6 Hypokalemia; R53.1 Weakness; R63.0 Anorexia; I10 Essential (primary) hypertension; E11.9 Type 2 diabetes mellitus without complications
CPT/HCPCS: 99285; 51701; 36415; 85025; 80053; 81001; 74018; A9270 ×4; S0119

== ENCOUNTER 2018-12-03 19:27 | Inpatient (IN) | payer MEDICARE ==
[2018-12-03] MEDS ORDERED: MORPHINE SULFATE 10 MG/ML INJ IV ONE (19:48)
[2018-12-03 20:30] LABS: ABSOLUTE BASOPHILS # (AUTO) 0.1 10^3/uL (0.0-0.2); ABSOLUTE EOSINOPHILS # (AUTO) 0.1 10^3/uL (0.0-0.6); ABSOLUTE LYMPHOCYTES (AUTO) 1.6 10^3/uL (0.5-4.7); ABSOLUTE MONOCYTES (AUTO) 0.4 10^3/uL (0.1-1.4); ABSOLUTE NEUT (AUTO) 2.4 10^3/uL (1.7-8.2); BASOPHILS % (AUTO) 1.5 % (0-2); EOSINOPHILS % (AUTO) 2.6 % (0-6); HEMATOCRIT 33.7 % (36.0-47.0); HEMOGLOBIN 11.1 g/dL (12.0-15.5); MEAN CORPUSCULAR HEMOGLOBIN 28.9 pg (27.0-33.4); MEAN CORPUSCULAR HGB CONC 32.8 g/dL (32.0-36.0); MEAN CORPUSCULAR VOLUME 88 fl (80-97); MONOCYTES % (AUTO) 8.2 % (3-13); PLATELET COUNT 103 10^3/uL (150-450); RED BLOOD COUNT 3.83 10^6/uL (3.72-5.28); RED CELL DISTRIBUTION WIDTH 18.9 % (11.5-14.0); SEGMENTED NEUTROPHILS % (AUTO) 52.7 % (42-78); TOTAL CELLS COUNTED % (AUTO) 100 %; WHITE BLOOD COUNT 4.5 10^3/uL (4.0-10.5)
[2018-12-03 20:43] LABS: ALBUMIN 2.6 g/dL (3.5-5.0); ALKALINE PHOSPHATASE 105 U/L (38-126); ANION GAP 9 (5-19); ASPARTATE AMINO TRANSFERASE 50 U/L (14-36); BILIRUBIN,DIRECT 0.6 mg/dL (0.0-0.4); BILIRUBIN,TOTAL 1.5 mg/dL (0.2-1.3); BLOOD UREA NITROGEN 9 mg/dL (7-20); CALCIUM 8.1 mg/dL (8.4-10.2); CARBON DIOXIDE 25 mmol/L (22-30); CHLORIDE 105 mmol/L (98-107); GLUCOSE 154 mg/dL (75-110); TOTAL PROTEIN 7.7 g/dL (6.3-8.2)
--- NOTE | 2018-12-03 20:46 | ER Document Report ---
ED GI/ - General Chief Complaint: Abdominal Pain Stated Complaint: ABDOMINAL PAIN Time Seen by Provider: 12/03/18 19:47 Notes: Patient is an 83-year-old female who presents emergency department with a chief complaint of abdominal pain. Patient started to have her abdominal pain this morning. Patient has a history of liver failure and she has had paracentesis and thoracentesis done before. Pain is in her general abdomen. Patient denies any falls or trauma. Daughter is at bedside to confirm this. Last bowel movement was today. Patient and daughter deny any any fever. TRAVEL OUTSIDE OF THE [place] IN LAST 30 DAYS: No - Related Data Allergies/Adverse Reactions: No Known Allergies Allergy (Verified 12/03/18 20:18) Past Medical History - Social History Smoking Status: Never Smoker Chew tobacco use (# tins/day): No Frequency of alcohol use: None Drug Abuse: None Family History: DM, Hypertension, Malignancy Patient has suicidal ideation: No Patient has homicidal ideation: No - Past Medical History Cardiac Medical History: Reports: Hx Hypercholesterolemia, Hx Hypertension - medicated Denies: Hx Atrial Fibrillation, Hx Congestive Heart Failure, Hx Coronary Artery Disease, Hx Heart Attack Pulmonary Medical History: Reports: Hx Sleep Apnea, Hx Tuberculosis Denies: Hx Asthma, Hx COPD Neurological Medical History: Denies: Hx Cerebrovascular Accident, Hx Seizures Endocrine Medical History: Reports: Hx Diabetes Mellitus Type 2, Hx Hypothyroidism. Denies: Hx Diabetes Mellitus Type 1, Hx Hyperthyroidism Renal/ Medical History: Denies: Hx Peritoneal Dialysis GI Medical History: Reports: Hx Liver Failure, Hx Colonoscopy, Hx Endoscopy. Denies: Hx Cirrhosis, Hx Hepatitis, Hx Hiatal Hernia, Hx Ulcer Musculoskeletal Medical History: Reports Hx Arthritis - RA, Denies Hx Gout Skin Medical History: Denies Hx Eczema, Denies Hx Psoriasis Psychiatric Medical History: Reports: Hx Anxiety, Hx Depression Infectious Medical History: Denies: Hx Hepatitis Past Surgical History: Reports: Hx Tonsillectomy, Hx Tubal Ligation. Denies: Hx Hysterectomy, Hx Mastectomy, Hx Open Heart Surgery, Hx Pacemaker - Immunizations Immunizations up to date: No Hx Diphtheria, Pertussis, Tetanus Vaccination: No Hx Pneumococcal Vaccination: 12/19/18 Review of Systems - Review of Systems Notes: REVIEW OF SYSTEMS: CONSTITUTIONAL : Denies recent illness. Denies recent unintentional weight loss. Denies fever, chills, or sweats. EENT: Denies eye, ear, throat, or mouth pain, discharge, or symptoms. Denies n emelyn or sinus congestion. CARDIOVASCULAR: Denies chest pain. RESPIRATORY: Denies shortness of breath, cough, congestion, difficulty breathing, or wheezing. GASTROINTESTINAL: See HPI. GENITOURINARY: Denies difficulty urinating, burning, blood in urine, urgency or frequency. MUSCULOSKELETAL: Denies neck and back pain. Denies joint pain or swelling. SKIN: Denies rash, itchiness, or lesions HEMATOLOGIC : Denies easy bruising or bleeding. LYMPHATIC: Denies swollen, painful, enlarged glands. NEUROLOGICAL: Denies no numbness or tingling denies weakness. Denies headache. Denies altered mental status. Denies alteration in speech. PSYCHIATRIC: Denies stress, anxiety, alteration in sleep patterns, or depression. All other systems reviewed and negative. Physical Exam - Vital signs Vitals: Temp Pulse Resp BP 98.1 F 82 16 145/75 H 12/03/18 19:27 12/03/18 19:27 12/03/18 19:27 12/03/18 19:27 - Notes Notes: PHYSICAL EXAMINATION: GENERAL: Appears well, healthy, well-nourished, no acute distress. HEAD: Normocephalic, atraumatic. EYES: PERRL, conjunctiva normal, all extraocular movements intact, sclera nonicteric ENT: Moist mucous membranes. NECK: Supple, no noticeable swelling, redness, rash. Normal range of motion. LUNGS: Equal breath sounds bilaterally and clear to auscultation. No wheezes rales or rhonchi. CARDIOVASCULAR: S1-S2, regular rate, regular rhythm. Radial pulses 2+, normal. ABDOMEN: Normoactive bowel sounds. Soft, large, distended. EXTREMITIES: Normal strength and range of motion, no pitting or edema. No cyanosis. NEUROLOGICAL: Moves all extremities upon command. Strength 5/5 in all extremities. PSYCH: Normal mood, normal affect. SKIN: Warm, dry. No rash, lesions, ulcerations noted. Normal skin turgor. Course - Re-evaluation Re-evalutation: 12/03/18 Patient's hematology shows a hemoglobin of 11.1, which is chronic for her. Her potassium is 2.8. She will receive 40 any cues of potassium. Urinalysis shows trace leukocytes with a WBC of 15. This may be chronic. Patient states that her pain improved with receiving morphine. Unfortunately, radiology is not available in-house at this time. Patient will need diagnostic and therapeutic paracentesis. Due to the patient having an increase in her ascites on the CT, Dr. Uribe was contacted for admission. The patient will be admitted to the telemetry unit. - Vital Signs Vital signs: Temp Pulse Resp BP Pulse Ox 98.1 F 82 10 L 167/78 H 92 12/03/18 19:27 12/03/18 19:27 12/04/18 00:00 12/03/18 23:02 12/04/18 00:00 - Laboratory Result Diagrams: 12/03/18 20:08 12/03/18 20:08 Laboratory results interpreted by me: 12/03/18 12/03/18 12/03/18 00:24 20:08 20:08 Hgb 11.1 L Hct 33.7 L RDW 18.9 H Plt Count 103 L Sodium 136.8 L Potassium 3.3 L 2.8 L* Est GFR (MDRD) Non-Af 56 L 56 L Glucose 119 H 154 H Calcium 8.1 L 8.1 L Total Bilirubin 1.5 H Direct Bilirubin 0.6 H AST 50 H Albumin 2.6 L Lipase 385.0 H Urine Blood Urine Urobilinogen Ur Leukocyte Esterase 12/03/18 20:30 Hgb Hct RDW Plt Count Sodium Potassium Est GFR (MDRD) Non-Af Glucose Calcium Total Bilirubin Direct Bilirubin AST Albumin Lipase Urine Blood MODERATE H Urine Urobilinogen 4.0 H Ur Leukocyte Esterase TRACE H Discharge - Discharge Clinical Impression: Hypokalemia, Ascites Abdominal pain Qualifiers: Abdominal location: generalized Qualified Code(s): R10.84 - Generalized abdominal pain Condition: Stable Disposition: ADMITTED INPATIENT Admitting Provider: oRny (Hospitalist) Unit Admitted: Telemetry
[2018-12-03 20:49] LABS: POTASSIUM 2.8 mmol/L (3.6-5.0)
[2018-12-03 21:01] LABS: APPEARANCE,URINE CLEAR; BILIRUBIN,URINE NEGATIVE (NEGATIVE); COLOR,URINE YELLOW; GLUCOSE, URINE NEGATIVE (NEGATIVE); KETONES,URINE NEGATIVE (NEGATIVE); LEUKOCYTE ESTERASE,URINE TRACE (NEGATIVE); NITRITE,URINE NEGATIVE (NEGATIVE); PROTEIN,URINE NEGATIVE (NEGATIVE); URINE SPECIFIC GRAVITY 1.013
--- NOTE | 2018-12-03 21:55 | RADIOLOGY REPORT (SQ) ---
EXAM DESCRIPTION: [facility]: CT ABDOMEN PELVIS WITH IV CONTRAST CLINICAL HISTORY: 83 years Female; abdominal pain/distension TECHNIQUE: CT of the abdomen and pelvis using intravenous contrast. All CT scans at this facility use dose modulation, iterative reconstruction, and/or weight based dosing when appropriate to reduce radiation dose to as low as reasonably achievable. COMPARISON: CT 02/20/2016, 09/17/2018 FINDINGS: Small right pleural effusion less than 1 cm thick, with associated posterior atelectasis in the right lower lobe. Abdomen: Large volume low density ascites has developed since 09/17/2018. Liver: Nodular contour as on prior exam. No ductal distention or focal lesion. Gallbladder: Hyperdense material in the dependent portion, likely cholelithiasis. Pancreas:Within normal limits Spleen: 16 cm long, somewhat enlarged. No focal lesion. Right kidney:No hydronephrosis. No focal lesion. Left kidney:No hydronephrosis. No focal lesion. Adrenal glands:Within normal limits Vascular structures: Scattered aortic calcification without aneurysm or dissection. No major branch occlusion. Pelvis: Small bowel:No significant distention. Appendix: Not reliably identified. Colon: Nondistended. No free air. Bones: Chronic degenerative changes as on prior study. Bladder: Unremarkable. Uterus is unremarkable. Tubal ligation clips are noted. No adnexal enlargement. IMPRESSION: 1. Nodular liver consistent with cirrhosis 2. Development of large volume low density ascites since 09/17/2018 3. Splenomegaly 4. Hyperdense material in the gallbladder, suspicious for cholelithiasis.
[2018-12-03] MEDS: POTASSI CL 20 MEQ/50 ML RIDER 20 MEQ/50 ML RTUPB IV SCH ×2 (22:09→23:35)
[2018-12-03] MEDS ORDERED: MAGNESIUM HYDROXIDE SUSP 30 ML UDCUP PO PRN (23:26)
[2018-12-03] MEDS ORDERED: RINGERS SOLUTION,LACTATED 1,000 ML IV PRN (23:26)
[2018-12-03] MEDS ORDERED: TEMAZEPAM 7.5 MG CAPSULE PO PRN (23:26)
[2018-12-03] MEDS ORDERED: MAG HYDROX/AL HYDROX/SIMETH SUSP 30 ML UDCUP PO PRN (23:26)
[2018-12-03] MEDS ORDERED: HYDRALAZINE HCL INJ/PF 20 MG/1 ML SDV IV PRN (23:33)
[2018-12-03] MEDS ORDERED: INSULIN REG, HUMAN 100 UNIT/ML 3 ML VIAL (PYX) SUBCUT PRN (23:33)
[2018-12-03] MEDS ORDERED: MORPHINE SULFATE 10 MG/ML INJ IV PRN (23:33)
[2018-12-03] MEDS ORDERED: LABETALOL HCL INJ 20 MG/4 ML DISP.SYRIN IV PRN (23:33)
[2018-12-03] MEDS ORDERED: ACETAMINOPHEN 325 MG TABLET PO PRN (23:33)
[2018-12-03] MEDS ORDERED: GLUCAGON,HUMAN RECOMB 1 MG INJ IM PRN (23:34)
[2018-12-03] MEDS ORDERED: DEXTROSE 50%-WATER 25 GM/50 ML DISP.SYRIN IV PRN ×2 (23:34)
[2018-12-03] MEDS ORDERED: DEXTROSE 40% GEL 15 GM TUBE PO PRN ×2 (23:34)
[2018-12-03] MEDS ORDERED: IBUPROFEN 800 MG TABLET PO PRN (23:35)
[2018-12-03] MEDS ORDERED: FAMOTIDINE 20 MG TABLET PO ONE (23:45)
[2018-12-04 00:56] LABS: ANION GAP 6 (5-19); BLOOD UREA NITROGEN 9 mg/dL (7-20); CALCIUM 8.1 mg/dL (8.4-10.2); CARBON DIOXIDE 24 mmol/L (22-30); CHLORIDE 107 mmol/L (98-107); GLUCOSE 119 mg/dL (75-110); POTASSIUM 3.3 mmol/L (3.6-5.0)
[2018-12-04] MEDS: HEPARIN SOD (PORCINE) 5,000 UNIT/ML 1 ML VIAL SUBCUT SCH ×3 (05:58→22:06)
[2018-12-04] MEDS ORDERED: PROMETHAZINE HCL INJ 25 MG/1 ML VIAL ONE (06:28)
[2018-12-04] MEDS: ONDANSETRON HCL INJ/PF 4 MG/2 ML SDV IV PRN ×2 (06:35→18:36)
--- NOTE | 2018-12-04 06:43 | PDOC H&P ---
History of Present Illness Admission Date/PCP: 12/03/18 22:56 NATALIA CHOI MD Patient complains of: Abdominal pain History of Present Illness: JAJA SHABAZZ is a 83 year old female who presented to the emergency room with a 3-day history of abdominal pain. She and her daughter admit to gradually worsening abdominal pain over the last 3 days becoming much worse today. The pain is a moderately severe generalized pressure throughout her entire abdomen without radiation, is accompanied by abdominal distention and associated with nausea and decreased appetite. Pain is worsened by activity and relieved at least in part by rest. She denies other associated or accompanying signs and symptoms. She admits a substantially less severe prior similar episode. She has not identified any additional aggravating or ameliorating factors for her abdominal pain. In the emergency room she was found to have abdominal distention with ascites and was subsequently admitted to the hospital for further evaluation and treatment. Past Medical History Cardiac Medical History: Reports: Hyperlipidema, Hypertension - medicated Denies: Atrial Fibrillation, Congestive Heart Failure, Coronary Artery Disease, Myocardial Infarction Pulmonary Medical History: Reports: Sleep Apnea, Tuberculosis Denies: Asthma, Chronic Obstructive Pulmonary Disease (COPD) EENT Medical History: Denies: Cataracts, Ears - Hearing aids Neurological Medical History: Denies: Hemorrhagic CVA, Ischemic CVA, Seizures Endocrine Medical History: Reports: Diabetes Mellitus Type 2, Hypothyroidism Denies: Diabetes Mellitus Type 1, Hyperthyroidism Renal/ Medical History: Denies: Chronic Kidney Disease, Nephrolithiasis Malignancy Medical History: Reports: None GI Medical History: Reports: Cirrhosis Denies: Crohn's Disease, Hepatitis, Hiatal Hernia, Ulcerative Colitis Musculoskeltal Medical History: Reports: Arthritis - RA Denies: Gout Skin Medical History: Denies: Eczema, Psoriasis Psychiatric Medical History: Reports: Depression Denies: Alcohol Dependency, Substance Abuse, Tobacco Dependency Traumatic Medical History: Reports: None Hematology: Denies: Anemia, Bleeding Tendencies, Neutropenia Infectious Medical History: Reports: None Past Surgical History Past Surgical History: Reports: Tonsillectomy, Tubal Ligation Social History Information Source: Patient Lives with: Family Smoking Status: Never Smoker Electronic Cigarette use?: No Frequency of Alcohol Use: None Hx Recreational Drug Use: No Drugs: None Hx Prescription Drug Abuse: No - Advance Directive Resuscitation Status: Full Code Surrogate healthcare decision maker:: Karina Max Family History Family History: DM, Hypertension, Malignancy Parental Family History Reviewed: Yes Children Family History Reviewed: No Sibling(s) Family History Reviewed.: Yes Medication/Allergy Home Medications: Amlodipine Besylate [Norvasc 10 mg Tablet] 10 mg PO DAILY 09/14/18 Benazepril HCl [Lotensin 20 mg Tablet] 20 mg PO Q12 09/14/18 Folic Acid [Folvite 1 mg Tablet] 1 mg PO DAILY 09/14/18 Levothyroxine Sodium [Synthroid] 200 mcg PO Q6AM 09/14/18 Methotrexate Sodium [Rheumatrex 2.5 mg Tablet] 10 mg PO FR@1000 09/14/18 Metoprolol Tartrate [Lopressor 25 mg Tablet] 12.5 mg PO Q12 09/14/18 Omeprazole 20 mg PO DAILY 09/14/18 Oxybutynin Chloride [Ditropan Xl] 10 mg PO QHS 09/14/18 Potassium Chloride [Klor-Con 10 Meq Capsule ER] 20 meq PO BID 09/14/18 Sertraline HCl [Zoloft] 100 mg PO QHS 09/14/18 Oxycodone HCl/Acetaminophen [Percocet 5-325 mg Tablet] 1 tab PO Q6HP PRN 09/15/18 Acetaminophen [Tylenol 325 mg Tablet] 650 mg PO Q4HP PRN tablet 09/26/18 Amox Tr/Potassium Clavulanate [Augmentin 875-125 mg Tablet] 1 tab PO BID #20 tablet 09/26/18 Ibuprofen [Motrin 600 mg Tablet] 600 mg PO Q8HP PRN tablet 09/26/18 Potassium Chloride [Potassium Chloride 20 Meq Packet] 20 meq PO BID packet 09/26/18 Potassium Chloride [Potassium Chloride 20 Meq Packet] 20 meq PO Q12 #0 packet 09/26/18 Cephalexin Monohydrate [Keflex 500 mg Capsule] 500 mg PO TID #100 capsule 11/13/18 Omeprazole 40 mg PO DAILY #30 capsule. 11/13/18 Ondansetron [Zofran Odt 4 mg Tablet] 1 tab PO Q6HP PRN #10 tab.rapdis 11/13/18 Allergies/Adverse Reactions: No Known Allergies Allergy (Verified 12/03/18 20:18) Review of Systems Constitutional: PRESENT: as per HPI, anorexia. ABSENT: chills, fever(s) Eyes: ABSENT: visual disturbances, other - Eye pain Ears: ABSENT: hearing changes, other - Ear pain Nose, Mouth, and Throat: ABSENT: mouth pain, sore throat Cardiovascular: ABSENT: chest pain, palpitations Respiratory: ABSENT: cough, dyspnea Gastrointestinal: PRESENT: as per HPI, abdominal pain, nausea. ABSENT: constipation, diarrhea, vomiting Genitourinary: ABSENT: dysuria, hematuria Musculoskeletal: ABSENT: back pain, joint swelling, muscle weakness Integumentary: ABSENT: pruritus, rash Neurological: ABSENT: confusion, convulsions, focal weakness, memory loss, syncope Psychiatric: ABSENT: anxiety, depression Endocrine: ABSENT: cold intolerance, heat intolerance Hematologic/Lymphatic: ABSENT: easy bleeding, easy bruising Allergic/Immunologic: ABSENT: seasonal rhinorrhea Physical Exam Vital Signs: Temp Pulse Resp BP Pulse Ox 98.1 F 82 14 130/71 H 93 12/03/18 19:27 12/03/18 19:27 12/03/18 20:02 12/03/18 20:02 12/03/18 20:02 Intake & Output 12/01/18 12/02/18 12/03/18 23:59 23:59 23:59 Weight 86 kg General appearance: PRESENT: cooperative, mild distress - Mild distress due to abdominal distention Head exam: PRESENT: atraumatic, normocephalic Eye exam: PRESENT: conjunctiva pink. ABSENT: conjunctival injection, scleral icterus Ear exam: PRESENT: normal external ear exam. ABSENT: bleeding, drainage Mouth exam: PRESENT: dry mucosa, neck supple Neck exam: ABSENT: thyromegaly, tracheal deviation Respiratory exam: PRESENT: clear to auscultation victor manuel, symmetrical, unlabored Cardiovascular exam: PRESENT: RRR. ABSENT: clicks, gallop, rubs Pulses: PRESENT: normal radial pulses, normal dorsalis pedis pul Vascular exam: PRESENT: normal capillary refill. ABSENT: pallor GI/Abdominal exam: PRESENT: distended, hypoactive bowel sounds, tenderness - Mild generalized tenderness to palpation Rectal exam: PRESENT: deferred Extremities exam: ABSENT: joint swelling, pedal edema Musculoskeletal exam: ABSENT: deformity, dislocation Neurological exam: PRESENT: alert, oriented to person, oriented to place, oriented to time, oriented to situation, CN II-XII grossly intact. ABSENT: motor sensory deficit Psychiatric exam: PRESENT: appropriate affect, normal mood Skin exam: PRESENT: dry, intact, warm. ABSENT: jaundice, rash, urticaria Results Laboratory Results: 12/03/18 20:08 12/03/18 20:08 12/03/18 12/03/18 12/03/18 20:08 20:08 20:30 WBC 4.5 RBC 3.83 Hgb 11.1 L Hct 33.7 L MCV 88 MCH 28.9 MCHC 32.8 RDW 18.9 H Plt Count 103 L Seg Neutrophils % 52.7 Sodium 138.5 Potassium 2.8 L* Chloride 105 Carbon Dioxide 25 Anion Gap 9 BUN 9 Creatinine 0.96 Est GFR ( Amer) > 60 Glucose 154 H Calcium 8.1 L Total Bilirubin 1.5 H AST 50 H Alkaline Phosphatase 105 Total Protein 7.7 Albumin 2.6 L Lipase 385.0 H Urine Color YELLOW Urine Appearance CLEAR Urine pH 7.0 Ur Specific [place] 1.013 Urine Protein NEGATIVE Urine Glucose (UA) NEGATIVE Urine Ketones NEGATIVE Urine Blood MODERATE H Urine Nitrite NEGATIVE Ur Leukocyte Esterase TRACE H Urine WBC (Auto) 15 Urine RBC (Auto) 12 Impressions: Abdomen/Pelvis CT 12/03/18 19:49 IMPRESSION: 1. Nodular liver consistent with cirrhosis 2. Development of large volume low density ascites since 09/17/2018 3. Splenomegaly 4. Hyperdense material in the gallbladder, suspicious for cholelithiasis. Assessment and Plan - Diagnosis (1) Cirrhosis Qualifiers: Hepatic cirrhosis type: unspecified hepatic cirrhosis Ascites presence: with ascites Qualified Code(s): K74.60 - Unspecified cirrhosis of liver; R18.8 - Other ascites Is this a current diagnosis for this admission?: Yes Plan: The interventional radiology service will be consulted for a palliative and diagnostic paracentesis. (2) Abdominal pain Qualifiers: Abdominal location: generalized Qualified Code(s): R10.84 - Generalized abdominal pain Is this a current diagnosis for this admission?: Yes Plan: Patient's abdominal pain will be treated with morphine sulfate 2 to 4 mg IV every 2 hours on an as needed basis using a sliding scale. Serial metabolic profiles and liver function test will be obtained. Serial CBCs and magnesium levels will also be obtained. (3) Hypokalemia Is this a current diagnosis for this admission?: Yes Plan: The patient's hypokalemia will be corrected utilizing IV potassium replacement. Serial metabolic profiles and magnesium level will be obtained to monitor this problem. (4) Diabetes mellitus type 2 in obese Is this a current diagnosis for this admission?: Yes Plan: Patient will be continued on her current diabetic therapy and a diabetic diet. Before meals and at bedtime Accu-Cheks will be performed with hyperglycemia being treated with sliding scale insulin and a hypoglycemic protocol in place. (5) Hypertension Qualifiers: Hypertension type: essential hypertension Qualified Code(s): I10 - Essential (primary) hypertension Is this a current diagnosis for this admission?: Yes Plan: Patient be continued on her usual antihypertensive regimen. Patient's blood pressure be monitored closely throughout her hospital course. (6) Hypothyroidism Qualifiers: Hypothyroidism type: unspecified Qualified Code(s): E03.9 - Hypothyroidism, unspecified Is this a current diagnosis for this admission?: Yes Plan: Patient will be continued on her usual thyroid replacement. (7) Rheumatoid arthritis Qualifiers: Rheumatoid arthritis location: unspecified site Rheumatoid factor presence: unspecified presence Qualified Code(s): M06.9 - Rheumatoid arthritis, unspecified Is this a current diagnosis for this admission?: Yes Plan: Patient be continued on her usual therapeutic regimen. - Time Time Spent with patient: 15-24 minutes Medications reviewed and adjusted accordingly: Yes Anticipated discharge: Home - Inpatient Certification Based on my medical assessment, after consideration of the patient's comorbidities, presenting symptoms, or acuity I expect that the services needed warrant INPATIENT care.: Yes I certify that my determination is in accordance with my understanding of Medicare's requirements for reasonable and necessary INPATIENT services [42 CFR 412.3e].: Yes Medical Necessity: Significant Comorbidiites Make Outpatient Treatment Too Risky, Need Close Monitoring Due to Risk of Patient Decompensation, Need For IV Fluids, Need For Continuous Telemetry Monitoring, Need for Pain Control, Need for Surgery, Risk of Complication if Not Cared For in Hospital, Risk of Diagnosis Which Will Require Inpatient Eval/Care/Monitoring
[2018-12-04 07:14] LABS: INTERNATIONAL RATION (INR) 1.69; PROTHROMBIN TIME 20.1 SEC (11.4-15.4)
[2018-12-04 07:15] LABS: HEMATOCRIT 32.7 % (36.0-47.0); HEMOGLOBIN 10.7 g/dL (12.0-15.5); MEAN CORPUSCULAR HEMOGLOBIN 28.8 pg (27.0-33.4); MEAN CORPUSCULAR HGB CONC 32.7 g/dL (32.0-36.0); MEAN CORPUSCULAR VOLUME 88 fl (80-97); PARTIAL THROMBOPLASTIN TIME 38.2 SEC (23.5-35.8); RED BLOOD COUNT 3.71 10^6/uL (3.72-5.28); RED CELL DISTRIBUTION WIDTH 18.7 % (11.5-14.0)
[2018-12-04 07:38] LABS: PLATELET COUNT 97 10^3/uL (150-450)
[2018-12-04 07:40] LABS: ALBUMIN 2.4 g/dL (3.5-5.0); ALKALINE PHOSPHATASE 82 U/L (38-126); AMYLASE 97 U/L (30-110); ASPARTATE AMINO TRANSFERASE 46 U/L (14-36); BILIRUBIN,DIRECT 0.8 mg/dL (0.0-0.4); BILIRUBIN,TOTAL 1.8 mg/dL (0.2-1.3); TOTAL PROTEIN 7.5 g/dL (6.3-8.2)
[2018-12-04] MEDS ORDERED: LACTULOSE SYRUP 20 GM/30 ML UDCUP PO PRN (10:09)
--- NOTE | 2018-12-04 10:52 | PDOC PROGRESS REPORT ---
Subjective Progress Note for:: 12/04/18 Subjective:: 83 year old female who presented to the emergency room with a 3-day history of abdominal pain. She and her daughter admit to gradually worsening abdominal pain over the last 3 days becoming much worse today. The pain is a moderately severe generalized pressure throughout her entire abdomen without radiation, is accompanied by abdominal distention and associated with nausea and decreased appetite. Pain is worsened by activity and relieved at least in part by rest. She denies other associated or accompanying signs and symptoms. She admits a substantially less severe prior similar episode. She has not identified any additional aggravating or ameliorating factors for her abdominal pain. In the emergency room she was found to have abdominal distention with ascites and was subsequently admitted to the hospital for further evaluation and treatment. 12/04/18-83 yrs old female with h/o liver failure admitted for abd pain with ascites. going for paracentesis today. code status ids [id number]. Reason For Visit: ABDOMINAL PAIN WITH ASCITES Physical Exam Vital Signs: Temp Pulse Resp BP Pulse Ox 98.4 F 82 13 148/74 H 92 12/04/18 06:03 12/03/18 19:27 12/04/18 06:01 12/04/18 07:01 12/04/18 07:01 Intake & Output 12/03/18 12/04/18 12/05/18 06:59 06:59 06:59 Intake Total 100 Balance 100 Weight 86 kg General appearance: PRESENT: no acute distress, cooperative, obese Head exam: PRESENT: atraumatic Eye exam: PRESENT: PERRLA Mouth exam: PRESENT: moist, tongue midline Teeth exam: PRESENT: poor dentation Neck exam: ABSENT: carotid bruit, JVD, lymphadenopathy, thyromegaly Cardiovascular exam: PRESENT: RRR. ABSENT: diastolic murmur, rubs, systolic murmur GI/Abdominal exam: PRESENT: normal bowel sounds, soft. ABSENT: distended, guarding, mass, organolmegaly, rebound, tenderness Rectal exam: PRESENT: deferred Extremities exam: PRESENT: full ROM. ABSENT: calf tenderness, clubbing, pedal edema Neurological exam: PRESENT: alert, awake, oriented to person, oriented to place, oriented to time, oriented to situation, CN II-XII grossly intact. ABSENT: motor sensory deficit Psychiatric exam: PRESENT: appropriate affect, normal mood. ABSENT: homicidal ideation, suicidal ideation Skin exam: PRESENT: dry, intact, warm. ABSENT: cyanosis, rash Results Laboratory Results: 12/04/18 06:50 12/03/18 20:08 12/03/18 12/03/18 12/03/18 00:24 20:08 20:08 WBC 4.5 RBC 3.83 Hgb 11.1 L Hct 33.7 L MCV 88 MCH 28.9 MCHC 32.8 RDW 18.9 H Plt Count 103 L Seg Neutrophils % 52.7 Sodium 136.8 L 138.5 Potassium 3.3 L 2.8 L* Chloride 107 105 Carbon Dioxide 24 25 Anion Gap 6 9 BUN 9 9 Creatinine 0.96 0.96 Est GFR ( Amer) > 60 > 60 Glucose 119 H 154 H Calcium 8.1 L 8.1 L Magnesium Total Bilirubin 1.5 H AST 50 H Alkaline Phosphatase 105 Ammonia Total Protein 7.7 Albumin 2.6 L Amylase Lipase 385.0 H Urine Color Urine Appearance Urine pH Ur Specific Wilmer Urine Protein Urine Glucose (UA) Urine Ketones Urine Blood Urine Nitrite Ur Leukocyte Esterase Urine WBC (Auto) Urine RBC (Auto) 12/03/18 12/04/18 12/04/18 20:30 06:50 06:50 WBC 4.0 RBC 3.71 L Hgb 10.7 L Hct 32.7 L MCV 88 MCH 28.8 MCHC 32.7 RDW 18.7 H Plt Count 97 L Seg Neutrophils % Sodium Potassium Chloride Carbon Dioxide Anion Gap BUN Creatinine Est GFR ( Amer) Glucose Calcium Magnesium 1.7 Total Bilirubin 1.8 H AST 46 H Alkaline Phosphatase 82 Ammonia Total Protein 7.5 Albumin 2.4 L Amylase 97 Lipase 192.9 Urine Color YELLOW Urine Appearance CLEAR Urine pH 7.0 Ur Specific Wilmer 1.013 Urine Protein NEGATIVE Urine Glucose (UA) NEGATIVE Urine Ketones NEGATIVE Urine Blood MODERATE H Urine Nitrite NEGATIVE Ur Leukocyte Esterase TRACE H Urine WBC (Auto) 15 Urine RBC (Auto) 12 12/04/18 06:50 WBC RBC Hgb Hct MCV MCH MCHC RDW Plt Count Seg Neutrophils % Sodium Potassium Chloride Carbon Dioxide Anion Gap BUN Creatinine Est GFR ( Amer) Glucose Calcium Magnesium Total Bilirubin AST Alkaline Phosphatase Ammonia 50.6 H Total Protein Albumin Amylase Lipase Urine Color Urine Appearance Urine pH Ur Specific Wilmer Urine Protein Urine Glucose (UA) Urine Ketones Urine Blood Urine Nitrite Ur Leukocyte Esterase Urine WBC (Auto) Urine RBC (Auto) Impressions: Abdomen/Pelvis CT 12/03/18 19:49 IMPRESSION: 1. Nodular liver consistent with cirrhosis 2. Development of large volume low density ascites since 09/17/2018 3. Splenomegaly 4. Hyperdense material in the gallbladder, suspicious for cholelithiasis. Assessment and Plan - Diagnosis (1) Cirrhosis Qualifiers: Hepatic cirrhosis type: unspecified hepatic cirrhosis Ascites presence: with ascites Qualified Code(s): K74.60 - Unspecified cirrhosis of liver; R18.8 - Other ascites Is this a current diagnosis for this admission?: Yes Plan: The interventional radiology service will be consulted for a palliative and d iagnostic paracentesis. 12/04/2018-patient with history of liver failure admitted with ascites request was placed for a diagnostic paracentesis today. To start her on a lactulose because of the high ammonia levels, Lasix, spironolactone. (2) Hypokalemia Is this a current diagnosis for this admission?: Yes Plan: The patient's hypokalemia will be corrected utilizing IV potassium replacement. Serial metabolic profiles and magnesium level will be obtained to monitor this problem. 12/04/2018-serum potassium is 2.8. To give her IV potassium supplementation today. (3) Abdominal pain Qualifiers: Abdominal location: generalized Qualified Code(s): R10.84 - Generalized abdominal pain Is this a current diagnosis for this admission?: Yes Plan: Patient's abdominal pain will be treated with morphine sulfate 2 to 4 mg IV every 2 hours on an as needed basis using a sliding scale. Serial metabolic pro files and liver function test will be obtained. Serial CBCs and magnesium levels will also be obtained. 12/04/2018-patient came in with abdominal pain most likely secondary to ascites. Patient is going for paracentesis today. (4) Hypertension Qualifiers: Hypertension type: essential hypertension Qualified Code(s): I10 - Ess ential (primary) hypertension Is this a current diagnosis for this admission?: Yes Plan: Patient be continued on her usual antihypertensive regimen. Patient's blood pressure be monitored closely throughout her hospital course. 12/04/2018-patient blood pressure today is 144/78. Started on Lasix 40 mg p.o. twice daily, spironolactone 50 mill grams p.o. twice daily and hold her IV fluids from today. - Time Time Spent with patient: 25-34 minutes Medications reviewed and adjusted accordingly: Yes Anticipated discharge: Home
[2018-12-04] MEDS ORDERED: OXYCODONE-ACETAMINOPHEN 5-325 MG TABLET PO PRN (11:03)
[2018-12-04] MEDS: FAMOTIDINE 20 MG TABLET PO SCH ×2 (11:29→22:11)
[2018-12-04] MEDS: DOCUSATE SODIUM 100 MG CAPSULE PO SCH ×2 (11:29→18:32)
[2018-12-04 11:31] LABS: ALBUMIN 2.5 g/dL (3.5-5.0); ALKALINE PHOSPHATASE 82 U/L (38-126); ANION GAP 5 (5-19); ASPARTATE AMINO TRANSFERASE 47 U/L (14-36); BILIRUBIN,DIRECT 0.7 mg/dL (0.0-0.4); BILIRUBIN,TOTAL 1.8 mg/dL (0.2-1.3); BLOOD UREA NITROGEN 9 mg/dL (7-20); CALCIUM 8.1 mg/dL (8.4-10.2); CARBON DIOXIDE 25 mmol/L (22-30); CHLORIDE 109 mmol/L (98-107); GLUCOSE 105 mg/dL (75-110); POTASSIUM 3.3 mmol/L (3.6-5.0); TOTAL PROTEIN 7.5 g/dL (6.3-8.2)
[2018-12-04] MEDS: POTASSI CL 20 MEQ/50 ML RIDER 20 MEQ/50 ML RTUPB IV SCH ×2 (11:37→14:24)
[2018-12-04] MEDS: MORPHINE SULFATE IR 15 MG TABLET PO SCH ×3 (14:24→22:11)
--- NOTE | 2018-12-04 15:01 | RADIOLOGY REPORT (SQ) ---
EXAM DESCRIPTION: U/S ABD PARACENTESIS COMPLETED DATE/TIME: 12/04/2018 2:33 pm REASON FOR STUDY: Cirrhosis with ascites COMPARISON None. LIMITATIONS: None. PROCEDURE: After obtaining informed consent, the patient was brought to the ultrasound suite. The p rocedure was performed with the patient on a gurney. Ultrasound was used to identify a prominent poc ket of ascites in the left lower quadrant. An appropriate access site was selected. The patient was prepped and draped in usual sterile fashion. The access site was anesthetized with 10 mL 1% lidoca ine. A Ebhe-U-Cllvawhk needle was advanced into the fluid. After aspiration of fluid the needle, th e catheter was advanced off the needle into the fluid. A total of 2,650 mL of clear straw-colored fl uid was removed. The patient tolerated the procedure well left the department in satisfactory conditi on. IMPRESSION: Successful ultrasound-guided paracentesis COMMENT: Patient medication list reviewed: Yes- Quality ID# [id number]:Eligible professional attests to doc umenting in the medical record they obtained, updated, or reviewed the patient's current medications. TECHNICAL DOCUMENTATION: JOB ID: [id number] [employer]- All Rights Reserved Reading location - IP/workstation name: [email or web address]
[2018-12-04] MEDS: RIFAXIMIN 550 MG TABLET PO SCH (18:32)
[2018-12-04] MEDS: FUROSEMIDE 40 MG TABLET PO SCH (18:32)
[2018-12-04] MEDS: SPIRONOLACTONE 25 MG TABLET PO SCH (22:10)
[2018-12-05] MEDS: MORPHINE SULFATE IR 15 MG TABLET PO SCH ×4 (04:22→14:55)
[2018-12-05 04:42] LABS: HEMATOCRIT 31.3 % (36.0-47.0); HEMOGLOBIN 10.1 g/dL (12.0-15.5); MEAN CORPUSCULAR HEMOGLOBIN 28.8 pg (27.0-33.4); MEAN CORPUSCULAR HGB CONC 32.4 g/dL (32.0-36.0); MEAN CORPUSCULAR VOLUME 89 fl (80-97); RED BLOOD COUNT 3.52 10^6/uL (3.72-5.28); WHITE BLOOD COUNT 4.1 10^3/uL (4.0-10.5)
[2018-12-05 04:55] LABS: ALBUMIN 2.2 g/dL (3.5-5.0); ALKALINE PHOSPHATASE 73 U/L (38-126); ASPARTATE AMINO TRANSFERASE 35 U/L (14-36); BILIRUBIN,DIRECT 0.6 mg/dL (0.0-0.4); BILIRUBIN,TOTAL 1.4 mg/dL (0.2-1.3); TOTAL PROTEIN 6.6 g/dL (6.3-8.2)
[2018-12-05] MEDS: HEPARIN SOD (PORCINE) 5,000 UNIT/ML 1 ML VIAL SUBCUT SCH ×3 (05:11→21:39)
[2018-12-05 05:21] LABS: PLATELET COUNT 82 10^3/uL (150-450)
[2018-12-05] MEDS: SPIRONOLACTONE 25 MG TABLET PO SCH ×2 (09:55→21:45)
[2018-12-05] MEDS: FAMOTIDINE 20 MG TABLET PO SCH ×2 (09:55→21:45)
[2018-12-05] MEDS: FUROSEMIDE 40 MG TABLET PO SCH ×2 (09:56→18:43)
[2018-12-05] MEDS: DOCUSATE SODIUM 100 MG CAPSULE PO SCH ×2 (09:56→18:43)
[2018-12-05] MEDS: RIFAXIMIN 550 MG TABLET PO SCH ×2 (09:57→18:43)
--- NOTE | 2018-12-05 10:45 | PDOC PROGRESS REPORT ---
Subjective Progress Note for:: 12/05/18 Subjective:: Patient somewhat confused. She was able to tell me that she is feeling better. Her only complaint is constipation. Reason For Visit: ABDOMINAL PAIN WITH ASCITES Physical Exam Vital Signs: Temp Pulse Resp BP Pulse Ox 97.3 F 69 18 116/63 99 12/05/18 08:00 12/05/18 08:00 12/05/18 08:00 12/05/18 08:00 12/05/18 08:00 Intake & Output 12/04/18 12/05/18 12/06/18 06:59 06:59 06:59 Intake Total 100 1100 Balance 100 1100 Weight 86 kg 86 kg General appearance: PRESENT: no acute distress, cooperative, well-developed Head exam: PRESENT: atraumatic, normocephalic Respiratory exam: PRESENT: clear to auscultation victor manuel, symmetrical, unlabored. ABSENT: accessory muscle use, rales, rhonchi, tachypnea, wheezes Cardiovascular exam: PRESENT: RRR, +S1, +S2, systolic murmur - 2/6 GI/Abdominal exam: PRESENT: normal bowel sounds, soft. ABSENT: distended, tenderness Rectal exam: PRESENT: deferred Extremities exam: PRESENT: pedal edema - Trace Musculoskeletal exam: PRESENT: normal inspection Neurological exam: PRESENT: alert, awake, oriented to person, oriented to place, oriented to situation, CN II-XII grossly intact. ABSENT: oriented to time - Patient thought it was 1998, she thought it was September, and could not tell me that Hall occurs in November. Psychiatric exam: PRESENT: flat affect. ABSENT: agitated, anxious Focused psych exam: ABSENT: delusional, restlessness Skin exam: PRESENT: pallor Results Laboratory Results: 12/05/18 03:29 12/04/18 10:54 12/04/18 12/05/18 12/05/18 10:54 03:29 03:29 WBC 4.1 RBC 3.52 L Hgb 10.1 L Hct 31.3 L MCV 89 MCH 28.8 MCHC 32.4 RDW 19.0 H Plt Count 82 L Sodium 138.8 Potassium 3.3 L Chloride 109 H Carbon Dioxide 25 Anion Gap 5 BUN 9 Creatinine 1.00 Est GFR ( Amer) > 60 Glucose 105 Calcium 8.1 L Magnesium 1.6 Total Bilirubin 1.8 H 1.4 H AST 47 H 35 Alkaline Phosphatase 82 73 Total Protein 7.5 6.6 Albumin 2.5 L 2.2 L Impressions: Abdomen/Pelvis CT 12/03/18 19:49 IMPRESSION: 1. Nodular liver consistent with cirrhosis 2. Development of large volume low density ascites since 09/17/2018 3. Splenomegaly 4. Hyperdense material in the gallbladder, suspicious for cholelithiasis. Paracentesis Ultrasound 12/04/18 00:00 IMPRESSION: Successful ultrasound-guided paracentesis Assessment and Plan - Diagnosis (1) Cirrhosis Qualifiers: Hepatic cirrhosis type: unspecified hepatic cirrhosis Ascites presence: wi th ascites Qualified Code(s): K74.60 - Unspecified cirrhosis of liver; R18.8 - Other ascites Is this a current diagnosis for this admission?: Yes Plan: 12/05/2018-etiology unknown at this point. Had a therapeutic paracentesis yesterday. Per family, has been having icreasing ascites over the last few months. (2) Hypokalemia Is this a current diagnosis for this admission?: Yes Plan: 12/05/2018- Started on furosenide and aldactone. Will give potassium IV today and then PO daily (3) Abdominal pain Qualifiers: Abdominal location: generalized Qualified Code(s): R10.84 - Generalized abdominal pain Is this a current diagnosis for this admission?: Yes Plan: 12/05/2018-Bean pain is related to the ascites. After the paracentesis her pain was improved. (4) Hypertension Qualifiers: Hypertension type: essential hypertension Qualified Code(s): I10 - Essential (primary) hypertension Is this a current diagnosis for this admission?: Yes Plan: 12/05/2018-Aldactone and furosemide for the ascites will control her blood pressure. Will need to monitor for hypotension. (5) Ascites Qualifiers: Ascites type: other type Qualified Code(s): R18.8 - Other ascites Is this a current diagnosis for this admission?: Yes Plan: 12/05/2018-ascites of unknown etiology. The family thinks that it could be related to medications that she was on. It is impossible to know at this point. She did have a paracentesis and is now on furosemide and Aldactone. (6) Hepatic encephalopathy Is this a current diagnosis for this admission?: Yes Plan: 12/05/2018-ammonia level is 50. I have started scheduled lactulose. - Time Time Spent with patient: 15-24 minutes Medications reviewed and adjusted accordingly: Yes Anticipated discharge: Hospice
[2018-12-05] MEDS ORDERED: LACTULOSE SYRUP 20 GM/30 ML UDCUP PO PRN (10:46)
[2018-12-05] MEDS: POTASSIUM CHLORIDE 10 MEQ CAPSULE.ER PO SCH (12:15)
[2018-12-05 12:54] LABS: ANION GAP 5 (5-19); BLOOD UREA NITROGEN 10 mg/dL (7-20); CALCIUM 7.8 mg/dL (8.4-10.2); CARBON DIOXIDE 24 mmol/L (22-30); CHLORIDE 109 mmol/L (98-107); GLUCOSE 122 mg/dL (75-110); POTASSIUM 3.7 mmol/L (3.6-5.0)
[2018-12-05] MEDS ORDERED: NALOXONE HCL INJ/PF 0.4 MG/1 ML SDV ONE (17:32)
[2018-12-05 17:47] LABS: ARTERIAL BLOOD BASE EXCESS -4.8 mmol/L; ARTERIAL BLOOD H2CO3 1.37 mmol/L (1.05-1.35); ARTERIAL BLOOD HCO3 21.6 mmol/L (20-24); ARTERIAL BLOOD O2 SATURATION 93.6 % (94-98); ARTERIAL BLOOD PCO2 45.5 mmHg (35-45)
[2018-12-05 17:48] LABS: ARTERIAL BLOOD FIO2 2L
[2018-12-05] MEDS: ONDANSETRON HCL INJ/PF 4 MG/2 ML SDV IV PRN (17:56)
[2018-12-05] MEDS ORDERED: MORPHINE SULFATE 10 MG/ML INJ IV PRN ×2 (17:59)
[2018-12-05 18:42] LABS: ALBUMIN 2.9 g/dL (3.5-5.0); ALKALINE PHOSPHATASE 92 U/L (38-126); ANION GAP 9 (5-19); ASPARTATE AMINO TRANSFERASE 42 U/L (14-36); BILIRUBIN,DIRECT 0.7 mg/dL (0.0-0.4); BILIRUBIN,TOTAL 1.9 mg/dL (0.2-1.3); BLOOD UREA NITROGEN 12 mg/dL (7-20); CALCIUM 8.3 mg/dL (8.4-10.2); CARBON DIOXIDE 24 mmol/L (22-30); CHLORIDE 107 mmol/L (98-107); GLUCOSE 115 mg/dL (75-110); TOTAL PROTEIN 8.5 g/dL (6.3-8.2)
--- NOTE | 2018-12-05 18:53 | RADIOLOGY REPORT (SQ) ---
EXAM DESCRIPTION: CHEST SINGLE VIEW COMPLETED DATE/TIME: 12/05/2018 6:43 pm REASON FOR STUDY: resp failure COMPARISON: 10/07/2018 EXAM PARAMETERS: NUMBER OF VIEWS: One view. TECHNIQUE: Single frontal radiographic view of the chest acquired. RADIATION DOSE: NA LIMITATIONS: None. FINDINGS: LUNGS AND PLEURA: Low lung volumes. Slight haziness in the right lung base. MEDIASTINUM AND HILAR STRUCTURES: No masses. Contour normal. HEART AND VASCULAR STRUCTURES: Heart normal in size. Normal vasculature. BONES: No acute findings. HARDWARE: None in the chest. OTHER: No other significant finding. IMPRESSION: Low lung volumes. Cannot exclude very limited infiltrate in the right base. TECHNICAL DOCUMENTATION: JOB ID: [id number] [employer]- All Rights Reserved Reading location - IP/workstation name: [email or web address]
--- NOTE | 2018-12-05 19:50 | PDOC PROGRESS REPORT ---
Subjective Progress Note for:: 12/05/18 Subjective:: Critical care note-I was called to the room emergently as the patient had an acute change in her mental status and exhibited shallow rapid respirations. Staff reports that they went into check on the patient and she was staring blankly into space. There was incontinence of urine. Respirations became shallow. She was unresponsive to verbal stimuli. She would respond to sternal rub but just to acknowledge the pain. She was nonverbal as well. Reason For Visit: ABDOMINAL PAIN WITH ASCITES Physical Exam Vital Signs: Temp Pulse Resp BP Pulse Ox 97.8 F 76 22 H 123/67 100 12/05/18 16:00 12/05/18 16:00 12/05/18 17:54 12/05/18 16:00 12/05/18 17:54 Intake & Output 12/04/18 12/05/18 12/06/18 06:59 06:59 06:59 Intake Total 100 1100 380 Balance 100 1100 380 Weight 86 kg 86 kg General appearance: PRESENT: other - Patient resting in bed staring at the ceiling. Breath sounds shallow with tachypnea. Unresponsive to verbal stimulus. Respiratory exam: PRESENT: accessory muscle use, symmetrical, tachypnea, other - Somewhat paradoxical breathing.. ABSENT: rales, rhonchi, wheezes Cardiovascular exam: PRESENT: RRR, +S1, +S2 GI/Abdominal exam: PRESENT: distended, organolmegaly - Hepatomegaly, soft. ABSENT: tenderness - Difficult to assess. Patient did not wince or change expression when palpating the abdomen. Rectal exam: PRESENT: deferred Gentrourinary exam: PRESENT: other - Incontinent of urine Neurological exam: PRESENT: awake, aphasic, other - Minimally responsive.. ABSENT: oriented to person, oriented to place, oriented to time, oriented to situation Psychiatric exam: PRESENT: unusual affect. ABSENT: agitated, anxious Results Laboratory Results: 12/05/18 18:13 12/05/18 12/05/18 12/05/18 03:29 03:29 03:29 WBC 4.1 RBC 3.52 L Hgb 10.1 L Hct 31.3 L MCV 89 MCH 28.8 MCHC 32.4 RDW 19.0 H Plt Count 82 L Carbonic Acid HCO3/H2CO3 Ratio ABG pH ABG pCO2 ABG pO2 ABG HCO3 ABG O2 Saturation ABG Base Excess FiO2 Sodium 138.2 Potassium 3.7 Chloride 109 H Carbon Dioxide 24 Anion Gap 5 BUN 10 Creatinine 1.16 Est GFR ( Amer) 54 L Glucose 122 H Calcium 7.8 L Magnesium 1.6 Total Bilirubin 1.4 H AST 35 Alkaline Phosphatase 73 Ammonia Total Protein 6.6 Albumin 2.2 L 12/05/18 12/05/18 12/05/18 17:35 18:13 18:13 WBC RBC Hgb Hct MCV MCH MCHC RDW Plt Count Carbonic Acid 1.37 H HCO3/H2CO3 Ratio 15:1 ABG pH 7.30 L ABG pCO2 45.5 H ABG pO2 75.0 L ABG HCO3 21.6 ABG O2 Saturation 93.6 L ABG Base Excess -4.8 FiO2 2L Sodium 139.6 Potassium 4.0 Chloride 107 Carbon Dioxide 24 Anion Gap 9 BUN 12 Creatinine 1.45 H Est GFR ( Amer) 42 L Glucose 115 H Calcium 8.3 L Magnesium Total Bilirubin 1.9 H AST 42 H Alkaline Phosphatase 92 Ammonia 22.0 Total Protein 8.5 H Albumin 2.9 L Impressions: Abdomen/Pelvis CT 12/03/18 19:49 IMPRESSION: 1. Nodular liver consistent with cirrhosis 2. Development of large volume low density ascites since 09/17/2018 3. Splenomegaly 4. Hyperdense material in the gallbladder, suspicious for cholelithiasis. Paracentesis Ultrasound 12/04/18 00:00 IMPRESSION: Successful ultrasound-guided paracentesis Chest X-Ray 12/05/18 00:00 IMPRESSION: Low lung volumes. Cannot exclude very limited infiltrate in the right base. Assessment and Plan - Diagnosis (1) Cirrhosis Qualifiers: Hepatic cirrhosis type: unspecified hepatic cirrhosis Ascites presence: with ascites Qualified Code(s): K74.60 - Unspecified cirrhosis of liver; R18.8 - Other ascites Is this a current diagnosis for this admission?: Yes (2) Hypokalemia Is this a current diagnosis for this admission?: Yes (3) Abdominal pain Qualifiers: Abdominal location: generalized Qualified Code(s): R10.84 - Generalized abdominal pain Is this a current diagnosis for this admission?: Yes (4) Hypertension Qualifiers: Hypertension type: essential hypertension Qualified Code(s): I10 - Essential (primary) hypertension Is this a current diagnosis for this admission?: Yes (5) Ascites Qualifiers: Ascites type: other type Qualified Code(s): R18.8 - Other ascites Is this a current diagnosis for this admission?: Yes (6) Hepatic encephalopathy Is this a current diagnosis for this admission?: Yes (7) Acute respiratory failure with hypoxia and hypercapnia Is this a current diagnosis for this admission?: Yes Plan: 12/05/2018-the patient exhibited shallow respirations with tachypnea. A blood gas was drawn which showed a respiratory acidosis with metabolic acidosis. Her PCO2 was actually not as high as I would have expected. She was on fairly high doses of morphine. We administered 0.4 mg of naloxone and she in fact began to interact. She had an episode of emesis shortly after the naloxone was administered and it was mostly food from lunch. We sat her upright to avoid aspiration. Because of her respiratory status she was placed on BiPAP emergently while we are obtaining the blood gas and administering the naloxone. She seemed to respond well to the combination of naloxone and BiPAP. Stat labs were ordered. Her ammonia level is actually improved at 22. Creatinine was up to 1.45 with an acute kidney injury. No critical laboratory results were noted. Chest x-ray did not reveal any pleural effusions. Possible small infiltrate in the right base. I believe the acute respiratory failure and altered mental status were due to narcotics and organ system failure regarding her cirrhosis. She also exhibited new mild acute kidney injury. I did decrease her scheduled morphine as well as some as needed morphine. I removed the Percocet. The patient was awake and alert and interacting by the end of this critical care encounter. (8) Acute kidney injury Is this a current diagnosis for this admission?: Yes Plan: 12/05/2018-I have ordered more lab work for tomorrow. It will be a difficult balance trying to get fluid off and preserving kidney function. Please see the discussion below. I did learn that the patient was in fact on hospice at [facility]. I was unaware of this. - Plan Summary Summary: The patient was on hospice at the [facility]. She was sent for a therapeutic paracentesis and hospice was rescinded. She is a DNR but she was not comfort measures only. I did have a chance to speak with the family in great detail once the patient was stabilized. The family understands that this is a chronic progressive disease. The family understands the difference between hospice care and comfort only. I explained to them that normally hospice patien ts would not be admitted to the hospital and in a case like this, the paracentesis could be viewed as relieving shortness of breath. However, we will see how the patient responds to the current medication regimen. In 24 to 48 hours if there is no significant improvement then the family wishes to change her status to comfort measures only and then be evaluated for inpatient hospice as opposed to returning to the previous facility. - Time Total Critical Time (Minutes): 50 Medications reviewed and adjusted accordingly: Yes Anticipated discharge: Hospice
[2018-12-05 20:54] LABS: ABSOLUTE EOSINOPHILS # (AUTO) 0.1 10^3/uL (0.0-0.6); ABSOLUTE MONOCYTES (AUTO) 0.4 10^3/uL (0.1-1.4); ABSOLUTE NEUT (AUTO) 4.1 10^3/uL (1.7-8.2); BASOPHILS % (AUTO) 0.7 % (0-2); EOSINOPHILS % (AUTO) 2.5 % (0-6); HEMATOCRIT 33.6 % (36.0-47.0); HEMOGLOBIN 10.9 g/dL (12.0-15.5); LYMPHOCYTES % (AUTO) 17.5 % (13-45); MEAN CORPUSCULAR HEMOGLOBIN 28.9 pg (27.0-33.4); MEAN CORPUSCULAR HGB CONC 32.3 g/dL (32.0-36.0); MEAN CORPUSCULAR VOLUME 90 fl (80-97); MONOCYTES % (AUTO) 7.6 % (3-13); RED BLOOD COUNT 3.76 10^6/uL (3.72-5.28); RED CELL DISTRIBUTION WIDTH 19.3 % (11.5-14.0); SEGMENTED NEUTROPHILS % (AUTO) 71.7 % (42-78); TOTAL CELLS COUNTED % (AUTO) 100 %; WHITE BLOOD COUNT 5.7 10^3/uL (4.0-10.5)
[2018-12-05 21:04] LABS: PLATELET COUNT 99 10^3/uL (150-450)
[2018-12-06 06:03] LABS: HEMATOCRIT 28.4 % (36.0-47.0); HEMOGLOBIN 9.4 g/dL (12.0-15.5); MEAN CORPUSCULAR HEMOGLOBIN 29.4 pg (27.0-33.4); MEAN CORPUSCULAR HGB CONC 33.3 g/dL (32.0-36.0); MEAN CORPUSCULAR VOLUME 88 fl (80-97); RED BLOOD COUNT 3.22 10^6/uL (3.72-5.28); RED CELL DISTRIBUTION WIDTH 18.8 % (11.5-14.0); WHITE BLOOD COUNT 4.7 10^3/uL (4.0-10.5)
[2018-12-06 06:24] LABS: ALBUMIN 2.3 g/dL (3.5-5.0); ALKALINE PHOSPHATASE 73 U/L (38-126); ANION GAP 7 (5-19); ASPARTATE AMINO TRANSFERASE 36 U/L (14-36); BILIRUBIN,DIRECT 0.7 mg/dL (0.0-0.4); BILIRUBIN,TOTAL 1.7 mg/dL (0.2-1.3); BLOOD UREA NITROGEN 13 mg/dL (7-20); CARBON DIOXIDE 24 mmol/L (22-30); CHLORIDE 107 mmol/L (98-107); GLUCOSE 100 mg/dL (75-110); POTASSIUM 3.8 mmol/L (3.6-5.0); TOTAL PROTEIN 6.9 g/dL (6.3-8.2)
[2018-12-06 06:43] LABS: PLATELET COUNT 81 10^3/uL (150-450)
[2018-12-06] MEDS: HEPARIN SOD (PORCINE) 5,000 UNIT/ML 1 ML VIAL SUBCUT SCH ×3 (08:52→21:10)
[2018-12-06] MEDS: MORPHINE SULFATE IR 15 MG TABLET PO SCH ×3 (08:53→21:13)
[2018-12-06] MEDS: SPIRONOLACTONE 25 MG TABLET PO SCH ×2 (10:50→21:14)
[2018-12-06] MEDS: POTASSIUM CHLORIDE 10 MEQ CAPSULE.ER PO SCH (10:50)
[2018-12-06] MEDS: FUROSEMIDE 40 MG TABLET PO SCH ×2 (10:50→17:34)
[2018-12-06] MEDS: DOCUSATE SODIUM 100 MG CAPSULE PO SCH ×2 (10:50→17:34)
[2018-12-06] MEDS: FAMOTIDINE 20 MG TABLET PO SCH ×2 (10:51→21:14)
[2018-12-06] MEDS: RIFAXIMIN 550 MG TABLET PO SCH ×2 (10:51→17:34)
--- NOTE | 2018-12-06 16:08 | PDOC PROGRESS REPORT ---
Subjective Progress Note for:: 12/06/18 Subjective:: No adverse events overnight. Her breathing has been comfortable. She had an episode today where her pain medication had to be reversed. Her pain control today has been good. She says she does not want to go back [facility]. Reason For Visit: ABDOMINAL PAIN WITH ASCITES Physical Exam Vital Signs: Temp Pulse Resp BP Pulse Ox 98.1 F 73 10 L 156/66 H 95 12/06/18 07:30 12/06/18 07:30 12/06/18 07:30 12/06/18 07:30 12/06/18 08:00 Intake & Output 12/05/18 12/06/18 12/07/18 06:59 06:59 06:59 Intake Total 1100 380 600 Output Total 525 Balance 1100 380 75 Weight 86 kg 68.8 kg General appearance: PRESENT: no acute distress, cooperative, disheveled Respiratory exam: PRESENT: clear to auscultation victor manuel, symmetrical, unlabored. ABSENT: accessory muscle use, chest wall tenderness, crackles, prolonged expiratory phas, rhonchi, tachypnea, wheezes Cardiovascular exam: PRESENT: RRR, +S1, +S2 Pulses: PRESENT: normal carotid pulses Vascular exam: PRESENT: normal capillary refill GI/Abdominal exam: PRESENT: distended, hypoactive bowel sounds, soft. ABSENT: guarding, rebound, tenderness Extremities exam: ABSENT: clubbing, pedal edema Musculoskeletal exam: PRESENT: normal inspection. ABSENT: deformity Neurological exam: PRESENT: alert, awake, oriented to person, oriented to place, oriented to situation Psychiatric exam: PRESENT: appropriate affect, normal mood Skin exam: PRESENT: dry, warm Results Laboratory Results: 12/06/18 04:47 12/06/18 04:47 12/05/18 12/05/18 12/05/18 17:35 18:13 18:13 WBC Cancelled RBC Cancelled Hgb Cancelled Hct Cancelled MCV Cancelled MCH Cancelled MCHC Cancelled RDW Cancelled Plt Count Cancelled Seg Neutrophils % Cancelled Carbonic Acid 1.37 H HCO3/H2CO3 Ratio 15:1 ABG pH 7.30 L ABG pCO2 45.5 H ABG pO2 75.0 L ABG HCO3 21.6 ABG O2 Saturation 93.6 L ABG Base Excess -4.8 FiO2 2L Sodium 139.6 Potassium 4.0 Chloride 107 Carbon Dioxide 24 Anion Gap 9 BUN 12 Creatinine 1.45 H Est GFR ( Amer) 42 L Glucose 115 H Calcium 8.3 L Magnesium Total Bilirubin 1.9 H AST 42 H Alkaline Phosphatase 92 Ammonia Total Protein 8.5 H Albumin 2.9 L 12/05/18 12/05/18 12/06/18 18:13 20:15 04:47 WBC 5.7 4.7 RBC 3.76 3.22 L Hgb 10.9 L 9.4 L Hct 33.6 L 28.4 L MCV 90 88 MCH 28.9 29.4 MCHC 32.3 33.3 RDW 19.3 H 18.8 H Plt Count 99 L 81 L Seg Neutrophils % 71.7 Carbonic Acid HCO3/H2CO3 Ratio ABG pH ABG pCO2 ABG pO2 ABG HCO3 ABG O2 Saturation ABG Base Excess FiO2 Sodium Potassium Chloride Carbon Dioxide Anion Gap BUN Creatinine Est GFR ( Amer) Glucose Calcium Magnesium Total Bilirubin AST Alkaline Phosphatase Ammonia 22.0 Total Protein Albumin 12/06/18 12/06/18 04:47 04:47 WBC RBC Hgb Hct MCV MCH MCHC RDW Plt Count Seg Neutrophils % Carbonic Acid HCO3/H2CO3 Ratio ABG pH ABG pCO2 ABG pO2 ABG HCO3 ABG O2 Saturation ABG Base Excess FiO2 Sodium 138.0 Potassium 3.8 Chloride 107 Carbon Dioxide 24 Anion Gap 7 BUN 13 Creatinine 1.47 H Est GFR ( Amer) 41 L Glucose 100 Calcium 8.0 L Magnesium 1.6 Total Bilirubin 1.7 H AST 36 Alkaline Phosphatase 73 Ammonia 48.5 H Total Protein 6.9 Albumin 2.3 L 12/03/18 20:30 Clean Catch Midstream Urine Culture - Final Enterococcus Faecalis(Group D) Impressions: Abdomen/Pelvis CT 12/03/18 19:49 IMPRESSION: 1. Nodular liver consistent with cirrhosis 2. Development of large volume low density ascites since 09/17/2018 3. Splenomegaly 4. Hyperdense material in the gallbladder, suspicious for cholelithiasis. Paracentesis Ultrasound 12/04/18 00:00 IMPRESSION: Successful ultrasound-guided paracentesis Chest X-Ray 12/05/18 00:00 IMPRESSION: Low lung volumes. Cannot exclude very limited infiltrate in the right base. Assessment and Plan - Diagnosis (1) Acute respiratory failure with hypoxia and hypercapnia Is this a current diagnosis for this admission?: Yes Plan: Currently stable on 2 L of oxygen per nasal cannula (2) Ascites Qualifiers: Ascites type: other type Qualified Code(s): R18.8 - Other ascites Is this a current diagnosis for this admission?: Yes Plan: She had a paracentesis performed to help with her breathing (3) Hepatic encephalopathy Is this a current diagnosis for this admission?: Yes Plan: Resolved, continuing lactulose and rifaximin (4) Cirrhosis Qualifiers: Hepatic cirrhosis type: unspecified hepatic cirrhosis Ascites presence: with ascites Qualified Code(s): K74.60 - Unspecified cirrhosis of liver; R18.8 - Other ascites Is this a current diagnosis for this admission?: Yes Plan: 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 Had a therapeutic paracentesis. Per family, has been having increasing ascites over the last few months. - Plan Summary Summary: The [facility]. She was sent for a therapeutic paracentesis and hospice was rescinded. She is a DNR but she was not comfort measures only. I did have a chance to speak with the family in great detail once the patient was stabilized. The family understands that this is a chronic progressive disease. The family understands the difference between hospice care and comfort only. I explained to them that normally hospice patients would not be admitted to the hospital and in a case like this, the paracentesis could be viewed as relieving shortness of breath. However, we will see how the patient responds to the current medication regimen. In 24 to 48 hours if there is no significant improvement then the family wishes to change her status to comfort measures only and then be evaluated for inpatient hospice as opposed to returning to the previous facility. - Time Time Spent with patient: 15-24 minutes
[2018-12-07] MEDS: HEPARIN SOD (PORCINE) 5,000 UNIT/ML 1 ML VIAL SUBCUT SCH ×3 (05:22→22:56)
[2018-12-07] MEDS: MORPHINE SULFATE IR 15 MG TABLET PO SCH ×3 (05:23→22:56)
[2018-12-07] MEDS: ONDANSETRON HCL INJ/PF 4 MG/2 ML SDV IV PRN (08:27)
[2018-12-07] MEDS: SPIRONOLACTONE 25 MG TABLET PO SCH ×2 (10:14→23:04)
[2018-12-07] MEDS: RIFAXIMIN 550 MG TABLET PO SCH ×2 (10:14→17:44)
[2018-12-07] MEDS: FAMOTIDINE 20 MG TABLET PO SCH ×2 (10:14→22:59)
[2018-12-07] MEDS: POTASSIUM CHLORIDE 10 MEQ CAPSULE.ER PO SCH (10:14)
[2018-12-07] MEDS: FUROSEMIDE 40 MG TABLET PO SCH ×2 (10:14→17:44)
[2018-12-07] MEDS: DOCUSATE SODIUM 100 MG CAPSULE PO SCH ×2 (10:14→17:44)
--- NOTE | 2018-12-07 16:59 | PDOC PROGRESS REPORT ---
Subjective Progress Note for:: 12/07/18 Subjective:: No adverse events overnight. No new complaints. She was resting comfortably this morning. Pain is well controlled. Spoke with patient's and HER-2 daughters, and everyone is interested in comfort care. Reason For Visit: ABDOMINAL PAIN WITH ASCITES Physical Exam Vital Signs: Temp Pulse Resp BP Pulse Ox 97.8 F 73 10 L 138/57 H 98 12/07/18 11:14 12/07/18 11:14 12/07/18 11:56 12/07/18 11:14 12/07/18 11:56 Intake & Output 12/06/18 12/07/18 12/08/18 06:59 06:59 06:59 Intake Total 380 1920 240 Output Total 4425 400 Balance 380 -2505 -160 Weight 68.8 kg 63.2 kg General appearance: PRESENT: no acute distress, cooperative, disheveled Respiratory exam: PRESENT: clear to auscultation victor manuel, symmetrical, unlabored. ABSENT: accessory muscle use, chest wall tenderness, crackles, prolonged expiratory phas, rhonchi, tachypnea, wheezes Cardiovascular exam: PRESENT: RRR, +S1, +S2 Pulses: PRESENT: normal carotid pulses Vascular exam: PRESENT: normal capillary refill GI/Abdominal exam: PRESENT: distended, hypoactive bowel sounds, soft. ABSENT: guarding, rebound, tenderness Extremities exam: ABSENT: clubbing, pedal edema Musculoskeletal exam: PRESENT: normal inspection. ABSENT: deformity Neurological exam: PRESENT: alert, awake, oriented to person, oriented to place, oriented to situation Psychiatric exam: PRESENT: appropriate affect, normal mood Skin exam: PRESENT: dry, warm Results Laboratory Results: 12/06/18 04:47 12/06/18 04:47 12/03/18 20:30 Clean Catch Midstream Urine Culture - Final Enterococcus Faecalis(Group D) Impressions: Abdomen/Pelvis CT 12/03/18 19:49 IMPRESSION: 1. Nodular liver consistent with cirrhosis 2. Development of large volume low density ascites since 09/17/2018 3. Splenomegaly 4. Hyperdense material in the gallbladder, suspicious for cholelithiasis. Paracentesis Ultrasound 12/04/18 00:00 IMPRESSION: Successful ultrasound-guided paracentesis Chest X-Ray 12/05/18 00:00 IMPRESSION: Low lung volumes. Cannot exclude very limited infiltrate in the right base. Assessment and Plan - Diagnosis (1) Acute respiratory failure with hypoxia and hypercapnia Is this a current diagnosis for this admission?: Yes Plan: Currently stable on 2 L of oxygen per nasal cannula with supplemental BiPAP while she sleeps (2) Ascites Qualifiers: Ascites type: other type Qualified Code(s): R18.8 - Other ascites Is this a current diagnosis for this admission?: Yes Plan: She had a paracentesis performed to help with her breathing (3) Hepatic encephalopathy Is this a current diagnosis for this admission?: Yes Plan: Resolved, continuing lactulose and rifaximin (4) Cirrhosis Qualifiers: Hepatic cirrhosis type: unspecified hepatic cirrhosis Ascites presence: with ascites Qualified Code(s): K74.60 - Unspecified cirrhosis of liver; R18.8 - Other ascites Is this a current diagnosis for this admission?: Yes Plan: 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 Had a therapeutic paracentesis. Per family, has been having increasing ascites over the last few months. Patient and family are interested in hospice care in a hospice house. - Plan Summary Summary: The patient [facility]. She was sent for a therapeutic paracentesis and hospice was rescinded. She is a DNR but she was not comfort measures only. I did have a chance to speak with the family in great detail once the patient was stabilized. The family understands that this is a chronic progressive disease. The family understands the difference between hospice care and comfort only. I explained to them that normally hospice mariana ents would not be admitted to the hospital and in a case like this, the paracentesis could be viewed as relieving shortness of breath. However, we will see how the patient responds to the current medication regimen. In 24 to 48 hours if there is no significant improvement then the family wishes to change her status to comfort measures only and then be evaluated for inpatient hospice as opposed to returning to the previous facility. - Time Time Spent with patient: 25-34 minutes
[2018-12-08] MEDS: MORPHINE SULFATE IR 15 MG TABLET PO SCH ×3 (05:19→22:36)
[2018-12-08] MEDS: HEPARIN SOD (PORCINE) 5,000 UNIT/ML 1 ML VIAL SUBCUT SCH ×3 (05:19→21:58)
[2018-12-08] MEDS: POTASSIUM CHLORIDE 10 MEQ CAPSULE.ER PO SCH (10:09)
[2018-12-08] MEDS: DOCUSATE SODIUM 100 MG CAPSULE PO SCH ×2 (10:09→17:30)
[2018-12-08] MEDS: RIFAXIMIN 550 MG TABLET PO SCH ×2 (10:09→17:30)
[2018-12-08] MEDS: FUROSEMIDE 40 MG TABLET PO SCH ×2 (10:09→17:30)
[2018-12-08] MEDS: SPIRONOLACTONE 25 MG TABLET PO SCH ×2 (10:10→22:38)
[2018-12-08] MEDS: FAMOTIDINE 20 MG TABLET PO SCH ×2 (10:10→22:37)
--- NOTE | 2018-12-08 14:45 | PDOC PROGRESS REPORT ---
Subjective Progress Note for:: 12/08/18 Subjective:: No adverse events overnight. No new complaints. Pain is been well controlled. She is little somnolent during the day but she arouses to verbal command. Reason For Visit: ABDOMINAL PAIN WITH ASCITES Physical Exam Vital Signs: Temp Pulse Resp BP Pulse Ox 97.6 F 69 20 122/50 L 96 12/08/18 12:00 12/08/18 12:00 12/08/18 12:00 12/08/18 12:00 12/08/18 12:00 Intake & Output 12/07/18 12/08/18 12/09/18 06:59 06:59 06:59 Intake Total 1920 360 Output Total 4425 2300 Balance -2505 -1940 Weight 63.2 kg 63.1 kg General appearance: PRESENT: no acute distress, cooperative, disheveled Respiratory exam: PRESENT: clear to auscultation victor manuel, symmetrical, unlabored. ABSENT: accessory muscle use, chest wall tenderness, crackles, prolonged expiratory phas, rhonchi, tachypnea, wheezes Cardiovascular exam: PRESENT: RRR, +S1, +S2 Pulses: PRESENT: normal carotid pulses Vascular exam: PRESENT: normal capillary refill GI/Abdominal exam: PRESENT: distended, hypoactive bowel sounds, soft. ABSENT: guarding, rebound, tenderness Extremities exam: ABSENT: clubbing, pedal edema Musculoskeletal exam: PRESENT: normal inspection. ABSENT: deformity Neurological exam: PRESENT: alert, awake, oriented to person, oriented to place, oriented to situation Psychiatric exam: PRESENT: appropriate affect, normal mood Skin exam: PRESENT: dry, warm Results Laboratory Results: 12/06/18 04:47 12/06/18 04:47 Impressions: Abdomen/Pelvis CT 12/03/18 19:49 IMPRESSION: 1. Nodular liver consistent with cirrhosis 2. Development of large volume low density ascites since 09/17/2018 3. Splenomegaly 4. Hyperdense material in the gallbladder, suspicious for cholelithiasis. Paracentesis Ultrasound 12/04/18 00:00 IMPRESSION: Successful ultrasound-guided paracentesis Chest X-Ray 12/05/18 00:00 IMPRESSION: Low lung volumes. Cannot exclude very limited infiltrate in the right base. Assessment and Plan - Diagnosis (1) Acute respiratory failure with hypoxia and hypercapnia Is this a current diagnosis for this admission?: Yes Plan: Currently stable on 2 L of oxygen per nasal cannula with supplemental BiPAP while she sleeps (2) Ascites Qualifiers: Ascites type: other type Qualified Code(s): R18.8 - Other ascites Is this a current diagnosis for this admission?: Yes Plan: She had a paracentesis performed to help with her breathing (3) Hepatic encephalopathy Is this a current diagnosis for this admission?: Yes Plan: Resolved, continuing lactulose and rifaximin (4) Cirrhosis Qualifiers: Hepatic cirrhosis type: unspecified hepatic cirrhosis Ascites presence: with ascites Qualified Code(s): K74.60 - Unspecified cirrhosis of liver; R18.8 - Other ascites Is this a current diagnosis for this admission?: Yes Plan: 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 Had a therapeutic paracentesis. Per family, has been having increasing ascites over the last few months. Patient and family are interested in hospice care in a hospice house. Awaiting hospice consultation. - Plan Summary Summary: The patient was on hospice at the [facility] facility. She was sent for a therapeutic paracentesis and hospice was rescinded. She is a DNR but she was not comfort measures only. I did have a chance to speak with the family in great detail once the patient was stabilized. The family understands that this is a chronic progressive disease. The family understands the difference between hospice care and comfort only. I explained to them that normally hospice patients would not be admitted to the hospital and in a case like this, the paracentesis could be viewed as relieving shortness of breath. However, we will see how the patient responds to the current medication regimen. In 24 to 48 hours if there is no significant improvement then the family wishes to change her status to comfort measures only and then be evaluated for inpatient hospice as opposed to returning to the previous facility. - Time Time Spent with patient: 15-24 minutes
[2018-12-09] MEDS: HEPARIN SOD (PORCINE) 5,000 UNIT/ML 1 ML VIAL SUBCUT SCH ×2 (05:25→14:42)
[2018-12-09] MEDS: MORPHINE SULFATE IR 15 MG TABLET PO SCH ×2 (05:25→14:43)
[2018-12-09] MEDS: POTASSIUM CHLORIDE 10 MEQ CAPSULE.ER PO SCH (09:35)
[2018-12-09] MEDS: FUROSEMIDE 40 MG TABLET PO SCH ×2 (09:35→18:18)
[2018-12-09] MEDS: FAMOTIDINE 20 MG TABLET PO SCH (09:35)
[2018-12-09] MEDS: SPIRONOLACTONE 25 MG TABLET PO SCH (09:36)
[2018-12-09] MEDS: DOCUSATE SODIUM 100 MG CAPSULE PO SCH ×2 (09:36→18:18)
[2018-12-09] MEDS: RIFAXIMIN 550 MG TABLET PO SCH ×2 (09:36→18:17)
--- NOTE | 2018-12-09 16:32 | PDOC TRANSFER SUMMARY ---
General - Admit/Disc Date/PCP Admission Date/Primary Care Provider: 12/03/18 22:56 NATALIA CHOI MD Discharge Date: 12/09/18 - Discharge Diagnosis (1) Acute respiratory failure with hypoxia and hypercapnia Is this a current diagnosis for this admission?: Yes (2) Ascites Is this a current diagnosis for this admission?: Yes (3) Hepatic encephalopathy Is this a current diagnosis for this admission?: Yes (4) Cirrhosis Is this a current diagnosis for this admission?: Yes - Additional Information Resuscitation Status: Comfort Measures Only Discharge Diet: As Tolerated Discharge Activity: Other - No strenuous activity Home Medications: Morphine Sulfate [Morphine Ir 15 mg Tablet] 15 mg PO Q4 12/04/18 Morphine Sulfate [Ms-Contin Sr 15 mg Tablet] 15 mg PO Q12 12/04/18 Oxycodone HCl/Acetaminophen [Percocet 5-325 mg Tablet] 1 tab PO Q6HP PRN 12/04/18 History of Present Illness Admission Date/PCP: 12/03/18 22:56 NATALIA CHOI MD History of Present Illness: JAJA SHABAZZ is a 83 year old female who presented to the emergency room with a 3-day history of abdominal pain. She and her daughter admit to gradually worsening abdominal pain over the last 3 days becoming much worse today. The pain is a moderately severe generalized pressure throughout her entire abdomen without radiation, is accompanied by abdominal distention and associated with nausea and decreased appetite. Pain is worsened by activity and relieved at least in part by rest. She denies other associated or accompanying signs and symptoms. She admits a substantially less severe prior similar episode. She has not identified any additional aggravating or ameliorating factors for her abdominal pain. In the emergency room she was found to have abdominal distention with ascites and was subsequently admitted to the hospital for further evaluation and treatment. 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 She had a paracentesis to help relieve some of her distention and her pain medication wa s increased. It was increased a bit too much at one point because she had to be reversed with some Narcan and we cut back her medication she was able to have relief without having worsening of her respiratory status. After discussion with her family she has decided to go comfort care only. I do believe that her condition is refractory to medical management at this point. She and her family decided that they wanted to be in a hospice house. A bed was obtained and she is being transferred there this evening. Physical Exam Vital Signs: Temp Pulse Resp BP Pulse Ox 97.9 F 79 16 155/67 H 94 12/09/18 12:00 12/09/18 14:00 12/09/18 12:00 12/09/18 12:00 12/09/18 12:00 Intake & Output 12/08/18 12/09/18 12/10/18 06:59 06:59 06:59 Intake Total 360 982 Output Total 2300 1825 Balance -1940 -843 Weight 63.1 kg 63 kg General appearance: PRESENT: no acute distress, cooperative, disheveled Respiratory exam: PRESENT: clear to auscultation victor manuel, symmetrical, unlabored. ABSENT: accessory muscle use, chest wall tenderness, crackles, prolonged expiratory phas, rhonchi, tachypnea, wheezes Cardiovascular exam: PRESENT: RRR, +S1, +S2 Pulses: PRESENT: normal carotid pulses Vascular exam: PRESENT: normal capillary refill GI/Abdominal exam: PRESENT: distended, hypoactive bowel sounds, soft. ABSENT: guarding, rebound, tenderness Extremities exam: ABSENT: clubbing, pedal edema Musculoskeletal exam: PRESENT: normal inspection. ABSENT: deformity Neurological exam: PRESENT: alert, awake, oriented to person, oriented to place, oriented to situation Psychiatric exam: PRESENT: appropriate affect, normal mood Skin exam: PRESENT: dry, warm Results Laboratory Results: 12/06/18 04:47 12/06/18 04:47 Impressions: Abdomen/Pelvis CT 12/03/18 19:49 IMPRESSION: 1. Nodular liver consistent with cirrhosis 2. Development of large volume low density ascites since 09/17/2018 3. Splenomegaly 4. Hyperdense material in the gallbladder, suspicious for cholelithiasis. Paracentesis Ultrasound 12/04/18 00:00 IMPRESSION: Successful ultrasound-guided paracentesis Chest X-Ray 12/05/18 00:00 IMPRESSION: Low lung volumes. Cannot exclude very limited infiltrate in the right base. Transfer Plan - Time Spent with Patient Time spent with patient: Greater than 30 Minutes Qualifiers PATIENT BEING DISCHARGED WITH ANY OF THE FOLLOWING DIAGNOSIS: No Plan Time Spent: Greater than 30 Minutes
[2018-12-09 17:28] VITALS: BP 119/56
[2018-12-09] MEDS: ONDANSETRON HCL INJ/PF 4 MG/2 ML SDV IV PRN (18:23)
== END 2018-12-09 20:03 | disposition hospice, inpatient (51) | DRG 432 ==
LOC: ER 19:27 → EH 22:56 → 4N 12-04 16:46
PROVIDERS: ADMIT Emergency Medicine; ATTEND Emergency Medicine
PROC: 0W9G3ZZ Drainage of Peritoneal Cavity, Percutaneous Approach (ICD-10-PCS; principal; 2018-12-04)
DX: K74.60 Unspecified cirrhosis of liver (principal); J96.02 Acute respiratory failure with hypercapnia; J96.01 Acute respiratory failure with hypoxia; R18.8 Other ascites; N17.9 Acute kidney failure, unspecified; K75.81 Nonalcoholic steatohepatitis (NASH); K72.90 Hepatic failure, unspecified without coma; E87.6 Hypokalemia; E78.5 Hyperlipidemia, unspecified; I10 Essential (primary) hypertension; G47.30 Sleep apnea, unspecified; Z51.5 Encounter for palliative care; M06.9 Rheumatoid arthritis, unspecified; F32.9 Major depressive disorder, single episode, unspecified; Z83.3 Family history of diabetes mellitus; K59.00 Constipation, unspecified; Z66 Do not resuscitate; Z83.79 Family history of other diseases of the digestive system; T40.605A Adverse effect of unspecified narcotics, initial encounter; Y92.230 Patient room in hospital as the place of occurrence of the external cause
CPT/HCPCS: 36415; 49083; 71045; 74177; 80048; 80053; 80076; 81001; 82140; 82150; 82803; 82962; 83690; 83735; 85025; 85027; 85610; 85730; 87070; 87086; 87088; 87186; 94660; 96365; 96375; 99285; A9270-GY; J1644; J2270; J2310; J2405; J3480; J3490; J7120